=== PATIENT | male | born 1970 | race Caucasian/White ===

== ENCOUNTER → 2018-05-19 11:11 | Outpatient (REF) | payer OTHER, SELFPAY ==
[2018-05-22 13:34] LABS: 6-monoacetylmorphine Not Detected ng/mL (Cutoff: 25); Amphetamines Negative ng/mL (Cutoff: 500); Barbiturates Negative ng/mL (Cutoff: 200); Benzodiazepines Negative ng/mL (Cutoff: 100); Buprenorphine Not Detected ng/mL (Cutoff: 5); Cocaine Negative ng/mL (Cutoff: 150); Codeine Not Detected ng/mL (Cutoff: 25); Comment Normal; Creatinine, U 193.6 mg/dL; Dihydrocodeine Not Detected ng/mL (Cutoff: 25); EDDP Not Detected ng/mL (Cutoff: 25); Fentanyl Not Detected ng/mL (Cutoff: 2); Hydrocodone Not Detected ng/mL (Cutoff: 25); Hydromorphone Not Detected ng/mL (Cutoff: 25); Hydromorphone-3-beta-glucuroni Not Detected ng/mL (Cutoff: 100); Meperidine Not Detected ng/mL (Cutoff: 25); Methadone Not Detected ng/mL (Cutoff: 25); Morphine Not Detected ng/mL (Cutoff: 25); N-desmethyltapentadol Not Detected ng/mL (Cutoff: 50); Naloxone Not Detected ng/mL (Cutoff: 25); Norbuprenorphine Not Detected ng/mL (Cutoff: 5); Norfentanyl Not Detected ng/mL (Cutoff: 2); Norhydrocodone Not Detected ng/mL (Cutoff: 25); Normeperidine Not Detected ng/mL (Cutoff: 25); Noroxycodone Not Detected ng/mL (Cutoff: 25); Noroxymorphone Not Detected ng/mL (Cutoff: 25); O-desmethyltramadol Not Detected ng/mL (Cutoff: 25); Phencyclidine Negative ng/mL (Cutoff: 25); Propoxyphene Not Detected ng/mL (Cutoff: 25); Specific Gravity 1.016; Tapentadol Not Detected ng/mL (Cutoff: 25); Tetrahydrocannabinol Presumptive Positive ng/mL (Cutoff: 50); Tramadol Not Detected ng/mL (Cutoff: 25); pH 5.8
[2018-05-22 15:28] LABS: Carboxy-THC Interpretation Positive.; Delta-9 CarboxyThc by LC-MS/MS 346 ng/mL (Cutoff:<3)
== END ==
LOC: LBN 11:11
PROVIDERS: PCP Family Medicine; Visit Provider Nurse Practitioner Family
DX: Z79.899 Other long term (current) drug therapy (principal); F12.20 Cannabis dependence, uncomplicated
CPT/HCPCS: 80307; 80349; 80364

== ENCOUNTER 2018-06-04 13:09 | Outpatient (CLI) | payer OTHER, SELFPAY ==
[2018-06-04 13:50] LABS: INR 3.7 (1.0-3.5); Prothrombin Time 34.8 sec (9.3-10.8)
== END 2018-06-04 13:10 ==
PROVIDERS: PCP Family Medicine; Visit Provider Family Medicine
DX: I26.99 Other pulmonary embolism without acute cor pulmonale (principal); Z79.01 Long term (current) use of anticoagulants
CPT/HCPCS: 36415; 85610

== ENCOUNTER 2018-06-12 13:59 | Outpatient (CLI) | payer OTHER, SELFPAY ==
[2018-06-12 14:43] LABS: INR 1.4 (1.0-3.5); Prothrombin Time 13.6 sec (9.3-10.8)
== END 2018-06-12 14:19 ==
PROVIDERS: PCP Family Medicine; Visit Provider Family Medicine
DX: I26.99 Other pulmonary embolism without acute cor pulmonale (principal); Z79.01 Long term (current) use of anticoagulants
CPT/HCPCS: 36415; 85610

== ENCOUNTER 2018-06-19 14:19 | Outpatient (CLI) | payer OTHER, SELFPAY ==
[2018-06-19 14:42] LABS: INR 1.5 (1.0-3.5); Prothrombin Time 14.7 sec (9.3-10.8)
== END 2018-06-19 14:39 ==
PROVIDERS: PCP Family Medicine; Visit Provider Family Medicine
DX: I26.99 Other pulmonary embolism without acute cor pulmonale (principal); Z79.01 Long term (current) use of anticoagulants
CPT/HCPCS: 36415; 85610

== ENCOUNTER 2018-06-29 13:54 | Outpatient (CLI) | payer OTHER, SELFPAY ==
[2018-06-29 14:33] LABS: Prothrombin Time 24.1 sec (9.3-10.8)
[2018-06-29 14:35] LABS: INR 2.5 (1.0-3.5)
== END 2018-06-29 14:14 ==
PROVIDERS: PCP Family Medicine; Visit Provider Family Medicine
DX: I26.99 Other pulmonary embolism without acute cor pulmonale (principal); Z79.01 Long term (current) use of anticoagulants
CPT/HCPCS: 36415; 85610

== ENCOUNTER 2018-07-03 13:48 | Outpatient (CLI) | payer OTHER, SELFPAY ==
[2018-07-03 14:38] LABS: INR 2.7 (1.0-3.5); Prothrombin Time 25.9 sec (9.3-10.8)
== END 2018-07-03 14:08 ==
PROVIDERS: PCP Family Medicine; Visit Provider Family Medicine
DX: I26.99 Other pulmonary embolism without acute cor pulmonale (principal); Z79.01 Long term (current) use of anticoagulants
CPT/HCPCS: 36415; 85610

== ENCOUNTER 2018-07-17 13:29 | Outpatient (CLI) | payer OTHER, SELFPAY ==
[2018-07-17 13:58] LABS: INR 3.1 (1.0-3.5); Prothrombin Time 29.2 sec (9.3-10.8)
== END 2018-07-17 13:49 ==
PROVIDERS: PCP Family Medicine; Visit Provider Family Medicine
DX: I26.99 Other pulmonary embolism without acute cor pulmonale (principal); Z79.01 Long term (current) use of anticoagulants
CPT/HCPCS: 36415; 85610

== ENCOUNTER 2018-07-24 13:11 | Outpatient (CLI) | payer OTHER, SELFPAY ==
[2018-07-24 14:14] LABS: Prothrombin Time 24.1 sec (9.3-10.8)
[2018-07-24 14:17] LABS: INR 2.5 (1.0-3.5)
== END 2018-07-24 13:31 ==
PROVIDERS: PCP Family Medicine; Visit Provider Family Medicine
DX: I26.99 Other pulmonary embolism without acute cor pulmonale (principal); Z79.01 Long term (current) use of anticoagulants
CPT/HCPCS: 36415; 85610

== ENCOUNTER 2018-09-08 12:28 | Outpatient (CLI) | payer OTHER, SELFPAY ==
[2018-09-08 12:52] LABS: INR 2.7 (1.0-3.5); Prothrombin Time 25.6 sec (9.3-10.8)
== END 2018-09-08 12:48 ==
PROVIDERS: PCP Family Medicine; Visit Provider Family Medicine
DX: I26.99 Other pulmonary embolism without acute cor pulmonale (principal); Z79.01 Long term (current) use of anticoagulants
CPT/HCPCS: 36415; 85610

== ENCOUNTER 2018-11-10 12:55 | Outpatient (CLI) | payer MEDICARE, OTHER, SELFPAY ==
[2018-11-10 13:55] LABS: Prothrombin Time 12.5 sec (9.3-11.0)
[2018-11-10 14:00] LABS: INR 1.2 (0.9-1.1)
== END 2018-11-10 13:15 ==
PROVIDERS: PCP Family Medicine; Visit Provider Family Medicine
DX: I26.99 Other pulmonary embolism without acute cor pulmonale (principal); Z79.01 Long term (current) use of anticoagulants
CPT/HCPCS: 36415; 85610

== ENCOUNTER 2018-11-24 13:30 | Outpatient (CLI) | payer MEDICARE, OTHER, SELFPAY ==
[2018-11-24 15:10] LABS: INR 2.2 (0.9-1.1); Prothrombin Time 21.8 sec (9.3-11.0)
== END 2018-11-24 13:50 ==
PROVIDERS: PCP Family Medicine; Visit Provider Family Medicine
DX: I26.99 Other pulmonary embolism without acute cor pulmonale (principal); Z79.01 Long term (current) use of anticoagulants
CPT/HCPCS: 36415; 85610

== ENCOUNTER 2019-01-08 10:17 | Outpatient (CLI) | payer OTHER, MEDICARE, SELFPAY ==
[2019-01-08 13:09] LABS: INR 2.1 (0.9-1.1); Prothrombin Time 20.8 sec (9.3-11.0)
== END 2019-01-08 10:37 ==
PROVIDERS: PCP Family Medicine; Visit Provider Family Medicine
DX: I26.99 Other pulmonary embolism without acute cor pulmonale (principal); Z79.01 Long term (current) use of anticoagulants
CPT/HCPCS: 36415; 85610

== ENCOUNTER 2019-03-15 12:39 | Outpatient (CLI) | payer OTHER, MEDICARE, SELFPAY ==
[2019-03-15 13:47] LABS: INR 2.2 (0.9-1.1); Prothrombin Time 21.7 sec (9.3-11.0)
== END 2019-03-15 12:59 ==
PROVIDERS: PCP Family Medicine; Visit Provider Family Medicine
DX: I26.99 Other pulmonary embolism without acute cor pulmonale (principal); Z79.01 Long term (current) use of anticoagulants
CPT/HCPCS: 36415; 85610

== ENCOUNTER → 2019-05-19 10:37 | Outpatient (CLI) | payer OTHER, SELFPAY ==
[2019-05-19 12:36] LABS: INR 2.4 (0.9-1.1); Prothrombin Time 24.3 sec (9.3-11.0)
[2019-05-19 12:39] LABS: CREATININE 1.23 mg/dL (0.70-1.30); Calculated LDL 154 mg/dL; Cholesterol 231 mg/dL (50-200); HDL Cholesterol 29 mg/dL (40-60); Triglyceride 240 mg/dL (30-150)
== END ==
PROVIDERS: PCP Family Medicine; Visit Provider Family Medicine
DX: E78.5 Hyperlipidemia, unspecified (principal); N28.9 Disorder of kidney and ureter, unspecified; I26.99 Other pulmonary embolism without acute cor pulmonale; Z79.01 Long term (current) use of anticoagulants
CPT/HCPCS: 36415; 80061; 83721; 82565; 85610

== ENCOUNTER → 2019-05-24 00:46 | Outpatient (CLI) | payer OTHER, SELFPAY ==
--- NOTE | 2019-05-24 05:38 | MERGEMPI_ITS ---
*[facility]* *[facility]* [address] [place] [address] Myocardial Perfusion Imaging - SPECT Isreal protocol Date of study: 05/24/2019 *PATIENT PRESENTATION* Height: 177.8cm (70in) Blood Pressure: Weight: 143.2kg (315lb) BSA: 2.73m^2 Referring physician: Cayden Ventura MD Ordering physician: Dangelo Ordaz Impressions: Normal perfusion by Tc99m Sestamibi Imaging. Summary: 1. Myocardial perfusion imaging: No myocardial perfusion defects noted. 2. The calculated left ventricular ejection fraction after stress: 50%. Indication: R07.9. History: REASON FOR TESTING: SOB AND FATIGUE ONGOING FOR A FEW MONTHS. RESCUE INHALLER DID HELP AT THE START OF THIS, BUT IS NO LONGER HELPING. OCCASIONAL SHARP LEFT SIDED CHEST PAIN. PATIENT IS C/O NUMBNESS TO ARMS ONLY INTERMITTANTLY. THIS SEEMS TO BE ASSOCIATED WITH INCREASED USE OF ARMS. PMH: CHRONIC BACK PAIN, MIGRAINE,COPD, FATTY LIVER DEPRESSION, GERD, PULMONARY EMBOLUS, HYPERTRIGLYCERIDEMIA, OBESITY, DVT, SLEEP APNEA, SPINAL STENOSIS. [id number] DISEASE. FAMILY HX: MOTHER WITH PACEMAKER AT AGE 19, . SMOKIN PPD X 30 YEARS. EXCERCISE: NO REGULAR EXCERCISE. PMH: COPD. Risk factors: Family history of coronary artery disease. Current tobacco use. Obesity. Dyslipidemia. Cholesterol: 238mg/dl. HDL: 29mg/dl. LDL: 154mg/dl. Triglycerides: 240mg/dl. ALLERGIES: SULFA. MEDICATIONS: WARFARIN 5-15- MG DIRECTED, OMEPRAZOLE 20 MG DAILY, GABAPENTIN 900-1200 MG BID, DULOXETINE 120 MG DAILY, CYCLOBENZAPRINE 10 MG TID NEEDED, BUPROPION HCL 300 MG QAM,AND 150 MG QPM DAILY, BUDESONIDE-FOMOTEROL 1 PUFF BID, ALBUTEROL SULFATE 90 MCG/ACT 1-2 PUFFS Q4H NEEDED. Imaging Technique: Protocol: Isreal protocol. Acquisition: Gated SPECT; 1 day - rest/stress. The patient was imaged in the supine position. Attenuation correction used. Isotope administration: - Rest. Tc[99m]-sestamibi. Dose: 15.3mCi. Injection time: 09:15 AM. Injection to stress time: 00:45. - Stress. Tc[99m]-sestamibi. Dose: 45.7mCi. Injection time: 10:40 AM. 1-2 min before end of exercise Baseline ECG: LAST EKG 01/04/13- SINUS RHYTHM, HR 78. TODAY'S EKG- SINUS RHYTHM, HR 62. Stress protocol: + +---+ +---+ + !Stage !HR !BP (mmHg) !Sat!Comments ! + +---+ +---+ + !Baseline supine !62 !126/82 (97)!---! ! + +---+ +---+ + !Baseline standing !79 !156/84 !94%! ! ! ! !(108) ! ! ! + +---+ +---+ + !Stage I; 1.7mph, 10degrees; 3 !118!160/78 !84%! ! !min ! !(105) ! ! ! + +---+ +---+ + !Baseline !105!160/78 !---! ! ! ! !(105) ! ! ! + +---+ +---+ + !1 min !110!176/52 (93)!---!Inject ! ! ! ! ! !Regadenoson. ! + +---+ +---+ + !3 min !89 !152/80 !---! ! ! ! !(104) ! ! ! + +---+ +---+ + !6 min !80 !140/68 (92)!---! ! + +---+ +---+ + !1 min !---! !---!Inject ! ! ! ! ! !Regadenoson. ! + +---+ +---+ + * Stress results: The rate-pressure product for the peak heart rate and blood pressure was 44185vm Hg/min. Stress ECG: EXCERCISE TESTING ENDED IN 3 MINS, 9 SECS DUE TO O2 SAT OF 84%. PT UNABLE TO ACHIEVE TARGET HR. MAX HR WAS 126, 74% OF TARGET. HYPERTENSIVE BLOOD PRESSURE RESPONSE. METS: 4.92. ECTOPY: NONE NOTED. ANGINA: NO REPORTED CHEST PAIN OR PRESSURE. ISCHEMIA: NO ISCHEMIC CHANGES NOTED. FUNCTIONAL CAPACITY: MILDLY DIMINISHED CAPACITY. TRANSITIONED TO LEXISCAN PROTOCOL. TESTING ENDED IN 6 MIS THE MEDICATION EFFECT NO LONGER PRESENT. MAX HR WAS 110, WITH A HYPERTENSIVE BLOOD PRESSURE RESPONSE. ECTOPY: NONE SEEN. ANGINA: NO REPORTED CHEST PAIN OR PRESSURE. ISCHEMIA: NO ISCHEMIC CHANGES NOTED. Myocardial perfusion: Imaging information: gated. No myocardial perfusion defects noted. Ventricular Function (Wall Motion): The calculated left ventricular ejection fraction after stress: 50%. Study data: Cayden Ventura MD supervised and was readily available during the procedure. This study was interpreted by [facility]. Study status: Routine. Consent: The risks, benefits, and alternatives to the procedure were explained to the patient and informed consent was obtained. Procedure: Initial setup. A baseline ECG was recorded. Surface ECG leads and manual cuff blood pressure measurements were monitored. Heart sounds: Normal. Lung sounds: Normal. Treadmill exercise testing was performed using the Isreal protocol. Study completion: All catheters inserted during the procedure were removed. The patient tolerated the procedure well and was discharged from the lab. Discharge: The patient left the laboratory in stable condition. Birthdate: Patient birthdate: 1970. Sex: Gender: male. Study date: Study date: 05/24/2019. Study time: 00:01 AM. Electronically signed by Cayden Ventura MD 05/24/2019 17:33
[2019-05-24] MEDS: Regadenoson 0.4 MG/5 ML SYR IVP (11:48)
== END ==
PROVIDERS: PCP Family Medicine; Visit Provider Family Medicine
DX: R07.9 Chest pain, unspecified (principal); R06.02 Shortness of breath; R53.83 Other fatigue; J44.9 Chronic obstructive pulmonary disease, unspecified; F17.200 Nicotine dependence, unspecified, uncomplicated; Z82.49 Family history of ischemic heart disease and other diseases of the circulatory system; E78.1 Pure hyperglyceridemia
CPT/HCPCS: 78452; 93017; J2785

== ENCOUNTER 2019-07-14 13:54 | Outpatient (CLI) | payer OTHER, SELFPAY ==
[2019-07-14 14:28] LABS: INR 1.9 (0.9-1.1); Prothrombin Time 19.2 sec (9.3-11.0)
== END 2019-07-14 14:14 ==
PROVIDERS: PCP Family Medicine; Visit Provider Family Medicine
DX: I26.99 Other pulmonary embolism without acute cor pulmonale (principal); Z79.01 Long term (current) use of anticoagulants
CPT/HCPCS: 36415; 85610

== ENCOUNTER 2019-07-14 16:39 | Outpatient (REF) | payer OTHER, SELFPAY ==
[2019-07-22 14:18] LABS: 6-monoacetylmorphine Not Detected ng/mL (Cutoff: 25); Amphetamines Negative ng/mL (Cutoff: 500); Barbiturates Negative ng/mL (Cutoff: 200); Benzodiazepines Negative ng/mL (Cutoff: 100); Buprenorphine Not Detected ng/mL (Cutoff: 5); Cocaine Negative ng/mL (Cutoff: 150); Codeine Not Detected ng/mL (Cutoff: 25); Comment Normal; Creatinine, U 134.9 mg/dL; Dihydrocodeine Not Detected ng/mL (Cutoff: 25); EDDP Not Detected ng/mL (Cutoff: 25); Fentanyl Not Detected ng/mL (Cutoff: 2); Hydrocodone Not Detected ng/mL (Cutoff: 25); Hydromorphone Not Detected ng/mL (Cutoff: 25); Hydromorphone-3-beta-glucuroni Not Detected ng/mL (Cutoff: 100); Meperidine Not Detected ng/mL (Cutoff: 25); Methadone Not Detected ng/mL (Cutoff: 25); Morphine Not Detected ng/mL (Cutoff: 25); N-desmethyltapentadol Not Detected ng/mL (Cutoff: 50); Naloxone Not Detected ng/mL (Cutoff: 25); Norbuprenorphine Not Detected ng/mL (Cutoff: 5); Norfentanyl Not Detected ng/mL (Cutoff: 2); Norhydrocodone Not Detected ng/mL (Cutoff: 25); Normeperidine Not Detected ng/mL (Cutoff: 25); Noroxycodone Not Detected ng/mL (Cutoff: 25); Noroxymorphone Not Detected ng/mL (Cutoff: 25); O-desmethyltramadol Not Detected ng/mL (Cutoff: 25); Phencyclidine Negative ng/mL (Cutoff: 25); Propoxyphene Not Detected ng/mL (Cutoff: 25); Specific Gravity 1.012; Tapentadol Not Detected ng/mL (Cutoff: 25); Tetrahydrocannabinol Presumptive Positive ng/mL (Cutoff: 50); Tramadol Not Detected ng/mL (Cutoff: 25); pH 5.2
[2019-07-22 14:57] LABS: Carboxy-THC Interpretation Positive.; Delta-9 CarboxyThc by LC-MS/MS 198 ng/mL (Cutoff:<3)
== END 2019-07-14 16:59 ==
LOC: LBN 16:39
PROVIDERS: PCP Family Medicine; Visit Provider Nurse Practitioner Family
DX: G89.29 Other chronic pain (principal); F12.20 Cannabis dependence, uncomplicated
CPT/HCPCS: 80307; 80349; 80364

== ENCOUNTER 2019-08-20 10:22 | Outpatient (CLI) | payer OTHER, SELFPAY ==
[2019-08-20 10:55] LABS: INR 2.1 (0.9-1.1)
== END 2019-08-20 10:42 ==
PROVIDERS: PCP Family Medicine; Visit Provider Family Medicine
DX: I26.99 Other pulmonary embolism without acute cor pulmonale (principal); Z79.01 Long term (current) use of anticoagulants
CPT/HCPCS: 36415; 85610

== ENCOUNTER 2019-09-10 10:44 | Day surgery (SDC) | payer OTHER, SELFPAY ==
[2019-09-10 11:14] VITALS: BP 124/69; PULSE 68; RESP 16; TEMP 35.9; O2SAT 96
[2019-09-10] MEDS: Lactated Ringers 1,000 ML 80 ML IV (11:38)
--- NOTE | 2019-09-10 11:41 | W.PM.DSUDISC ---
Discharge Plan Disposition Patient Disposition: HOME Condition: Good Discharge Details Reason For Visit: Colonoscopy Attending Provider: Tavia Posadas Primary Care Provider: Dangelo Ordaz Home Meds and New Rx's Prescriptions: Continued Symbicort 160-4.5 mcg/actuation HFA aerosol inhaler 1 puff Inhalation BID Qty: 6 RF: 11 cyclobenzaprine 10 mg tablet 10 mg PO TID PRN (Reason: muscle spasm) Qty: 30 RF: 0 Shingrix Adjuvant Component-PF Suspension 0.5 ml IM DAILY Qty: 0.5 RF: 1 bupropion HCl [Wellbutrin SR] 150 mg tablet sustained-release 12 hr 150 mg PO .q pm Qty: 90 RF: 3 bupropion HCl 300 mg tablet extended release 24 hr 300 mg PO QAM Qty: 90 RF: 3 omeprazole 20 mg capsule,delayed release(DR/EC) 20 mg PO DAILY Qty: 90 RF: 3 warfarin 5 mg tablet 5 - 15 mg PO DIRECTED Qty: 90 RF: 5 albuterol sulfate [ProAir HFA] 90 mcg/actuation HFA aerosol inhaler 1 - 2 puff Inhalation Q4H PRN Qty: 2 RF: 5 gabapentin 600 mg tablet 900 - 1,200 mg PO BID RF: 0 duloxetine 60 mg capsule,delayed release(DR/EC) 120 mg PO DAILY Qty: 60 RF: 11 bacitracin 28.4 GM ointment 14 gm Topical BID 10 Days Qty: 1 RF: 0 Discontinued bisacodyl [Dulcolax (bisacodyl)] 5 mg tablet,delayed release (DR/EC) 5 mg PO ONCE Qty: 4 RF: 0 polyethylene glycol 3350 17 gram/dose powder 238 g PO ONCE Qty: 238 RF: 0 Discharge Instructions Additional Instructions: Findings: Your colonoscopy was normal. Follow up: Plan for routine screening in 10 years. Please call if you develop: fevers >101.5 Nausea or Vomiting Abdominal pain that is not transient DAY SURGERY UNIT POST COLONOSCOPY INSTRUCTIONS 1. Because there will be medication in your system for the next 24 hours, you may feel a little sleepy. Your coordination will be affected. Therefore: a. Do not drive or operate dangerous equipment for 24 hours. b. Do not drink alcohol beverages for 24 hours (not even beer). c. Plan to go home and rest for the day. 2. Generally there are no restrictions on your activity after a day or so has gone by, but you may feel a bit fatigued for a few days. 3 After you arrive home you may have a light meal and return to a normal diet as you can tolerate it without feeling sick to your stomach. 4. After surgery, you may feel pain or discomfort. This should be only transient, but if it persists please contact your doctor. 5. If there are any questions regarding the findings of your procedure, please feel free to contact your doctor. 6. If you are unable to contact your doctor with a problem, contact the hospital at [phone]. 7. Continue all your regular medications unless directed otherwise. I understand the above instructions and have no questions. Signature of Patient or Responsible Adult Escort Date/Time Name of Responsible Adult Escort Signature of Nurse Date/Time Activity:: Activity as Tolerated Diet:: As Tolerated Discharge Orders Discharge Orders: Discharge Order (Routine); Ordered 09/10/19 Ordered By: Tavia Posadas DS: Diagnosis Discharge Diagnosis (1) Normal colonoscopy: Status: Acute
[2019-09-10 12:53] VITALS: BP 115/64; PULSE 65; RESP 16; TEMP 36.6; O2SAT 94
--- NOTE | 2019-09-10 12:58 | COLE_ITS ---
DATE OF PROCEDURE: September 10, 2019 PREOPERATIVE DIAGNOSIS: Change in bowel habits. POSTOPERATIVE DIAGNOSIS: Normal colon. PROCEDURE: Colonoscopy. SURGEON: Tavia Posadas M.D. ANESTHESIA: General. INDICATIONS: This is a 49-year-old man who notes increased diarrhea, as well as pain and discomfort with bowel movements. His last colonoscopy was in 2012 and was normal. He has no family history of colon cancer. PROCEDURE: He was placed in the left Santos position. Propofol was titrated to sedation. Digital rec rosina examination revealed no abnormalities. The scope was advanced to the cecum without difficulty. The ileocecal valve was briefly intubated and appeared normal. His prep was excellent. The scope wa s slowly withdrawn with no abnormalities seen within the ascending, transverse, descending, sigmoid c olon or rectum, including on retroflex view. He tolerated the procedure well and [facility]. He will need a follow-up screening again in ten years, or sooner if symptoms indicate. cc: Dangelo Ordaz M.D.
== END 2019-09-10 13:20 | disposition home or self-care (01) ==
PROVIDERS: PCP Family Medicine; Visit Provider Surgery
PROC: 0DJD8ZZ Inspection of Lower Intestinal Tract, Via Natural or Artificial Opening Endoscopic (ICD-10-PCS; CPT 45378; principal; 2019-09-10 11:45)
DX: R19.4 Change in bowel habit (principal); G47.33 Obstructive sleep apnea (adult) (pediatric)
CPT/HCPCS: 45378

== ENCOUNTER 2019-10-11 10:12 | Outpatient (CLI) | payer OTHER, MEDICARE, SELFPAY ==
[2019-10-11 10:59] LABS: INR 2.1 (0.9-1.1); Prothrombin Time 20.6 sec (9.3-11.0)
== END 2019-10-11 10:32 ==
PROVIDERS: PCP Family Medicine; Visit Provider Family Medicine
DX: I26.99 Other pulmonary embolism without acute cor pulmonale (principal); Z79.01 Long term (current) use of anticoagulants
CPT/HCPCS: 36415; 85610

== ENCOUNTER 2019-11-15 08:29 | Outpatient (CLI) | payer OTHER, MEDICARE, SELFPAY ==
[2019-11-15 09:23] LABS: INR 2.3 (0.9-1.1); Prothrombin Time 22.6 sec (9.3-11.0)
== END 2019-11-15 08:49 ==
PROVIDERS: PCP Family Medicine; Visit Provider Family Medicine
DX: I26.99 Other pulmonary embolism without acute cor pulmonale (principal); Z79.01 Long term (current) use of anticoagulants
CPT/HCPCS: 36415; 85610

== ENCOUNTER 2020-05-10 12:42 | Outpatient (REF) | payer OTHER, SELFPAY ==
[2020-05-10 14:55] LABS: INR 2.4 (0.9-1.1); Prothrombin Time 23.9 sec (9.3-11.0)
== END 2020-05-10 13:02 ==
LOC: LBN 12:42
PROVIDERS: PCP Family Medicine; Visit Provider Family Medicine
DX: Z86.718 Personal history of other venous thrombosis and embolism (principal)
CPT/HCPCS: 85610

== ENCOUNTER → 2020-07-21 10:22 | Outpatient (CLI) | payer OTHER, SELFPAY ==
[2020-07-21 12:49] LABS: Prothrombin Time 24.1 sec (9.3-11.0)
[2020-07-21 12:50] LABS: CREATININE 1.11 mg/dL (0.70-1.30); Calculated LDL 120 mg/dL (<100); Cholesterol 200 mg/dL (<200); HDL Cholesterol 29 mg/dL (40-60); INR 2.4 (0.9-1.1); Triglyceride 258 mg/dL (<150)
== END ==
PROVIDERS: PCP Family Medicine; Visit Provider Family Medicine
DX: E78.5 Hyperlipidemia, unspecified (principal); K76.0 Fatty (change of) liver, not elsewhere classified; I26.99 Other pulmonary embolism without acute cor pulmonale; Z79.01 Long term (current) use of anticoagulants
CPT/HCPCS: 36415; 80061; 82565; 85610

== ENCOUNTER → 2020-07-24 01:20 | Outpatient (CLI) | payer OTHER, SELFPAY ==
--- NOTE | 2020-07-24 06:30 | DI.RAD_ITS ---
EXAM: XR LUMBAR SPINE COMPLETE CLINICAL HISTORY: ACUTE BILAT low back pain,M54.5. TECHNIQUE: 2D digital imaging was performed. COMPARISON: CT CHEST FOR PULMONARY EMBOLUS from 02/16/2018 FINDINGS: BONES: No fracture or destructive lesion. Vertebral bodies are unremarkable. There are small endplat e osteophytes. Mild facet hypertrophy identified at the lower lumbar levels.. There are degenerativ e changes of both lower SI joints. DISKS: There is mild narrowing of the L4-5 and L5-S1 disc spaces. The remaining intervertebral disc spaces are maintained. ALIGNMENT: Lumbar spinal alignment is within normal limits. SOFT TISSUE: Right upper quadrant surgical clips. IMPRESSION: Mild degenerative changes at L4-5 and L5-S1. Degenerative changes of the SI joints. DATA REPOSITORY: RADIATION DOSE DELIVERED:
== END ==
PROVIDERS: PCP Family Medicine; Visit Provider Family Medicine
DX: M47.816 Spondylosis without myelopathy or radiculopathy, lumbar region (principal); M54.5 Low back pain; M47.817 Spondylosis without myelopathy or radiculopathy, lumbosacral region; M46.1 Sacroiliitis, not elsewhere classified
CPT/HCPCS: 72110

== ENCOUNTER → 2020-09-19 03:33 | Outpatient (CLI) | payer OTHER, SELFPAY ==
[2020-09-19 12:47] LABS: INR 2.3 (0.9-1.1); Prothrombin Time 22.8 sec (9.3-11.0)
== END ==
PROVIDERS: PCP Family Medicine; Visit Provider Family Medicine
DX: I26.99 Other pulmonary embolism without acute cor pulmonale (principal); Z79.01 Long term (current) use of anticoagulants
CPT/HCPCS: 36415; 85610

== ENCOUNTER 2021-01-23 08:56 | Outpatient (CLI) | payer OTHER, SELFPAY ==
[2021-01-23 12:55] LABS: INR 2.9 (0.9-1.1); Prothrombin Time 28.4 sec (9.3-11.0)
[2021-01-23 17:52] LABS: PSA, Screening 0.5 ng/mL (0.0-3.5)
== END 2021-01-23 08:57 | disposition home or self-care (01) ==
LOC: LOS 08:56
PROVIDERS: PCP Family Medicine; Referring Provider Family Medicine; Visit Provider Family Medicine
DX: I26.99 Other pulmonary embolism without acute cor pulmonale (principal); Z79.01 Long term (current) use of anticoagulants; Z12.5 Encounter for screening for malignant neoplasm of prostate
CPT/HCPCS: 36415; 84153; 85610

== ENCOUNTER 2021-06-05 03:41 | Outpatient (CLI) | payer OTHER, SELFPAY ==
[2021-06-05 10:11] LABS: INR 1.6 (0.9-1.1); Prothrombin Time 15.5 sec (9.3-11.0)
== END 2021-06-05 03:42 | disposition home or self-care (01) ==
LOC: LBO 03:41
PROVIDERS: PCP Family Medicine; Visit Provider Family Medicine
DX: I26.99 Other pulmonary embolism without acute cor pulmonale (principal); Z79.01 Long term (current) use of anticoagulants
CPT/HCPCS: 36415; 85610

== ENCOUNTER 2021-07-18 04:16 | Outpatient (CLI) | payer OTHER, SELFPAY ==
[2021-07-18 09:37] LABS: INR 2.8 (0.9-1.1); Prothrombin Time 27.5 sec (9.3-11.0)
== END 2021-07-18 04:17 | disposition home or self-care (01) ==
LOC: LBO 04:16
PROVIDERS: PCP Family Medicine; Visit Provider Family Medicine
DX: Z51.81 Encounter for therapeutic drug level monitoring (principal)
CPT/HCPCS: 36415; 85610

== ENCOUNTER 2021-07-26 01:39 | Outpatient (CLI) | payer OTHER, SELFPAY ==
--- NOTE | 2021-07-26 09:17 | DI.RAD_ITS ---
Exam(s) XR CHEST 2V PA LATERAL EXAM: XR CHEST 2V PA LATERAL CLINICAL HISTORY: hemoptysis X 1; smoker,R04.2. TECHNIQUE: 2D digital imaging was performed. COMPARISON: CR RIGHT SHOULDER COMPLETE from 12/18/2016 FINDINGS: Heart size is normal. The mediastinum is not widened. Lungs are clear. No infiltrates nor pleural effusions. Clarity fusion plate in the lower cervical spine IMPRESSION: No acute pulmonary findings. DATA REPOSITORY: RADIATION DOSE DELIVERED:
== END 2021-07-26 01:59 ==
LOC: DI 01:39
PROVIDERS: PCP Family Medicine; Visit Provider Family Medicine
DX: R04.2 Hemoptysis (principal); Z72.0 Tobacco use
CPT/HCPCS: 71046

== ENCOUNTER 2021-11-14 01:41 | Outpatient (CLI) | payer OTHER, SELFPAY ==
[2021-11-14 14:28] LABS: INR 2.3 (0.9-1.1); Prothrombin Time 22.9 sec (9.3-11.0)
== END 2021-11-14 01:42 | disposition home or self-care (01) ==
LOC: LBO 01:41
PROVIDERS: PCP Family Medicine; Visit Provider Family Medicine
DX: I26.99 Other pulmonary embolism without acute cor pulmonale (principal); Z79.01 Long term (current) use of anticoagulants
CPT/HCPCS: 36415; 85610

== ENCOUNTER 2021-11-14 14:01 | Outpatient (REF) | payer OTHER, SELFPAY | END 2021-11-14 14:02 | disposition home or self-care (01) | LOC: LBN 14:01 | PROVIDERS: PCP Family Medicine; Visit Provider Family Medicine ==

== ENCOUNTER 2022-02-20 02:37 | Outpatient (CLI) | payer OTHER, SELFPAY ==
[2022-02-20 13:00] LABS: INR 2.3 (0.9-1.1); Prothrombin Time 22.4 sec (9.3-11.0)
== END 2022-02-20 02:38 | disposition home or self-care (01) ==
LOC: LOS 02:39
PROVIDERS: PCP Family Medicine; Visit Provider Family Medicine
DX: D68.51 Activated protein C resistance (principal); I26.99 Other pulmonary embolism without acute cor pulmonale; Z79.01 Long term (current) use of anticoagulants
CPT/HCPCS: 36415; 85610

== ENCOUNTER 2022-03-25 14:03 | Emergency (ER) | payer OTHER, SELFPAY ==
[2022-03-25 14:07] VITALS: BP 161/78; PULSE 94; RESP 18; TEMP 36.4; O2SAT 99
--- NOTE | 2022-03-25 14:29 | W.ED.GENAD ---
Discharge Plan Disposition Patient Disposition: HOME Condition: Stable Discharge Details Clinical Impression: Leg injury Primary Care Provider: Dangelo Ordaz ED Provider: Micaela Sparks Home Meds and New Rx's Prescriptions: New oxycodone 5 mg capsule 5 mg PO BID PRN (Reason: pain) Qty: 6 0RF Continued cyclobenzaprine 10 mg tablet 10 mg PO TID PRN (Reason: muscle spasm) Qty: 30 0RF Shingrix Adjuvant Component-PF Suspension 0.5 ml IM DAILY Qty: 0.5 1RF Label Comments: pt has not had due to low Rx Instructions: given 2nd dose 2-6 months after first omeprazole 20 mg capsule,delayed release(DR/EC) 20 mg PO DAILY PRN (Reason: dyspepsia) Qty: 90 3RF budesonide-formoterol [Symbicort] 160-4.5 mcg/actuation HFA aerosol inhaler 1 puff Inhalation BID Qty: 6 11RF duloxetine 60 mg capsule,delayed release(DR/EC) 120 mg PO DAILY Qty: 60 11RF albuterol sulfate [ProAir HFA] 90 mcg/actuation HFA aerosol inhaler 1 - 2 puff Inhalation Q4H PRN Qty: 2 5RF warfarin 5 mg tablet 5 - 15 mg PO DIRECTED Qty: 90 11RF Protocol: Dose Management Condition: Friday Dose/Route: 7.5 mg Instruction: 1.5 x 5 mg tablets Condition: Friday Dose/Route: 10 mg Instruction: 2 x 5 mg tablets Condition: Friday Dose/Route: 7.5 mg Instruction: 1.5 x 5 mg tablets Condition: Friday Dose/Route: 10 mg Instruction: 2 x 5 mg tablets Condition: Dose/Route: 10 mg Instruction: 2 x 5 mg tablets Condition: Friday Dose/Route: 10 mg Instruction: 2 x 5 mg tablets Condition: Friday Dose/Route: 10 mg Instruction: 2 x 5 mg tablets Protocol Text: Adjustment Start Date: Friday03/25/22 INR Value: 2.9 INR Date: 03/25/22 Recheck Date: 04/24/22 Rx Instructions: DOSE BASED ON INR mupirocin calcium 2 % cream 1 applic topical DAILY Qty: 2 0RF nystatin 100,000 unit/gram powder 1 applic topical BID Qty: 60 1RF bupropion HCl 300 mg tablet extended release 24 hr 300 mg PO QAM Qty: 90 3RF Rx Instructions: take with a 150 mg SR (PM) each day gabapentin 600 mg tablet 900 - 1,200 mg PO BID Qty: 105 5RF bupropion HCl 150 mg tablet sustained-release 12 hr 150 mg PO QHS Qty: 90 3RF Rx Instructions: take with 300 mg in AM to equal 450 mg total daily dose Discharge Instructions Instructions: Oxycodone, Rapid Release (By mouth), Contusion in Adults (ED), Hematoma (ED) Additional Instructions: Please return immediately to the emergency department if you develop any new or worsening symptoms, if your condition does not improve as expected, or if you become otherwise concerned. It is extremely important that you call soon as possible to make an appointment to be seen in follow-up for this visit by your primary care doctor and orthopedics as we discussed. Please do not take oxycodone and drive, operate heavy machinery, or make important decisions. Please do not take oxycodone within 6 hours of drinking alcohol, taking Benadryl, or taking any other sedating drugs or medications. Referrals: Mario Napier MD [ [facility] STAFF PHYSICIAN] - Dangelo Ordaz MD [Primary Care Provider] - Discharge Data Discharge Date/Time-TO BE ENTERED AT DEPARTURE: 03/25/22 17:18 Medical Decision Making Paul Bradley is a 51 y/o man with a h/o PE in the past on coumadin, COPD, depression, HLD presenting to the emergency department with leg pain. Pt reports that two days ago he was working on a deck when he stepped backwards and stepped off the deck (approximate 1 foot drop) and fell, landing on his right thigh/buttock. Did not his hit head, no LOC. Patient states that he had no injury from fall other than to right hip/buttock/thigh. Patient states that he has been walking since injury, there was significant pain in his right thigh and hip with weightbearing on the right leg. He states that he has had significant bruising of the anterior, lateral, and posterior right thigh. He reports that he has pain in his right buttock with sitting. He reports that he has a sensation of numbness in the area of bruising, no numbness of the distal thigh or right lower leg. He denies any weakness. He denies any other pain, cough, shortness of breath, vomiting, diarrhea, rash. Has been eating and drinking without issue. On exam patient is well and nontoxic-appearing. He is able to ambulate slowly without assistance. There is a large area of ecchymosis over the right proximal anterior lateral and posterior thigh. Concern for hematoma, possible pelvic fracture, hip fracture, other. Doubt quadriceps rupture. Exam/history at this time is not consistent with hamstring rupture, compartment syndrome, DVT, acute emergent spine pathology, acute emergent intra-abdominal pathology. Plan for CBC, INR, x-rays. Will monitor and reassess. Labs reviewed, Hgb 13, WBC 9.14, Plts 321, INR 2.9. Xrays negative. Suspect hematoma. Plan for d/c to home with outpt f/u with PCP, ortho. Pt was offered crutches, but states he has a cane he can use at home. He requests additional pain medication as tylenol is not improving pain at home, cannot take ibuprofen. He states he has been on oxycodone in the past without issue. Plan for short Rx oxycodone for breakthrough pain; I had a discussion with Pt re: safe opiate use, Pt verbalized understanding and was amenable. I had a discussion with Patient regarding return to emergency department precautions, home care, and importance of outpatient follow-up. Pt verbalizes understanding of the plan and is amenable. Patient discharged to home with clear plan for outpatient follow-up. All questions were answered. Disposition decision was made weighing the risks and benefits of hospitalization versus outpatient treatment, the risk for further decompensation, and the patient's wishes. Medical Records Medical records reviewed: Yes I reviewed the patient's medical records. Imaging Data Radiologic Study: Attestation: I personally reviewed and interpreted this imaging study as follows: Radiologist's impression: EXAM:? XR PELVIS AP and XR femur RT CLINICAL HISTORY: ? trauma, right hip pain.? TECHNIQUE:? 2D digital imaging was performed.? Seven images were obtained. COMPARISON:? No priors for comparison.? FINDINGS: BONES: No acute fracture is present. No bony destructive lesion is seen. JOINTS: No dislocation present. No joint space narrowing is present. SOFT TISSUE: Normal. IMPRESSION: There is no acute fracture or dislocation identified.? Lab Data Lab results reviewed: Yes I reviewed the patient's lab results. Labs: Laboratory Tests Range/Units 03/25/22 03/25/22 15:13 15:13 WBC (4.4-10.8) 10^3/uL 9.14 RBC (4.36-5.78) 10^6/uL 4.37 Hgb (13.5-17.5) g/dL 13.0 L Hct (40.0-50.0) % 39.0 L MCV (80-95) fL 89 MCH (27.0-33.0) pg 29.7 MCHC (32.0-36.0) % 33.3 RDW (11.8-14.1) % 14.6 H Plt Count (130-400) 10^3/uL 321 MPV (8.0-11.0) fL 9.3 Immature Gran % 0.2 Neutrophils % 58.3 Lymphocytes % 29.4 Monocytes % 8.6 Eosinophils % 2.6 Basophils % 0.9 Nucleated RBC % (0.0-0.3) % 0.0 Absolute Neutrophils (1.2-6.7) 10^3/uL 5.32 Absolute Lymphocytes (1.2-3.4) 10^3/uL 2.69 Absolute Monocytes (0.1-0.8) 10^3/uL 0.79 Absolute Eosinophils (0.0-0.7) 10^3/uL 0.24 Absolute Basophils (0.0-0.2) 10^3/uL 0.08 PT (9.3-11.0) sec 27.5 H INR (0.9-1.1) 2.9 H HPI General Mode of arrival: ambulatory. Date/Time Provider Initiated Documentation: 03/25/22 14:29. Limitations to Documentation: no limitations. Information obtained by: patient, family, RN notes reviewed and old records reviewed. HPI Narrative: Paul Bradley is a 51 y/o man with a h/o PE in the past on coumadin, COPD, depression, HLD presenting to the emergency department with leg pain. Pt reports that two days ago he was working on a deck when he stepped backwards and stepped off the deck (approximate 1 foot drop) and fell, landing on his right thigh/buttock. Did not his hit head, no LOC. Patient states that he had no injury from fall other than to right hip/buttock/thigh. Patient states that he has been walking since injury, there was significant pain in his right thigh and hip with weightbearing on the right leg. He states that he has had significant bruising of the anterior, lateral, and posterior right thigh. He reports that he has pain in his right buttock with sitting. He reports that he has a sensation of numbness in the area of bruising, no numbness of the distal thigh or right lower leg. He denies any weakness. He denies any other pain, cough, shortness of breath, vomiting, diarrhea, rash. Has been eating and drinking without issue. Related Data Home Medications Medication Instructions Recorded Confirmed cyclobenzaprine 10 mg tablet 10 mg PO TID PRN muscle spasm #30 05/18/19 03/25/22 tabs adjuvant AS01B (PF)vial 1 of 2 0.5 ml IM DAILY #0.5 mL 08/24/19 06/14/21 (Shingrix Adjuvant Component (PF) intramuscular suspension) omeprazole 20 mg capsule,delayed 20 mg PO DAILY PRN dyspepsia #90 01/23/21 03/25/22 release tab-caps mupirocin calcium 2 % topical cream 1 applic topical DAILY #2 grams 06/14/21 06/14/21 albuterol sulfate 90 mcg/actuation 1 - 2 puff inhalation Q4H PRN ##2 07/24/21 03/25/22 aerosol inhaler (ProAir HFA) warfarin 5 mg tablet 5 - 15 mg PO DIRECTED #90 07/24/21 03/25/22 tab-caps nystatin 100,000 unit/gram topical 1 applic topical BID #60 grams 07/30/21 powder bupropion HCl 300 mg 24 hr tablet, 300 mg PO QAM #90 tabs 08/30/21 03/25/22 extended release gabapentin 600 mg tablet 900 - 1,200 mg PO BID back pain 01/15/22 03/25/22 #105 tabs budesonide-formoterol HFA 160 1 puff inhalation BID #6 grams 03/07/22 03/25/22 mcg-4.5 mcg/actuation aerosol inhaler (Symbicort) duloxetine 60 mg capsule,delayed 120 mg PO DAILY #60 tab-caps 03/07/22 03/25/22 release bupropion HCl 150 mg tablet,12 hr 150 mg PO QHS #90 tabs 03/18/22 03/25/22 sustained-release oxycodone 5 mg capsule 5 mg PO BID PRN pain #6 caps 03/25/22 Previous Rx's Medication Instructions Recorded cyclobenzaprine 10 mg tablet 10 mg PO TID PRN muscle spasm #30 05/18/19 tabs adjuvant AS01B (PF)vial 1 of 2 0.5 ml IM DAILY #0.5 mL 08/24/19 (Shingrix Adjuvant Component (PF) intramuscular suspension) omeprazole 20 mg capsule,delayed 20 mg PO DAILY PRN dyspepsia #90 01/23/21 release tab-caps mupirocin calcium 2 % topical cream 1 applic topical DAILY #2 grams 06/14/21 albuterol sulfate 90 mcg/actuation 1 - 2 puff inhalation Q4H PRN ##2 07/24/21 aerosol inhaler (ProAir HFA) warfarin 5 mg tablet 5 - 15 mg PO DIRECTED #90 07/24/21 tab-caps nystatin 100,000 unit/gram topical 1 applic topical BID #60 grams 07/30/21 powder bupropion HCl 300 mg 24 hr tablet, 300 mg PO QAM #90 tabs 08/30/21 extended release gabapentin 600 mg tablet 900 - 1,200 mg PO BID back pain 01/15/22 #105 tabs budesonide-formoterol HFA 160 1 puff inhalation BID #6 grams 03/07/22 mcg-4.5 mcg/actuation aerosol inhaler (Symbicort) duloxetine 60 mg capsule,delayed 120 mg PO DAILY #60 tab-caps 03/07/22 release bupropion HCl 150 mg tablet,12 hr 150 mg PO QHS #90 tabs 03/18/22 sustained-release oxycodone 5 mg capsule 5 mg PO BID PRN pain #6 caps 03/25/22 Allergies Allergy/AdvReac Type Severity Reaction Status Date / Time Sulfa (Sulfonamide Allergy Intermediate RASH Verified 03/25/22 14:14 Antibiotics) General Stated Complaint: Orthopedic ARPIT: 3 Review of Systems Narrative: Constitutional: denies fevers Eyes: denies eye pain ENT: denies ear pain, dental pain, sore throat Cardiovascular: denies chest pain, edema Respiratory: denies SOB, cough GI: denies abdominal pain, vomiting, diarrhea : denies flank pain MSK: Reports right hip and thigh pain, denies back pain, neck pain, other arthralgias/myalgias Skin: denies rash, reports bruising of the right thigh Neuro: Reports numbness in areas of bruising, denies headaches, other numbness, weakness PFSH All Active Problems Leg injury (Acute) Bilateral shoulder pain (Acute) Upper back pain (Acute) Hemoptysis (Acute) Umbilical hernia (Acute) Neck pain (Acute) Normal colonoscopy (Acute) Epigastric pain (Active 01/05/13) Cholelithiasis without obstruction (Active 01/05/13) Chronic obstructive lung disease (Active) Gastroesophageal reflux disease (Active) History of - deep vein thrombosis (Active) Chronic pain disorder (Acute 09/21/13) Color vision deficiency (Acute 07/07/13) Depression (Acute 02/24/14) bump up wellbutrin to 450 mg/day Fatty liver (Acute) 2007 Hypertriglyceridemia (Acute 02/24/14) Intervertebral disc disorder of lumbar region with myelopathy (Acute 12/07/12) Gbwe-Cnhyd-Mkfzljt disease (Acute) right hip Lipodermatosclerosis (Acute) B/L LEGS Sleep apnea (Acute 12/07/12) bipap [facility]- SLEEP STUDY 09/29/14 Smoker (Acute 12/07/12) Spinal stenosis in cervical region (Acute 03/09/13) RIGHT CERVICAL DISC HERNIATION S/P ANTERIOR CERVICAL DISECTOMY AND FUSION 07/18 RFA occipital neuralgia Ulcer of right leg (Acute) 06/10/14; DR. ROSS; DEBRIDEMENT Chronic anticoagulation (Chronic) Status post vasectomy (Acute) Status post cholecystectomy (Acute) Status post appendectomy (Acute) History of skin graft (Acute 07/27/14) History of prior ablation treatment (Acute) History of orthopedic surgery (Acute) History of pulmonary embolus (PE) (Acute 07/07/13) Depressive disorder (Acute 07/07/13) Basal cell carcinoma of forehead (Acute 02/24/14) Headache (Chronic) FRANZ (dyspnea on exertion) (Acute) at risk for CAD Bowel habit changes (Acute) BRIGITTE (obstructive sleep apnea) (Chronic) Medical History Chronic low back pain Chronic pain Color vision deficiency COPD (chronic obstructive pulmonary disease) Depression Fatty liver GERD (gastroesophageal reflux disease) Hx of pulmonary embolus Hypertriglyceridemia Increased body mass index Intervertebral disc disorder of lumbar region with myelopathy Uxlp-Iiroc-Orqrqcn disease Lipodermatosclerosis Personal history of DVT (deep vein thrombosis) Sleep apnea Smoker Spinal stenosis in cervical region Ulcer of right leg Surgical History Appendectomy Cholecystectomy (01/05/13) Colonoscopy - IV Sedation (03/19/13) DR. ROSS Hx of fusion of cervical spine c3-c4 Recurrent major depression in partial remission (07/06/13) radiofrequency; to denervate his facet pain. SKIN GRAFT 07/27/14;RIGHT LEG ULCER Vasectomy (~1999) Family History Mother No problems noted. Father No problems noted. Brother No problems noted. Grandfather No problems noted. Grandfather No problems noted. Grandmother No problems noted. Grandmother No problems noted. Social History Smoking/Tobacco Use Status: Current every day Tobacco Type: cigarettes Tobacco: How many years used: 40 Quit status: considering quitting Second Hand Exposure: Yes Smoking risk assessment performed?: Yes Alcohol Intake: current Alcohol Intake frequency: a few times a month Alcohol type: hard liquor Drug use: Occasionally Substance use type: marijuana Details: Will skip a day of marijuana if having difficulty breathing. Adopted: No Caregiver/Support person: No Household members: spouse Housing: house Communication Needs: None Pets and animals: Yes Pets and animals: cat(s) and dog(s) Sexually active: No Do you think of yourself as: straight/heterosexual Current gender identity: male What is your relationship status?: How often do you talk on the phone with friends or family?: never How often do you get together with friends or relatives?: once per week How often do you attend mosque or samaritan services?: decline to answer Do you belong to any clubs or organized social groups?: no Panel score (0-1 are the most socially isolated patients): 1 What type of physical activity do you participate in: none Duration: > 90 minutes/day Frequency: daily Olga/Yarsanism: No preference Seatbelt use: always Helmet use: Yes Helmet use: always Drive intox or ride w/intox 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: No Do you feel safe at home: Yes Do you feel safe in your relationship?: Yes Exam Narrative Exam Narrative: Constitutional: well and abf-ihlrq-drjcirlud, pleasant, conversing normally HENT: head atraumatic/normocephalic/normal inspection, mucous membranes moist Eyes: conjunctiva normal, sclera normal, pupils 3mm b/l Neck: no stridor, normal ROM, trachea midline Resp: normal work of breathing, speaking in full sentences Cardio: normal rate, normal rhythm Back: normal inspection, no rash, no tenderness palpation of the lumbar spine Skin: warm, dry, normal color, no rash Neuro: alert, not altered, grossly non-focal, normal tone Ext: no edema bilateral lower extremities, large area of ecchymosis over the right proximal anterior lateral and posterior thigh. No ecchymosis of the right buttock. No ecchymosis of the medial thigh. Able to range right hip, somewhat weak and limited secondary to pain. Full range of motion of the right knee. DP pulses intact, sensation over the right thigh and lower leg is intact. Right thigh compartments are soft. Difficult to assess quadriceps function secondary to pain, hamstring function is intact. Tenderness to palpation of the right anterior and lateral hip and right buttock. Psych: normal mood, normal affect, normal behavior Course Vital Signs Vital signs: Vital Signs Temperature 36.4 C L 03/25/22 14:07 Pulse 94 H 03/25/22 14:07 Respiratory Rate 18 03/25/22 14:07 Blood Pressure 161/78 H 03/25/22 14:07 Pulse Oximetry 99 03/25/22 14:07 Temperature 36.4 C L 03/25/22 14:07 Temperature Source Skin 03/25/22 14:07 Pulse 94 H 03/25/22 14:07 Respiratory Rate 18 03/25/22 14:07 Respiratory Effort 03/25/22 14:17 Blood Pressure 161/78 H 03/25/22 14:07 Blood Pressure Position Sitting 03/25/22 14:07 Pulse Oximetry 99 03/25/22 14:07 Oxygen Delivery Method Room Air 03/25/22 14:07 Oxygen Flow Rate 0 03/25/22 14:07 Pain Level 8 03/25/22 14:07 Comment 03/25/22 14:07 PAWSS Have you Been Recently Intoxicated or Drunk Within the Last 30 days?: No Have you Ever Experienced Previous Episodes of Alcohol Withdrawal?: No Have you ever Experienced Withdrawal Seizures?: No Have you ever Experienced Delirium Tremens(DT)s?: No Have you ever undergone Alcohol Rehabilitation Treatment (i.e, inpt ot outpatient treatment programs)?: No Have you ever Experienced Blackouts?: No Have you ever Combined Alcohol with other Downers within the last 90 days?: No Have you ever Combined Alcohol with any other Substance of Abuse during the last 90 days?: No Positive Blood Alcohol level on Presentation? [PCS.BAL]: No Evidence of Increased Autonomic Activity (i.e. HR>120, tremor, sweating, agitation, nausea)?: No Result: 0
[2022-03-25 15:26] LABS: Abs Immature Grans 0.02 10^3/uL (0.0-0.06); Absolute Basophil Count 0.08 10^3/uL (0.0-0.2); Absolute Eosinophil Count 0.24 10^3/uL (0.0-0.7); Absolute Lymphocyte Count 2.69 10^3/uL (1.2-3.4); Absolute Monocyte Count 0.79 10^3/uL (0.1-0.8); Absolute Neutrophil Count 5.32 10^3/uL (1.2-6.7); Basophils % 0.9; Eosinophils % 2.6; Immature Grans % 0.2; Lymphocytes % 29.4; MCH 29.7 pg (27.0-33.0); MCHC 33.3 % (32.0-36.0); MCV 89 fL (80-95); MPV 9.3 fL (8.0-11.0); Monocytes % 8.6; Neutrophils % 58.3; Platelet Count 321 10^3/uL (130-400); RBC 4.37 10^6/uL (4.36-5.78); RDW 14.6 % (11.8-14.1); RDW-SD 47.9 fL; WBC 9.14 10^3/uL (4.4-10.8)
[2022-03-25 15:45] LABS: INR 2.9 (0.9-1.1); Prothrombin Time 27.5 sec (9.3-11.0)
--- NOTE | 2022-03-25 15:58 | DI.RAD_ITS ---
Exam(s) XR PELVIS AP XR FEMUR RT EXAM: XR PELVIS AP and XR femur RT CLINICAL HISTORY: trauma, right hip pain. TECHNIQUE: 2D digital imaging was performed. Seven images were obtained. COMPARISON: No priors for comparison. FINDINGS: BONES: No acute fracture is present. No bony destructive lesion is seen. JOINTS: No dislocation present. No joint space narrowing is present. SOFT TISSUE: Normal. IMPRESSION: There is no acute fracture or dislocation identified. DATA REPOSITORY: RADIATION DOSE DELIVERED:
== END 2022-03-25 17:18 | disposition home or self-care (01) ==
PROVIDERS: Emergency Provider Student in an Organized Health Care Education/Training Program; PCP Family Medicine
DX: S79.821A Other specified injuries of right thigh, initial encounter (principal); M25.551 Pain in right hip; W17.89XA Other fall from one level to another, initial encounter
CPT/HCPCS: 36415; 73552; 99284; 72170; 85025; 85610

== ENCOUNTER 2022-04-09 09:29 | Outpatient (CLI) | payer OTHER, SELFPAY ==
--- NOTE | 2022-04-09 08:45 | DI.RAD_ITS ---
Exam(s) XR SHOULDER RT COMPLETE 2+V EXAM: XR SHOULDER RT COMPLETE 2+V CLINICAL HISTORY: RIGHT SHOULDER PAIN. TECHNIQUE: 2D digital imaging was performed. COMPARISON: No exams were available for comparison FINDINGS: Two views No evidence of fracture or dislocation nor abnormal soft tissue calcifications. The subacromial spac e is not diminished. No joint space narrowing. Glenohumeral and AC joints appear unremarkable. Bon e density normal.. No significant osseous lesions. IMPRESSION: No significant radiographic findings DATA REPOSITORY: RADIATION DOSE DELIVERED:
--- NOTE | 2022-04-09 08:45 | DI.RAD_ITS ---
Exam(s) XR SHOULDER LT COMPLETE 2+V EXAM: XR SHOULDER LT COMPLETE 2+V CLINICAL HISTORY: LEFT SHOULDER PAIN. TECHNIQUE: 2D digital imaging was performed. COMPARISON: CR XR SHOULDER RT COMPLETE 2+V from 04/09/2022 FINDINGS: Two views No evidence of fracture or dislocation. No abnormal calcifications. Subacromial space is not dimini shed. There are no obvious degenerative changes in the glenohumeral joint. Bone density normal. No osseous lesions. IMPRESSION: No significant radiographic findings on these two views of the left shoulder. DATA REPOSITORY: RADIATION DOSE DELIVERED:
== END 2022-04-09 09:30 | disposition home or self-care (01) ==
LOC: DIORS 09:29
PROVIDERS: PCP Family Medicine; Referring Provider Family Medicine; Visit Provider Student in an Organized Health Care Education/Training Program
DX: M25.511 Pain in right shoulder (principal); M25.512 Pain in left shoulder
CPT/HCPCS: 73030

== ENCOUNTER 2022-06-07 01:44 | Outpatient (CLI) | payer OTHER, SELFPAY ==
--- OUTSIDE RECORDS SUMMARY | 2022-06-07 01:46 | XMS_ITS | Encounter Summary ---
:1970 [place] [address] Care Team Providers Name Role Phone Jackelin Paniagua Primary Care Provider Encounter Details Date Type Department Care Team Description 07/22/2014 Hospital Encounter Same Day Program at [facility], ANESTHESIA-RAMSEY None Radiculopathy of Boone Martinez MD [facility] [place] [address] [place] [phone] Social History Tobacco Use Types Packs/Day Years Used Date Current Every Day Smoker Cigarettes 1 20 Smokeless Tobacco: Never Used Comments: Contemplation stage but not re cyndee to quit yet Alcohol Use Standard Drinks/Week Comments Yes 2.8 (1 standard drink = 0.6 oz pure alco hol) weekends Alcohol Habits Answer Date Recorded How often do you have a drink containing alcohol? Not asked How many drinks containing alcohol do you have on a typical Not asked day when you are drinking? How often do you have six or more drinks on one occasion? No t asked Comment: weekends 07/21/2014 Sex Assigned at Date Recorded Not on file documented as of this encounter Last Filed Vital Signs Vital Sign Reading Time Taken Comments Blood Pressure 121/44 07/22/2014 5:00 PM EDT Pulse 77 07/22/2014 5:00 PM EDT Temperature 36 ??C (96.8 ??F) 07/22/2014 4:38 PM EDT Respiratory Rate 18 07/22/2014 5:00 PM EDT Oxygen Saturation 93% 07/22/2014 5:00 PM EDT Inhaled Oxygen Concentration - - Weight 149.1 kg (328 lb 12.8 oz) 07/22/2014 1:55 PM EDT Height 177.8 cm (5' 10) 07/22/2014 1:55 PM EDT Body Mass Index 47.18 07/22/2014 1:55 PM EDT documented in this encounter Discharge Instructions Discharge InstructionsKeisha Wright RN - 07/22/2014 5:09 PM EDT POST ANESTHESIA INSTRUCTIONS Go home, rest, use caution on stairs. Change positions slowly. Do not smoke if you are alone. Diet light to regular as tolerated today. If nausea occurs start with clear liquids and progress slowly. No driving, operating machinery, alcoholic beverages and no important decisions for 24 hours. Monitor IV site for signs and symptoms of infection: increasing redness, swelling, foul drainage, ifoccurs contact M.D. Patients who have had endotrachial tubes (this tube, used by anesthesia department, is passed down your throat after you are asleep, to ensure safe air passage during your operation). A sore throat is normal due to the tube. Cold liquids or soothing lozenges will help ease the discomfort. The generalized muscle aches are due to the medication given to you just before the tube is inserted. As the medication wears off, you may develop muscle soreness, which usually goes away in 12-24 hours. documented in this encounter Medications at Time of Discharge Medication Sig Dispensed Refills Start Date End Date LORazepam (ATIVAN) 2 mg Take 2 mg by mouth 0 Tablet every 6 hours as needed. gabapentin (NEURONTIN) Increase to 3600 180 tablet 2 014 600 mg tablet mg/day by increasing by 300 mg/day every 5 days. Do not abruptly stop. acetaminophen (TYLENOL) Take 1,000 mg by 0 500 mg tablet mouth every 6 hours as needed. warfarin (COUMADIN) 5 mg Take 10 mg by mouth 0 tablet daily. albuterol-ipratropium Inhale 2 puffs into 0 (COMBIVENT RESPIMAT) the lungs every 6 20-100 mcg/actuation hours as needed. inhaler LORazepam (ATIVAN) 0.5 0 05/05/2014 mg Tablet ADVAIR DISKUS 250-50 Inhale 1 puff into 0 014 07/31/2018 mcg/dose Disk with the lungs 2 times Device daily. omeprazole (PRILOSEC) 20 0 06/29/2014 09/15/2014 mg Capsule, Delayed Release(E.C.) BUPROPION HCL ORAL Take by mouth. 0 Patient does not remember dose DULoxetine (CYMBALTA) 30 Take 30 mg by mouth 0 09/15/2014 mg capsule daily. Budesonide-Formoterol Inhale into the 0 07/31/2018 160-4.5 mcg/actuation lungs as needed. HFAA documented as of this encounter Miscellaneous Notes Miscellaneous - Provider, Scanning - 07/25/2014 9:29 PM EDT Miscellaneous - Provider, Scanning - 07/22/2014 3:24 PM EDT documented in this encounter Plan of Treatment Not on filedocumented as of this encounter Procedures Procedure Name Priority Date/Time Associated Comments Diagnosis MRI WITH ANESTHESIA 07/22/2014 10:30 PM head, neck, ba ck (WRVU *) EDT injury *workman's comp injury date 11/18/12* MRI CERVICAL SPINE Routine 07/22/2014 4:31 PM Res ults for this WO CONTRAST EDT procedure are i n the results section. documented in this encounter Results MRI cervical spine WO contrast (07/22/2014 4:31 PM EDT) Anatomical Region Laterality Modality C-spine Magnetic Resonance Specimen (Source) Anatomical Collection Method Collection Time Re ceived Time Location / / Volume Laterality 07/22/2014 4:31 PM EDT Narrative 07/22/2014 7:38 PM EDT Examination MR Cspine WO Kamari/ANES Clinical History Cervical MRI s/p C3-6 fusion in 2011, no w with clinic s/s of C7-T1 radiculopathy from work fall in 2012. ?? Post injury MRI is open MRI of poor quality. Pls assess for C7-T1 nerve comp ression or other evidence of nerve or cord compression. Thx, KH pg 2206 Comparison None Technique MRI of the cervical spine was obtained w ithout the use of intravenous contrast. Findings There is been anterior cervical discecto my and fusion at C4-C6. ??Vertebral body heights are normally maintained. ??Marro w signal, outside the areas of metallic artifact, is normal. ?? Within the ventral cervical spinal cord at C5 and there is abnormal T2 prolongation bilaterally and there is can btle cord thinning at this site. At C3-C4 there is posterior ridging by d isc and uncovertebral osteophyte. ??This produces partial effacement of the ventr al subarachnoid space and mild bilateral neural foramen narrowing. At C4-C5 posterior ridging by disc and u ncovertebral osteophyte produces mild left neural foramen narrowing and partia l effacement of the ventral subarachnoid space. At C5-C6 there is minor disc osteophyte producing minor narrowing of the left neural foramen. At C6-C7 there is posterior ridging by d isc and uncovertebral osteophyte producing minor bilateral neural foramen narrowing. At C7-T1 there is no disc herniation or evidence of nerve root impingement. Impression ? 1. Signal abnormality within the ventral spinal cord at the level of C5. The subtle tissue loss at this site make s this most likely to represent myelomalacia. ? 2. No cord compression or more th an mild neural foramen narrowing. No evidence of nerve root impingement at C7 -T1 Procedure Note Miguel Orlando MD - 07/22/2014Format ting of this note might be different from the original. Examination MR Cari WO Kamari/ANES Clinical History Cervical MRI s/p C3-6 fusion in 2011, no w with clinic s/s of C7-T1 radiculopathy from work fall in 2012. Po [address] injury MRI is open MRI of poor quality. Pls assess for C7-T1 nerve comp ression or other evidence of nerve or cord compression. Thx, KH pg 2206 Comparison None Technique MRI of the cervical spine was obtained w ithout the use of intravenous contrast. Findings There is been anterior cervical discecto my and fusion at C4-C6. Vertebral body heights are normally maintained. Marrow signal, outside the areas of metallic artifact, is normal. Within the ventral cervical spinal cord at C5 and there is abnormal T2 prolongation bilaterally and there is can btle cord thinning at this site. At C3-C4 there is posterior ridging by d isc and uncovertebral osteophyte. This produces partial effacement of the ventr al subarachnoid space and mild bilateral neural foramen narrowing. At C4-C5 posterior ridging by disc and u ncovertebral osteophyte produces mild left neural foramen narrowing and partia l effacement of the ventral subarachnoid space. At C5-C6 there is minor disc osteophyte producing minor narrowing of the left neural foramen. At C6-C7 there is posterior ridging by d isc and uncovertebral osteophyte producing minor bilateral neural foramen narrowing. At C7-T1 there is no disc herniation or evidence of nerve root impingement. Impression 1. Signal abnormality within the ventra l spinal cord at the level of C5. The subtle tissue loss at this site make s this most likely to represent myelomalacia. 2. No cord compression or more than mil d neural foramen narrowing. No evidence of nerve root impingement at C7 -T1 Waleska Quintanilla MD IMG MRI ORDERABLES documented in this encounter Visit Diagnoses Diagnosis Radiculopathy of cervical region Brachial neuritis or radiculitis nos documented in this encounter Care Teams Process Inspector Relationship Specialty Start Date End Date Jackelin Paniagua PA PCP - General 07/20/12 01/23/16 documented as of this encounter
--- OUTSIDE RECORDS SUMMARY | 2022-06-07 01:46 | XMS_ITS | Encounter Summary ---
:1970 Author Organization [facility] [place] [address] Care Team Providers Name Role Phone Dangelo Ordaz MD Primary Care Provider [phone] Encounter Details Date Type Department Care Team Description 08/12/2018 Notes Only Pain Management at Alex Lyn MD [facility] [place] [address] [facility] [phone] [place] [id number] (Wo rk) Social History Tobacco Use Types Packs/Day Years [...] on file documented as of this encounter Progress Notes Alex Harris MD - 08/12/2018 12:03 PM EST Urine tox consistent documented in this encounter Plan of Treatment Not on filedocumented as of this encounter Visit Diagnoses Not on filedocumented in this encounter Care Teams 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
--- OUTSIDE RECORDS SUMMARY | 2022-06-07 01:46 | XMS_ITS | Encounter Summary ---
:1970 Author Organization [facility] [place] [address] Care Team Providers Name Role Phone Jackelin Paniagua Primary Care Provider Encounter Details Date Type Department Care Team Description 07/22/2014 Office Visit Psychiatry and Gina Ayalamen t disorder Behavioral Health at [place], PhD with mixed anxiety and [facility] depressed mood [facility] (Primary Dx) [facility] PSYCHIATRY DEPT. [place] [phone] Social History Tobacco Use Types Packs/Day Years [...] documented as of this encounter Progress Notes Gina Ayala, PhD - 07/22/2014 10:51 AM EDT Behavioral Medicine Service Individual Therapy Followup/Cognitive Behavioral Therapy-- 45 minutes Chief Complaint: coping with chronic pain S/O: Mr. Bradley reports that he has been more irritable and anxious. He is not sure what is causing the distress but does have an MRI today and anticipates being fully sedated for the imaging. He reports that he is using the relaxation and pacing. Mr. Bradley states that he applied the problem solving but did not write out the process. The session focused on reviewing coping strategies and discussing frustration with chronic pain. A: 309.28 adjustment disorder with depressed and anxious mood myD-H Psychiatry 07/11/2014 Patient Health Questionnaire Depression 7 (Mild Depression) GAGAN-7 7 (Mild Anxiety) Mental status notable for anxious and sad mood. He reports light sensitivity so the overhead lights are turned off. P: Paul Bradley was strongly encouraged to continue practicing the breathing strategy daily. He was encouraged to continue working on challenging negative thoughts. Mr. Bradley will continue to apply the activity pacing strategies. Over the next week it was agreed that he would apply the problem solving strategies to at least one problem. Next session will focus on review applying problem solving insession. He is scheduled for an MRI today and then will go for surgical consultation. RTC 1 week. documented in this encounter Plan of Treatment Not on filedocumented as of this encounter Visit Diagnoses Diagnosis Adjustment disorder with mixed anxiety a nd depressed mood - Primary documented in this encounter Care Teams Underground Mine Superintendent Relationship Specialty Start Date End Date Jackelin Paniagua PA PCP - General 07/20/12 01/23/16 documented as of this encounter
--- OUTSIDE RECORDS SUMMARY | 2022-06-07 01:46 | XMS_ITS | Encounter Summary ---
:1970 Author Organization [facility] [place] [address] Care Team Providers Name Role Phone Dangelo Ordaz MD Primary Care Provider [phone] Reason for Visit Reason Comments Pain Management Consultation (Routine) - Closed Specialty Diagnoses / Procedures Referred By Contact Refer red To Contact Pain Management Diagnoses Chronic low back pain; unspcified back pain laterality, w/sciatica presence unspecified Dangelo Ordaz, Jeaneth Pain Management MD [address] [place] [phone] Fax: Referral ID Status Reason Start Date Expiration Date Visits V isits Requested Authorized [id number] Closed Consult, 04/10/2018 04/10/2019 1 1 [facility] Encounter Details Date Type Department Care Team Description 07/31/2018 Office Visit Pain Management at [facility] Cervi calgia (Primary [place] Dx) [address] [facility] [address] [place] [place] [facility] [id number] [place] [address] Social History Tobacco Use Types Packs/Day Years [...] Sign Reading Time Taken Comments Blood Pressure 156/89 07/31/2018 2:01 PM EDT Pulse 81 07/31/2018 2:01 PM EDT Temperature - - Respiratory Rate - - Oxygen Saturation 97% 07/31/2018 2:01 PM EDT Inhaled Oxygen Concentration - - Weight 136.5 kg (301 lb) 07/31/2018 2:01 PM EDT Height - - Body Mass Index 43.19 01/24/2016 12:43 PM EDT documented in this encounter Progress Notes [facility] MD - 07/31/2018 2:00 PM EDT [facility] [place] [address] Phone: PAIN MANAGEMENT FOLLOW UP DATE OF VISIT 07/31/2018 Patient Paul Bradley 1970 REFERRING PROVIDER Dangelo Ordaz MD [address] [place] [address] PRIMARY CARE PROVIDER Dangelo Ordaz MD CHIEF COMPLAINT: Patient has pain multiple locations HPI Paul Bradley is a 48 y.o. who has been seen in the pain clinic over several years. He has a quite complicated pain history. He has a cervical fusion at C4 through 6 after a fall. He has had multiple spine injections as well as occipital nerve blocks all which have not really helped too much. 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 He is seeing Dr. Ayala and is learning some meditation mindfulness techniques which he says are quite helpful. He continues on gabapentin. Astrid not seen him since November 2015. He has been weaned off his opioids and has been using medicalcannabis for the last couple of years which helps. He uses this daily. It allows him to function. He denies any side effects. He is establishing a relation ship with the pain clinic at [facility] with Annalisa Wheeler. ADLS: Able ABERRANT Behavior: None ANALGESIA: Good ADVERSE EFFECTS: None ADVERSE DRUG REACTIONS Allergies as of 07/31/2018 - Review Complete 07/31/2018 Allergen Reaction Noted ??? Sulfa (sulfonamide antibiotics) ??? Morphine 02/22/2014 MEDICATIONS Medications 07/31/18 1401 Medication Sig Taking? MARIJUANA INHL Inhale into the lungs daily as needed. Indications: also trying other forms Yes budesonide-formoterol (SYMBICORT) 160-4.5 mcg/actuation HFA Aerosol Inhaler 2 times daily. Yes clindamycin (CLEOCIN T) 1 % Lotion Apply topically to affected areas on scalp and neck 1-2 times daily. Yes triamcinolone (KENALOG) 0.1 % Cream Apply topically 2 times daily. Patient taking differently: Apply topically as needed. Yes buPROPion (WELLBUTRIN SR) 150 mg Tablet Sustained Release Take 150 mg by mouth 2 times daily. Yes omeprazole (PRILOSEC) 20 mg Capsule, Delayed Release(E.C.) Take 20 mg by mouth daily. Yes FLUoxetine (PROZAC) 40 mg Capsule Take 40 mg by mouth daily. Yes DULoxetine (CYMBALTA) 60 mg Capsule, Delayed Release(E.C.) Take 60 mg by mouth daily. Yes LORazepam (ATIVAN) 2 mg Tablet Take 2 mg by mouth every 6 hours as needed. Yes gabapentin (NEURONTIN) 600 mg tablet Increase to 3600 mg/day by increasing by 300 mg/day every 5 days. Do not abruptly stop. Patient taking differently: Takes 2400 mg per day Yes acetaminophen (TYLENOL) 500 mg tablet Take 1,000 mg by mouth every 6 hours as needed. Yes warfarin (COUMADIN) 5 mg tablet Take 10 mg by mouth daily. Yes albuterol-ipratropium (COMBIVENT RESPIMAT) 20-100 mcg/actuation inhaler Inhale 2 puffs into the lungs every 6 hours as needed. Yes PHYSICAL EXAMINATION Most Recent Vitals: 07/31/18 1401 BP: 156/89 Pulse: 81 SpO2: 97% PainSc: 7 Body mass index is 43.19 kg/m??. BP 156/89 Pulse 81 Wt (!) 136.5 kg (301 lb) PHQ-9 QUESTIONNAIRE SCORE ONLY (AMB) 09/08/2014 PHQ - 9 Score (Patient) 10 (Moderate Depression) Some recent data might be hidden Patient makes good eye contact communicates easily. He is appropriate. Impression: Chronic pain from multiple locations Recommendations: #1 Medications: I have renewed his cannabis paperwork for a month. Urine toxicology was sent today.It should show cannabis only. He might be a candidate for low-dose naltrexone as well. He will follow-up with Annalisa Wheeler at [facility]. I spent 20 of 25 minutes in thwi-cg-siok discussion regarding plan of care with the patient. Paul Bradley had the opportunity to ask questions and indicated that all questions were answered to their satisfaction. documented in this encounter Plan of Treatment Not on filedocumented as of this encounter Procedures Procedure Name Priority Date/Time Associated Diagnosis Comme nts RAPID DRUG SCREEN, Routine 07/31/2018 3:17 PM Cervicalgia Res ults for this COMPLIANCE MONITORING EDT proced ure are in the results section. DRUGS OF ABUSE Routine 07/31/2018 3:17 PM Cervicalgia COMPLIANCE MONITORING EDT PANEL, URINE TARGETED OPIOID Routine 07/31/2018 3:17 PM Cervicalgia Result s for this PANEL, COMPLIANCE EDT procedure are in MONITORING the results section. AMPHETAMINE, URINE, Routine 07/31/2018 3:17 PM Re sults for this CONFIRMATION EDT procedure are i n the results section. THC (MARIJUANA), Routine 07/31/2018 3:17 PM Resul ts for this URINE, CONFIRMATION EDT procedur e are in the results section. documented in this encounter Results Amphetamine, Urine Confirmation (07/31/2018 3:17 PM EDT) Component Value Ref Test Analysis Performed At [facility] Range Method Time Signature U Amphet DUSTIN Conf Test ? Result ? Flag ??Unit ?? RefValue [facility] Amphetamines Confirmation, U H OSPITAL ??Amphetamine-by LC-MS/MS ?SEE COMMENTS ? ng/mL ??Cutoff: 25 LABORATORY ?Unknown interfering substance present; unable to obtai n ?results. ??Phentermine-by LC-MS/MS ?Negative ? ng/mL ??Cutoff: 25 ??Methamphetamine-by LC-MS/ MS ?Negative ? ng/mL ??Cutoff: 25 ??Pseudoephedrine/Ephedrine -by LC-MS/MS ?Negative ? ng/mL ??Cutoff: 25 ??MDA (Ecstasy metabolite)- by LC-MS/MS ? Negative ? ng/mL ??Cutoff: 25 ??MDMA (Ecstasy)-by LC-MS/M S ? Negative ? ng/mL ??Cutoff: 25 ??Amphetamines Interpretation ?SEE COMME NTS ?Chromatographic interference prevents accurate ?identification. ? ADDITIONAL INFORMATION ------ ?This report is intended for use in clinical monitoring and ?management of patients. ??It is not intended for use i n ?employment-related testing. ?This test was developed and its performance characteri stics ?determined by [facility] in a manner consistent with CLIA ?requirements. This test has not been cleared or approv ed by ?the U.S. Food and Drug Administration. ?Test Performed by: ?[facility] ?[address] [place] [address] Specimen Anatomical Collection Method Collection Time Receive d Time (Source) Location / / Volume Laterality Urine specimen 07/31/2018 3:17 PM 018 9:57 (specimen) EDT AM EDT Resulting Agency Comment Spec In Lab [facility] MD URINE ORDERABLES Performing Organization Address City/State/ZIP [place] [address] THC (Marijuana), Urine Confirmation (07/31/2018 3:17 PM EDT) Component Value Ref Test Analysis Performed At [facility] Range Method Time Signature U THC Ivelisse CHAN Test ? Result ?Flag ??Unit ?? RefValue [facility] Carboxy-THC Confirmation, U HO SPITAL ??Carboxy-THC- by GC/MS ?210 ? ng/mL ??Cutoff: 3.0 LABORATORY ??Carboxy-THC Interpretation ? Positive. ? ADDITIONAL INFORMATION ------ ?This report is intended for use in clinical monitoring and ?management of patients. ??It is not intended for use i n ?employment-related testing. ?This test was developed and its performance characteri stics ?determined by [facility] in a manner consistent with CLIA ?requirements. This test has not been cleared or approv ed by ?the U.S. Food and Drug Administration. ?Test Performed by: ?[facility] - [facility] ?[address] [place] [address] Specimen Anatomical Collection Method Collection Time Receive d Time (Source) Location / / Volume Laterality Urine specimen 07/31/2018 3:17 PM 018 9:57 (specimen) EDT AM EDT Resulting Agency Comment Spec In Lab [facility] MD URINE ORDERABLES Performing Organization Address City/State/[place] [address] Targeted Opioid Panel, Compliance Monitoring (07/31/2018 3:17 PM EDT) Component Value Ref Test Analysis Performed At [facility] gist Range Method Time Signature Targeted DUSTIN Opioid Test ?Result ? Flag ??Unit ?? RefValue [facility] Panel, Urine [facility] Targeted Opioid Screen, U HOSP ITAL ??Codeine ? Not Detected ? ng/mL ??Cutoff: 25 LABORATORY ?Tylenol 3 ??Udmnknx-6-uzon-glucuronid e ?Not Detected ? ng/mL ??Cutoff: 100 ?Metabolite of codeine ??Morphine ?Not Detected ? ng/mL ??Cutoff: 25 ?Liz, Rafaela, MS Contin; Also a minor metabolite (10 %) of ?codeine and can be seen in low concentrations (<2,000 ?ng/mL) with poppy seed ingestion. ??Audzffiv-8-nuys-glucuroni de ? Not Detected ? ng/mL ??Cutoff: 100 ?Metabolite of morphine ??6-monoacetylmorphine ?Not Detected ? ng/mL ??Cutoff: 25 ?Metabolite of heroin ??Hydrocodone ? Not Detected ? ng/mL ??Cutoff: 25 ?Lortab, [place], Vicodin; Also a very minor metabolite o f ?codeine and impurity (<1%) of oxycodone. ??Norhydrocodone ?Not Detected ? ng/mL ??Cutoff: 25 ?Metabolite of hydrocodone ??Dihydrocodeine ?Not Detected ? ng/mL ??Cutoff: 25 ?Metabolite of hydrocodone ??Hydromorphone ? Not Detected ? ng/mL ??Cutoff: 25 ?Dilaudid, Exalgo; Also a metabolite of hydrocodone and a ?minor (<5%) metabolite of morphine. ??Vfpfonczrkvim-2-nypm-gluc uronide ?Not Detected ? ng/mL ??Cutoff: 100 ?Metabolite of hydromorphone ??Oxycodone ? Not Detected ? ng/mL ??Cutoff: 25 ?Endocet, Percocet, Oxycontin ??Noroxycodone ?Not Detected ? ng/mL ??Cutoff: 25 ?Metabolite of oxycodone ??Oxymorphone ? Not Detected ? ng/mL ??Cutoff: 25 ?Numorphan, Opana; Also a metabolite of oxycodone. ??Oygioyemvbe-7-aozh-glucur onide ?Not Detected ? ng/mL ??Cutoff: 100 ?Metabolite of oxymorphone ??Noroxymorphone ?Not Detected ? ng/mL ??Cutoff: 25 ?Metabolite of oxymorphone ??Fentanyl ?Not Detected ? ng/mL ??Cutoff: 2 ?Actiq, Duragesic, Fentora ??Norfentanyl ? Not Detected ? ng/mL ??Cutoff: 2 ?Metabolite of fentanyl ??Meperidine ?Not Detected ? ng/mL ??Cutoff: 25 ?Demerol ??Normeperidine ? Not Detected ? ng/mL ??Cutoff: 25 ?Metabolite of meperidine ??Naloxone ?Not Detected ? ng/mL ??Cutoff: 25 ?Narcan ??Ypmszavh-4-deld-glucuroni de ? Not Detected ? ng/mL ??Cutoff: 100 ?Metabolite of naloxone ??Methadone ? Not Detected ? ng/mL ??Cutoff: 25 ?Dolophine ??EDDP ?Not Detected ? ng/mL ??Cutoff: 25 ?Metabolite of methadone ??Propoxyphene ?Not Detected ? ng/mL ??Cutoff: 25 ?Darvon, Darvocet ??Norpropoxyphene ? Not Detected ? ng/mL ??Cutoff: 25 ?Metabolite of propoxyphene ??Tramadol ?Not Detected ? ng/mL ??Cutoff: 25 ?Tradol, Ultram, Ultracet ??O-desmethyltramadol ? Not Detected ? ng/mL ??Cutoff: 25 ?Metabolite of tramadol ??Tapentadol ?Not Detected ? ng/mL ??Cutoff: 25 ?Nucynta ??N-desmethyltapentadol ? Not Detected ? ng/mL ??Cutoff: 50 ?Metabolite of tapentadol ??Cyrebidpsf-zcln-iyanvcsee de ? Not Detected ? ng/mL ??Cutoff: 100 ?Metabolite of tapentadol ??Buprenorphine ? Not Detected ? ng/mL ??Cutoff: 5 ?Buprenex, Suboxone ??Norbuprenorphine ?Not Detected ? ng/mL ??Cutoff: 5 ?Metabolite of buprenorphine ??Norbuprenorphine glucuron francy ?Not Detected ? ng/mL ??Cutoff: 20 ?Metabolite of buprenorphine ??Opioid Interpretation ? SEE COMMENT S ?No opioids were detected. The absence of expected drug (s) ?and/or drug metabolite(s) may indicate non-compliance, ?altered pharmacokinetics, inappropriate timing of spec imen ?collection relative to drug administration, ?diluted/adulterated urine, or limitations of testing. ? ADDITIONAL INFORMATION ------ ?This test was developed and its performance characteri stics ?determined by [facility] in a manner consistent with CLIA ?requirements. This test has not been cleared or approv ed by ?the U.S. Food and Drug Administration. ?Test Performed by: ?[facility] ?[address] [place] [address] Specimen Anatomical Collection Method Collection Time Receive d Time (Source) Location / / Volume Laterality Urine specimen 07/31/2018 3:17 PM 018 (specimen) EDT 10:50 AM EDT Resulting Agency Comment Spec In Lab [facility] MD URINE ORDERABLES Performing Organization Address City/State/[place] [address] (ABNORMAL) Rapid Drug Screen, Compliance Monitoring (07/31/2018 3:17 PM EDT) [facility] Method Time Signature U Barbiturates None None [facility] Screen Detected Detected [facility] Comment: The barbiturate screen detects barbitura anayeli at concentrations >200 ng/mL. Note: Not all barbiturates cross-react equally with antibody used in this screen. A ? Presumptive Positive? result indicates that the screening result was positive but has not yet been confirmed by a highly-specific method. As with any screen, occasional false positive re sults from cross-reacting substances may occur. Not for Medico-Legal Purposes. U Benzodiazepines Screen None Detected None Detected [facility] Comment: The benzodiazepines screen detects benzo diazepines at concentrations >100 ng/mL. Not all benzodiazepines cross-char ct equally with antibody used in this screen. Due to the low dosage of clonaze hi, false negatives may be obtained due to low concentration of clonazepam m etabolites. A ? Presumptive Positive? result indicates that the screening result was positive but has not yet been confirmed by a highly-specific method. As with any screen, occasional false positive re sults from cross-reacting substances may occur. Not for Medico-Legal Purposes. U Cocaine Screen None Detected None Detected [facility] Comment: The cocaine metabolites screen detects b enzoylecgonine (Cocaine Metabolite) at concentrations >150 ng/mL. A ? Presumptive Positive? result indicates that the screening result was positive but has not yet been confirmed by a highly-specific method. As with any screen, occasional false positive re sults from cross-reacting substances may occur. Not for Medico-Legal Purposes. U Cannabinoid Screen Presumptive Pos (A) None Detected [facility] Comment: The marijuana metabolites screen detects the THC metabolite (99-sef-5-carboxy-delta 9-THC) at concen trations >20 ng/mL. A ? Presumptive Positive? result indicates that the screening result was positive but has not yet been confirmed by a highly-specific method. As with any screen, occasional false positive re sults from cross-reacting substances may occur. Not for Medico-Legal Purposes. U Tricyclics Screen None Detected None Detected [facility] Comment: The tricyclics screen detects tricyclic antidepressants at concentrations >150 ng/mL. Not all tricyclics cross-react eq ually with the antibody used in this screen. A ? Presumptive Positive? result indicates that the screening result was positive but has not yet been confirmed by a highly-specific method. As with any screen, occasional false positive re sults from cross-reacting substances may occur. Not for Medico-Legal Purposes. U Ethanol Screen None Detected None Detected [facility] Comment: This urine ethanol assay detect s ethanol at concentrations >/= 100 mg/L. U Amphetamines Screen Presumptive Pos (A) None Detected [facility] Comment: The amphetamine screen detects d-ampheta mine and d-methamphetamine at concentrations >300 ng/mL. A ? Presumptive Positive? result indicates that the screening result was positive but has not yet been confirmed by a highly-specific method. As with any screen, occasional false positive re sults from cross-reacting substances may occur. Not for Medico-Legal Purposes. U Adulterants Screen None Detected None Detected [facility] Comment: No adulteration or dilution of this urin e sample was detected. All urine samples submitted for urine drugs of abu se analysis are tested for creatinine concentration, pH, and for the presence of oxidants, nitrites, and chromate. Specimen Anatomical Collection Method Collection Time Receive d Time (Source) Location / / Volume Laterality Urine specimen 07/31/2018 3:17 PM 018 3:17 (specimen) EDT PM EDT Resulting Agency Comment Spec In Lab [facility] MD URINE ORDERABLES Performing Organization Address City/State/[place] [address] documented in this encounter Visit Diagnoses Diagnosis Cervicalgia - Primary documented in this encounter Care Teams Body Trimmer Upholsterer Relationship Specialty Start Date End Date Dangelo Ordaz MD PCP - General Family Medicine 01/24/[address] [place] [address] documented as of this encounter
--- OUTSIDE RECORDS SUMMARY | 2022-06-07 01:46 | XMS_ITS | Encounter Summary ---
:1970 Author Organization [facility] [place] [address] Care Team Providers Name Role Phone Dangelo Ordaz MD Primary Care Provider [phone] Reason for Visit Reason Comments Skin Check Skin Lesion Encounter Details Date Type Department Care Team Description 08/16/2016 Office Visit Dermatology at Raven Ortiz III, MD [facility] [address] [address] Folliculitis; Road Aurelia Duque PA [facility] [address] [address] Venous stasis dermatitis of both lower e xtremities; [address] [place]; [place], [place] Multiple benign nevi; [address] Lentigines; [phone] History of basa l cell carcinoma of skin Social History Tobacco Use Types Packs/Day Years [...] on file documented as of this encounter Patient Instructions Patient InstructionsDarlene Givens LPN - 08/16/2016 8:30 AM EST Images from the original note were not included. - Start RX: clindamycin (CLEOCIN T) 1% lotion Apply topically to affected areas on scalp and neck 1-2 times daily. - Over the counter PanOxyl 10% wash, Apply topically to scalp, neck, back and chest as needed daily in shower, decrease as skin improves. Leave on for 5+ ins before rinsing. Advised can bleach linens. documented in this encounter Progress Notes Aurelia Nixon PA - 08/16/2016 8:30 AM EST DERMATOLOGY - ESTABLISHED PATIENT NOTE Date of service: 08/16/2016 Paul Bradley : 1970 Dermatology Physician [employer] Note: Aurelia Nixon PA-C Chief Complaint Patient presents with ??? Skin Check ??? Skin Lesion This is an established patient, last seen by Dash Remy on 06/29/2015. This patient is new to me HPI: This pt presents for a full skin exam. He has a few concerns. Some of the original lesions that he had at his last visit are there on his scalp. He also has more on the back of his neck. They are sometimes painful, worse in the summer. The area where his previous BCC sometimes itches. He wants to makesure that it is ok. He has been wearing his compression stockings regularly and his lower legs are good today. Skin History: Left lateral eyebrow, basal cell carcinoma s/p Mohs (09-09-13) Folliculitis on scalp Epidermal inclusion cyst (EIC) Stasis dermatitis Family History: no known h/o melanoma no known h/o non-melanoma skin cancer no known h/o eczema, atopy no known h/o psoriasis, or other skin disease Social History: Tobacco use - current smoker Alcohol use - yes Procedure Screening Questions: Blood Thinners: Warfarin 7.5 mg 5 days and 12.5 mg 2 days Defibrillator/Pacemaker: no Artificial Joints: no Heart Valves: no Prophylactic Antibiotics: no Medical History: Past Medical History Diagnosis Date ??? Adjustment reaction with anxiety and depression ??? Arthritis bilateral hands ??? Back pain ??? Basal cell carcinoma of brow 2013 Left ??? Concussion ??? COPD (chronic obstructive pulmonary disease) ??? Depression ??? Fall from slipping on ice 2011 Fall on ice with loss of consciousness, not work related ??? GAGAN (generalized anxiety disorder) ??? Headache(784.0) ??? Heterozygous factor V Leiden mutation 10/20/2012 ??? History of deep vein thrombosis ??? History of pulmonary embolism ??? Sleep apnea ??? Spinal stenosis ??? Suicide attempt ??? Work related injury 2013 Fall on ice with head injury Patient Active Problem List Diagnosis Code ??? History of pulmonary embolism Z86.711 ??? Heterozygous factor V Leiden mutation D68.51 ??? History of fusion of cervical spine Z98.1 ??? History of cholecystectomy Z90.49 ??? Cervical disc disease with myelopathy M50.00 ??? Cervicalgia M54.2 ??? Occipital neuralgia M54.81 ??? Cigarette smoker F17.210 ??? Overweight(278.02) E66.3 ??? Adjustment reaction with anxiety and depression F43.23 ??? Radiculopathy of cervical region M54.12 ??? Head injury S09.90XA ??? Venous stasis ulcer of leg without varicose veins I87.2 ??? Radiculopathy of lumbar region M54.16 ??? Carpal tunnel syndrome, bilateral G56.03 ??? Headache, chronic daily R51 Medications: Current Outpatient Prescriptions Medication Sig Dispense Refill ??? PROAIR HFA 90 mcg/actuation HFA Aerosol Inhaler ??? predniSONE (DELTASONE) 20 mg Tablet Take 20 mg by mouth 2 times daily. ??? candesartan (ATACAND) 16 mg Tablet Take 1 tablet by mouth every evening. 30 tablet 11 ??? oxyCODONE (ROXICODONE) 10 mg Tablet Take 10 mg by mouth daily. ??? triamcinolone (KENALOG) 0.1 % Cream Apply topically 2 times daily. (Patient taking differently: Apply topically as needed.) 80 g 2 ??? buPROPion (WELLBUTRIN SR) 150 mg Tablet Sustained Release Take 150 mg by mouth 2 times daily. 0 ??? omeprazole (PRILOSEC) 20 mg Capsule, Delayed Release(E.C.) Take 20 mg by mouth daily. 0 ??? FLUoxetine (PROZAC) 40 mg Capsule Take 40 mg by mouth daily. ??? DULoxetine (CYMBALTA) 60 mg Capsule, Delayed Release(E.C.) Take 60 mg by mouth daily. 0 ??? ADVAIR DISKUS 250-50 mcg/dose Disk with Device Inhale 1 puff into the lungs 2 times daily. 0 ??? LORazepam (ATIVAN) 2 mg Tablet Take 2 mg by mouth every 6 hours as needed. ??? Budesonide-Formoterol 160-4.5 mcg/actuation HFAA Inhale into the lungs as needed. ??? gabapentin (NEURONTIN) 600 mg tablet Increase to 3600 mg/day by increasing by 300 mg/day every 5days. Do not abruptly stop. (Patient taking differently: Takes 2400 mg per day) 180 tablet 2 ??? acetaminophen (TYLENOL) 500 mg tablet Take 1,000 mg by mouth every 6 hours as needed. ??? warfarin (COUMADIN) 5 mg tablet Take 10 mg by mouth daily. ??? albuterol-ipratropium (COMBIVENT RESPIMAT) 20-100 mcg/actuation inhaler Inhale 2 puffs into the lungs every 6 hours as needed. No current facility-administered medications for this visit. Allergies Allergen Reactions ??? Sulfa (Sulfonamide Antibiotics) CIS - Rash ??? Morphine Non-responder to Morphine Review of Systems: - General: Feels well. - Skin: As per HPI; no other skin concerns. Examination: - Constitutional: Patient was alert, well-appearing and in no noticeable distress. - Skin: A full skin examination was performed. This includes the head, neck, face and scalp including behind the ears. The chest, abdomen, back, and axillae, as well as the arms, hands, palms, fingers.Legs, feet, toes and soles were also examined. Buttocks and breasts were also examined with patient consent. Genitalia were not examined. -Skin Type: 2 Specific skin findings: 1. Posterior neck, scalp: few scattered, erythematous 0.2-3cm follicle-centered pustules. 2. Bilateral lower extremities with mild pitting edema. Diffuse mild erythema on legs w/ hemosiderinstaining. No increased warmth, tenderness or other signs of infection. 3. Well healed scar on left lateral eyebrow 4. Multiple, 0.3-0.5cm, medium-brown, evenly-pigmented macules and papules on trunk and extremities.All with regular pigment pattern on dermoscopy. No pigmented lesions suspicious for melanoma. 5. 0.3-0.6cm light-brown evenly pigmented, well-demarcated macule Diagnosis/Assessment/Treatment Plan: 1. Folliculitis - Start RX: clindamycin (CLEOCIN T) 1% lotion Apply topically to affected areas on scalp and neck 1-2 times daily. - Start Over the counter PanOxyl 10% wash, several times weekly as needed. Apply topically to affected areas on scalp, neck, and trunk in shower. Leave on for 5+ ins before rinsing. Advised can bleach linens. 2. Stasis Dermatitis - No ulcers today - Discussed etiology and chronic nature - Encouranged continuing to use compression stockings daily, elevation and moisutization 3. History of BCC, - No evidence of recurrence. - Will continue to monitor clinically. 4. Benign appearing nevi with even pigmentation and well defined margins are noted (nonsymptomatic) - No lesions suspicious for melanoma identified on exam today. Will continue to monitor. ?? - Discussed importance of sun protection, sun avoidance strategies, protective clothing, and sunscreen. I discussed warning signs for skin cancer, including the ABCDEF's of melanoma. ?? - Patient reassured of benign nature. ?? - Advised patient to call if areas become inflamed or irritated. 5. Lentigines, ?? - Discussed benign nature of lesion and provided reassurance - No treatment necessary at this time ?? - Observe skin for change in color, size or character. Call if such occur At least half of this 30 min appointment was spent [id number] in counseling with this patient. We discussed pathophysiology, diagnosis, treatment, concerns, expectations and follow-up with regard to the patient's diagnosis. I also addressed the patient's concerns and answered questions with regard to the above. LOS: 17275 RTC: 1 year full skin exam with Dr. Remy or PATRICIA if symptoms worsen or persist. Instructed to call with questions or concerns. Note initiated by DARLENE GIVENS LPN I am documenting this encounter acting as the scribe for and in the presence of Aurelia Nixon PA-C I performed the above scribed service and agree with the accuracy of the documentation in this encounter. Reviewed and signed by Aurelia Nixon PA-C Dermatology [facility] Patient seen with indirect supervision of Attending Physician: Bobo Nicholas MD Section of Dermatology [facility] Bobo Nicholas III, MD - 08/16/2016 8:30 AM EST I have seen and examined this patient. I evaluated the skin findings: - ZI noted the folliculitis on the scalp and neck - I noted the stasis dermatitis on the lower legs. - -I noted his lentigines No lesions suspicious for BCC or SCC at this time. No pigmented lesion suspicious for melanoma at this time. I went over the patient's history and discussed the symptoms. I discussed recommendations and therapeutic measures. - I concur with the assessment made and treatment plan devised. We will see the patient back as planned; they will call if problems arise. Patient seen in conjunction with JAY King MD Staff Dermatology documented in this encounter Plan of Treatment Not on filedocumented as of this encounter Visit Diagnoses Diagnosis Folliculitis Other specified disease of hair and hair follicles Venous stasis dermatitis of both lower e xtremities Scar Scar condition and fibrosis of skin Multiple benign nevi Benign neoplasm of skin, site unspecifie d Lentigines Other dyschromia History of basal cell carcinoma of skin documented in this encounter Care Teams Customer Support Specialist Relationship Specialty Start Date End Date Dangelo Ordaz MD PCP - General Family Medicine 01/24/[address] [place] [address] documented as of this encounter
--- OUTSIDE RECORDS SUMMARY | 2022-06-07 01:46 | XMS_ITS | Encounter Summary ---
:1970 Author Organization [facility] [place] [address] Care Team Providers Name Role Phone Jackelin Paniagua Primary Care Provider Reason for Referral MRI/CAT Scan (Routine) - Closed Specialty Diagnoses / Procedures Referred By Contact Refer red To Contact Radiology Diagnoses Work related injury Waleska Quintanilla MD [facility] Rad Mri Procedures MRI Cervical Spine With/[place] [address] [place] [address] Referral ID Status Reason Start Date Expiration Date Visits Requ ested Visits Authorized [id number] Closed 07/14/2015 09/12/2015 1 1 ccupational Therapy (Routine) - Closed Specialty Diagnoses / Procedures Referred By Contact Refer red To Contact Occupational Therapy Diagnoses Work related injury Waleska Quintanilla MD [facility] Ot [facility] OCCUPATIONAL [employer] [place] [address] [place] [address] Phone: Fax: Referral ID Status Reason Start Date Expiration Date Visits V isits Requested Authorized [id number] Closed Evaluate and 06/29/2015 06/28/2016 12 12 Treat Encounter Details Date Type Department Care Team Description 06/29/2015 Office Visit Occupational Medicine Satish Quintanilla MD Work related injury at [facility] [address] [place] [address] OCCUPATIONAL [phone] MEDICINE [employer] [address] Social History Tobacco Use Types Packs/Day Years [...] Sign Reading Time Taken Comments Blood Pressure 134/89 06/29/2015 3:40 PM EDT Pulse 96 06/29/2015 3:40 PM EDT Temperature - - Respiratory Rate - - Oxygen Saturation - - Inhaled Oxygen Concentration - - Weight - - Height - - Body Mass Index - - documented in this encounter Progress Notes Waleska Quintanilla MD - 07/03/2015 3:55 PM EDT [facility] OCCUPATIONAL AND ENVIRONMENTAL MEDICINE FOLLOW UP VISIT Date of injury: 11/18/2012 Date of intake: 06/17/2014 Employer: [employer] 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 Bradley is a 44-year-old male whom I am seeing in follow up regarding a fall on ice at work resulting in a head and neck injury in the setting of past non-work related fall in October, resulting in cervical fractures, myelopathy, and C3-6 fusion. See previous notes for details and case history. I have not seen him since November,. At that time, he appeared to be having some adjacent segment issues above and below his fusion. Possible treatment options included injections (CT-guided C2 block for possible C2 neuralgia) as suggested by Dr. France, a trial of noninvasive Scrambler Treatment for chronic neuropathic pain which could address both the cervical issues and headaches if there is not anatomic compressive pathology in the spine, and/or a second recreation program specialist opinion. In April, I received a call from Mr. Bradley' research attorney, Evgeny Rosario. Apparently, his Worker's Compensation coverage was ended secondary to OTF report from Dr. Abhijit Little and a surveillance video. Interms of the question of the surveillance video and his physical capacity, we discussed that it would make sense to do a functional capacity evaluation. At last visit, he did not have adequate pain management in place to tolerate regular work hours, primarily secondary to headaches, but he has no specific activity restrictions in terms of the cervical spine other than avoiding activities that excessively flare his symptoms. Gabapentin is a life saver. He went off briefly and had return of his periscapular pain. PMH is extensive as listed below. Medications for this injury include oxycodone, Cymbalta, gabapentin, and Tylenol. He smokes one pack per day for 25 years. He has completed school through high school and reports no learning disabilities or other troubles in school. 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 He last worked in November, and has been out of work since this most recent injury. Current Symptoms (reviewed today and are unchanged): 1. He reports headaches are most bothersome. They range from 2 to 8 out of 10 and are worse with upper body activity. Nothing specifically makes them better. They start in the right occiput and radiateup the back of the head and over the head to the right brow associated with photophobia. He describes the headaches as pounding and his head feels hot. He states that they occur two to four times per day and can last from five minutes to all day. 2. He also reports constant right-sided neck pain that ranges from 3 to 8 out of 10 in intensity that he localizes to the right trapezius and radiates down the right posterior arm to the wrist. He describes the arm pain as sharp and worse with activity. He does not note any numbness, but does note some bilateral tingling in his pinky fingers. His neck pain feels like a pinch below the fusion and goesup to his head. His arm pain is slightly less than at last visit but paresthesias in the pinky fingers remain. 3. He reports upper back pain is better on gabapentin. Treatment summary: Medications Per pain medicine notes Physical Therapy ?? Craniosacral therapy ?? PT and pool therapy ?? GAP assessment for the Functional Mandaen Program and was found to have a physical capacity below sedentary Procedures ?? Cervical medial branch blocks at right C3 to C6 in 06/2013 with good relief of neck pain ?? Right RFA from C2 to C6 in 07/2013 which was not beneficial ?? Bilateral greater occipital nerve blocks in 09/2013 and 11/2013 with extremely good but transient relief of headaches ?? Trigger point injections in the left trapezius without lasting benfit Surgeries None for this injury, past history of C3-C6 fusion by Dr. France for myelopathy Other ?? Found not to be a candidate for occipital nerve stimulator by the implantable anesthesia committee ?? Cognitive behavioral therapy for diagnosis of adjustment disorder with depression and anxiety, which he finds helpful ?? OTF with Dr. Abhijit Little Past Medical History Diagnosis Date ??? Spinal stenosis ??? Adjustment reaction with anxiety and depression ??? COPD (chronic obstructive pulmonary disease) ??? Sleep apnea ??? History of deep vein thrombosis ??? History of pulmonary embolism ??? Arthritis bilateral hands ??? Work related injury 2012 Fall on ice with head injury ??? Fall from slipping on ice 2011 Fall on ice with loss of consciousness, not work related ??? Heterozygous factor V Leiden mutation 10/20/2012 ??? Basal cell carcinoma of brow 2013 Left Past Surgical History Procedure Laterality Date ??? Cervical fusion 2011 C3-6 ??? Cholecystectomy 2012 ??? Appendectomy 1985 ??? Unlisted mr procedure 07/22/2014 MRI WITH ANESTHESIA performed by [facility] at [facility] Current Outpatient Prescriptions Medication Sig Dispense Refill ??? oxyCODONE (ROXICODONE) 10 mg Tablet Take 10 mg by mouth every 4 hours. ??? triamcinolone (KENALOG) 0.1 % Cream Apply topically 2 times daily. 80 g 2 ??? buPROPion (WELLBUTRIN SR) 150 mg Tablet Sustained Release 0 ??? omeprazole (PRILOSEC) 20 mg Capsule, Delayed Release(E.C.) 0 ??? FLUoxetine (PROZAC) 40 mg Capsule Take 40 mg by mouth daily. ??? DULoxetine (CYMBALTA) 60 mg Capsule, Delayed Release(E.C.) 0 ??? ADVAIR DISKUS 250-50 mcg/dose Disk with Device 0 ??? BUPROPION HCL ORAL Take by mouth. Patient does not remember dose ??? LORazepam (ATIVAN) 2 mg Tablet Take 2 mg by mouth every 6 hours as needed. ??? Budesonide-Formoterol 160-4.5 mcg/actuation HFAA Inhale into the lungs. ??? gabapentin (NEURONTIN) 600 mg tablet Increase [...] No current facility-administered medications for this visit. ALLERGIES: Sulfa O: Filed Vitals: 06/29/15 1540 BP: 134/89 Pulse: 96 Mr. Bradley is alert and pleasant, in no acute distress. He has slightly wide gait with disequilibrium. Speech is clear and coherent. Hearing is conversationally normal. Face is symmetric. Axial compression is negative. He has limited cervical AROM with pain. He is tender over the lower cervical vertebrae. He is tender to palpation of the right proximal biceps tendon. Spurling is positive into the shoulders. Speed, supraspinatus, and impingement tests are positive on the right. Apprehension test is negative. He has good UE strength throughout. UE DTR are hyperreflexic throughout. LE DTR are 2+ to 3+ throughout. There is no clonus. Tinel is negative at the elbows and wrists bilaterally. Median compression at the wrist is positive for ulnar paresthesias on the right. Steiner is positive on the right. Spurling is positive on the right for right shoulder and upper arm pain. He has no clonus. He is vascularly intact. Diagnostic studies: MRI of the cervical and throracic spine dated 12/24/2012: There is a focus of myelopathic change at about C4-5 that is interpreted as unchanged from his prior study after the first injury. Imaging is ofextremely poor quality secondary to body habitus and also this was done in [place] Open [facility] which limits the quality of the images. I reviewed his images with spine orthopedics on initial visit.There is bilateral narrowing at C7-T1 that could explain his symptoms. Repeat imaging would be needed to fully visualize this. Updated MRI 07/22/2014 There is been anterior cervical discectomy and fusion at C4-C6. Vertebral body heights are normally maintained. Marrow signal, outside the areas of metallic artifact, is normal. Within the ventral cervical spinal cord at C5 and there is abnormal T2 prolongation bilaterally and there is subtle cord thinning at this site. At C3-C4 there is posterior ridging by disc and uncovertebral osteophyte. This produces partial effacement of the ventral subarachnoid space and mild bilateral neural foramen narrowing. At C4-C5 posterior ridging by disc and uncovertebral osteophyte produces mild left neural foramen narrowing and partial effacement of the ventral subarachnoid space. At C5-C6 there is minor disc osteophyte producing minor narrowing of the left neural foramen. At C6-C7 there is posterior ridging by disc and uncovertebral osteophyte producing minor bilateral neural foramen narrowing. At C7-T1 there is no disc herniation or evidence of nerve root impingement. Impression 1. Signal abnormality within the ventral spinal cord at the level of C5. The subtle tissue loss at this site makes this most likely to represent myelomalacia. 2. No cord compression or more than mild neural foramen narrowing. No evidence of nerve root impingement at C7-T1 Cervical x-ray 07/22/2014 Evaluation is limited due to underpenetration and overlying soft tissues obscure lower cervical spine. Ventral plate and screw fixation hardware is again seen spanning C4-C6 levels. No fractures or hardware failure is seen. No evidence of subluxation noted on flexion extension views, however this evaluation is limited due to overlapping soft tissue. Impression: Limited evaluation, as above. No evidence of ligamentous instability. Intact hardware. I previously reviewed his images with spine orthopedics. There are modic changes noted. He has disc complexes at C3-4 and C6-7 with R > L spondylolisthesis at C6-7. (Note that spine reduces backwardwhen supine as during MRI.) The cervical x-ray does not visualize the C6-7 disc adequately to assessflexion and extension. The disc and spondylolisthesis at C6-7 likely explains the pain and symptoms he is having below the fusion. There is no urgent surgical indication, but if he wants to return to work and remains functionally limited by the pain ans spasm, then second spine opinion is reasonable after trial of cervical MBB as planned. This would include repeat xrays with visualization at C6-7. A: Mr. 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 He continues to have signs and symptoms of myelopathy that have progressed clinically since last visit, with baseline changes in the cervical cord. Last MRI was one year ago. In addition, he has: 1. Headaches consistent with cervicogenic, posttraumatic, and occipital or C2 neuralgia 2. Neck, upper back pain, and arm pain clinically consistent with adjacent segment issues above and below the fusion. 3. Severe deconditioning P: We discussed treatment options and next steps in detail. 1. Given that his myelopathic symptoms seem to have progressed and his MRI is a year old, we will update his cervical MRI. In addition we will repeat his cervical x-ray to better visualize the lower vertebrae not seen well on previous x-ray. Images reviewed and rationale for repeat imaging explained. 2. He would like a second opinion for his spine. Referral sent. 3. At last visit, I reviewed injection recommendations with Dr. Hayes Anthony. He also reviewed Dr. France's note. Dr. Anthony does not perform upper cervical injections but does agree that CT-guided [id number] is reasonable. Will consider this depending on spine evaluation. 4. I think a trial of ST surface electrode treatment would be reasonable for his headaches and occipital neuralgia if headaches persist as well as for the neck if an anatomical compression as a source of his neck symptoms is ruled out by Spine. 5. FCE ordered for objective information about his work capacity. Continue with vocational rehab as he does express a desire to get back to work. 6. Continue plans for smoking cessation with PCP. Importance of this reinforced. 7. Continue medications through prescribing provider. 8. CBT for injury-related mood changes and to help with coping with chronic pain and for improved sleep which is disrupted by pain. 9. WC form completed out of work pending FCE. Activity as tolerated. 10. Follow up after imaging and FCE and spine second opinion. If these visits do not yield any new treatment options, we will pursue ST treatment for non- invasive treatment of chronic neuropathic pain.He understands these would be definitive opinions. 15 minutes of this 25-minute visit was spent discussing diagnosis, treatment options, treatment plan, expectations of treatment, work capacity, and return to work using a shared decision making approach. This note was written with voice recognition software and also manual typing. Please contact my office at [phone] with any questions related to the text of this medical record. documented in this encounter Plan of Treatment Scheduled Referrals Name Type Priority Associated Order Schedule Diagnoses Referral to Outpatient Referral Routine Work related injury O rdered: Occupational Therapy 015 documented as of this encounter Results MRI Cervical Spine With/WO Contrast (08/04/2015 5:09 PM EDT) Anatomical Region Laterality Modality C-spine Magnetic Resonance Specimen (Source) Anatomical Location Collection Method / Collectio n Time Received Time / Laterality Volume Impressions 08/04/2015 5:24 PM EDT IMPRESSION: Stable examination with focal myelomalac ia just below the C4-C5 interspace. No new abnormalities are detected. Narrative 08/04/2015 5:24 PM EDT EXAMINATION: MRI CERVICAL SPINE WITH/WO CONTRAST CLINICAL HISTORY: Repeat cervical MRI - past history of C3-6 fusion for myelopathy - ? progression of myelopathy and ? adjacent segment above and below fusion TECHNIQUE: Cervical spine MRI without co ntrast. Radiculopathy protocol. COMPARISON: Cervical spine MRI 4. FINDINGS: C4-C7 anterior fusion has been performed. Alignment is unchanged. Just below the C4-C5 interspace is abnormal s ignal within the anterior aspect of the central cord associated with volume loss that is not significantly changed compared to the previous study. No other sites of abnormal cord signal are identified. The spinal canal is mostly p atent except for mild canal narrowing at C6-C7 because of a posterior disc osteop hyte complex which is not significantly changed compared to the previous study. The following disc levels are outlined below: At C2-C3 no significant canal or neural foraminal narrowing. At C3-C4 there is posterior ridging by [...] uncovertebral osteophyte producing minor bilateral neural foramen narrowing] mild canal narrowing.. At C7-T1 there is no disc herniation or evidence of nerve root impingement. Procedure Note Hayes Carrington MD - 08/04/2015Formatti ng of this note might be different from the original. EXAMINATION: MRI CERVICAL SPINE WITH/WO CONTRAST CLINICAL HISTORY: Repeat cervical MRI - past history of C3-6 fusion for myelopathy - ? progression of myelopathy and ? adjacent segment above and below fusion TECHNIQUE: Cervical spine MRI without co ntrast. Radiculopathy protocol. COMPARISON: Cervical spine MRI 4. FINDINGS: C4-C7 anterior fusion has been performed. Alignment is unchanged. Just below the C4-C5 interspace is abnormal s ignal within the anterior aspect of the central cord associated with volume loss that is not significantly changed compared to the previous study. No other sites of abnormal cord signal are identified. The spinal canal is mostly p atent except for mild canal narrowing at C6-C7 because of a posterior disc osteop hyte complex which is not significantly changed compared to the previous study. The following disc levels are outlined below: At C2-C3 no significant canal or neural foraminal narrowing. At C3-C4 there is posterior ridging by [...] uncovertebral osteophyte producing minor bilateral neural foramen narrowing] mild canal narrowing.. At C7-T1 there is no disc herniation or evidence of nerve root impingement. IMPRESSION IMPRESSION: Stable examination with focal myelomalac ia just below the C4-C5 interspace. No new abnormalities are detected. Waleska Quintanilla MD IMG MRI ORDERABLES documented in this encounter Visit Diagnoses Diagnosis Work related injury Injury, other and unspecified, unspecifi ed site documented in this encounter Care Teams Bill Board Poster Relationship Specialty Start Date End Date Jackelin Paniagua PA PCP - General 07/20/12 01/23/16 documented as of this encounter
--- OUTSIDE RECORDS SUMMARY | 2022-06-07 01:46 | XMS_ITS | Encounter Summary ---
:1970 Author Organization [facility] [place] [address] Care Team Providers Name Role Phone Jackelin Paniagua Primary Care Provider Encounter Details Date Type Department Care Team Description 07/22/2014 [place] En[place] [facility] [place] [address] [place] [address] [place] [id number] Social History Tobacco Use Types Packs/Day Years [...] on file documented as of this encounter Medications at Time of Discharge [...] needed. HFAA documented as of this encounter Plan of Treatment Not on filedocumented as of this encounter Procedures Procedure Name Priority Date/Time Associated Diagnosis Comme nts XR CERVICAL SPINE 4 Routine 07/22/2014 12:26 PM R esults for this OR 5 VIEWS EDT procedure are i n the results section. documented in this encounter Results XR Cervical Spine any 4 or 5 views (07/22/2014 12:26 PM EDT) Anatomical Region Laterality Modality L-spine N/A Radiographic Imaging Specimen (Source) Anatomical Collection Method Collection Time Re ceived Time Location / / Volume Laterality 07/22/2014 12:26 PM EDT Addenda Addendum on 08/04/2014 1:51 PM EDT Addendum Begins TECHNIQUE: AP, Lateral, Flexion and Exte nsion views of the cervical spine. Addendum Ends Addendum on 08/04/2014 1:33 PM EDT Addendum Begins TECHNIQUE: AP, Lateral, Flexion and Exte nsion views of the cervical spine. Addendum Ends Narrative 07/22/2014 3:20 PM EDT Examination CERVICAL SPINE ANY 4 OR 5 VIEWS Clinical History *tn History of fall on ice with head and neck injury in 2012, s/p C3-6 fusion in 2011 with s/s C7-T1 radiculopathy. Pl ease evaluation for listhesis, instability, or other bony abnormality. Comparison MRI of the cervical spine show degree fr om outside institution dated December 24, 2012. Technique AP views of the cervical spine obtained including flexion and extension views. Findings Evaluation is limited due to underpenetr ation and overlying soft tissues obscure lower cervical spine. Ventral pl ate and screw fixation hardware is again seen spanning C4-C6 levels. ??No f ractures or hardware failure is seen. ?? No evidence of subluxation noted on flex ion extension views, however this evaluation is limited due to overlapping soft tissue. Impression Limited evaluation, as above. ??No evide nce of ligamentous instability. ??Intact hardware. Procedure Note Skip Banerjee MD / [facility], UNSIGNED REPORT - 08/04/2014 Examination CERVICAL SPINE ANY 4 OR 5 VIEWS Clinical History *tn History of fall on ice with head and neck injury in 2012, s/p C3-6 fusion in 2011 with s/s C7-T1 radiculopathy. Pl ease evaluation for listhesis, instability, or other bony abnormality. Comparison MRI of the cervical spine show degree fr om outside institution dated December 24, 2012. Technique AP views of the cervical spine obtained including flexion and extension views. Findings Evaluation is limited due to underpenetr ation and overlying soft tissues obscure lower cervical spine. Ventral pl ate and screw fixation hardware is again seen spanning C4-C6 levels. No fra ctures or hardware failure is seen. No evidence of subluxation noted on flex ion extension views, however this evaluation is limited due to overlapping soft tissue. Impression Limited evaluation, as above. No evidenc e of ligamentous instability. Intact hardware. Waleska Quintanilla MD IMG DX ORDERABLES documented in this encounter Visit Diagnoses Diagnosis Radiculopathy of cervical region Brachial neuritis or radiculitis nos documented in this encounter Care Teams Plaster Helper Relationship Specialty Start Date End Date Jackelin Paniagua PA PCP - General 07/20/12 01/23/16 documented as of this encounter
--- OUTSIDE RECORDS SUMMARY | 2022-06-07 01:46 | XMS_ITS | Encounter Summary ---
:1970 Author Organization [facility] [place] [address] Care Team Providers Name Role Phone Jackelin Paniagua Primary Care Provider Reason for Visit Auth/Cert - Closed Specialty Diagnoses / Procedures Referred By Contact Refer red To Contact Diagnoses MYELOPATHY Procedures UNLISTED MR PROCEDURE MRI WITH ANESTHESIA Referral ID Status Reason Start Date Expiration Date Visits Requ ested Visits Authorized [id number] Closed 1 1 Encounter Details Date Type Department Care Team Description 08/04/2015 Hospital Encounter Same Day Program at [facility] Hamlin MD [facility] [place] [address] [place] [address] [phone] Social History Tobacco Use Types Packs/Day Years [...] Sign Reading Time Taken Comments Blood Pressure 144/50 08/04/2015 5:26 PM EDT Pulse 77 08/04/2015 5:26 PM EDT Temperature 36.9 ??C (98.4 ??F) 08/04/2015 2:38 PM EDT Respiratory Rate 16 08/04/2015 5:26 PM EDT Oxygen Saturation 93% 08/04/2015 5:26 PM EDT Inhaled Oxygen Concentration - - Weight 147.4 kg (325 lb) 08/04/2015 2:38 PM EDT Height 175.3 cm (5' 9.02) 08/04/2015 2:38 PM EDT Body Mass Index 47.97 08/04/2015 2:38 PM EDT documented in this encounter Medications at Time of Discharge Medication Sig Dispensed Refills Start Date End Date triamcinolone (KENALOG) Apply topically 2 80 g 2 06/29 0.1 % CreamIndications: times daily. Stasis dermatitis of both legs buPROPion (WELLBUTRIN Take 150 mg by mouth 0 09/06 SR) 150 mg Tablet 2 times daily. Sustained Release omeprazole (PRILOSEC) 20 Take 20 mg by mouth 0 mg Capsule, Delayed daily. Release(E.C.) FLUoxetine (PROZAC) 40 Take 40 mg by mouth 0 mg Capsule daily. DULoxetine (CYMBALTA) 60 Take 60 mg by mouth 0 mg Capsule, Delayed daily. Release(E.C.) LORazepam (ATIVAN) 2 mg Take 2 mg [...] 6 20-100 mcg/actuation hours as needed. inhaler oxyCODONE (ROXICODONE) Take 10 mg by mouth 0 07/31/2018 10 mg Tablet daily. ADVAIR DISKUS 250-50 Inhale 1 puff into 0 014 07/31/2018 mcg/dose Disk with the lungs 2 times Device daily. Budesonide-Formoterol Inhale into the 0 07/31/2018 160-4.5 mcg/actuation lungs as needed. HFAA documented as of this encounter Plan of Treatment Not on filedocumented as of this encounter Procedures Procedure Name Priority Date/Time Associated Diagnosis Comme nts MRI WITH ANESTHESIA 08/04/2015 11:30 PM MYELOPATHY (WRVU *) EDT documented in this encounter Visit Diagnoses Not on filedocumented in this encounter Care Teams Density Control Puncher Relationship Specialty Start Date End Date Jackelin Paniagua PA PCP - General 07/20/12 01/23/16 documented as of this encounter
--- OUTSIDE RECORDS SUMMARY | 2022-06-07 01:46 | XMS_ITS | Clinical Summary ---
:1970 Author Organization [facility] [place] [address] Care Team Providers Name Role Phone Dangelo Ordaz MD Primary Care Provider [phone] Allergies Active Allergy Reactions Severity Noted Date Comments Morphine 02/22/2014 Non-responder t o Morphine Sulfa (Sulfonamide Medium CIS - Jair h Antibiotics) Medications Medication Sig Dispensed Refills Start Date End Date Status acetaminophen Take 1,000 mg by 0 Active (TYLENOL) 500 mg mouth every 6 tablet hours as needed. warfarin (COUMADIN) 5 Take 10 mg by 0 Active mg tablet mouth daily. albuterol-ipratropium Inhale 2 puffs 0 Active (COMBIVENT RESPIMAT) into the lungs 20-100 mcg/actuation every 6 hours as inhaler needed. gabapentin Increase to 3600 180 tablet 2 03/08/2014 Active (NEURONTIN) 600 mg mg/day by tablet increasing by 300 mg/day every 5 days. Do not abruptly stop. Additional Information Patient taking differently: Takes 2400 mg per day, Reported on 12/14/2014 LORazepam (ATIVAN) 2 mg Tablet Take 2 mg by mouth every 6 0 Active hours as needed. DULoxetine (CYMBALTA) 60 mg Take 60 mg by mouth daily. 0 08/23/2014 Active Capsule, Delayed Release(E.C.) buPROPion (WELLBUTRIN SR) 150 Take 150 mg by mouth 2 0 10/03/2014 Active mg Tablet Sustained Release times daily. omeprazole (PRILOSEC) 20 mg Take 20 mg by mouth daily. 0 09/21/2014 Active Capsule, Delayed Release(E.C.) FLUoxetine (PROZAC) 40 mg Take 40 mg by mouth daily. 0 Active Capsule triamcinolone (KENALOG) 0.1 % Apply topically 2 times 80 g 2 06/29/2015 Active CreamIndications: Stasis daily. dermatitis of both legs Additional Information Patient taking differently: Topical (Top) PRN, Reported on 01/24/2016 clindamycin (CLEOCIN T) 1 % Apply topically to 60 mL 3 08/2016 Active LotionIndications: Folliculitis affected areas on scalp and neck 1-2 times daily. MARIJUANA INHLIndications: also Inhale into the lungs 0 Active trying other forms daily as needed. Indications: also trying other forms budesonide-formoterol (SYMBICORT) 2 times daily. 0 0 04/07/2018 Active 160-4.5 mcg/actuation HFA Aerosol Inhaler Active Problems Patient Care Coordination Note Formatting of this note might be differe nt from the original. Opioid Contract signed with [facility] 09/16/13; scanned into medical record. Problem Noted Date Headache, chronic daily 11/15/2015 Carpal tunnel syndrome, bilateral 08/27/2015 Radiculopathy of lumbar region 08/16/2015 Venous stasis ulcer of leg without varicose veins 12/04 Head injury 12/13/2014 Radiculopathy of cervical region 06/30/2014 Occipital neuralgia 09/19/2013 Cigarette smoker 09/19/2013 Overweight(278.02) 09/19/2013 Cervicalgia 07/01/2013 Cervical disc disease with myelopathy 04/21/2013 History of fusion of cervical spine 03/06/2013 History of cholecystectomy 03/06/2013 Heterozygous factor V Leiden mutation 10/20/2012 History of pulmonary embolism 10/01/2012 Adjustment reaction with anxiety and depression Resolved Problems Problem Noted Date Resolved Date Bilateral occipital neuralgia 04/21/2013 06/16/2014 Family History Medical History Relation Comments Seizure Disorder Daughter Alcohol Use Disorder Father Heart Disease Mother Relation Status Comments Brother Alive Daughter Alive Father Mother Son 1 Alive Son 2 Alive Social History Tobacco Use Types Packs/Day Years Used Date Current Every Day Smoker Cigarettes 1 20 Smokeless Tobacco: Never Used Tobacco Cessation: Ready to Quit: Yes Comments: Contemplation stage but not re cyndee [...] Assigned at Date Recorded Not on file Last Filed Vital Signs Vital Sign Reading Time Taken Comments Blood Pressure 167/86 05/15/2021 9:32 AM EDT Pulse 80 05/15/2021 9:32 AM EDT Temperature 36.9 ??C (98.4 ??F) 08/04/2015 2:38 PM EDT Respiratory Rate 16 08/04/2015 5:26 PM EDT Oxygen Saturation 97% 07/31/2018 2:01 PM EDT Inhaled Oxygen Concentration - - Weight 136.5 kg (301 lb) 07/31/2018 2:01 PM EDT Height 177.8 cm (5' 10) 01/24/2016 12:43 PM EDT Body Mass Index 43.19 01/24/2016 12:43 PM EDT Plan of Treatment Health Maintenance Due Date Last Done Comments Covid-19 Vaccine (#1) 1973 Pneumococcal Vaccine: At-Risk 5-64yrs (1 - PCV) 1974 HIV screen 1986 Hepatitis C Screening 1986 Lipid Screening 1986 Tdap adult 1987 Tetanus vaccine 1987 Colonoscopy 2013 Zoster vaccine (1 of 2) 2018 Influenza (Flu) vaccine (1 of 1 - Influenza standard 06/06/2022 series) Insurance Payer Benefit Plan / Subscriber ID Effective Dates Phone Addre ss Type Group [place] [id number] 2012-Prese [facility] & nt [address] [place] [address] MEDICARE MEDICARE PART [id number] 2015-Presen [id number] [place] [address] CIGNA CIGNA POS OPEN [id number] 2018-Presen [phone] [address] [place] [id number] [address] t [address] [phone] [employer] Employer 1970 [id number]Home) [place] [address] Care Teams Pathology Laboratory Aide Relationship Specialty Start Date End Date Dangelo Ordaz MD PCP - General Family Medicine 01/24/[address] [place], [place] [id number]
--- OUTSIDE RECORDS SUMMARY | 2022-06-07 01:46 | XMS_ITS | Encounter Summary ---
:1970 Author Organization [facility] [place] [address] Care Team Providers Name Role Phone Dangelo Ordaz MD Primary Care Provider [phone] Reason for Referral Consultation (Routine) - Closed Specialty Diagnoses / Procedures Referred By Contact Refer red To Contact Dermatology Diagnoses Basal cell carcinoma (BCC), unspecified site Dash Remy MD Leboeuf, Matthew R, MD [facility] DR [facility]ERONICA [facility] [address] [place] [address] Fax: Referral ID Status Reason Start Date Expiration Date Visits V isits Requested Authorized [id number] Closed Consult, 03/12/2021 03/12/2022 1 1 Test & Treat Encounter Details Date Type Department Care Team Description 03/12/2021 Orders Only Dermatology at [facility] Basal cell carcinoma Dusty CUEVA (BCC), unspecified [address] [facility] [place] [address] [facility] [place], [place] [address] (Wo rk) Social History Tobacco Use Types [...] on file documented as of this encounter Plan of Treatment Scheduled Referrals Name Type Priority Associated Diagnoses Order S chedule Referral to Outpatient Referral Routine Basal cell carcinoma Ordered: Dermatology (BCC), unspecified 1 site documented as of this encounter Visit Diagnoses Diagnosis Basal cell carcinoma (BCC), unspecified site documented in this encounter Care Teams Resident Caregiver Relationship Specialty Start Date End Date Dangelo Ordaz MD PCP - General Family Medicine 01/24/[address] [place] [address] documented as of this encounter
--- OUTSIDE RECORDS SUMMARY | 2022-06-07 01:46 | XMS_ITS | Encounter Summary ---
:1970 Author Organization [facility] Address [facility] [place] [address] Care Team Providers Name Role Phone Jackelin Paniagua Primary Care Provider Reason for Visit Reason Onset Date Comments Other 08/09/2014 I explained to him t hat we faxed the same info to [facility] and told him I would call them to see if apt was made yet. Spk to Elle at [facility] and she said the y were looking for a longer visit to put him inwith Dr Deshaun barger but have a time and date of 09/14/14 at 11:40am. I called Seth bridges back and left a message with that info. He was happy to actuall y know what the MRI report said. CAV Encounter Details Date Type Department Care Team Description 08/09/2014 Telephone Occupational Medicine at [facility] [place] Morales MD Other (I explained to [facility] him that we faxed the [facility] [address], same info to [facility] [place] [place] [address] OCCUPATIONAL told him I would call [phone] MEDICINE them to see if apt was [place], [place] [address] made yet. Spk to [phone] Elle at [facility] and (Work) she said they were looking f or a longer visit to put yojana m inwith Dr Sonal arango but have a time and date of 4 at 11:40am. I call rafael Miller back and left a message with at info. He was sheriff ppy to actually know w hat the MRI report said . CAV) Social History Tobacco Use Types Packs/Day Years [...] on filedocumented in this encounter Care Teams Raimann Machine Operator Relationship Specialty Start Date End Date Jackelin Paniagua PA PCP - General 07/20/12 01/23/16 documented as of this encounter
--- OUTSIDE RECORDS SUMMARY | 2022-06-07 01:46 | XMS_ITS | Encounter Summary ---
:1970 Author Organization [facility] [place] [address] Care Team Providers Name Role Phone Dangelo Ordaz MD Primary Care Provider [phone] Reason for Visit Reason Comments Skin Check Encounter Details Date Type Department Care Team Description 02/11/2018 Office Visit Dermatology at [facility] Dash Remy, Feared condition not demonstrated; Dusty CUEVA Sun-damaged skin; [address] [facility] Multiple benign nevi; [place] [address] [address] angiojordan; [phone] [facility] Seborrheic adolfo tosis; RD-DERMATOLOGY History of basal cell carcinoma [place], [place] [address] Social History Tobacco Use Types Packs/Day Years [...] documented as of this encounter Progress Notes Dash Remy MD - 02/11/2018 8:15 AM EDT Images from the original note were not included. DEPARTMENT DERMATOLOGY AT [facility] Dermatology At [facility] [address] [facility] [address] FOLLOW-UP This is a high risk patient who returns for re-evaluation of recurrence of skin cancer and development of new skin cancers. Chief Complaint: Lesion on the frontal scalp History of Present Illness Paul Bradley is a 47 y.o. male. History of skin cancer who complains of a recurrent crusted lesion on the scalp that was first identified about three years ago. Triggered by sun. Treated with topical antifungal with no improvement; resolves without treatment. Never been biopsied. Not present today. Requests full body skin cancer screening. No known recurrence previous cancer site. No other suspicious lesions. Interval changes to Medications and Medical, Family and Social Histories (including alcohol and tobacco use) Since Last Visit 08/16/2016: No significant interval history. Skin Cancer History Left lateral eyebrow, basal cell carcinoma s/p Mohs Sep 2013 Allergies Sulfa (sulfonamide antibiotics) and Morphine Medications has a current medication list which includes the following prescription(s): clindamycin, proair hfa,oxycodone, triamcinolone, bupropion, omeprazole, fluoxetine, duloxetine, advair diskus, lorazepam, budesonide-formoterol, gabapentin, acetaminophen, warfarin, and albuterol-ipratropium. Social History Tobacco use - current smoker Alcohol use - yes Review of Systems Significant for no pertinent and acute changes in constitutional, other skin systems upon specific queries. Examination Standby: Samara Flores-Chris Mood is appropriate. Well developed, well-nourished in no apparent distress, alert and oriented to time, person, place and situation. Patient was asked to disrobe to the level of comfort. Examination of the head - including the scalp,face, ears, nose, lips, tongue, oral mucosa - neck, chest, abdomen, back, axillae, upper and lower extremities, including the nail plates, significant for the following: ?? No lesion on the frontal scalp ?? Moderate to severe sun-damage on sun-exposed areas including irregular ashraf macules on sun-exposedareas and epidermal thinning with dyspigmentation and/or telangectia sun-exposed areas of the neck, chest. ?? Well-demarcated, round or oval, ashraf or brown macules and papules with benign morphology on the head, trunk and extremites Multiple, wheeler red 1-4mm papules on the trunk and extremities Scattered, stuck-on, well-demarcated, ashraf or brown, waxy or warty papules c/w SKs on the trunk ?? No evidence of recurrence in scar on the left eyebrow Assessment and Plan Feared Condition Not Present, Frontal Scalp Return to clinic prn if recurs. Will make effort to get patient into clinic within 2 business days for re-evaluation and possible biopsy. Clinic information provided to patient. Solar Damage, including Lentigines Benign but evidence of moderate chronic sun damage. Counseled: risks for skin cancer, thinning of skin. Discussed lentigines, sun damage and spontaneousdevelopment, rare risk of lentigo maligna (melanoma arising in a lentigo), sun protection, no treatment necessary but discussed cosmetic options, including topical bleaching agents, as well as chemicalpeels and lasers. Answered all questions. Handout on lentigines and sun protection given to the patient. Nevi Morphology reassuring for benign nevi. Counseled: Nevi and risks for melanoma arising in a nevus. Recommend regular self-examinations. Answered all questions. Reviewed ABCDEs of melanoma, as below. Return to clinic prn for changes in color, size, shape or thickness or should bleeding or other symptoms occur. Patient agrees to plan. Wheeler Angiomas Counseled: wheeler angiomas. Benign. No treatment necessary unless symptoms develop. Handout given. Seborrheic Keratoses Benign. No treatment necessary. Counseled: SKs, benign, treatment options for symptomatic lesions. Answered all questions. Handout given History of Skin Cancer No evidence of recurrence. Patient Counseled [Skin Cancer] Counseled: sun protection, regular self skin exams, provider skin exams every 12 months, and the ABCDEs of melanoma/NMSC. Answered all questions. Handouts on how to do a self-exam, skin cancers and sunprotection given to the patient. Follow-up: Skin cancer screening in 12 months or return to clinic prn for new suspicious lesions or if changes/symptoms in existing lesions develop. Note initiated by AV FELICIANO has performed the documentation for this encounter in the presence of andacting as a scribe for Dr. Remy. I performed the above scribed service and agree with the accuracy of the documentation in this encounter. Dash Remy MD FAAD Section of Dermatology [facility] documented in this encounter Plan of Treatment Not on filedocumented as of this encounter Visit Diagnoses Diagnosis Feared condition not demonstrated Person with feared complaint in whom no diagnosis was made Sun-damaged skin Other chronic dermatitis due to solar ra diation Multiple benign nevi Benign neoplasm of skin, site unspecifie d Wheeler angioma Nevus, non-neoplastic Seborrheic keratosis Other seborrheic keratosis History of basal cell carcinoma Personal history of other malignant neop lasm of skin documented in this encounter Care Teams Restaurant Cashier Relationship Specialty Start Date End Date Dangelo Ordaz MD PCP - General Family Medicine 01/24/16 [address] [place] [address] documented as of this encounter
--- OUTSIDE RECORDS SUMMARY | 2022-06-07 01:46 | XMS_ITS | Encounter Summary ---
:1970 [place] [address] Care Team Providers Name Role Phone Jackelin Paniagua Primary Care Provider Reason for Referral Surgical (Routine) - Closed Specialty Diagnoses / Procedures Referred By Contact Refer red To Contact Orthopaedic Surgery Diagnoses Work related injury Waleska Quintanilla MD Tannoury, Tony Y, MD [address] [facility] [address] [place] [address] Fax: Referral ID Status Reason Start Date Expiration Date Visits V isits Requested Authorized [id number] Closed Second 09/15/2014 03/14/2015 1 1 Opinion onsultation (Routine) - Closed Specialty Diagnoses / Procedures Referred By Contact Refer red To Contact Pain Management Diagnoses Work related injury Waleska Quintanilla MD Dent, David V, DO [facility] [place] [address] Fax: Referral ID Status Reason Start Date Expiration Date Visits V isits Requested Authorized [id number] Closed Consult, 09/15/2014 09/15/2015 1 1 Test & Treat Encounter Details Date Type Department Care Team Description 09/15/2014 Office Visit Occupational Medicine Satish Quintanilla MD Work related injury at [facility] [address] [place] [address] OCCUPATIONAL [phone] [place] [address] Social History Tobacco Use Types Packs/Day [...] Sign Reading Time Taken Comments Blood Pressure 146/77 09/15/2014 9:33 AM EST Pulse 74 09/15/2014 9:33 AM EST Temperature - - Respiratory Rate - - Oxygen Saturation - - Inhaled Oxygen Concentration - - Weight - - Height - - Body Mass Index - - documented in this encounter Patient Instructions Patient InstructionsWaleska Quintanilla MD - 09/15/2014 10:38 AM EST QUIT SMOKING! Pick a quit date Before the quit date, change your patterns Find an online or in person support group See your PCP for nicotine replacement therapy Consider eating celery and carrot sticks! DON'T GET DISCOURAGE GET A COPY OF ALL YOUR IMAGING ON A DISC AND BRING TO SECOND OPINION APPT documented in this encounter Progress Notes Waleska Quintanilla MD - 01/13/2015 4:52 PM EDT From Pain Medicine, We could repeat the Occipital nerve blocks, though his last injection was not that helpful. Scrambler vs SCS are some other options. ST is going to be much cheaper and, if approved,I believe should be tried first. Plan: Review with patient. 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 Bradley is a 44-year-old male whom I am seeing in follow up regarding aa fall on ice at work resulting in a head and neck injury in the setting of past non-work related fall in October, resulting in cervical fractures, myelopathy, and C3-6 fusion. See initial intake for details and case history. Neck, upper back, and arm signs and symptoms are consistent with C7-T1 distribution. Headaches are consistent with a combination of cervicogenic, posttraumatic, and occipital neuralgia. Functionaltesting showed he is below sedentary physical capacity. Function is further limited by depression and COPD. PMH is extensive as listed below. Medications for this injury include Cymbalta, gabapentin, and Tylenol. He smokes one pack per day for 25 years. He has completed school through high school and reports no learning disabilities or other troubles in school. 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 He last worked in November, and has been out of work since this most recent injury. Today, he reports no new symptoms. He has seen his surgeon, Dr. France, with suggestion for injections and no surgical options. Symptoms haven't changed. He would like second spine opinion. CBT ishelpful. He feels safe without SI/HI. Treatment summary: Medications Per pain medicine notes Physical Therapy ?? Craniosacral therapy ?? PT and pool therapy ?? GAP assessment for the [facility] and was found to have a [...] without lasting benfit Surgeries None for this injury Other ?? Found not to be a candidate for occipital nerve stimulator by the implantable anesthesia committee ?? Cognitive behavioral therapy for diagnosis of adjustment disorder with depression and anxiety, which he finds helpful ?? OTF with Dr. Abhijit Little with report pending Past Medical History Diagnosis Date ??? Spinal [...] procedure 07/22/2014 MRI WITH ANESTHESIA performed by Andres Gutierrez at [facility] Current Outpatient Prescriptions Medication Sig Dispense Refill ??? oxyCODONE (ROXICODONE) 5 mg Tablet 0 ??? DULoxetine (CYMBALTA) 60 mg Capsule, Delayed Release(E.C.) 0 ??? ADVAIR DISKUS 250-50 mcg/dose Disk with Device 0 ??? BUPROPION HCL ORAL Take by mouth. Patient does not remember dose ??? cyanocobalamin 500 mcg Tablet Take 500 mcg by mouth daily. ??? Omeprazole 20 mg Tablet, Delayed Release (E.C.) Take by mouth. ??? LORazepam (ATIVAN) 2 mg Tablet Take 2 mg by mouth every 6 hours as needed. ??? Budesonide-Formoterol 160-4.5 mcg/actuation HFAA Inhale into the lungs. ??? gabapentin (NEURONTIN) 600 mg tablet Increase to 3600 mg/day by increasing by 300 mg/day every 5days. Do not abruptly stop. 180 tablet 2 ??? acetaminophen (TYLENOL) 500 mg tablet Take 1,000 mg by mouth every 6 hours as needed. ??? warfarin (COUMADIN) 5 mg tablet Take 5 mg by mouth daily. ??? albuterol-ipratropium (COMBIVENT RESPIMAT) 20-100 mcg/actuation inhaler Inhale 2 puffs into the lungs every 6 hours as needed. No current facility-administered medications for this visit. ALLERGIES: Sulfa O: Filed Vitals: 09/15/14 0933 BP: 146/77 Pulse: 74 Mr. Bradley is alert and pleasant, in no acute distress. Exam not repeated today. Diagnostic studies: Most recent imagining in the system is an MRI of the cervical and throracic spine dated 12/24/2012. There is a focus of myelopathic change at about C4-5 that is interpreted as unchanged from his prior study after the first injury. Imaging is of extremely poor quality secondary to body habitus and also this was done in [place] Open MRI which limits the quality of [...] No evidence of ligamentous instability. Intact hardware. A: Mr. 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 1. Headaches consistent with cervicogenic, posttraumatic, and occipital neuralgia 2. Neck, upper back pain, and arm pain clinically consistent with C7-T1 distribution. 3. Severe deconditioning P: 1. We discussed next steps in detail. We will get a copy of Dr. France's note. I would like himto follow up with Dr. Hayes Anthony to review the new MRI and Dr. France's note to see if there are any other medications or interventions indicated. I am referring him to a definitive second spine opinion with the Spine orthopedists for the expertise in complex occupational spine injuries, minimally invasive surgical options, and emphasis on functional rehabilitation and return to work. 2. I think a trial of ST surface electrode treatment would be reasonable for his headaches and occipital neuralgia after second spine opinion. He does identify his headaches as the major barrier to function. Of note, the analysis of the global burden of disease published by the World Health Organization (Menken, 2000) found that disability from severe headache is as debilitating as quadriplegia or dementia. So, his report of being disabled by his headaches (that he rates up to 8/10) is certainly consistent with studies of headache- related disability. ST surface electrode treatment is a noninvasive way to treat chronic neuropathic pain with a recent 2012 randomized controled trial (Pattie, 2012) showing clinically significant decrease in pain with average decrease in VAS scale from 8/10 to 1 to 2/10 with no documented side effects. In addition, anecdotally, my colleagues and I have been seeing excellent results with posttraumatic headaches using this treatment with discontinuation of opiate use. This treatment is reported to be effective in approximately 80% of people with chronic neuropathic pain, and one can usually tell if someone will be responsive within the first two to three treatments.Typical treatment is up to 10 visits over the course of two weeks, although treatment is ended sooner if pain resolves before the full treatment course. This would, in my mind, be a preferable first step over an occipital nerve stimulator, which is invasive, and he is not a good candidate for this formany reasons. He would need to be weaned off of neuropathic pain medications prior to starting ST treatment. Any other pain medications would be weaned during the treatment. 3. We discussed the importance of and strategies for successful smoking cessation for his general and spine health in detail. He will follow up with PCP for this. 4. He should certainly continue with vocational rehab as he does express a desire to get back to work. 5. I think his recovery is also complicated by his comorbidites (especially his COPD and his breathing is probably worse from inactivity) and his adjustment disorder, the depressive features of which are likely interfering with optimism and motivation. I think it would be beneficial if he continued towork on these functional goals and his adjustment disorder with Dr. Ayala. In addition, cardiopulmonary rehabilitation after diagnoses and treatment plan are established would support return to work. 6. WC form completed without change for now. 7. Follow up after pain medicine follow up and spine second opinion. If these visits do not yield any new treatment options, we will pursue ST treatment for non-invasive treatment of chronic neuropathic pain. He understands these would be definitive opinions. The entirety of this 40-minute visit was spent discussing diagnosis, treatment options, treatment plan, expectations of treatment, work capacity, and return to work using a shared decision making approach. documented in this encounter Plan of Treatment Scheduled Referrals Name Type Priority Associated Order Schedule Diagnoses Referral to Pain Outpatient Referral Routine Work related inju ry Ordered: Clinic 09/15/2014 Referral to Outpatient Referral Routine Work related injury O rdered: Orthopaedics 09/15/2014 documented as of this encounter Visit Diagnoses Diagnosis Work related injury Injury, other and unspecified, unspecifi ed site documented in this encounter Care Teams Drill Sharpener Relationship Specialty Start Date End Date Jackelin Paniagua PA PCP - General 07/20/12 01/23/16 documented as of this encounter
--- OUTSIDE RECORDS SUMMARY | 2022-06-07 01:46 | XMS_ITS | Encounter Summary ---
:1970 Author Organization [facility] Address [address] [place] [address] Care Team Providers Name Role Phone Jackelin Paniagua Primary Care Provider Reason for Visit Reason Comments Work Related Injury head injury, neck and back Encounter Details Date Type Department Care Team Description 12/01/2014 Office Visit Occupational Medicine Tiera Quintanilla L, Wor k related injury; at [address] Adjustment reaction with anxiety and dep ression; [address] [employer] Cigarette smoker; [place] [address] Radiculopathy of cervical region; [phone] OCCUPATIONAL History of fusi on of cervical spine; MEDICINE Head injury, sequela [place], [place] [address] Social History Tobacco Use Types Packs/Day [...] Sign Reading Time Taken Comments Blood Pressure 160/126 12/01/2014 10:13 AM EST Pulse 78 12/01/2014 10:13 AM EST Temperature - - Respiratory Rate - - Oxygen Saturation - - Inhaled Oxygen Concentration - - Weight 151.5 kg (334 lb) 12/01/2014 10:13 AM EST Height 172.7 cm (5' 8) 12/01/2014 10:13 AM EST Body Mass Index 50.78 12/01/2014 10:13 AM EST documented in this encounter Progress Notes Tiera Quintanilla MD - 12/13/2014 4:[address] 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 Bradley is a [...] combination of cervicogenic, posttraumatic, and occipital neuralgia. Functional testing showed he is below sedentary physical capacity. Function is further limited by depression andCOPD. PMH is extensive as listed below. Medications for this injury include Cymbalta, gabapentin, and Tylenol. He smokes one pack per day for 25 years. He has completed school through high school and reports no learning disabilities or other troubles in school. 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 He last worked in November, and has been out of work since this most recent injury. Today, he reports no new symptoms or red flags. He has seen his surgeon, Dr. France, with suggestion for injection (CT-guided C2 block for possible C2 neuralgia) and no surgical options. He would like second spine opinion. CBT is helpful. He feels safe without SI/HI. He is preparing to quit smoking. Treatment summary: Medications Per pain medicine notes Physical Therapy ?? Craniosacral therapy ?? PT and pool therapy ?? GAP assessment for the [facility] and was found to have a [...] 10/20/2012 ??? Basal cell carcinoma of brow 2012 Left Past Surgical History Procedure Laterality Date ??? Cervical fusion 2011 C3-6 ??? Cholecystectomy 2012 ??? Appendectomy 1985 ??? Unlisted mr procedure 07/22/2014 MRI WITH ANESTHESIA performed by Brenda AnesthesiaCoco at [facility] Current Outpatient Prescriptions Medication Sig Dispense Refill ??? buPROPion (WELLBUTRIN SR) 150 mg Tablet Sustained Release 0 ??? omeprazole (PRILOSEC) 20 mg Capsule, Delayed Release(E.C.) 0 ??? FLUoxetine (PROZAC) 40 mg Capsule Take 40 mg by mouth daily. ??? oxyCODONE (ROXICODONE) 5 mg Tablet 0 [...] this visit. ALLERGIES: Sulfa O: Filed Vitals: 12/01/14 1013 BP: 160/126 Pulse: 78 Mr. Bradley is alert and pleasant, in no acute distress. HE has slightly wide gait with disequilibrium. Steiner is positive bilaterally. Spurling is positive on the right for right shoulder and upper arm pain. He has no clonus. Diagnostic studies: Most recent imagining in the system is an MRI of the cervical and throracic spine dated 12/24/2012. There is a focus of myelopathic change at about C4-5 that is interpreted as unchanged from his prior study after the first injury. Imaging is of extremely poor quality secondary to body habitus and also this was done in [place] Open MRI which limits the quality of [...] A: Mr. 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 Positive Steiner may be related to centrally acting medications vs cord issues. 3. Severe deconditioning P: 1. We discussed next steps in detail. I reviewed injection recommendations with Dr. Hayes Anthony. He also reviewed Dr. France's note. Dr. Anthony does not perform upper cervical injections but does agree that CT-guided C2 block is reasonable. 2. Definitive second spine opinion with spine orthopedists to rule out lower cervical issues. He needs to repeat the cervical flexion and extension x-rays because the C6-7 level cannot be visualized. Images reviewed an rationale for repeat imaging explained. 2. I think a trial of ST surface electrode treatment would be reasonable for his headaches and occipital neuralgia if headaches persist after injection and second spine opinion. 3. Continue plans for smoking cessation with PCP. Importance of this reinforced. 4. He should certainly continue with vocational rehab as he does express a desire to get back to work. 5. I think his recovery is also complicated by his comorbidites (especially his COPD and his breathing is probably worse from inactivity) and his of which are likely interfering with optimism and motivation. Continue CBT. In addition, cardiopulmonary rehabilitation after diagnoses and [...] He understands these would be definitive opinions. 15 minutes of this 25-minute visit was spent discussing diagnosis, treatment options, treatment plan, expectations of treatment, work capacity, and return to work using a shared decision making approach. documented in this encounter Miscellaneous Notes Addendum Note - Tiera Quintanilla MD - 12/13/2014 5:12 PM EDT Addended by: TIERA QUINTANILLA on: 12/13/2014 05:12 PM Modules accepted: Orders documented in this encounter Plan of Treatment Not on filedocumented as of this encounter Visit Diagnoses Diagnosis Work related injury Injury, other and unspecified, unspecifi ed site Adjustment reaction with anxiety and dep ression Adjustment disorder with mixed anxiety a nd depressed mood Cigarette smoker Tobacco use disorder Radiculopathy of cervical region Brachial neuritis or radiculitis nos History of fusion of cervical spine Arthrodesis status Head injury, sequela documented in this encounter Care Teams Home Therapy Teacher Relationship Specialty Start Date End Date Jackelin Paniagua PA PCP - General 07/20/12 01/23/16 documented as of this encounter
--- OUTSIDE RECORDS SUMMARY | 2022-06-07 01:46 | XMS_ITS | Encounter Summary ---
:1970 Author Organization [place] [address] Care Team Providers Name Role Phone Jackelin Paniagua Primary Care Provider Encounter Details Date Type Department Care Team Description 05/05/2015 Notes Only Occupational Medicine at Waleska Quintanilla MD [facility] [address] [place] [address] [place] [address] [phone] (Wo rk) Social History Tobacco Use Types [...] documented as of this encounter Progress Notes Waleska Quintanilla MD - 05/05/2015 4:44 PM EDT I received a call from Mr. Bradley' patent prosecution attorney, Evgeny Ponce. Apparently, his Worker's Compensation coverage has been ended secondary to OTF report from Dr. Abhijit Little and a surveillance video. Per Boatswain Mate Ponce, the primary issue is ongoing headaches. I reviewed his chart today. I have not seen him since November,. He does have some adjacent segment issues above and below his fusion. Possible treatment options include cervical medial branch blocks as suggested by Dr. Frnace, a trial of noninvasive Scrambler Treatment for chronic neuropathic pain which could address both the cervical issues and headaches if there is not anatomic compressive pathology in the spine, or a second ict security specialist opinion. There is no urgent issue seen on cervical MRI that would necessitate urgent surgical intervention. In terms of a treatment plan, I have suggested that the patient follow up with me in clinic for an office visit. Overall, as suggested by his Pain Medicine provider, it makes the most senseclinically to start with the least invasive and lowest side effect profile treatment first, which would be a trial of scrambler therapy; in the hands of Dr. Alfonso, this is very effective treatment forchronic neuropathic pain. I am happy to write a letter of medical necessity for private insurance coverage as needed. In terms of the question of the surveillance video and his physical capacity, it would make sense to do a functional capacity evaluation. I suspect his symptoms wax and wane and are unpredictable. At last visit, he did not have adequate pain management in place to tolerate regular work hours, primarily secondary to headaches, but he has no specific activity restrictions in terms of the cervical spine other than avoiding activities that excessively flare his symptoms. Plan: I will see the patient in clinic as needed to discuss next steps. Waleska Quintanilla MD, PhD, MPH, FACOEM Shactor Section of Occupational and Environmental Medicine Department of Medicine [facility] documented in this encounter Plan of Treatment Not on filedocumented as of this encounter Visit Diagnoses Not on filedocumented in this encounter Care Teams Distance Learning Coordinator Relationship Specialty Start Date End Date Jackelin Paniagua PA PCP - General 07/20/12 01/23/16 documented as of this encounter
--- OUTSIDE RECORDS SUMMARY | 2022-06-07 01:46 | XMS_ITS | Encounter Summary ---
:1970 Author Organization [facility] [place] [address] Care Team Providers Name Role Phone Jackelin Paniagua Primary Care Provider Encounter Details Date Type Department Care Team Description 08/15/2014 Office Visit Psychiatry and Gina Ayala Adjustmen t disorder Behavioral Health at [place], PhD with mixed anxiety and [facility] depressed mood [facility] [address] Flanagan PSYCHIATRY DEPT. [place] [id number] [phone] Social History Tobacco Use Types Packs/Day Years [...] encounter Progress Notes Gina Ayala, PhD - 08/15/2014 2:51 PM EST Behavioral Medicine Service Individual Therapy Followup/Cognitive Behavioral Therapy-- 45 minutes Chief Complaint: coping with chronic pain S/O: Mr. Bradley reports that he has not been in for an appointment for 3.5 weeks due to a skin graphon his carlson. He reports ongoing frustration with his health care and worker's comp. He feels very pressured by financial stress. The session focused on reviewing coping strategies and discussing frustration with chronic pain. A decision analysis grid was also constructed regarding smoking cessation. A: 309.28 adjustment disorder with depressed and anxious mood myD-H Psychiatry 08/15/2014 Patient Health Questionnaire Depression 10 (Moderate Depression) GAGAN-7 12 (Moderate Anxiety) Mental status notable for anxious and [...] problem solving insession. He is scheduled for a surgical consultation 09/14. RTC 1 week. documented in this encounter Plan of Treatment Not on filedocumented as of this encounter Visit Diagnoses Diagnosis Adjustment disorder with mixed anxiety a nd depressed mood documented in this encounter Care Teams It Service Continuity Supervisor Relationship Specialty Start Date End Date Jackelin Paniagua PA PCP - General 07/20/12 01/23/16 documented as of this encounter
--- OUTSIDE RECORDS SUMMARY | 2022-06-07 01:46 | XMS_ITS | Encounter Summary ---
:1970 Author Organization [facility] [place] [address] Care Team Providers Name Role Phone Jackelin Paniagua Primary Care Provider Reason for Visit Auth/Cert - Closed Specialty Diagnoses / Procedures Referred By Contact Refer red To Contact Diagnoses MYELOPATHY Procedures UNLISTED MR PROCEDURE MRI WITH ANESTHESIA Referral ID Status Reason Start Date Expiration Date Visits Requ ested Visits Authorized [id number] Closed 1 1 Encounter Details Date Type Department Care Team Description 08/04/2015 Anesthesia Event [facility] Nicole Salazar MD [facility] [place] [address] ANESTHESIOLOGY [phone] [place], [place] [address] (Wo rk) Anesthesia Record Procedure Summary Procedure Name Responsible Anesthesia Start Anesthesia Stop Anesthesiologist Time Time MRI WITH ANESTHESIA Nicole Hamlin MD 08/04/15 1553 5 1723 (WRVU *) (N/A Spine Cervical) Events Date Time Event Comment 08/04/2015 1452 1553 AN Verify 1553 Start 1553 An Start Data 1612 Anesthesia Ready 1706 an stop data 1723 Recovery or ICU Handoff Patient care was transferred to the destination unit staff after review of the patient's medica l history, current anesthetic/surgi josie status and plan, according to the Provider Handoff Checklist. 1723 Stop Name Total IV Lidocaine 60 mg Propofol 100 mg Propofol INF 958.1 mg Dexmedetomidine 40 mcg Agents Name O2 Blood No blood administrations on file. Lines, Drains, and Airways Type Details Placement Removal PIV 08/04/15; 1452; basilic vein 08/04/15 1452 by Co nverse, 08/04/15 1737 by Brea, left (medial side of arm); VINCE Ramos RN [id number] catheter system; 20 gauge, 1 in length; Linda Crane RN; tolerated well, appears comfortable, intradermal injection; 08/04/15; 1737 documented in this encounter Social History Tobacco Use Types Packs/Day Years [...] on file documented as of this encounter OR Notes Anesthesia Postprocedure Evaluation - Nicole Hamlin MD - 08/04/2015 6:55 PM EDT Patient: Paul Bradley Procedure(s) Performed: Procedure(s): MRI WITH ANESTHESIA Actual Anesthetic: MAC Patient location: PACU Post-op pain: Adequate analgesia Post-op nausea: no nausea or vomiting Last Vitals: Filed Vitals: 08/04/15 1726 BP: 144/50 Pulse: 77 Temp: Resp: 16 Post-op cardiovascular and respiratory status: is stable Level of consciousness: awake, alert and oriented Complications: no apparent complications and tolerated the procedure well Fluid Status: normal Anesthesia Preprocedure Evaluation - Nicole Hamlin MD - 08/04/2015 2:49 PM EDT Pre-Anesthesia Evaluation for: Paul Bradley a 45 y.o. male. Procedure(s): MRI WITH ANESTHESIA Patient Active Problem List Diagnosis ??? Venous stasis ulcer of leg without varicose veins ??? Head injury ??? Radiculopathy of cervical region ??? Work related injury Fall on ice with head injury in 2012 ??? Adjustment reaction with anxiety and depression ??? Occipital neuralgia ??? Cigarette smoker ??? Overweight ??? Cervicalgia ??? Cervical disc disease with myelopathy ??? History of fusion of cervical spine ??? History of cholecystectomy ??? Heterozygous factor V Leiden mutation ??? History of pulmonary embolism Past Medical History Diagnosis Date ??? Spinal [...] WITH ANESTHESIA performed by Andres Gutierrez at [facility] History Substance Use Topics ??? Smoking status: Current Every Day Smoker -- 1.00 packs/day for 20 years Types: Cigarettes ??? Smokeless tobacco: Never Used Comment: Contemplation stage but not ready to quit yet ??? Alcohol Use: 1.7 oz/week 1 Not specified, 2 Shots of liquor per week Comment: weekends History Drug Use No Allergies Allergen Reactions ??? Sulfa (Sulfonamide Antibiotics) CIS - Rash ??? Morphine Non-responder to Morphine Medications: MAR and/or home medications have been reviewed. Physical Exam: Filed Vitals: 08/04/15 1438 BP: 145/96 Pulse: 86 Temp: 36.9 ??C (98.4 ??F) Resp: 20 Body mass index is 47.97 kg/(m^2). Height: 175.3 cm (5' 9.02) Weight - Scale: 147.419 kg (325 lb) Airway Assessment: Mallampati: II TM distance: >3 FB Neck ROM: full Cardiovascular Assessment: Rhythm: regular Rate: normal cardiovascular exam normal Pulmonary Assessment: breath sounds clear to auscultation pulmonary exam normal Dental Assessment: (+) upper dentures and lower dentures [facility] Assessment: Patient is wearing No contact(s). IV access: Peripheral line Anesthesia Plan: ASA 2 MAC, with a(n) intravenous induction 45 year old man with a history of pulmonary embolism, factor V Leiden mutation, cervical spine injury s/p repair, obesity, and anxiety/depression who presents for an MRI. Patient denies any issues with anesthesia. He last ate last evening and last consumed clear liquids 1.5 hrs ago. He denies any recent cold, cough, fever, chest pain, or shortness of breath. Plan for monitored anesthesia care. Risks and benefits were discussed. All questions answered. Region - Other Informed Consent: Anesthetic plan and risks discussed with patient. Plan discussed with CHIPPER FEEDER and attending. [facility]. Assessment: PAT Staff Note documented in this encounter Plan of Treatment Not on filedocumented as of this encounter Visit Diagnoses Not on filedocumented in this encounter Administered Medications Inactive Administered Medications - up to 3 most recent administrations Medication Order MAR Action Action Date Dose Rate Site dexmedetomidine (PRECEDEX) Given 08/04/2015 4:00 PM EDT 40 mcg injection PRN, Starting on Fri08/04/15 at 1600, Until Fri08/04/15 at 1723, Anesthesia Intra-op, Routine lidocaine (PF) (XYLOCAINE) 100 mg/5 mL (2 %) Given 5 4:00 PM EDT 60 mg injection PRN, Starting on Fri08/04/15 at 1600, Until Fri08/04/15 at 1723, Anesthesia Intra-op, Routine propofol (DIPRIVAN) 10 mg/mL bolus injection Given 4:00 PM EDT 100 mg (Anesthesia) PRN, Starting on Fri08/04/15 at 1600, Until Fri08/04/15 at 1723, Anesthesia Intra-op propofol (DIPRIVAN) infusion New Bag 08/04/2015 4:00 PM 100 mcg/kg/min 88.4 mL/hr CONTINUOUS PRN, Starting on EDT Fri08/04/15 at 1600, Until Fri08/04/15 at 1723, Anesthesia Intra-op, Routine documented in this encounter Care Teams Farm Loan Inspector Relationship Specialty Start Date End Date Jackelin Paniagua PA PCP - General 07/20/12 01/23/16 documented as of this encounter
--- OUTSIDE RECORDS SUMMARY | 2022-06-07 01:46 | XMS_ITS | Encounter Summary ---
:1970 Author Organization [facility] [place] [address] Care Team Providers Name Role Phone Dangelo Ordaz MD Primary Care Provider [phone] Reason for Visit Consultation (Routine) - Closed Specialty Diagnoses / Procedures Referred By Contact Refer red To Contact Neurology Diagnoses Headache, chronic daily botox for SILVA? Alex Harris MD [facility] Neurology 3c [facility] [place] [address] [place] [address] Referral ID Status Reason Start Date Expiration Date Visits V isits Requested Authorized [id number] Closed Consult, 11/15/2015 11/14/2016 1 1 Test & Treat Encounter Details Date Type Department Care Team Description 01/24/2016 Office Visit Neurology at [facility] Alex Harris MD [facility] [place] [address] Opioid type dependence, continuous; [facility] Jae Diaz [place] [facility] [place] [address] Benzodiazepine dependence, continuous; [facility] Chronic pain syndrome; [place], [place] Intractable chr onic migraine without aura and without status migrainosus; [id number] Medication overuse headache [phone] Social History Tobacco Use Types Packs/Day Years [...] Sign Reading Time Taken Comments Blood Pressure 143/77 01/24/2016 12:43 PM EDT Pulse 96 01/24/2016 12:43 PM EDT Temperature - - Respiratory Rate - - Oxygen Saturation - - Inhaled Oxygen Concentration - - Weight 151 kg (333 lb) 01/24/2016 12:43 PM EDT Height 177.8 cm (5' 10) 01/24/2016 12:43 PM EDT Body Mass Index 47.78 01/24/2016 12:43 PM EDT documented in this encounter Patient Instructions Patient InstructionsJae Diaz MD - 01/24/2016 1:49 PM EDT 01-24-16 Please start one half pill of 16 mg candesartan each night for one week. Then go to 16 mg at night every night thereafter. Then see me in 3 months. Jae Diaz MD documented in this encounter Progress Notes Jae Diaz MD - 01/24/2016 12:51 PM EDT Neurology Headache New Patient?01-24-16 Headache Clinic Referring Provider: Alex Harris MD This is a 45 old year old??R-handed man referred by Alex Harris MD, to whom I will send the consult upon completion. Accompanied by:?? CC:?? headache HPI: This patient has COPD, heterozygous Factor V Leiden, depression with one suicide attempt, GAGAN, BRIGITTE, R shoulder and neck pain. He fell in Nov, with a resultant concussion and a cervical fx, and had a cervical fusion C3-6 in Jun. He had a PE in Jan. He is on chronic opioids for pain. From the note by Dr. Waleska Quintanilla : He had a non-work related fall in October, resulting in cervical fractures, ??myelopathy, and C3-6 fusion... Mr. Bradley states that he has settled his workers' compensation claim.?? He is here to discuss social security disability.?? In terms of symptoms, his headache is equal to his neck pain at this point.?? His right arm still hurts.?? In addition to these work injury symptoms, he also has low back pain and a diagnosis of lumbar spinal stenosis.?? This radiates into his legs.?? He was told that at this point surgery is not an option.?? He also has bilateral carpal tunnel syndrome, COPD, and has to elevate his legs because of venous stasis.?? He has seen Dr. Antony Pina in the [facility] for a second opinion.?? It was not recommended that he have any surgery at this point...CT-guided C2 block was recommended by Dr. France. Dr. Anthony does not perform upper cervical injections but does agree that CT- guided C2 block is reasonable...We did discuss a referral from his PCP to the [facility] if he would like to discuss possible treatment options for obesity including possible bariatric surgery...I think a trial of ST surface electrode treatment would be reasonable for ??his headaches and occipital neuralgia if headaches persist as well as for the neck if an anato mical compression as a source of his neck symptoms is ruled out by Spine...[recommended] CBT for injury-related mood changes and to help with coping with chronic pain and for improved sleep which is disrupted by pain. The patient says the accident was work related. He has had a spinal tap as well as ARPIT at multiple levels. The HAs began after his accident and have been continuous ever since, severe 50% of the time (8/10),moderate 50% of the time, 4-5/10. They are almost always on the R, one day out of 100 might be on the L. They encompass the entire R head. He goes to a dark quiet room from an intensity of 6/10, no agitation. Positive: R ear is numb and tingling, ice pick pains Negative: R ear numbness, R ptosis, red eye, foreign body sensation, lacrimation, rhinorrhea, R sided stuffy nose, unilateral photophobia, unilateral phonophobia Neck pain: severe daily Shoulder: severe daily Arm pain: R, severe daily Thoracic pain: moderate daily LBP: severe daily Abdominal pain: monthly, moderate Groin pain: twice per month, severe, into L testicle Leg pain: right side, severe, daily There is a potential plan to get Mr. Bradley off the oxycodone, but probably with a trial of marijuana. Prior Treatments: BZDs 1. Diazepam 2. Midazolam 3. Lorazepam AEDs 4. GBP NSAIDs 5. ASA 6. Ibuprofen 7. Naproxen SSRIs 8. Fluoxetine SNRIs 9. Duloxetine Other antidepressants 10. Bupropion Misc 11. APAP Steroids 12. Methylpred Narcotics 13. Codeine 14. Tramadol 15. Hydrocodone 16. Morphine 17. Hydromorphone 18. Oxycodone Procedures ONB MBB CBT Current Medications: Outpatient Prescriptions Marked as Taking for the 01/24/16 encounter (Office Visit) with Jae Diaz MD Medication Sig Dispense Refill ??? predniSONE (DELTASONE) 20 mg Tablet Take 20 mg by mouth 2 times daily. ??? oxyCODONE (ROXICODONE) 10 mg Tablet Take [...] the lungs every 6 hours as needed. Allergies: Allergies Allergen Reactions ??? Sulfa (Sulfonamide Antibiotics) CIS - Rash ??? Morphine Non-responder to Morphine Previous testing: See [facility] for extensive imaging reports on MRIs and CTs of brain Family History: Migraine or other headaches in the family:?? no Past Medical History: Past Medical History Diagnosis Date ??? Spinal [...] Basal cell carcinoma of brow 2012 Left ??? Back pain ??? Depression ??? Headache(784.0) ??? Concussion ??? GAGAN (generalized anxiety disorder) ??? Suicide attempt Past Surgical History: Past Surgical History Procedure Laterality Date ??? Cervical fusion 2011 C3-6 ??? Cholecystectomy 2012 ??? Appendectomy 1985 ??? Unlisted mr procedure 07/22/2014 MRI WITH ANESTHESIA performed by Resource, Anesthesia-Citlali at [facility] ??? Unlisted mr procedure N/A 08/04/2015 MRI WITH ANESTHESIA performed by RESOURCE, ANESTHESIA-CITLALI at [facility] ??? Laminectomy Removal Basal cell CA L brow Social History: History Social History ??? Marital Status: Spouse Name: N/A Number of Children: N/A ??? Years of Education: N/A Occupational History ??? Not on file. Social History Main Topics ??? Smoking status: Current Every Day Smoker -- 1.00 packs/day for 20 years Types: Cigarettes ??? Smokeless tobacco: Never Used Comment: Contemplation stage but not ready to quit yet ??? Alcohol Use: 1.7 oz/week 1 Standard drinks or equivalent, 2 Shots of liquor per week Comment: weekends ??? Drug Use: No ??? Sexual Activity: Partners: Female Other Topics Concern ??? Not on file Social History Narrative ROS: HEENT: headache, basal cell cancer L brow, sleep apnea Psych: depression, anxiety, one suicide attempt CV: negative GI: negative : negative Lungs: COPD Heme: Heterozygous Factor V Leiden Endocrine: negative Musculoskeletal: cervical fusion C3-6, R shoulder pain, neck pain Physical Exam BP 143/77 mmHg Pulse 96 Ht 177.8 cm (5' 10) Wt 151.048 kg (333 lb) BMI 47.78 kg/m2 General: nl Pain Behaviors: wearing sunglasses inside Skin: nl HEENT: Scars over the forehead Abdomen/genitalia: ND Vascular: Nl, no bruits Musculoskeletal: Nl Neurological: Mental Status: nl, Affect is appropriate. Speech is clear, not dyarthric. Attention span and concentration are nl. Cranial Nerves: II: Funduscopic: nl discs & venous pulsations Visual recio: full to confrontation 3,4,6: Pupils: 3 mm = round reactive to light and near reflex V: nl primary sensory modalities V1-3, corneals intact bilaterally, he does not split the midline VII:symmetric VIII: nl Air conduction > Bone Conduction Miller midline 9, 10: Gag nl XI: SCMs 5/5; Shoulder Shru/5 XIII:Tongue protrusion: midline Motor: nl bulk, tone, strength 5/5 Reflexes 3+ Pathologic reflexes: absent Drift absent Tremor: absent Sensation: Numb in a C8-T1 distribution on the R and also in the lateral R thigh Cerebellar exam: FTN nl TAYLOR nl . Gait examination: he is able to ambulate, some circumduction of both legs, and has a negative Romberg. Impression: ?? 1. Opioid type dependence, continuous 2. Benzodiazepine dependence, continuous 3. Chronic pain syndrome 4. Intractable chronic migraine without aura and without status migrainosus 5. Medication overuse headache The presence of the opioids at this point overrides everything. He has Chronic Migraine (CM) opioid overuse headache/medication overuse headache (MOH)- type, and as a result of the habituating rebound medications, no pharmacologic intervention is likely to be effective. However, he has not yet had an a ntihypertensive for migraine prevention, so I will try him on candesartan 16 mg QHS. If that fails, he meets the FDA criteria for Chronic Migraine, with headache at least 15 days per month, at least 4 hours per day (his are continuous). He will have then unsuccessfully tried at least 18 medications, and had lack of success with each of the big three anti-migraine prevention categories, antidepressants, anti-epilepsy drugs, and antihypertensives. He has had a spinal tap, so pseudotumor seems excluded. He does not have any of the features of hemicrania continua except location (no autonomic features or agitation). We have no evidence on marijuana effectiveness in Chronic Migraine, however I am always in favor of getting patients off of opioids when they have daily headaches. Obesity is clearly a risk factor for daily headaches, and the bariatric surgery literature shows that the more weight loss, the greater the reduction in headache frequency, so I am strongly in favor ofbariatric surgery for Mr. Bradley. The only FDA approved medication for Chronic Migraine is Botox (BTX), and I would then submit for this medication for him. Likelihood of response to BTX in the setting of opioid and benzo dependence islow, but worth considering. I will see him back again after a 3 month trial of the candesartan. Plan/Instructions given to patient: Please start one half pill of 16 mg candesartan each night for one week. Then go to 16 mg at night every night thereafter. Then see me in 3 months I spent?? 80 minutes in this visit with 60 minutes devoted to face-to face patient counseling. Thank you, Dr. Harris, for this consult. Jae Diaz MD documented in this encounter Plan of Treatment Not on filedocumented as of this encounter Visit Diagnoses Diagnosis Opioid type dependence, continuous Benzodiazepine dependence, continuous Sedative, hypnotic or anxiolytic depende nce, continuous Chronic pain syndrome Intractable chronic migraine without aur a and without status migrainosus Chronic migraine without aura, with intr actable migraine, so stated, without mention of status migrainosus Medication overuse headache Drug induced headache, not elsewhere cla ssified documented in this encounter Care Teams Supervisory Forester Relationship Specialty Start Date End Date Dangelo Ordaz MD PCP - General Family Medicine 01/24/[address] [place] [address] documented as of this encounter
--- OUTSIDE RECORDS SUMMARY | 2022-06-07 01:46 | XMS_ITS | Encounter Summary ---
:1970 Author Organization [facility] [place] [address] Care Team Providers Name Role Phone Jackelin Paniagua Primary Care Provider Encounter Details Date Type Department Care Team Description 06/21/2014 Office Visit Psychiatry and Gina Ayalamen t disorder [facility] at [place], PhD with mixed anxiety and [facility] depressed mood [facility] (Primary Dx) [facility] PSYCHIATRY DEPT. [place] [phone] Social History Tobacco Use Types Packs/Day Years Used Date Current Every Day Smoker Cigarettes 1 20 Smokeless Tobacco: Never Used Comments: Contemplation stage but not re cyndee to quit yet Alcohol Use Standard Drinks/Week Comments Yes 0.8 (1 standard drink = 0.6 oz pure alco hol) Sex Assigned at Date Recorded Not on file documented as of this encounter Progress Notes Gina Ayala, PhD - 06/21/2014 8:44 AM EDT Behavioral Medicine Service Individual Therapy Followup/Cognitive Behavioral Therapy-- 45 minutes Chief Complaint: coping with chronic pain S/O: Mr. Bradley reports that he has a severe headache today. He reports that he tried to do a bit ofyard work yesterday and was very frustrated that it resulted in a pain flareup. The session focused on introducing activity pacing. Mr. Bradley reports practicing the relaxation 2 times per day usually and does find it helpful to take the edge off his irritability. He has been trying to challenge negative thoughts but struggles with anger and guilt related to his functional limitations. A: 309.28 adjustment disorder with depressed and anxious mood myD-H Psychiatry 06/21/2014 Patient Health Questionnaire Depression 7 (Mild Depression) GAGAN-7 6 (Mild Anxiety) Mental status notable for anxious and sad mood. He reports light sensitivity so the overhead lights are turned off. P: Paul Bradley was strongly encouraged to continue practicing the breathing strategy daily. He was encouraged to continue working on challenging negative thoughts. Mr. Bradley will apply the activitypacing strategies discussed today to at least one planned activity. Next session will focus on review of activity pacing, relaxation training, and progress with cognitive therapy around thoughts of anger/guilt for being in pain. RTC 1 week. documented in this encounter Plan of Treatment Not on filedocumented as of this encounter Visit Diagnoses Diagnosis Adjustment disorder with mixed anxiety a nd depressed mood - Primary documented in this encounter Care Teams Trauma Therapist Relationship Specialty Start Date End Date Jackelin Paniagua PA PCP - General 07/20/12 01/23/16 documented as of this encounter
--- OUTSIDE RECORDS SUMMARY | 2022-06-07 01:46 | XMS_ITS | Encounter Summary ---
:1970 Author Organization [facility] [address] Care Team Providers Name Role Phone Jackelin Paniagua Primary Care Provider Encounter Details Date Type Department Care Team Description 11/09/2015 Office Visit Occupational Medicine at [facility], Waleska Morales MD [facility] [address] [place] [address] [place] [address] [phone] (Wo rk) Social History Tobacco Use Types [...] Sign Reading Time Taken Comments Blood Pressure 146/83 11/09/2015 3:52 PM EST Pulse 87 11/09/2015 3:52 PM EST Temperature - - Respiratory Rate - - Oxygen Saturation - - Inhaled Oxygen Concentration - - Weight 147.4 kg (325 lb) 11/09/2015 3:52 PM EST Height 175.3 cm (5' 9) 11/09/2015 3:52 PM EST Body Mass Index 47.99 11/09/2015 3:52 PM EST documented in this encounter Progress Notes Waleska Quintanilla MD - 11/14/2015 11:35 PM EST [facility] OCCUPATIONAL AND ENVIRONMENTAL MEDICINE FOLLOW UP VISIT Date of injury: 11/18/2012 Date of intake: 06/17/2014 Employer: [employer] 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 Since last visit, Mr. Bradley states that he has settled his workers' compensation claim. He is here to discuss social security disability. In terms of symptoms, his headache is equal to his neck pain at this point. His right arm still hurts. In addition to these work injury symptoms, he also has low back pain and a diagnosis of lumbar spinal stenosis. This radiates into his legs. He was told that at this point surgery is not an option. He also has bilateral carpal tunnel syndrome, COPD, and has to elevate his legs because of venous stasis. He has seen Dr. Antony Pina in the [facility] for a second opinion. It was not recommended that he have any surgery at this point. He does have a new primary care physician, Dangelo Ordaz, in [facility] who has referred him to Alex Harris later this month for pain management for his neck and back, consistent with his baseline cervical myelopathy. He has had a recent functional capacity evaluation. He is also wondering about bariatric surgery. Functional capacity evaluation done on August 16, 2015 shows a sedentary physical demand level in terms of lifting limit and fine motor skills were limited by carpal tunnel syndromes. He was able to handle only medium-sized pieces on a repetitive basis between 5 and 10 minutes. He also has some balance issues related to his myelopathy which could limit his capacity. Overall, although he may have a sedentary work capacity lifting-pickard, he is going to be limited in being able to do a sedentary level job by his inability to do fine motor work and inability to do repetitive handling tasks. He also states that he does not have computer skills that are likely to be needed in a sedentary work environment. He has completed school through high school. 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 He last worked in November, and has been out of work since this most recent injury. Past Medical History Diagnosis Date ??? Spinal [...] procedure 07/22/2014 MRI WITH ANESTHESIA performed by Nicole Anesthesia-Citlali at [facility] ??? Unlisted mr procedure N/A 08/04/2015 MRI WITH ANESTHESIA performed by NICOLE ANESTHESIA-CITLALI at [facility] Current Outpatient Prescriptions Medication Sig Dispense Refill [...] 250-50 mcg/dose Disk with Device 0 ??? LORazepam (ATIVAN) 2 mg Tablet [...] this visit. ALLERGIES: Sulfa O: Filed Vitals: 11/09/15 1552 BP: 146/83 Pulse: 87 Mr. Bradley is alert and pleasant, in [...] habitus and also this was done in [place] [facility] which limits the quality of the images. I reviewed his images with spine orthopedics on initial visit.There is bilateral narrowing at C7-T1 that could explain his symptoms. Repeat imaging would be needed to fully visualize this. Cervical MRI 07/22/2014 There is been anterior cervical [...] No evidence of ligamentous instability. Intact hardware. Cervical MRI 08/04/2015: Stable examination with focal myelomalacia just below the C4-C5 interspace.No new abnormalities are detected. Cervical x-ray 07/17/2015: 1. Status post C4 C6 anterior fixation. Fixation plate and screws are in satisfactory position.? 2. No instability is noted between the flexion and extension views. ?? 3. No interval acute fractures or hardware failure. I previously reviewed his images with spine orthopedics. There is no urgent surgical indication, butif he wants to return to work and remains functionally limited by the pain ans spasm, then returningfor follow up spine evaluation is reasonable after trial of cervical MBB as planned. A: Mr. 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 He continues to have signs and symptoms of myelopathy with baseline changes in the cervical cord. In addition, he has: 1. Headaches consistent with cervicogenic, posttraumatic, and occipital or C2 neuralgia 2. Neck, upper back pain, and arm pain clinically consistent with adjacent segment issues above and below the fusion. 3. Severe deconditioning P: We discussed treatment options and next steps in detail including FCE results and disability process. 1. He will follow up with Dr. Harris to discuss next steps for his neck and back. Specifically, CT-guided C2 block was recommended by Dr. France. Dr. Anthony does not perform upper cervical injections but does agree that CT- guided C2 block is reasonable. 2. He will let me know if he would like to return to the [facility] if his symptoms progress. 3. He will follow up with his primary care physician for his non work-related medical conditions. 4. He is continuing with disability application. Again, although FCE suggests a sedentary work capacity with respect to lifting limit, he does not have the fine motor coordination and likely does not have the computer or administrative skills for a sedentary level job. Also, balance is of a safety concern. 5. We did discuss a referral from his PCP to the [facility] if he would like to discuss possible treatment options for obesity including possible bariatric surgery. 6. I think a trial of ST surface electrode treatment would be reasonable for his headaches and occipital neuralgia if headaches persist as well as for the neck if an anatomical compression as a source of his neck symptoms is ruled out by Spine. 7. Continue plans for smoking cessation with PCP. Importance of this reinforced. 8. Continue medications through prescribing provider. 9. CBT for injury-related mood changes and to help with coping with chronic pain and for improved sleep which is disrupted by pain. 10. WC form completed out of work. Activity as tolerated. 11. Follow up as needed. 25 minutes of this 40 minute visit was spent discussing diagnosis, treatment options, treatment plan, expectations of treatment, work capacity, and return to work using a shared decision making approach. This note was written with voice recognition software and also manual typing. Please contact my office at [phone] with any questions related to the text of this medical record. documented in this encounter Plan of Treatment Not on filedocumented as of this encounter Visit Diagnoses Diagnosis Cervicalgia documented in this encounter Care Teams Puppy Trainer Relationship Specialty Start Date End Date Jackelin Paniagua PA PCP - General 07/20/12 01/23/16 documented as of this encounter
--- OUTSIDE RECORDS SUMMARY | 2022-06-07 01:46 | XMS_ITS | Encounter Summary ---
:1970 Author Organization [facility] [place] [address] Care Team Providers Name Role Phone Jackelin Paniagua Primary Care Provider Encounter Details Date Type Department Care Team Description 10/02/2014 Notes Only Occupational Medicine at Waleska Quintanilla MD [facility] [address] [place] [address] [place] [address] [phone] (Wo rk) Social History Tobacco Use Types [...] encounter Progress Notes Waleska Quintanilla MD - 10/02/2014 10:54 PM EST I reviewed case and update images with spine orthopedics. There are modic changes noted. He has disccomplexes at C3-4 and C6-7 with R > L spondylolisthesis at C6-7. (Note that spine reduces backward when supine as during MRI.) The cervical x-ray does not visualize the C6-7 disc adequately to assess flexion and extension. The disc and spondylolisthesis at C6-7 likely explains the pain and symptomshe is having below the fusion. There is no urgent surgical indication, but if he wants to return to work and remains functionally limited by the pain ans spasm, then second spine opinion is reasonable after trial of cervical MBB as planned. This would include repeat xrays with visualization at C6-7. documented in this encounter Plan of Treatment Not on filedocumented as of this encounter Visit Diagnoses Not on filedocumented in this encounter Care Teams Stave Mill Hand Relationship Specialty Start Date End Date Jackelin Paniagua PA PCP - General 07/20/12 01/23/16 documented as of this encounter
--- OUTSIDE RECORDS SUMMARY | 2022-06-07 01:46 | XMS_ITS | Encounter Summary ---
:1970 Author Organization [facility] [place] [address] Care Team Providers Name Role Phone Jackelin Paniagua Primary Care Provider Encounter Details Date Type Department Care Team Description 09/26/2014 Office Visit Psychiatry and Gina Ayalamen t disorder Behavioral Health at [place], PhD with mixed anxiety and [facility] depressed mood [facility] [address] PSYCHIATRY DEPT. [place] [address] [phone] Social History Tobacco Use Types Packs/Day Years [...] encounter Progress Notes Gina Ayala, PhD - 09/26/2014 2:56 PM EST Behavioral Medicine Service Individual Therapy Followup/Cognitive Behavioral Therapy-- 45 minutes Chief Complaint: coping with chronic pain S/O: Mr. Bradley reports that he continues to be stressed by WC issues but appears more accepting that his prosecuting attorney will address the conflict. Mr. Bradley reports ongoing irritability and frustration with his chronic pain and functional limitations. He has practiced the relaxation 3-4 times since the last session but has difficulty focusing on clearing his mind. He tends to start thinking about worries. Mr. Bradley has problem solved around the holiday social activities and will rest if needed. The session focused on cognitive therapy around pain management. A: 309.28 adjustment disorder with depressed and anxious mood Mental status notable for anxious and sad mood. He reports light sensitivity so the overhead lights are turned off. P: Paul Juárez Kirk was strongly encouraged to continue practicing the breathing strategy daily. He was encouraged to continue working on challenging negative thoughts. Mr. Bradley will continue to apply the activity pacing and problem solving strategies. RTC 1 week. documented in this encounter Plan of Treatment Not on filedocumented as of this encounter Visit Diagnoses Diagnosis Adjustment disorder with mixed anxiety a nd depressed mood documented in this encounter Care Teams Supervisor Area Relationship Specialty Start Date End Date Jackelin Paniagua PA PCP - General 07/20/12 01/23/16 documented as of this encounter
--- OUTSIDE RECORDS SUMMARY | 2022-06-07 01:46 | XMS_ITS | Encounter Summary ---
:1970 Author Organization [facility] [place] [address] Care Team Providers Name Role Phone Dangelo Ordaz MD Primary Care Provider [phone] Encounter Details Date Type Department Care Team Description 05/15/2021 Clinical Support Dermatology at [facility] Jazmyne, Amanda roa Basal cell carcinoma (BCC) of right side of nose; Dusty RMD Basal cell carcinoma (BCC) of scalp [address] [facility] [address] [facility] [phone] [place] [address] Social History Tobacco Use Types Packs/Day Years [...] file documented as of this encounter Progress Lizette Solorio LPN - 05/15/2021 9:15 AM EDT Mohs consultation and preoperative note (H&P) Patient Name: Paul Bradley Age: 50 y.o. Date of : 1970 Today's Date: 05/15/2021 REFERRING PROVIDER: Dash Remy MD CC: Mohs micrographic surgery for treatment of a cutaneous tumor HPI: Paul Bradley is a 50 y.o. male presenting for Site # 1 biopsy-proven Basal cell carcinoma, nodular type, ??present at the deep specimen edge location on the Right nasal labial fold. Site # 2 biopsy-proven Basal cell carcinoma, pigmented superficial and nodular type, present at the ??peripheral and deep specimen edges . location on the Left crown scalp. The dermatologic preoperative information sheet was reviewed with pertinent positive and negative as below. DERMATOLOGIC PRE-OPERATIVE EVALUATION AND REVIEW OF SYSTEMS Has had his Vaccine History of Mohs surgery-Yes Pacemaker/Defibrillator-No Joint replacement or other implantable devices (e.g. Cochlear implant)-Yes Plate in the neck Do you take a blood thinner- Yes Coumadin History of organ transplant- No History of artificial valve or stroke-No History of liver disease or bleeding disorder-No Do you have any medical problems that may affect your upcoming surgery- HX of DVT in the Right lowerLeg Do you have any concerns regarding your upcoming surgery-No We ask patients to discontinue Fish oil/Multivitamin/Vit E/?? supplements and natural medicines not prescribed by a physician 1 week prior to surgery. SOCIAL HISTORY: Makes Own Decisions Yes Hearing aid or other devices: No Relevant travel history or future plans: No Tobacco use (amount per day, type of tobacco.):Yes Do you have any physical limitations that may affect your surgery-No PAST MEDICAL HISTORY Past medical history reviewed PAST SURGICAL HISTORY Past surgical history reviewed ALLERGIES: Allergies reviewed MEDICATIONS: Medications reviewed documented in this encounter Plan of Treatment Not on filedocumented as of this encounter Visit Diagnoses Diagnosis Basal cell carcinoma (BCC) of right side of nose Basal cell carcinoma (BCC) of scalp documented in this encounter Care Teams Security Flex Officer Relationship Specialty Start Date End Date Dangelo Ordaz MD PCP - General Family Medicine 01/24/[address] [place] [address] [address] [place] [address] documented as of this encounter
--- OUTSIDE RECORDS SUMMARY | 2022-06-07 01:46 | XMS_ITS | Encounter Summary ---
:1970 Author Organization [facility] [address] Care Team Providers Name Role Phone Jackelin Paniagua Primary Care Provider Reason for Visit Consultation (Routine) - Closed Specialty Diagnoses / Procedures Referred By Contact Refer red To Contact Radiology Diagnoses Work related injury Waleska Quintanilla MD Radiology Procedures XR Cervical Spine Any 4 Or 5 Views XR Cervical Spine 2 Or 3 Views [facility] [place] [address] [place] [address] Referral ID Status Reason Start Date Expiration Date Visits V isits Requested Authorized [id number] Closed Specialty 06/29/2015 06/28/2016 1 1 Service Requested Encounter Details Date Type Department Care Team Description 07/17/2015 Hospital Encounter XRay at [facility] Waleska Quintanilla, Work related injury [address] [place] [address] [facility] [address] [place] [phone] [place] [address] Social History Tobacco Use Types Packs/Day Years [...] with the lungs 2 times Device daily. BUPROPION HCL ORAL Take by mouth. 0 Patient does not remember dose Budesonide-Formoterol Inhale into the 0 07/31/2018 160-4.5 mcg/actuation lungs as needed. HFAA documented as of this encounter Plan of Treatment Not on filedocumented as of this encounter Procedures Procedure Name Priority Date/Time Associated Diagnosis Comme nts XR CERVICAL SPINE 4 Routine 07/17/2015 1:05 PM Work related in jury Results for this OR 5 VIEWS EDT procedure are i n the results section. documented in this encounter Results XR Cervical Spine Any 4 Or 5 Views (07/17/2015 1:05 PM EDT) Anatomical Region Laterality Modality L-spine N/A Digital Radiography Specimen (Source) Anatomical Location Collection Method / Collectio n Time Received Time / Laterality Volume Impressions 07/17/2015 1:14 PM EDT IMPRESSION: 1. Status post C4 C6 anterior fixation. Fixation plate and screws are in satisfactory position. ?? 2. No instability is noted between the f lexion and extension views. 3. No interval acute fractures or hardwa re failure. Narrative 07/17/2015 1:14 PM EDT EXAMINATION: XR CERVICAL SPINE ANY 4 OR 5 VIEWS CLINICAL HISTORY: FLEXION AND EXTENSION XRAYS - ? listhesis at C6-7 and C3-4 - last x-ray did not adequately visualize C6-7. ThxMARCOS TECHNIQUE: Lateral flexion and extension and swimmer's views. COMPARISON: MRI cervical spine July 062013 and plain film radiographs July 22, 2014. FINDINGS: Status post C4 C6 anterior fixation. Fix ation plate and screws are in satisfactory position. ??No instability is noted between the flexion and extension views. No interval acute fract ures or hardware failure is seen. ?? Procedure Note Blas Robledo MD - 07/17/2015Formatti ng of this note might be different from the original. EXAMINATION: XR CERVICAL SPINE ANY 4 OR 5 VIEWS CLINICAL HISTORY: FLEXION AND EXTENSION XRAYS - ? listhesis at C6-7 and C3-4 - last x-ray did not adequately visualize C6-7. MARCOS Payne TECHNIQUE: Lateral flexion and extension and swimmer's views. COMPARISON: MRI cervical spine July 062013 and plain film radiographs July 22, 2014. FINDINGS: Status post C4 C6 anterior fixation. Fix ation plate and screws are in satisfactory position. No instability is noted between the flexion and extension views. No interval acute fract ures or hardware failure is seen. IMPRESSION IMPRESSION: 1. Status post C4 C6 anterior fixation. Fixation plate and screws are in satisfactory position. 2. No instability is noted between the f lexion and extension views. 3. No interval acute fractures or hardwa re failure. Waleska Quintanilla MD IMG DX ORDERABLES documented in this encounter Visit Diagnoses Diagnosis Work related injury Injury, other and unspecified, unspecifi ed site documented in this encounter Care Teams Bottom Polisher Relationship Specialty Start Date End Date Jackelin Paniagua PA PCP - General 07/20/12 01/23/16 documented as of this encounter
--- OUTSIDE RECORDS SUMMARY | 2022-06-07 01:46 | XMS_ITS | Encounter Summary ---
:1970 Author Organization [facility] [place] [address] Care Team Providers Name Role Phone Jackelin Paniagua Primary Care Provider Reason for Visit Reason Onset Date Comments Medication Refill 01/16/2016 Encounter Details Date Type Department Care Team Description 01/16/2016 Refill Neurosurgery at [facility] Fannie Leon, IGNACIO [facility] [place] [address] NEUROSURGERY [phone] [place], [place] [address] (Wo rk) Social History Tobacco [...] on filedocumented in this encounter Care Teams Tire Adjuster Relationship Specialty Start Date End Date Jackelin Paniagua PA PCP - General 07/20/12 01/23/16 documented as of this encounter
--- OUTSIDE RECORDS SUMMARY | 2022-06-07 01:46 | XMS_ITS | Encounter Summary ---
:1970 Author Organization [facility] [place] [address] Care Team Providers Name Role Phone Jackelin Paniagua Primary Care Provider Encounter Details Date Type Department Care Team Description 07/20/2014 Notes Only Pain [place] [address] Social History Tobacco Use Types Packs/Day Years Used Date Current Every Day Smoker Cigarettes 1 20 Smokeless Tobacco: Never Used Comments: Contemplation stage but not re cyndee to quit yet Alcohol Use Standard Drinks/Week Comments Yes 0.8 (1 standard drink = 0.6 oz pure alco hol) Sex Assigned at Date Recorded Not on file documented as of this encounter Progress Notes Emili Landry - 08/10/2014 12:02 PM EST Paul Bradley :1970 As follows are results of the Analgesic Implantation Committee Meeting held on July 20, 2014, at [facility] to evaluate the above named patient for trial and implantation of Spinal Cord Stimulator. The Analgesic Implantation Committee is attended by Pain Medicine and Behavioral Medicine Specialists. Mr. Bradley was approved by the Analgesic Implantation Committee to proceed to trial and implantationfor above named procedure. Mr. Bradley received 1 GOOD vote and 5 FAIR votes. Notes from meeting include: Schedule trial. This note has been transcribed by: Geeta Landry Senior Clinical Green Building Architect Pain Management [facility] documented in this encounter Plan of Treatment Not on filedocumented as of this encounter Visit Diagnoses Not on filedocumented in this encounter Care Teams Associate Professor Of Anthropology Relationship Specialty Start Date End Date Jackelin Paniagua PA PCP - General 07/20/12 01/23/16 documented as of this encounter
--- OUTSIDE RECORDS SUMMARY | 2022-06-07 01:46 | XMS_ITS | Encounter Summary ---
:1970 Author Organization [facility] [place] [address] Care Team Providers Name Role Phone Jackelin Paniagua Primary Care Provider Encounter Details Date Type Department Care Team Description 07/22/2014 Anesthesia Event [facility] Boone Person MD [facility] [address] [facility] [place] [address] Anesthesia Record Procedure Summary Procedure Name Responsible Anesthesia Start Anesthesia Stop Anesthesiologist Time Time MRI WITH ANESTHESIA Boone Johnson MD 07/22/14 1524 4 1635 (WRVU *) (N/A Spine Cervical) Events Date Time Event Comment 07/22/2014 1507 1524 AN Verify 1524 Start 1524 An Start Data 1524 An Start Data 1530 Anesthesia Ready 1550 Break/Relief In [facility] er, GAMING COMMISSIONER 1557 Break/Relief Out 1630 an stop data 1635 Stop Name Total IV Lidocaine 50 mg Propofol 150 mg Propofol INF 775.32 mg Agents Name O2 Blood No blood administrations on file. Lines, Drains, and Airways Type Details Placement Removal PIV 07/22/14; 1437; metacarpal 07/22/14 1437 by Jamey dawkins, 07/22/14 1721 by vein left (top of hand); Cassidy Oliver RN [facility], Keisha Juárez RN [id number] catheter system; 18 gauge, 1 in length; Derrick Milan, RN; intradermal injection, tolerated well, appears comfortable; no longer indicated, removed per policy/procedure; 07/22/14; 1721 documented in this encounter Social History Tobacco [...] encounter OR Notes Anesthesia Postprocedure Evaluation - Boone Johnson MD - 07/26/2014 11:14 AM EDT Patient: Paul Bradley Procedure(s) Performed: Procedure(s): MRI WITH ANESTHESIA Actual Anesthetic: MAC Patient location: PACU Post-op pain: Adequate analgesia Post-op nausea: no nausea or vomiting Last Vitals: Filed Vitals: 07/22/14 1700 BP: 121/44 Pulse: 77 Temp: Resp: 18 Post-op cardiovascular and respiratory status: is stable Level of consciousness: awake, alert and oriented Complications: no apparent complications and tolerated the procedure well Fluid Status: normal Anesthesia Preprocedure Evaluation - Boone Johnson MD - 07/22/2014 3:07 PM EDT Pre-Anesthesia Evaluation for: Paul Bradley a 44 y.o. male. Procedure(s): MRI WITH ANESTHESIA Patient Active Problem List Diagnosis ??? Radiculopathy of cervical region ??? Work [...] brow 2012 Left Past Surgical History Procedure Date ??? Cervical fusion 2011 C3-6 ??? Cholecystectomy 2012 ??? Appendectomy 1985 History Substance Use Topics ??? Smoking status: Current Every Day Smoker -- 1.0 packs/day for 20 years Types: Cigarettes ??? Smokeless tobacco: Never Used Comment: Contemplation stage but not ready to quit yet ??? Alcohol Use: 1.7 oz/week 1 Drinks containing 0.5 oz of alcohol, 2 Shots of liquor per week Comment: weekends History Drug Use No Allergies Allergen Reactions ??? Sulfa (Sulfonamide Antibiotics) CIS - Rash ??? Morphine Non-responder to Morphine Medications: MAR and/or home medications have been reviewed. Physical Exam: There were no vitals filed for this visit. There is no height or weight on file to calculate BMI. Airway Assessment: Mallampati: II TM distance: >3 FB Neck ROM: full Cardiovascular Assessment: Pulmonary Assessment: [place] [facility] [place] Anesthesia Plan: ASA 2 MAC, with a(n) intravenous induction Region - Other Informed Consent: Anesthetic plan and risks discussed with patient. Plan discussed with GAMING COMMISSIONER. [facility] Assessment: documented in this encounter Plan of Treatment Not on filedocumented as of this encounter Visit Diagnoses Not on filedocumented in this encounter Administered Medications Inactive Administered Medications - up to 3 most recent administrations Medication Order MAR Action Action Date Dose Rate Site lidocaine (PF) (XYLOCAINE) 100 mg/5 Given 07/22/2014 3:30 PM EDT 50 mg mL (2 %) injection PRN, Starting on Fri07/22/14 at 1530, Until Fri07/22/14 at 1651, Anesthesia Intra-op, Routine propofol (DIPRIVAN) 10 mg/mL bolus injection Given 3:30 PM EDT 150 mg (Anesthesia) PRN, Starting on Fri07/22/14 at 1530, Until Fri07/22/14 at 1651, Anesthesia Intra-op propofol (DIPRIVAN) infusion New Bag 07/22/2014 3:30 PM 100 mcg/kg/min 89.5 mL/hr CONTINUOUS PRN, Starting on EDT Fri07/22/14 at 1530, Until Fri07/22/14 at 1651, Anesthesia Intra-op, Routine documented in this encounter Care Teams Portrait 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
--- OUTSIDE RECORDS SUMMARY | 2022-06-07 01:46 | XMS_ITS | Encounter Summary ---
:1970 Author Organization [facility] [place] [address] Care Team Providers Name Role Phone Jackelin Paniagua Primary Care Provider Encounter Details Date Type Department Care Team Description 07/22/2014 Surgery [facility], MRI WITH ANESTHESIA [facility] jaguar ANESTHESIA-CITLALI (WRVU *) [place] [address] None [phone] Social History Tobacco Use Types Packs/Day Years [...] nerve or cord compression. Thx, KH pg [phone] Comparison None Technique MRI of the cervical [...] be different from the original. Examination MR Payaline WO Kamari/ANES Clinical History Cervical MRI s/p C3-6 fusion in 2011, no w with clinic s/s of C7-T1 radiculopathy from work fall in 2012. Po [address] injury MRI is open MRI of poor quality. Pls assess for C7-T1 nerve comp ression or other evidence of nerve or cord compression. 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
--- OUTSIDE RECORDS SUMMARY | 2022-06-07 01:46 | XMS_ITS | Encounter Summary ---
:1970 Author Organization [facility] Address [place] [id number] Care Team Providers Name Role Phone Jackelin Paniagua Primary Care Provider Encounter Details Date Type Department Care Team Description 08/16/2015 Procedure visit Physical Therapy at [facility] story of fusion of cervical spine; Heater Dusty Denton, PT Radiculopathy of lumbar region; [address] [facility] Carpal tunnel syndrome, [place], [place] [facility] [id number] PHYSICAL MEDICINE [phone] & [place] [address] Social History Tobacco Use Types Packs/Day Years [...] documented as of this encounter Progress Notes [facility] - 08/16/2015 12:14 PM EST Images from the original note were not included. FUNCTIONAL CAPACITY EVALUATION of Mr. Paul Bradley REQUESTED BY Dr. Waleska Quintanilla [facility] [place] [address] [place] [address] PREPARED BY Hayse Minshall, PT, OCS, [place] [address] [place] ASSESSED 08/16/2015 TABLE OF CONTENTS Summary Report 1 Client Profile 1 Standardized Testing 1 Physical Effort Testing 1 Reliability of Pain And Disability Reports Testing 1 Dexterity Testing 1 Tube Coater Strength and Handling Testing 1 Mobility Testing 1 Strength Testing 1 Sustained Activity and Positional Tolerances 1 Musculoskeletal Evaluation 1 Additional Information 1 FUNCTIONAL CAPACITY EVALUATION Summary ReportSUMMARY REPORT Client: Mr. Paul Bradley Date of service: 08/16/2015 Diagnosis: ??? Cervical spine fractures, myelopathy and resultant C3-6 fusion (06/2012) - 10/2011 (Z98.1) ??? lumbar disc herniation with radiculopathy - 2007 (M54.16) ??? carpal tunnel syndrome - chronic (G56.01, G56.02) Date of injury: 10/30/2011 Age at time of evaluation: 45 Referred by: Dr. Waleska Quintanilla Reasons for Referral Mr. Bradley was referred to this facility to answer the following questions about his current work/functional ability: 1. Did Mr. Bradley provide high levels of physical effort through-out the testing day? 2. Are Mr. Bradley' reports of pain and disability reliable? 3. Which physical demand level should be used for employment planning purposes for Mr. Bradley? Mr. Bradley underwent a functional capacity evaluation on 08/16/2015. Following an intake interview, a series of standardized tests was conducted to ensure the client's safety for testing, to determine his level of participation in the testing process and to answer the referral questions. A summary of the findings of this evaluation is presented here; details of the evaluation follow in the body of the report. Physical Effort Findings Overall test findings, in combination with clinical observations, suggest the presence of high levels of physical effort on Mr. Bradley' behalf. Comments Mr. Bradley gave full effort today, but pain in various areas affected a large increase in heart rateand hand dynamometer scores. Competitive test performance was present during the evaluation. Reliability of Pain and Disability Reports Findings Overall test findings, in combination with clinical observations, suggest being fully reliable in reports of pain. Inconsistencies exist in the reliability of disability reporting. Comments The inconsistencies for his disability reporting exist in the SORT testing and perceived versus demonstrated tolerances. In the SORT testing, he rated himself below sedentary to sedentary when he performed at a sedentary to light physical demand level. In the demonstrated tolerances versus the perceived tolerances, he fairly closely estimated his tolerances for standing, sitting and walking. He over estimated his capabilities in all materials handling, above shoulder work and fingering. He also underestimated his ability for stooping, reaching forward and prolonged neck positioning Physical Abilities/Demonstrated Functional Tolerances The following table lists Mr. Bradley??? his demonstrated functional tolerances. Demonstrated Functional Tolerance Position Static Standing Total time standing was 2 hours and 14 minutes with the longest duration of 1 hour and 15 minutes of which ~ 40 minutes was static standing and the remainder dynamic standing. Dynamic Standing Total time standing was 2 hours and 14 minutes with the longest duration of 1 hour and 15 minutes of which ~ 40 minutes was static standing and the remainder dynamic standing. Walking Able to walk 285' and had to stop due to breathing and back/leg pain. Sitting Total sitting time was 2 hours 43 minutes with the longest duration of 1 hour 24 minutes. Weight/Force Lifting Occasional lifting floor to knuckle/12 to knuckle: 32 lbs max, 22 lbs safe Lifting Occasional lifting knuckle to shoulder: 22 lbs max and 12 lbs safe Lifting Occasional lifting shoulder to overhead: 27 lbs max and 17 lbs safe Carrying Occasional carry: 22 lbs max, 12 lbs safe Pushing Occasional push: 50 lbs Pulling Occasional pull: 50 lbs Agility Climbing 2 flights of stairs: 118 HR, SaO2 - 94%, shortness of breath. Balancing no limitation Stooping 38 minutes with Valpar 8 and Valpar 10 Crouching did not test Crawling cannot do Twisting/Spinal Rotation no limitations with mild twisting Low-Level Work did not test Prolonged Neck Positioning Neck pain noted after ten minutes of the Cody in sitting. Able to tolerate 38 minutes with Valpar 8 and Valpar 10 Dexterity Reaching Forward 23 minutes with Valpar 10 and approximately 5 to 10 minutes with Valpar 8 and Overhead bolt board Handling Able to handle medium size pieces on a repetitive basis between 5 and 10 minutes, but limited by carpal tunnel symptoms (Overhead bolt board, Valpar 8 and Cody). Able to handle medium pieces better with self pacing with fine motor task variation without being highly repetitive in nature: Valpar 10 = 23 minutes. Fingering 12 minutes total 4 rows done out of 6 - stopped early due to carpal tunnel symptoms and neck stiffness. Above-shoulder Work Approximately 9 minutes of overhead bolt board. Limiting factor was neck pain and carpal tunnel symptoms. *Pushing and pulling values are measured as kgs of force. Summary of Findings The below findings were based on an assessment of the level of physical activity Mr. Bradley performed, the way he performed them, statements made during the evaluation, and observations made. It needs to be remembered that the evaluation occurs over a relatively short period of time and is a snapshot of the person's abilities. Mr. Bradley performed at sedentary physical demand level from knuckle to shoulder, shoulder to overhead and the carry, while he performed at the light physical demand level from floor to knuckle and 12 to knuckle. His limiting factors for his performance today were his neck pain/headache and back/leg pain. During today's evaluation, he did report he had a headache, but was able to work at a moderate pace without noticeable slowing and did not appear to have cognitive difficulties while completing tasks. He was able to perform today's FCE at 5 hours and 9 minutes. Please see Recommendations for employment planning. Recommendations Based on his performance during today's FCE. Mr. Bradley would benefit from the following return to work recommendations: 1. Sitting tolerance - up to 60 minutes at a time 2. Standing tolerance - up to 30 minutes at a time 3. Walking - self paced, not longer distances 4. Stooping/prolonged neck positioning 25-30 minutes, then ability to change position 5. Fine dexterity - very small pieces - up to 5 minutes; medium dexterity: pieces - self pacing up to 30 - 45 minutes and ability to rotate tasks; no highly repetitive tasks with carpal tunnel symptoms> 5 minutes at a time 6. lifting floor to knuckle and 12 to knuckle = light physical demand level; lifting knuckle to shoulder/shoulder to overhead = sedentary physical demand level. 7. Ability to self-pace in the work environment 8. Start return to work process with the above recommendations at 3-4 hours a day for 4-5 days a week and progressing from there. The results of this evaluation were reviewed with Mr. Bradley at the conclusion of the evaluation. This concludes a summary of the findings of the evaluation of Mr. Bradley. Details of test results and other supporting documentation may be found on the following pages, if attached. Thank you for your referral of Mr. Bradley. Signed, [facility] PT, OCS, [place] [address] [facility] FUNCTIONAL CAPACITY EVALUATION SUPPORTING DOCUMENTATION Client ProfileCLIENT PROFILE The client, Mr. Bradley, signed the Consent to Evaluate form prior to participating in the evaluation. The following information was obtained during the interview: Date of 1970 Height 69 in Weight 325 lb Hand Dominance Right Mr. Bradley??? sitting resting heart rate was 82 beats per minute. Medical History Mr. Bradley indicates the following medical history: ??? Numbness/Tingling ??? Headaches ??? Stroke/Blood Clot ??? Wear Glasses: Reading ??? Balance Problems ??? Sinus Problems ??? High Blood Pressure ??? Swollen Ankles ??? Back Injury ??? Joint Injury/Pain ??? Arthritis ??? Broken Bones ??? Blood Diseases ??? Trouble Sleeping ??? Stress ??? Depression ??? Any Lung Problem ??? Shortness of Breath ??? Bronchitis ??? Smoker/Ex-Smoker: 1 Pack(s) of Cigarettes/Day Mr. Bradley also provides the following medical history and medication information: Area Description Surgeries C3-6 fusion 06/2012 Prescription Medications oxycodone, kenalog, wellbutrin, prilosec, prozac, cymbalta, advair, ativan,neurontin, tyleonol, coumadin, combivent, vitamin D Worker's Narrative Medical History: pulmonary embolism, H Factor 5, c spine fusion, cholecystectomy, cervical disc disease with myelopathy/radiculopathy, occipital neuralgia, smoker, adjustment reaction with anxiety and depression, venous stasis, head injury Home Environment Mr. Bradley' home environment is as follows: Resides With /, 3 children Type of Residence House, Multi Level Activity Level Sedentary Education Completed High School Location of Education [place], [place] Mr. 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 He can make his lunch, but his comes home for lunch and she does it. He reports he pulls pellets in with a jose manuel one bag at a time. Reported Functional Tolerances Mr. Bradley reports his functional tolerances as follows: Client's Estimate of Maximum Tolerance Limited By Position Static Standing 60 minutes right leg and back pain Dynamic Standing 2 hours right leg and back pain Walking 70 yards breathing, right leg pain and headache Sitting 1-2 hours right leg and back pain Weight/Force Lifting floor to knuckle, 12 to knuckle = 50 lbs neck and arm pain, headache (in general reports difficulty estimating as he does not do this often at all levels) Lifting knuckle to shoulder = 30 lbs neck and arm pain, headache Lifting shoulder to overhead = 30 lbs neck and arm pain, headache Carrying 30 lbs back pain Pushing 70 lbs neck pain and headache Pulling 70 lbs neck pain and headache Agility Climbing one flight leg, head, neck, breathing Balancing holds onto wall when he walks at times bilateral numbness on both feet Stooping 5 minutes back pain Crouching 10-15 minutes lower leg pressure Crawling does not do Twisting/Spinal Rotation 15 minutes back, neck and head pain Low-Level Work same as crouching Prolonged Neck Positioning 15-30 minutes neck pain, can do more if he can stretch Dexterity Reaching Forward 10 minutes carpal tunnel bilaterally Handling 15-30 minutes (medium size pieces) due to carpal tunnel Fingering 15-30 minutes difficult due to small pieces due to incoordination Above-shoulder Work 15-20 minutes carpal tunnel and head/neck/back pain Client's Description of Injury Client's description of injury and subsequent treatments: In October 2011, Mr. Bradley slipped and fell at a friend's house and fractured his c spine. Patient went to the [facility] and he had a neck x-ray. He had arm symptoms and neck pain. He developed a DVT and a PE. He reports he was busy medically and reports nothing happened until05/2012 as far as his neck. He was referred to [facility] and [facility] for further testing. He has a C3-6 spine fusion in 06/[address] France due to myelopathy. 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 He couldn't drive the truck due to pain. His boss took over driving and he had a rough afternoon. He went to [facility] that evening to rule out bleeding in his head as he was on Coumadin. He went through months of PT, craniosacral therapy and pool therapy, but no lasting effects. He [place] doing [facility] and a nerve ablation - thes e were short lived or not effective per his report. He reports eventually, he ended up at Dr. Quintanilla's office to be followed and this FCE scheduled. He saw a Dr. Hardy Tournary in [place] last with reports of built up arthritis on either end of the fusion - he said basically they could go in and do an ablation with residual numbness in his head as one option. The other option was a guided injection at C2 per Dr. France. He also reports that acupuncture did not help. Residually, his symptoms are: constant neck pain, right shoulder pain and massive headaches at times with light sensitivity. He has a herniated in the lumbar spine where his right leg goes numb with some distal blood pooling with a bad vein in his right leg. He usually wears compression stockings at 30-40 mmHg. He does work until his leg goes numb. Today he does not have his compression stocking due to it ripped this morning. Client's Work-Related Goals Mr. Bradley states that his current vocational goals are: Mr. Obriens work-related goals are: unsure. He reports he has not done anything work related. He hasnot done a lot recently with vocational rehab. He is unclear if he could do a sitting type job. He reports he is doing mediation next week for worker's comp. He reports the extreme headaches make it difficult for employment planning. Standardized TestingSTANDARDIZED TESTING Physical Effort TestingPHYSICAL EFFORT TESTING Through-out the course of this evaluation distraction-based Physical Effort Testing was conducted. This type of testing is used to evaluate whether or not evaluation results accurately represent a client's physical abilities. If a client does not partake in his testing day with high levels of physicaleffort, an stage set designer cannot be confident that observed performances represent current abilities. Five-Position Tube Coater Testing Mr. Bradley underwent a formal screening procedure to query maximum voluntary effort during testing. This test uses the hand dynamometer to measure isometric force generated by the hand. The hand dynamometer is used to present ten maximum gripping measurements, each repeated three times. Studies indicate that out of 10 coefficients of variation calculated, no more than two will exceed experimentally derived cut-points if the individual is demonstrating maximum voluntary effort. The results (in pounds) of Mr. Sanabria testing are presented below: Tube Coater Span Test 1 Test 2 Test 3 Dom Non Dom Non Dom Non 1 40 29 30 20 40 40 2 61 55 70 61 80 64 3 70 68 59 75 59 59 4 70 59 75 70 64 63 5 60 40 49 48 54 45 Tube Coater Span Coefficient of Variation Exceed Cut Point? Dom Non Dom Non 1 12.86 27.57 No Yes 2 11.03 6.24 Yes No 3 8.27 9.73 No Yes 4 6.45 7.1 No No 5 8.28 7.44 No No Comments Tube Coater Span 4: 60 Un-Impaired Dominant Upper Extremity Chart Un-Impaired Non-Dominant Upper Extremity Chart Analysis of the client's scores demonstrates 3 coefficients of variation above the permissible cut-points. As a total of two scores are allowed above the cut- point, this is suggestive of less than fulleffort during testing. During the warp scouring vat tender strength test, the client was noted to show the following signs of physical discomfort: Shaking out hands (repetitively opening/clenching) Mr. Bradley was observed to demonstrate the following signs of competitive test performance during warp scouring vat tender strength testing: Muscular recruitment; Increased compensatory postures to improve force Tube Coater Curve Analysis A second method of screening for the presence of maximum voluntary effort relates to the analysis ofscore distribution. If an evaluee is providing maximum effort on the hand dynamometer, a lang curve pattern of score distribution is expected. Such a lang curve pattern was not observed in Mr. Sanabria case for his right hand and was present for his left hand. This is suggestive of a lack of full effort on the right and of maximum voluntary effort on the left. A second method of using lang curve analysis to gauge a client's level of physical effort relates toanalysis of standard deviation. Clinical studies indicate that if a person is partaking in testing with full physical effort, a specific pattern of score distribution is expected. Right Upper Extremity: Mr. Sanabria right hand warp scouring vat tender scores did not produce a lang curve. As such, standard deviation analysis is not required. Left Upper Extremity: Mr. Sanabria left hand warp scouring vat tender scores, produced a well distributed lang curve (S.D. = 14.11). Clinical studies suggest this standard deviation to be indicative of a high level of effort. Rapid Exchange Tube Coater Test (REG) The Rapid Exchange Tube Coater test (REG) was used to further validate original maximum voluntary effort (static) test results. Studies indicate that if an evaluee is providing high effort, REG peaks usually fall short of maximum voluntary effort peaks, typically by about 15%. Based upon a 1994 study by Bora Covington, a 12 pounds forgiveness window was provided. Research dictates that if a person is providing high effort, his REG scores will not exceed his MVE (static) scores by more than 12 pounds . Mr. Sanabria results (in Lbs) are presented below: MVE Peak REG Peak MVE vs REG Difference Lbs Percent Dominant 80 80 0 0 Non-Dominant 64 60 -4 -6 As indicated above, the resulting REG peak was within the 12 pounds forgiveness window for the righthand and was within the 12 pounds forgiveness window for the left hand. Results of the REG testing identified High Effort for client's dominant hand and High Effort for client's non-dominant hand. During the REG test, the client was noted to demonstrate the following signs of physical discomfort: Shaking out hands (repetitively opening/clenching); Holding/massaging: hands Mr. Bradley was observed to demonstrate the following signs of competitive test performance: Muscular recruitment; Increased compensatory postures to improve force The REG test was terminated due to successful test completion. Comments Carpal tunnel acting up and affecting scores, so this is the likely cause of the cut points being over the co-efficient of variation. Mr. Bradley had pain with his bilateral carpal tunnel symptoms today which affected squeezing the Vipul hand dynamometer consistently. This was observed by his shaking out his hands and massaging them. Competitive Test Performance?? Mattie-trained functional capacity evaluators are trained to look for examples of competitive testperformance (CTP) in persons who participate in tests which entail high levels of physical effort. Such examples may include (but are not exclusive to): starting tests prior to the uttered START command, continuing to work after the uttered STOP command, asking for extra practice time, asking to repeat a slow trial, postural accommodation to improve performance, etc. In Mr. Bradley' case, such examples were abundant throughout his testing day. Heart Rate Analysis To further gauge Mr. Sanabria overall level of physical effort, clinical heart rate analysis was usedthroughout his testing day. Mattie-trained work capacity evaluators are trained to look for heart rate measures nearing or exceeding aerobic target levels in individuals providing high levels of effort on repetitive, large muscle group activity. Test Standing Resting HR Maximum HR % ? Isoinertial Lift 91 bpm 107 bpm 18% PILE Lumbar 93 bpm 102 bpm 10% Carrying 93 bpm 105 bpm 13% Pushing 93 bpm 112 bpm 20% Pulling 93 bpm 112 bpm 20% Overall heart rate analysis suggest full effort on Mr. Sanabria behalf. Mr. Obriens pain levels (neck, back) came on at the sedentary to light lifting levels with materialshandling. The pain was present before a larger amount of weight was lifted that would cause a largerphysical demand and a greater change in heart rate. Clinical Consistency Mattie-trained functional capacity evaluators are trained to look for high levels of clinical consistency in clients who partake in testing which entails full physical effort. Persons providing full physical effort should remain consistent in functional presentation despite multi-hour tests under dis traction-based clinical testing situations. During 5 hours 9 minutes 30 seconds of constant distraction-based clinical testing, Mr. Sanabria performance remained clinically consistent, suggestive of good consistent effort on his behalf. Reliability of Pain And Disability Reports TestingRELIABILITY OF PAIN AND DISABILITY REPORTS TESTING Reliability of Pain and Disability Report testing is comprised of a battery of tests designed to better assess the dependability and accuracy of the client's subjective reports of pain and/or disability. The battery includes tests which evaluate the presence or absence of non-organic findings (findings that have more to do with illness behavior than underlying physical disease) as well as tests whichcompare a client's subjective reports to what he is actually capable of doing through the use of distraction based testing and observations of ability/disability. Pain Scales Various pain scales were implemented with Mr. Bradley to evaluate both the consistency and reliability of his subjective (verbal) reports. Subjective ratings of pain matched well with distraction-based clinical observations. Subjective Pain Levels Mr. Bradley states that he is experiencing pain in the areas indicated in the following table (these are based on the 0-10+ Functional Pain Rating Scale where 0 represents no pain and 10+ represents emergency pain warranting immediate emergency department care or hospitalization): Pre-Test Pain Post-Test Pain head and neck 2 4 back and right leg 1 3 Mr. Bradley reported the following additional pain rating data: Functional Pain Rating Present Rating 2/10 Best Rating (Over Past 30 Days) 2/10 Pain Assessment/Questionnaires Mr. Bradley completed a number of standard assessment questionnaires to assess the presence and impact of Chronic Pain Syndrome. These questionnaires have been published in peer-reviewed journals and are widely used in the industrial rehabilitation field. Questionnaire/Assessment Score Interpretation Functional Pain Scale 2 /10 The pain is present but not yet at a level which limits you from performing the current activity. Oswestry Low Back Disability Questionnaire 24 % Moderate disability Oswestry Neck Disability Index 29 % Moderate disability Disability of Arm, Shoulder, Hand 46.7% Where 0% = no disability During the intake interview process, the client was noted to show the following signs of physical discomfort: Shifting within chair Comments Had to stand up after 1 hour 24 minutes of standing due to right leg pain. Approximately 5 minutes standing to fill out questionnaires, then returned to table. PACT Spinal Function Sort The PACT Spinal Function Sort is used to quantify an individual's perception of his ability to perform work tasks. The responses on this instrument can be used to test the reliability/accuracy of a client's subjective reports of ability and limitation. Mr. Sanabria ratings on the Spinal Function Sort were as follows: Rating of Perceived Capacity (RPC) 83 Perceived DOL Rating Less Than Sedentary Norm vs. Injured Unemployed 30%, Below Average Results of reliability check testing indicated a reliable profile. The client perceives himself as meeting the physical requirements for Less Than Sedentary strength work, according to Department of Labor standards. The client was noted to show the following signs of physical discomfort during the administration ofthe Spinal Function Sort: Shifting within chair The Spinal Function Sort was terminated due to successful test completion. EPIC Hand Function Sort The EPIC Hand Function Sort is used to quantify an individual's perception of his ability to performwork tasks. The responses on this instrument can be used to test the reliability/accuracy of a client's subjective reports of ability and limitation. Results of reliability check testing indicated a reliable profile. The client perceives himself as meeting the physical requirements for sedentary-strength work, according to Department of Labor standards. Rating of Perceived Capacity (RPC Total) 125 Perceived DOT Rating (Overall) Sedentary Sedentary Incremental Rating of Perceived Capacity (RPC-I) 51 Light Incremental Rating of Perceived Capacity(RPC-I) 44 Medium Incremental Rating of Perceived Capacity (RPC-I) 19 Heavy Incremental Rating of Perceived Capacity (RPC-I) 11 Norm. vs. Healthy Employed 5 Norm. vs. Injured Unemployed 25 Dexterity TestingDEXTERITY TESTING Other Dexterity Testing The description of the dexterity testing protocol/activity is as follows: Valpar 8 - Time: 5 min, 44 pieces - unable to use norms as this test was not tolerated for long enough - Signs of competitive test performance: worked fast, voiced exasperation, accommodative postures tokeep going - Signs of physical discomfort: 3 minutes in, bending at knees for accommodative posture - Reason for test cessation: low back pain and carpal tunnel symptoms - Pain 10 Valpar 10 - Time: 6 min 5 seconds of practice, actual test: 17 min 34 seconds - Signs of competitive test performance: worked fast, voiced exasperation, accommodative postures tokeep going - Signs of physical discomfort: 12 minutes into the test, leaning on table with right hand and kicking right leg back - Reason for test cessation: low back pain and carpal tunnel symptoms - able to complete the test - Pain / 10 Overhead Vendor Board: - Time: 9 min 4 seconds - Signs of competitive test performance: working at a moderate pace through some pain - Signs of physical discomfort: shaking out and massaging hands - Reason for test cessation: carpal tunnel symptoms and neck pain - Pain / 10 Tube Coater Strength and Handling TestingGRIP STRENGTH AND HANDLING TESTING Five-Position Tube Coater Testing As a function of hand dynamometer testing, information about the client's warp scouring vat tender strength was collected. Dominant Non-Dominant Client Norm Group Client Norm Group 70.33 109.9 60 100.8 Results are in pounds. As can be seen from this table, the client demonstrates the dominant hand as being weaker than the normative group. His non-dominant hand demonstrates as being weaker than the normative group. During the warp scouring vat tender strength test, the client was noted to show the following signs of physical discomfort: Shaking out hands (repetitively opening/clenching) Mr. Bradley was observed to demonstrate the following signs of competitive test performance during warp scouring vat tender strength testing: Muscular recruitment; Increased compensatory postures to improve force Comments Carpal tunnel acting up and affecting scores, so this is the likely cause of the cut points being over the co-efficient of variation. Mobility TestingMOBILITY TESTING Climbing and Descending Stairs Mr. Bradley was observed to climb and descend 2 floors of 24 steps. He completed this without a break. During this test, the stage set designer observed whether or not Mr. Bradley displayed any antalgic symptoms in his gait. An antalgic gait is a limp adopted so as to avoid pain on weight-bearing structures, characterized by a very short stance phase. Antalgia was not noted at the onset of the test Antalgic symptoms were noted increase on the client's right and left sides. The client demonstrated the following signs of physical discomfort during the stairs test: Increased lean on nearby surfaces Mr. Bradley demonstrated the following signs of competitive test performance: Voiced frustration at poor performance 118 HR, SaO2 - 94%, shortness of breath. Reports he gets winded and fatigued at 70 yards. Walkin feet at a light moderate pace, then had to stop due to leg pain (venous insufficiency),breathing and back pain. 107 Heart rate and 95% SaO2. Strength TestingSTRENGTH TESTING Pushing Mr. Bradley was observed to push a sled weighing 50lbs over a level terrain. The results are presented below: Handle Height Distance Force Percentile Rating Initial 37(in) 25(ft) 38(lbsf) <10 Below Average Sustained 37(in) 25(ft) 34(lbsf) 10 Below Average Mr. Bradley's pain rating for this test was 4/ 10. The client was noted to show the following signs of physical discomfort: Post-test - lean on nearby surfaces; Facial wince; Holding breath/sighing The client exhibited the following signs of competitive test performance during the test: Holding breath; muscle recruitment Standing Resting Heart Rate 93 bpm Maximum Heart Rate 112 bpm The test was terminated due to: Increased sign of pain in : head and neck Pulling Mr. Bradley was observed to pull a sled weighing 50lbs over a level terrain. The results are presented below: Handle Height Distance Force Percentile Rating Initial 37(in) 25(ft) 32(lbsf) <10 Below Average Sustained 37(in) 25(ft) 29(lbsf) <10 Below Average The client was noted to show the following signs of physical discomfort: Post-test - lean on nearby surfaces; Facial wince; Holding breath/sighing The client exhibited the following signs of competitive test performance during the test: Holding breath; muscle recruitment Standing Resting Heart Rate 93 bpm Maximum Heart Rate 112 bpm The test was terminated due to: Increased sign of pain in : head and neck Carrying Mr. Bradley was observed to carry a loaded box weighing 22lbs over a level terrain. The results are presented below: Handle Height Distance Weight Percentile Rating 31(in) 28(ft) 22(lbs) <10 Below Average Mr. Bradley' pain rating for this test was 4/ 10. The client demonstrated the following signs of physical discomfort: Increased lean on nearby surfaces; reports right testicular pain on way back The client exhibited the following signs of competitive test performance during the test: Holding breath; muscle recruitment Standing Resting Heart Rate 93 bpm Maximum Heart Rate 105 bpm The test was terminated due to:. Increased sign of pain in : low back, right testicle Lifting Isoinertial Lifting Evaluation Mr. Bradley completed the Maximum Isoinertial Lifting Evaluation during the evaluation process. Priorto testing, the client's heart rate was found to be 91 bpm and his blood pressure was / mm Hg. His functional pain rating was 2/10. The results for the 13 inch width (center of body to hands) of this evaluation are as follows: Test Max. Wt Safe Wt Heart Rate Pain Reason for Pain Body Mechanics %ile Floor to Knuckle 32 22 107 4 Back pain Fair < 10 Knuckle to Shoulder 22 12 95 3 back and neck pain Good < 10 Shoulder to Overhead 27 17 102 4 Neck pain Good < 10 12 inch to Knuckle 32 22 104 3 Back pain Good Comments Floor to Knuckle: pushing off box to stand up The client's post-test heart rate was 107 bpm, his post-test blood pressure was / mm Hg and his post-test pain rating was /10. The client demonstrated the following signs of physical discomfort during the test: Increased lean on nearby surfaces; Stretching low back; Pausing intermittently; Holding breath/sighing The client exhibited the following signs of competitive test performance during the test: Holding breath; muscle recruitment The test was terminated due to: Increased sign of pain in : low back and neck Progressive Isoinertial Lifting Evaluation (P.I.L.E.) Mr. Sanabria frequent lifting ability was tested by means of the Progressive Isoinertial Lifting Evaluation (PILE) (Yan et al, 1988). The results of this evaluation are a reflection of the amount of weight the client will be able to lift on a frequent basis, that is between 34% and 66% of the work shift. The evaluation involves the lifting of a progressively weighted box through four lifts in a period of 20 seconds. There are two components to the test, namely Lumbar (lifting from 6 inches to 36 inchesand back to 6 inches) and Cervical (lifting from 36 inches to 60 inches and back to 36 inches). The results are presented in three forms: Maximum acceptable weight that the client demonstrated he could lift. Total Work expended during the lift test (ft. lbs.). Total Power expended during the lift test (ft. lbs.sec-1). Lift Test Max. Wt(lbs.) Max. Accept. Wt (lbs.) Total Work (ft lbs.) Total Power (ft.lbs/sec-1) Max Heart Rate % Normal vs. Normal Workers % Normal vs. Injured Work Lumbar (6-36-6) 13 13 260 16.25 102 3.3 6.7 Cervical (36-60-36) 13 13 208 10.4 103 4.9 9.7 Lumbar Component The following observations were made regarding the client's body mechanics: Fair. The client's post-test heart rate was 84 beats per minute and the post- test pain rating was 4/10. The client demonstrated the following signs of physical discomfort during the test: Increased lean on nearby surfaces; Pausing intermittently; head pain The test was terminated due to: Increased sign of pain in : head, neck, back Based on the amount the amount lifted on the isoinertial protocol and increased head, neck and back pain, Frequent lifting not recommended. Cervical Component The following observations were made regarding the client's body mechanics: Fair. The client's post-test heart rate was 93 bpm and the post-test pain rating was 3/10. The client demonstrated the following signs of physical discomfort during the test: Increased lean on nearby surfaces; Facial wince The client exhibited the following signs of competitive test performance during the test: Requesting to continue when advised to stop; Holding breath The test was terminated due to: Limited musculoskeletal strength Sustained Activity and Positional TolerancesSUSTAINED ACTIVITY AND POSITIONAL TOLERANCES During a total evaluation time of 5 hours 9 minutes 30 seconds, Mr. Bradley's total sitting, standing, walking, and other position and combinations of positions time was recorded. His results from this continuous observation and recording are presented as follows: Total Time (Hrs. and Min.) Longest Duration Sitting 02:43:19 01:24:52 Standing 02:14:17 01:15:25 Stooping Mild 00:38:32 00:38:32 Total Time for Evaluation 05:09:30 Musculoskeletal EvaluationMUSCULOSKELETAL EVALUATION Special Tests Placebo Tests Test Results Interpretation Patellar Shift Negative Comments:n/a Hao Toe Negative Comments:n/a Ankle Dorsiflexion Negative Comments:n/a Right Left Wrist Flexion Test Negative Negative Comments:n/a Olecranon Shift Negative Negative Comments:n/a RANGE OF MOTION: Cervical Spine: 50% in all planes except right sidebend 25% - pain with all Lumbar Spine: flex 75%, ext 50%, Sidebend 25%, rotations 50% - pain with all Upper extremities: near full range in all planes, but IR limited to the sacrum - pain with all Lower extremities: able to squat to excelsior picker item off the floor Additional InformationADDITIONAL INFORMATION The Physical Demand Characteristics of Work chart is appended here for your reference. PHYSICAL DEMAND CHARACTERISTICS OF WORK 1992 Corky Phelps, PhD PHYSICAL DEMAND LEVEL OCCASIONAL 0 - 33% of the workday FREQUENT 34 - 66% of the workday CONSTANT 67 - 100% of the workday Typical Energy Required SEDENTARY 10 lbs. Negligible Negligible 1.5 - 2.1 METS LIGHT 20lbs. 10 lbs Negligible 2.2 - 3.5 METS MEDIUM 20 to 50 lbs. 10 to 25 lbs. 10 lbs 3.6 - 6.3 METS HEAVY 50 to 100 lbs. 25 to 50 lbs. 10 to 20 lbs 6.4 - 7.5 METS VERY HEAVY Over 100 lbs. Over 50 lbs. Over 20 lbs Over 7.5 METS The results of this evaluation were reviewed with Mr. Bradley at the conclusion of the evaluation. Thank you for your referral of Mr. Bradley. Signed, Hayes Riggs , PT, OCS, [place] [address] [place] --- End Of Client Evaluation Report for Mr. Paul Bradley --- Version 05/05/2014 - v3.5 [employer] Copyright?? 2013 documented in this encounter Plan of Treatment Not on filedocumented as of this encounter Visit Diagnoses Diagnosis History of fusion of cervical spine Arthrodesis status Radiculopathy of lumbar region Thoracic or lumbosacral neuritis or radi culitis, unspecified Carpal tunnel syndrome, bilateral Carpal tunnel syndrome documented in this encounter Care Teams Seed Laboratory Assistant Relationship Specialty Start Date End Date Jackelin Paniagua PA PCP - General 07/20/12 01/23/16 documented as of this encounter
--- OUTSIDE RECORDS SUMMARY | 2022-06-07 01:46 | XMS_ITS | Encounter Summary ---
:1970 Author Organization [facility] [place] [address] Care Team Providers Name Role Phone Jackelin Paniagua Primary Care Provider Encounter Details Date Type Department Care Team Description 06/30/2014 Office Visit Occupational Medicine Waleska Quintanilla Wor k related injury; at [facility] History of fusion of cervical spine; [facility] MEDICAL Radiculop athy of cervical region [facility] [place] [address] OCCUPATIONAL [phone] [place] [address] Social History Tobacco Use Types Packs/Day Years [...] Sign Reading Time Taken Comments Blood Pressure 140/84 06/30/2014 8:44 AM EDT Pulse 84 06/30/2014 8:44 AM EDT Temperature - - Respiratory Rate - - Oxygen Saturation - - Inhaled Oxygen Concentration - - Weight - - Height - - Body Mass Index - - documented in this encounter Progress Notes Waleska Quintanilla MD - 06/30/2014 8:59 AM EDT [facility] OCCUPATIONAL AND ENVIRONMENTAL MEDICINE FOLLOW UP VISIT Date of injury: 11/18/2012 Date of intake: 06/17/2014 Employer: [employer] 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 Bradley is a [...] school. 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 He last worked in November, and has been out of work since this most recent injury. Today, he reports no new symptoms. He is here to review the treatment plan. Since last visit,I sent my assessment to his [facility] who has approved the imaging and referral to his neurosurgeon. I also reviewed the plan with Dr. Anthony who would like to sign him over to our clinic for further treatmentplanning and return to work. Treatment summary: Medications Per pain medicine notes Physical Therapy ?? Craniosacral therapy ?? PT and pool therapy ?? GAP assessment for the [facility] and was found to have a [...] C3-6 ??? Cholecystectomy 2012 ??? Appendectomy 1985 Current Outpatient Prescriptions on File Prior to Visit Medication Sig Dispense Refill ??? Omeprazole 20 mg Tablet, Delayed Release (E.C.) Take by mouth. ??? LORazepam (ATIVAN) 2 mg Tablet Take 2 mg by mouth every 6 hours as needed. ??? DULoxetine (CYMBALTA) 30 mg capsule Take 30 mg by mouth daily. ??? Budesonide-Formoterol 160-4.5 mcg/actuation HFAA Inhale into [...] the lungs every 6 hours as needed. ALLERGIES: Sulfa O: Filed Vitals: 06/30/14 0844 BP: 140/84 Pulse: 84 Mr. Bradley is alert and pleasant, in [...] habitus and also this was done in [place] [facility] which limits the quality of the images. I reviewed his images with spine orthopedics on initial visit.There is bilateral narrowing at C7-T1 that could explain his symptoms. Repeat imaging would be needed to fully visualize this. A: Mr. 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 He does have clinical signs of myelopathy with evidence of myelopathic changes on cervical MRI that appear to be unchanged from his previous injury in 2011 although image quality is poor. Alternatively, Steiner sign could be from centrally acting medications vs myelopathy, and disequilibrium could be from the head injury. Moreimportantly, per preliminary review of the case with spine orthopedics, he does seem to have something going on at C7-T1 on imaging that is resulting in bilateral foraminal narrowing at this level. This is consistent with his feeling of pressure felt below the level of the fusion and also with his posterior arm symptoms into the pinkies as well as his periscapular (upper back) pain and spasm. His last MRI was over a year and a half ago, and, again, the image quality is poor. In addition, he has not had a spine surgery evaluation since the above injury. 3. Severe deconditioning P: 1. We discussed next steps in detail. We reviewed my initial consult note and the above assessment with a diagram of the distribution of cervical radiculopathies. I also reinforced that after this diagnostic work up the expectation should not be that there is a treatment that will take the pain completely away but it will help us determine if there are other treatment options that could improve his function, improve his quality of life, and get him back to work. 2. MRI questions reviewed and cervical and thoracic MRI appointments scheduled during the visit to be done at [facility]. WC treatment approval is sent to be scanned to the system. He will do the x-ray todayor when he is here for MRI. 3. Referral sent to his treating surgeon at [facility] with my intake note. We will send this note as well. 4. When he is cleared with respect to his spine, and if headaches continue, I think a trial of ST surface electrode treatment would be reasonable for his headaches and occipital neuralgia. He does identify his headaches as the major barrier to function. Of note, the analysis of the global burden of disease published by the World Health Organization (Menken, 2000) found that disability from severe headache is as debilitating as quadriplegia or dementia. So, his report of being disabled by his headaches (that he rates up to 8/10) is certainly consistent with studies of headache-related disability. STsurface electrode treatment is a noninvasive way to [...] is not a good candidate for this for many reasons. He would need to be weaned off of neuropathic pain medications prior to starting ST treatment. Any other pain medications would be weaned duri ng the treatment. 5. I do not see a role for ongoing injections at this given good but transient response that is not translating into functional gains. 6. He should certainly continue with vocational rehab as he does express a desire to get back to work. 7. I think his recovery is also complicated [...] are established would support return to work. 8. WC form completed without change for now. 9. Follow up after imaging and neurosurgery consult. The entirety of this 25-minute visit was spent discussing diagnosis, treatment options, treatment plan, expectations of treatment, work capacity, and return to work using a shared decision making approach. documented in this encounter Plan of Treatment Not on filedocumented as of this encounter Visit Diagnoses Diagnosis Work related injury Injury, other and unspecified, unspecifi ed site History of fusion of cervical spine Arthrodesis status Radiculopathy of cervical region Brachial neuritis or radiculitis nos documented in this encounter Care Teams Operations And Maintenance Technician Relationship Specialty Start Date End Date Jackelin Paniagua PA PCP - General 07/20/12 01/23/16 documented as of this encounter
--- OUTSIDE RECORDS SUMMARY | 2022-06-07 01:46 | XMS_ITS | Encounter Summary ---
:1970 Author Organization [facility] [place] [address] Care Team Providers Name Role Phone Jackelin Paniagua Primary Care Provider Encounter Details Date Type Department Care Team Description 09/14/2014 Office Visit Psychiatry and Gina Ayala Adjustmen t disorder [facility] at [place], PhD with mixed anxiety and [facility] depressed mood [facility] [address] PSYCHIATRY DEPT. [place] [id number] [phone] Social History Tobacco Use Types Packs/Day Years [...] encounter Progress Notes Gina Ayala, PhD - 09/14/2014 1:57 PM EST Behavioral Medicine Service Individual Therapy Followup/Cognitive Behavioral Therapy-- 45 minutes Chief Complaint: coping with chronic pain S/O: Mr. Bradley reports that he saw Dr. France today for a surgical consultation. She recommended a CT guided block at C2 to determine if a further procedure there would be helpful to block the pain. He was hoping for a more definitive answer to his question but will discuss options with Dr. Quintanilla when he sees her next month. Mr. Bradley reports ongoing irritability and frustration with his chronic pain and functional limitations. He has not been practicing the relaxation regularly and struggles with thoughts that he should be suffering because he is the cause of his families problems. The session focused on cognitive therapy around pain management. A: 309.28 adjustment disorder with depressed and anxious mood Mental status notable for anxious and sad mood. He reports light sensitivity so the overhead lights are turned off. P: Paul Bradley was strongly encouraged to resume practicing the breathing strategy daily. He was encouraged to continue working on challenging negative thoughts. Mr. Bradley will continue to apply the activity pacing and problem solving strategies. RTC 1 week. documented in this encounter Plan of Treatment Not on filedocumented as of this encounter Visit Diagnoses Diagnosis Adjustment disorder with mixed anxiety a nd depressed mood documented in this encounter Care Teams Senior Insight Manager International Relationship Specialty Start Date End Date Jackelin Paniagua PA PCP - General 07/20/12 01/23/16 documented as of this encounter
--- OUTSIDE RECORDS SUMMARY | 2022-06-07 01:46 | XMS_ITS | Encounter Summary ---
:1970 Author Organization [facility] [place] [address] Care Team Providers Name Role Phone Jackelin Paniagua Primary Care Provider Reason for Visit Reason Comments Skin Check Encounter Details Date Type Department Care Team Description 06/29/2015 Follow-Up Dermatology at [facility], DR LUCIANA mathis of uncertain behavior of skin; Dash Bello MD [facility] DR [place] [address] Stasis dermatitis of both legs; [address] Epidermal cyst; [place] [address] Knuckle pads; [phone] Actinic skin da mage; History of basa l cell carcinoma Social History Tobacco Use Types Packs/Day Years [...] documented as of this encounter Progress Notes Laisha Morrison LPN - 06/29/2015 11:30 AM EDT This is a high risk patient who returns for re-evaluation of recurrence of skin cancer and development of new skin cancers. Patient is established to this clinic, but new to me. Chief Complaint: Lesion History of Present Illness Paul Bradley is a 45 y.o. male. History of skin cancer who complains of a mildly tender lesion on the crown scalp that was apparent this summer as a lump that became tender with sun exposure. Almost completely resolved without treatment. No bleeding. Never been treated or biopsied. Also, h/o stasis disease c/b now healed stasis ulcer on the right carlson with complaint of recurrent mild pruritus on the left ankle for months. Wears compression hose and elevates lower extremities at bedtime. Never been o/w treated or biopsied. Also, concerned about a new firm lesion on the upper back that first appeared this summer. No symptoms. No drainage. Never been treated or biopsied. Requests waist up skin cancer screening. Interval changes to Medications and Medical, Family and Social Histories (including alcohol and tobacco use) Since Last Visit : 12-21-13 No significant interval history. Skin Cancer History Left lateral eyebrow, basal cell carcinoma s/p Mohs (09-09-13) Allergies Allergies Allergen Reactions ??? Sulfa (Sulfonamide Antibiotics) CIS - Rash ??? Morphine Non-responder to Morphine Medications Reconciled as above. Social History Tobacco use - current smoker Alcohol use - yes Review of Systems Significant for no fevers, chills, night sweats, or fatigue and no other pertinent and acute changesin constitutional, other skin, HEENT, allergy/immunology systems upon specific queries. Examination [facility] Mood is appropriate. Well developed, well-nourished in no apparent distress, alert and oriented to time, person, place and situation. Skin Type: II. Examination of the head - including the scalp, face, ears, nose, lips - neck, chest, abdomen, back, axillae, upper extremities, including the nail plates, and legs/feet significant for the following: - pink follicular 3mm macule with protruding hair follicles, no alopecia, on the right crown scalp - 3 mm firm follicular hypopigmented cystic papule on the midline upper back - knuckle pads over the MCP joints of the little, ring and middle fingers - violaceous erythema with scale and background pigmentation on the bilateral lower legs - moderate sun damage multiple red erythematous 5-15 mm macules and patches on sun exposed areas c/wsolar epidermal thinning - No evidence of recurrence in scars on the left lateral eyebrow Assessment and Plan Folliculitis, Right Smolan Scalp Not c/w neoplasm at this time. Healing folliculitis most likely. Discussed shave biopsy or observation and patient elects observation. Return to clinic if symptoms develop. Epidermal Inclusion Cyst, Midline Upper Back Benign Counseled: EIC, etiologies and risks for secondary infection, chronic prognosis and treatment options, including but not limited to observation, ILK (for smaller cysts) and incision/enucleation. Answered all questions. Handout given. Patient declines treatment at this time. Stasis dermatitis No ulcer today. Counseled: stasis dermatitis, a/w venous stasis/DVT, chronic and recurrent course, risks for secondary infection and lipodermatoclerosis, prevention by reduction of swelling with ROCK hose during wakinghours/elevate lower extremities above heart 1h at bedtime, regular walks and treatment of symptoms with topical steroids, moisturization, Unna boots or modified wraps. Discussed risks of tropical steroids. Answered all questions. Handout given. Start TAC bid prn itching. Counseled: risks of topical steroids, including but not limited to atrophy, dyspigmentation. Cont ROCK 15-20mmHg, knee high hose during waking hours Vaseline to legs prn dry skin. Knuckle Pads Benign. Counseled: benign, may be a/w fibrosis on the hands. Solar Damage Benign but evidence of moderate chronic sun damage. Counseled: risks for skin cancer, thinning of skin. Recommend sun protection. Answered all questions. History of Skin Cancer - basal cell left lateral eyebrow No evidence of recurrence. Patient Counseling (Skin Cancer) Counseled: Counseled: sun protection, self skin exams, provider skin exams every 12 months, and the ABCDEs of melanoma/NMSC (handout given). Answered all questions. Follow-up: Skin cancer screening in 12 months or return to clinic prn for new suspicious lesions or if changes/symptoms in existing lesions develop. I am documenting this encounter acting as the scribe for and in the presence of Dr. Remy: LAISHA MORRISON LPN I performed the above scribed service and agree with the accuracy of the documentation in this encounter. Dash Remy MD [facility] of Dermatology [facility] documented in this encounter Plan of Treatment Not on filedocumented as of this encounter Visit Diagnoses Diagnosis Neoplasm of uncertain behavior of skin Stasis dermatitis of both legs Varicose veins of lower extremities with inflammation Epidermal cyst Sebaceous cyst Knuckle pads Other fibromatoses of muscle, ligament, and fascia Actinic skin damage Other chronic dermatitis due to solar ra diation History of basal cell carcinoma Personal history of other malignant neop lasm of skin documented in this encounter Care Teams [employer] Professional Relationship Specialty Start Date End Date Jackelin Paniagua PA PCP - General 07/20/12 01/23/16 documented as of this encounter
--- OUTSIDE RECORDS SUMMARY | 2022-06-07 01:46 | XMS_ITS | Encounter Summary ---
:1970 Author Organization [facility] [address] Care Team Providers Name Role Phone Jackelin Paniagua Primary Care Provider Encounter Details Date Type Department Care Team Description 07/12/2014 Office Visit Psychiatry and Gina Ayalamen t disorder [facility] [place], PhD with mixed anxiety and [facility] depressed mood [facility] (Primary Dx) [facility] PSYCHIATRY DEPT. [place] [phone] Social History Tobacco Use Types Packs/Day Years [...] encounter Progress Notes Gina Ayala, PhD - 07/12/2014 9:50 AM EDT Behavioral Medicine Service Individual Therapy Followup/Cognitive Behavioral Therapy-- 45 minutes Chief Complaint: coping with chronic pain S/O: Mr. Bradley reports that he has been pacing himself relatively well but does become frustrated due to reduced function. He did talk with his son about pitching in more around the house to help but states that he has asked him for more help in the past without consistent results. Mr. Bradley reportspracticing the relaxation 2 times per day usually and does find it helpful to take the edge off his irritability. He has been trying to challenge negative thoughts but struggles with anger and guilt related to his functional limitations, but finds it challenging. The session focused on introducing problem solving. A: 309.28 adjustment disorder with depressed and [...] insession. He is scheduled for an MRI 07/22 and then will go for surgical consultation. RTC 1 week. documented in this encounter Plan of Treatment Not on filedocumented as of this encounter Visit Diagnoses Diagnosis Adjustment disorder with mixed anxiety a nd depressed mood - Primary documented in this encounter Care Teams Cuff Setter Overlock Relationship Specialty Start Date End Date Jackelin Paniagua PA PCP - General 07/20/12 01/23/16 documented as of this encounter
--- OUTSIDE RECORDS SUMMARY | 2022-06-07 01:46 | XMS_ITS | Encounter Summary ---
:1970 Author Organization [facility] [place] [address] Care Team Providers Name Role Phone Jackelin Paniagua Primary Care Provider Encounter Details Date Type Department Care Team Description 12/01/2014 Ancillary Vascular Surgery at [facility], Acute de ep vein thrombosis of right lower extremity; Appointment [facility] [place] [phone] Social History Tobacco Use Types Packs/Day Years [...] Name Priority Date/Time Associated Diagnosis Comme nts UNLATERAL VALVULAR Routine 12/01/2014 12:37 PM Acute deep vein Results for this INCOMP EST thrombosis of right procedur e are in lower extremity the results Edema section. documented in this encounter Results LE Unilateral Valvular Incomp Study (12/01/2014 12:37 PM EST) Component Value Ref Test Analysis Performed At [facility] Range Method Time Signature VB Text VASCUBASE Report Department: Vascular Surgery Lab Patient: [id number] (PAUL BRADLEY) CPT Code: 44680 ICD-9: 459.81 Referring Physician: NATASHA ROSS Indication: ??Patient with history of PE and RIGHT lower e xtremity DVT with non-healing RIGHT mid anteri or calf wound (from injury per patient), ? valvular incompetence ICD9 Diagnosis Code: 459.81 Findings: Right ?Reflux? Common Femoral Vein ?Reflux ? Femoral Vein ? Reflux ? Popliteal ?Reflux ? Posterior Tibial Vein ??Competent ?? GSV, Near SFJ ?Competent ?? GSV, Proximal Thigh ?Competent ?? GSV, Mid Thigh ? Competent ?? GSV, Distal Thigh ?Competent ?? GSV, ??Knee ? Competent ?? GSV Prox Calf ?Competent ?? GSV, Mid Calf ?Competent ?? GSV, Distal Calf ? Competent ?? SSV ?Competent ?? Interpretation: RIGHT: Findings consistent with deep venous valv ular incompetence. The common femoral, femoral and poplite al veins are incompetent. No evidence of superficial venous valvular incompetence. No evidenc e of superficial vein thrombus. Patent compressible common femoral, saphenofemoral junction femoral vein from the proximal through mid thigh and popliteal vein. Suboptimal visualization of the femoral vein in the distal thigh due to swelling and size of thigh, cannot entirely exclude thrombus in this segment. Reflux in the common femoral vein is >1.6 seconds, > 2.7 seconds in the femoral vein and > 3.5 seconds in the popliteal vein. NOTE: Very limited evaluation of the femoral art elenita in the proximal thigh and mid popliteal artery identified normal triphasic Doppler wav eforms and velocities. Comparison: ??No previous study in our vascular lab da tabase for comparison. Electronically Signed by: ALLY STEARNS on 2014-12-02 10:00 :54 AM VB Text End of Report VASCUBASE Report Specimen (Source) Anatomical Collection Method Collection Time Re ceived Time Location / / Volume Laterality 12/01/2014 12:37 PM EST Natasha Ross DO VASCULAR ORDERABLES Performing Organization Address City/State/ZIP Code Phon e Number VASCUBASE documented in this encounter Visit Diagnoses Diagnosis Acute deep vein thrombosis of right lowe r extremity Acute venous embolism and thrombosis of unspecified deep vessels of lower extremity Edema documented in this encounter Care Teams Fork Truck Driver Relationship Specialty Start Date End Date Jackelin Paniagua PA PCP - General 07/20/12 01/23/16 documented as of this encounter
--- OUTSIDE RECORDS SUMMARY | 2022-06-07 01:46 | XMS_ITS | Encounter Summary ---
:1970 Author Organization [facility] [place] [address] Care Team Providers Name Role Phone Jackelin Paniagua Primary Care Provider Reason for Visit Auth/Cert - Closed Specialty Diagnoses / Procedures Referred By Contact Refer red To Contact Diagnoses MYELOPATHY Procedures UNLISTED MR PROCEDURE MRI WITH ANESTHESIA Referral ID Status Reason Start Date Expiration Date Visits Requ ested Visits Authorized [id number] Closed 1 1 Encounter Details Date Type Department Care Team Description 08/04/2015 Surgery [facility] [place] [facility], MRI WITH ANESTHESIA [facility] jaguar ANESTHESIA-CITLALI (WRVU *) [place] [address] None [phone] Social History Tobacco Use Types Packs/Day Years [...] on filedocumented in this encounter Care Teams Monorail Charger Operator Relationship Specialty Start Date End Date Jackelin Paniagua PA PCP - General 07/20/12 01/23/16 documented as of this encounter
--- OUTSIDE RECORDS SUMMARY | 2022-06-07 01:46 | XMS_ITS | Encounter Summary ---
:1970 Author Organization [facility] [place] [address] Care Team Providers Name Role Phone Dangelo Ordaz MD Primary Care Provider [phone] Reason for Visit Consultation (Routine) - Closed Specialty Diagnoses / Procedures Referred By Contact Refer red To Contact Dermatology Diagnoses Basal cell carcinoma (BCC), unspecified site Dash Remy MD Leboeuf, Matthew R, MD [facility] DR [facility] Y [facility] [place] [id number] [place] [address] Fax: Referral ID Status Reason Start Date Expiration Date Visits V isits Requested Authorized [id number] Closed Consult, 03/12/2021 03/12/2022 1 1 Test & Treat Encounter Details Date Type Department Care Team Description 05/15/2021 Procedure visit Dermatology at [facility] Basal cell carcinoma of right cheek; Dusty Jacques MD Basal cell carcinoma of crown [address] [facility] [id number] BERONICA [phone] [facility] [place] [id number] Social History Tobacco Use Types Packs/Day Years [...] Pulse 80 05/15/2021 9:32 AM EDT Temperature - - Respiratory Rate - - Oxygen Saturation - - Inhaled Oxygen Concentration - - Weight - - Height - - Body Mass Index - - documented in this encounter Patient Instructions Patient InstructionsCoccHollie cason RN - 05/15/2021 9:30 AM EDT Your staff Mohs surgeon today was Mario Samano MD, PhD. FLAP CLOSURE Your wound(s) was repaired by a flap closure. A flap closure is rearrangement of skin tissue. A flapis performed when the area has too much tension, or when a simple side to side closure cannot be performed, or when a flap would lead to better cosmetic outcome with a flap. Your flap may be closed with all absorbable sutures, sutures that need to be removed or a combination of both. You will be instructed upon discharge if a suture removal appointment is necessary. Caring for a flap is very similar to caring for regular side to side stitches, except more caution should be used when cleaning the incisions as some flaps can be delicate. Instructions for wound care are below. Please keep in mind these are general guidelines. When in doubt, or if you have more specific questions, please call us. Keep below as a reference while caring for your wound(s): Wound Care ??? Gently remove your initial bandage (after 48 hours from surgery). It is normal to have swelling and bruising. ??? Begin wound care as below. ??? If your initial bandage only stayed on for 24 hours (for example, falls off sooner), this is okay. Resume your wound care and bandaging instructions as below. ??? Change your bandage once a day (and whenever it becomes wet or soaks through) continue for 7 days. ??? For bandage changes: o Wash hands with soap and water, or use gloves that you can purchase at a local pharmacy or drug store. o Clean the surgical area with cotton-tipped swabs or soft gauze dipped in soapy water (recommend liquid soap in clean room temperature water). Roll the cotton swab over the incision with soapy water, then with plain water, and then gently pat dry. Do not scrub the area with a washcloth. Do not put direct shower water pressure onto your wound. Do not pick off any scabs. It is okay to allow soapy water to run over your wound in the shower, however. o If you cannot remove any bloody or crusted areas, you may soak the area with wet gauze first for 15 to 20 minutes to help soften it o Pat the area dry with clean gauze or cotton swabs. Do not rub. o Use a cotton swab to apply a generous layer of petrolatum over the incision lines and any open-wound areas. o Make sure your tube or jar of petrolatum is new or unused to prevent prior contamination from entering your wound. Avoid double dipping. o After applying petrolatum, use a clean nonstick gauze or other nonstick dressing, such as Telfa. This may be purchased over the counter at a drug store. Do not use regular gauze as it will stick to your wound and can peel off healing skin with bandage changes. o Secure the bandage with paper tape or a bandage. Band-aids are okay, but typically have more adhesive that can irritate the skin compared to paper tape. This can be purchased at a drug store. o Continue this wound care daily for 7 days. If any areas of the flap were left open to heal, continue to apply Vaseline until healed. o Keep in mind that if you do not want to use a bandage at all due to difficulty, irritation of skin, cost, or inconvenience --- you can certainly avoid bandages altogether. However, it is imperative that you continue with topical petrolatum (plain, fragrance-free). This may need to be applied several times daily if it gets wiped off, washed off, or dries out. Things to purchase for wound care: -Nonstick gauze -A tube or tub of petrolatum jelly (fragrance-free, no dye, not lotion) -paper tape -cotton swabs -gloves (optional) -Dial or other antibacterial liquid soap After Surgery 1. Avoid tobacco, smoking/vapors, and cannabis (marijuana) for at least 3 weeks after your surgery. Smoking impairs healing and leads to worse scarring. Even cutting back on tobacco is helpful if you cannot abstain completely. 2. Limit alcohol intake to one drink per day over the next 3 days. 3. Do not participate in athletic activities for 5-7 days. Athletic activity is a relative term, butthis is considered to be anything that could potentially raise your heartrate or blood pressure. Elevating your heart rate and blood pressure can increase risks of swelling, bleeding, wound opening, orlead to worse scarring. Walking at a leisurely pace is fine for most people, but not if you are going walking for the purpose of exercise. 4. Do not lift anything heavier than 10 pounds until your sutures are removed. 5. Some radiosonde operator may need to be delayed or delegated such as vacuuming, mowing the lawn, snow shoveling, or caring for young children that need to be carried/lifted. Working any major muscle groups increases your heart rate and can increasing bleeding. 6. Avoid swimming, hot tubs, and direct water pressure for 3 weeks after surgery. You may shower once your initial bandage comes off in 48 hours, however. 7. Avoid antibiotic ointments such as triple antibiotic creams. Stick with your wound care instructions, please. 8. Whenever possible, it is helpful to take photographs with your camera or cell phone of any problems or concerns you see with your wound. We often ask for photos when you call with questions. 9. Starting 2 months following surgery, you can begin firm massage to any areas of firm scar along your incision to soften the scar and reduce bumpiness. Do this 3 times per day, 3 minutes each time. Do not start massage before 2 months. 10. Your wound will appear completely healed soon after sutures are removed (about 1 week), but incisions can remain bright red for several weeks. Then the scarring and healing process continues under the skin for 6 months up to 2 years. The scar may become less red, less firm, and more subtle during this time but the rate of improvement varies depending on the person. Most redness, discoloration, bumpiness resolves by 6 months. 11. Keep your follow-up appointments and make sure to continue to have your skin checked, as often as is recommended by your design editor, for new skin cancers. This is once per year for most patients. 12. Your can expect your scar to be red for several weeks with gradual fading of the redness. The scar will also be raised and lumpy until the dissolvable sutures under the skin get absorbed by your body which can take 3-4 months. The scar will flatten eventually. 13. Occasionally, about 20% of the time, on the face, the stitches under the skin can spit out of the incision to the surface. It can start out looking like a pimple or blemish directly on your incision. Sometimes it can look like a small mini infection so please let us know before you go to another provider for antibiotics. This means that the suture may need to be trimmed or removed when you return for your wound check. This typically occurs a few weeks after surgery if it does occur. 14. To optimize your scar, and best cosmetic result, please avoid direct sunlight to your incision for the first 6 months following surgery. UV ray exposure to your incision may cause the redness to last longer, or to cause permanent darkening of your scar. You can avoid sun by covering your incision w ith a bandage when outdoors, or wearing SPF 30 to 50 sunscreen (broad spectrum). 15. Sometimes after your sutures are removed, your incision may still be healing for 1 more week. Because of this, avoid make-up and sunscreen until approximately 2 weeks after surgery, or sooner if your skin edges look completely sealed. 16. Flaps may sometimes thicken or become firm several weeks after surgery. This is expected in sometypes of flaps and in certain locations on the face. This is called hypertrophy. If this occurs, at your wound check, you may need small amounts of medicine injected into your flap to help it soften orthin. This will be determined at your follow-up visit. 17. Flaps and skin surgery in general can lead to mild sensation loss (numbness) in the area of surgery. Massage starting at 8 weeks after surgery can help. 18. Bruising. It is very common to have bruising in swelling in any area of the face, even in areas that are distant from where we did surgery. This is especially common 24 to 48 hours after surgery when fluid and swelling shifts around in the face. For example, surgery on the forehead, temples, or cheeks often leads to eyelid swelling of both eyes, black eyes, or dark purple bruising. This is expected in most patients and will gradually resolve. However, if you have severe pain not resolving withover the counter medicine, please call us. You can use ice packs or a bag of frozen peas for 15-20 minutes 3-4 times daily to areas of swelling on the face; use caution not to put the icy item directlyon your incision, directly onto your skin as this can damage skin, and avoid prolonged use more than20 minutes. The best way to use ice packs is over the bandage, or a light cloth/paper towel between the ice pack and your skin. You can ice for as many days as needed until swelling has resolved. Antibiotics: If you were given antibiotic prescription, it is important to start them the evening of your surgerydate. Most patients do not need antibiotics after surgery. For pain: Most patients of different ages do not require pain medications. If you do feel soreness or pain, start by taking over the counter extra strength acetaminophen (up to 3000 mg in a 24 hour period). Generally, we like you to avoid NSAIDS (non-steroid anti-inflammatory drugs such as ibuprofen) for the first 48 hours after surgery as this can increase risk of bleeding. However, if acetaminophen is not helping with pain, you can alternate acetaminophen with iburpofen (ibuprofen 400 mg every 4 hours.) Icepacks over your bandage without getting your bandage wet can also help with pain and swelling, for up to 20 minutes at a time (20 minutes off between icing sessions). Frozen peas work well as ice packs. THIS IS AN EXAMPLE OF A PAIN TREATMENT SCHEDULE: 1) You can take 500 mg acetaminophen one tablet by mouth at 6:00pm. This is over the counter. 2) You can take 400 mg of ibuprofen two hours later, at 8:00 pm, or other NSAID such as naproxen, aslong as it does not interact with your other medications and your other doctors have not told you toavoid this. This is over the counter. Check to see how many milligrams (mg) each of your ibuprofen tablets are. Most of the time, ibuprofen comes in 200 mg tablets, so 400 mg would mean taking two of these tablets or capsules. 3) You can take 500 mg of acetaminophen at 10:00 pm. Keep track of your total acetaminophen in a 24 hour period as your maximum should be 3000 mg total in a 24 hour period of this medication. 4) At midnight, you can take another 400 mg of ibuprofen. 5) you can continue on this schedule over the next 2 days, making sure to keep tabs of your total acetaminophen. If you are still in pain after trying the above, please call us. When to call your surgeon: ??? Fever of 100.4 degrees Fahrenheit or higher ??? Bleeding not controlled with direct firm pressure to your wound. Bleeding is most common in the first 48 hours. ??? Pain that is worsening and not relieved by over the counter medications such as acetaminophen (up to 3000 mg in a 24 hour period) ??? Wound reopening after stitching ??? Pus or bad odor from your wound ??? Worsening redness and warmth around your wound ??? If you think your surgery site is infected, please call us before seeking care or antibiotics from other providers ??? Please call us before seeking care in an emergency room or primary care. ??? If you do call, please leave your full name, phone number, date of , date of surgery, and medical record number if you have it. If after hours, please call the flash welding machine operator or [phone] and ask for the design editor on-call. If you have any non-urgent questions or concerns, please feel free to call my office or contact me through our patient portal, [facility], at [email or web address] How to contact us during business hours Dermatology at [facility] [address]: Mohs scheduling or Mohs follow-up appointments: [phone] documented in this encounter Progress Notes Mario Samano MD - 05/15/2021 9:30 AM EDT Images from the original note were not included. Summary of Procedure(s): Site: left crown scalp Tumor Type: Basal Cell Carcinoma, pigmented superficial and nodular Stages to clear tumor: 2 Repair: linear closure Images: Site: right nasolabial fold Tumor Type: Basal Cell Carcinoma, nodular Stages to clear tumor: 3 Repair: Advancement flap Images: The patient was asked to call with any issues and is aware that I am available 28/04 should questionsarise. Mario Samano MD PhD Mohs Micrographic Surgery and Dermatologic Oncology Department of Dermatology Please note that I have reviewed the preoperative checklist from today's nursing visit including relevant social history and medications. I have reviewed the preoperative photos if available and the biopsy report. VITAL SIGNS: BP 167/86 (BP Location (NBP): Right arm) Pulse 80 PHYSICAL EXAMINATION: General: patient is awake, alert, oriented and in no acute distress. Skin: Focused examination of surgical site(s) performed which shows a well healed biopsy site with surrounding poorly defined pearly plaque. PHYSICIAN REVIEW OF REPORTS, RECORDS, IMAGES: 1) The accompanying pathology report(s) associated with aforementioned biopsy slide(s) were/was alsoreviewed. Assessment: Paul Bradley is a 50 y.o. male presenting for: 1. Biopsy-proven basal cell carcinoma, pigmented superficial and nodular located on the left crown scalp. 2. Biopsy-proven basal cell carcinoma, nodular located on the right nasolabial fold. Plan: 1. Findings from the biopsy report, today's clinical exam, and other pertinent details were reviewedwith patient today. All questions were answered. 2. Discussed treatment options based on the above findings. We recommended Mohs micrographic surgeryfor treatment of this tumor. Mohs micrographic surgery was indicated due to patient, site and/or tumor characteristics (see operative report for specific indication). 3. We discussed risks, benefits, and alternative treatment options to the Mohs micrographic surgery procedure and pertinent information including but not limited to the following: ?? Risks include bleeding, infection, scar, recurrence, incomplete tumor removal or inability to cure with surgery alone if the tumor features are more aggressive than the initial pathology indicates. Occasionally, additional adjuvant treatments may be recommended. Additional risks include large wound, prolonged wound and healing, pain, swelling, bruising, increased appearance of vessels or worseningerythema of baseline skin; more rarely risks include damage to underlying structures such as nerves,cartilage, or muscle which could lead to temporary or permanent loss of sensation or motor function. ?? Benefit is precise tumor removal ?? If reconstruction is performed, it is specific to the patient and defect. ?? Discussed that the shape, size, depth of the wound is often not known until the tumor is cleared and thus the reconstruction options are sometimes not known until after tumor clearance. Occasionally, referrals to other providers may be recommended for reconstruction based on patient preference and need. ?? Reviewed the pros and cons of common reconstructions used for this tumor type, size, and location, and that reconstruction may lead to change in appearance. ?? Natural history of scar was discussed, including that the scar will continue to mature for 1-2 years. Recommended avoidance of special ointments or scar creams, and avoidance of direct sun exposure to the scar for optimal recovery. ?? Reviewed that there are some aspects of cosmesis that are dependent on patient's characteristics such as age, skin laxity/texture factors, inflammatory skin diseases such as rosacea, prior surgery/radiation, degree of actinic damage, smoking status, strength of the patient's immune system, diligentwound care, medications, and genetics. ?? Having Mohs surgery may lead to physical limitations for optimal healing, such as restricted physical activity and heavy lifting. 4. The nature of sun-induced photo-aging and skin cancers was discussed. Recommended sun avoidance when possible, especially peak hours of sun 10 am to 2pm, protective clothing such as wide-brimmed hats and long-sleeved clothing, and the use of SPF broad-spectrum sunscreen SPF 50 or higher. 5. Signs and symptoms of skin cancer reviewed. Patient to report any new, changing, or symptomatic lesions and follow up with his or her design editor or other skin provider. 6. Discussed avoiding direct sun exposure to scars for best cosmetic result. Note initiated by Hollie Enamorado RN Hollie Enamorado RN has performed the documentation for this encounter in the presence of and acting as a scribe for Dr. Samano I performed the above scribed service and agree with the accuracy of the documentation in this encounter. Reviewed and signed by: Mario Samano MD - 05/15/2021 9:30 AM EDT Mohs micrographic Surgery Operative Report Site#1: Right nasolabial fold Patient name: Paul Bradley : 1970 Date: 05/15/2021 Staff Surgeon: Mario Samano MD PhD Nursing/Geotechnician(s): Hollie Enamorado RN, Tala Potter [facility], Lizette HarrisRuma A&P MECHANIC, Jocelyne Huber [facility], Michael Lamas [facility], Nicole Torres [facility], Mariann Potts RN Binding Cementer French Cord (s): Waleska Nieves Pre-operative diagnosis: basal cell carcinoma, nodular Post-operative diagnosis: basal cell carcinoma, nodular Location/Site: Right nasolabial fold Procedure: Mohs micrographic surgery Indication(s) for Mohs micrographic surgery:Critical anatomic location Stages: 3 Preoperative size of tumor: 0.6 x 0.6 cm Final defect size: 1.5 x 1.2 cm Stage I The nature and purpose of the procedure, associated risks, possible consequences and complications,and alternative forms of treatment were explained in detail. We reviewed the possible repairs based on the clinical appearance of tumor but discussed that often the repair options may not be known until the tumor has ana maria extirpated. Informed consent and permission to take photographs were obtained. The site was confirmed with the patient/authorized sales representative printing paper/referring physician and/or a photograph form time of biopsy. A pre-operative time-out (procedural pause) was conducted with no unresolved d iscrepancies noted. Local anesthesia was obtained with 1% lidocaine with 1:100,000 epinephrine. The surgical site was prepped and draped in the usual sterile manner. With all visible gross tumor completely excised, the borders of the tumor and 2-3 mm margins were excised as a complete layer. Hemostasis was achieved by electrocoagulation. The excised tissue was oriented and divided into 2 sections, chromacoded, and submitted for frozen sections. The patient tolerated the procedure well and without complications. On microscopic evaluation of the frozen sections, residual tumor was identified as basal cell carcinoma on section A1 (see section number on map). Stage II The surgical site was re-anesthetized with 1% lidocaine with 1:100,000 epinephrine, re-prepped and redraped in a sterile manner. The residual tumor was re-excised as a complete layer 2-3mm in thickness using the Mohs map to delineate area of residual tumor. Hemostasis was achieved with electrocoagulat ion. The tissue was oriented and divided into 1 sections, chromacoded, and submitted for frozen sections. The patient tolerated the procedure well and without complications. On microscopic evaluation of the frozen sections, residual tumor was identified as basal cell carcinoma on section(s) B1. Stage III The surgical site was re-anesthetized with 1% lidocaine with 1:100,000 epinephrine, re-prepped and redraped in a sterile manner. The residual tumor was re-excised as a complete layer 2-3mm in thickness. Hemostasis was achieved with electrocoagulation. The tissue was oriented and divided into 1 sections, chromacoded, and submitted for frozen sections. The patient tolerated the procedure well and without complications. On microscopic evaluation of the frozen sections, no residual tumor was identified on the deep or outer border of the sections. The final size of the defect after complete tumor removal was 1.5 x 1.2 cm, extending to muscle. Mario Samano MD PhD Mohs Micrographic Surgery and Dermatologic Oncology Department of Dermatology [address] [place] [address] Repair Report (Flap) Patient name: Paul Archers Staff Surgeon: Mario Samano MD PhD Mud Jack Nozzle Worker(s): same as above academic affairs assistant: Yasmin Ignacio MD, Cayden Brown MD, Hollie Enamorado RN, Mariann Potts RN Date: 05/15/2021 Clinical Diagnosis: skin and soft tissue defect status post Mohs micrographic surgery Location/Site: Right nasolabial fold Indication: repair of wound with christianity of anatomy/function Defect size to be repaired: 1.5 x 1.2 cm Procedure: Advancement flap repair (tissue rearrangement) Final flap size: 4.5 x 3.0 cm 2 Procedure Details: Due to the size and location of the defect resulting from the complete removal of the tumor, the postoperative risk of hemorrhage, infection, and the possibility of serious deformity from scarring, and in order to restore proper function and prevent loss of function, the defect was closed with an advancement flap. The nature and purpose of the procedure, associated risks, possible consequences, complications andalternative methods of treatment were explained to the patient in detail. An informed consent was obtained. Local anesthesia was obtained with a solution of 1-% lidocaine with 1:100,000 epinephrine. The surgical site was prepped and draped in the usual sterile manner. Any beveled edges of the defect were repaired with a scalpel blade. The flap was created by making incisions along right nasolabial fold and right nasal sidewall . The flap and the wound edges were undermined, and hemostasis was obtained with electrocoagulation. The flap was advanced onto the defect. The skin edges were closed using 4.0 Monocryl dermal/subcutaneous sutures and 6.0 Fast absorbing gut skin sutures. Final flap size: 4.5 x 3.0 cm2. Estimated blood loss: Minimal. Complications: None. Wound care: Routine. Follow up as needed. The patient was discharged in good condition. Mario Samano MD PhD Mohs Micrographic Surgery and Dermatologic Oncology Department of Dermatology [address] [place] [address] Note initiated by Tala Potter CMA. Tala Potter CMA has performed the documentation for this encounter in the presence of and acting as a scribe for Dr. Samano I performed the above scribed service and agree with the accuracy of the documentation in this encounter. Reviewed and signed by: Mario Samano Dermatology [facility] Mohs micrographic Surgery Operative Report Site#2: Left crown of scalp Patient name: Paul Bradley : 1970 Date: 05/15/2021 Staff Surgeon: Mario Samano MD PhD Nursing/Geotechnician(s): Hollie Enamorado RN, Tala Potter CMA, Lizette MontgomeryegandRuma [facility], Jocelyne Huber CMA, Michael Lamas CMA, Nicole Torres CMA, Mariann Potts RN Binding Cementer French Cord (s): Waleska Nieves Pre-operative diagnosis: Basal Cell Carcinoma pigment, superficial, nodular Post-operative diagnosis: Basal Cell Carcinoma pigment, superficial, nodular Location/Site: Left crown of scalp Procedure: Mohs micrographic surgery Indication(s) for Mohs micrographic surgery: Anatomic location for tissue conservation Stages: 2 Preoperative size of tumor: 1.0 x 0.9 cm Stage I The nature and purpose of the procedure, associated risks, possible consequences and complications,and alternative forms of treatment were explained in detail. We reviewed the possible repairs based on the clinical appearance of tumor but discussed that often the repair options may not be known until the tumor has ana maria extirpated. Informed consent and permission to take photographs were obtained. The site was confirmed with the patient/authorized sales representative printing paper/referring physician and/or a photograph form time of biopsy. A pre-operative time-out (procedural pause) was conducted with no unresolved d iscrepancies noted. Local anesthesia was obtained with 1% lidocaine with 1:100,000 epinephrine. The surgical site was prepped and draped in the usual sterile manner. With all visible gross tumor completely excised, the borders of the tumor and 2-3 mm margins were excised as a complete layer. Hemostasis was achieved by electrocoagulation. The excised tissue was oriented and divided into 2 sections, chromacoded, and submitted for frozen sections. The patient tolerated the procedure well and without complications. On microscopic evaluation of the frozen sections, residual tumor was identified as basal cell carcinomaon section A2 (see section number on map). Stage II The surgical site was re-anesthetized with 1% lidocaine with 1:100,000 epinephrine, re-prepped and redraped in a sterile manner. The residual tumor was re-excised as a complete layer 2-3mm in thickness using the Mohs map to delineate area of residual tumor. Hemostasis was achieved with electrocoagulat ion. The tissue was oriented and divided into 1 sections, chromacoded, and submitted for frozen sections. The patient tolerated the procedure well and without complications. On microscopic evaluation of the frozen sections, no residual tumor was identified on the deep or outer border of the sections. Depth of excision subcutaneous tissue Final defect size: 1.8 x 1.4cm Mario Samano MD PhD Mohs Micrographic Surgery and Dermatologic Oncology Department of Dermatology [address] [place] [address] Repair Operative Report (Complex Linear Repair) Patient name: Paul Bradley : 1970 Clinical Diagnosis: 1.8 x 1.4 cm surgical defect secondary to Mohs microscopically controlled excision Location/Site: left crown of scalp Indication: repair of wound for christianity of function/anatomy Procedure: Complex linear layered closure of Mohs defect Due to the size and location of the defect resulting from the complete removal of the tumor, the postoperative risk of hemorrhage, infection, and the possibility of serious deformity from scarring, and in order to restore proper function and prevent loss of function, the defect was closed in the following manner. The nature and purpose of the procedure, associated risks, possible consequences, complications andalternative methods of treatment were explained to the patient in detail. An informed consent was obtained. The operative site was anesthetized with 1% lidocaine with 1:100,000 epinephrine. The site was prepped and draped in the usual sterile manner. The edges of the defect were widely undermined at the dermal subcutaneous layer in all directions greater than the width of the defect as stated above. Hemostasis was achieved with electrocoagulation. The edges could then be approximated without excess tension. The deep tissues were apposed and sutured with 4.0 Monocryl sutures and the epidermal edges were approximated with 5.0 fast absorbing gut running and/or interrupted sutures. .The resulting complex linear closure measured 4.5 cm. The surgical site was cleaned and white petrolatum with a gauze pressure dressing applied. The patient tolerated the procedure well and without complications and was given both verbal and written instruction on postoperative wound care. Follow up as needed. The patient was discharged in good condition. Total local anesthesia with 1% lidocaine with 1:100,000 epinephrine used: 12 cc Total local with 0.25% bupivacaine with 1:100,000 epinephrine used: 6 cc Mario Samano MD PhD Mohs Micrographic Surgery and Dermatologic Oncology Department of Dermatology [address] [place] [address] Note initiated by WILL Bunn CMA has performed the documentation for this encounter in the presence of and acting as a scribe for Dr. Samano I performed the above scribed service and agree with the accuracy of the documentation in this encounter. Reviewed and signed by: Mario Samano Dermatology [facility] documented in this encounter Plan of Treatment Scheduled Referrals Name Type Priority Associated Diagnoses Order S chedule Referral to Outpatient Referral Routine Basal cell carcinoma Ordered: Dermatology (BCC), unspecified 1 site documented as of this encounter Visit Diagnoses Diagnosis Basal cell carcinoma of right cheek Basal cell carcinoma of skin of other an d unspecified parts of face Basal cell carcinoma of crown Basal cell carcinoma of scalp and skin o f neck documented in this encounter Care Teams Salon Manager Relationship Specialty Start Date End Date Dangelo Ordaz MD PCP - General Family Medicine 01/24/[address] [place] [address] documented as of this encounter
--- OUTSIDE RECORDS SUMMARY | 2022-06-07 01:46 | XMS_ITS | Encounter Summary ---
:1970 Author Organization [facility] [place] [address] Care Team Providers Name Role Phone Jackelin Paniagua Primary Care Provider Reason for Visit MRI/CAT Scan (Routine) - Closed Specialty Diagnoses / Procedures Referred By Contact Refer red To Contact Radiology Diagnoses Work related injury Waleska Quintanilla MD [facility] Rad Mri Procedures MRI Cervical Spine With/WO Contrast [facility] [place] [address] [place] [address] Referral ID Status Reason Start Date Expiration Date Visits Requ ested Visits Authorized [id number] Closed 07/14/2015 09/12/2015 1 1 Encounter Details Date Type Department Care Team Description 08/04/2015 Hospital Encounter MRI at [facility] Waleska Quintanilla MD [facility] [place] [address] OCCUPATIONAL [phone] [place], [place] [address] (Wo rk) Social History Tobacco [...] Priority Date/Time Associated Diagnosis Comme nts MRI CERVICAL SPINE Routine 08/04/2015 5:09 PM Work related inj ury Results for this WITH/WO CONTRAST EDT procedure a re in the results section. documented in this encounter Results MRI Cervical Spine With/WO [...] on filedocumented in this encounter Care Teams Wood Science Professor Relationship Specialty Start Date End Date Jackelin Paniagua PA PCP - General 07/20/12 01/23/16 documented as of this encounter
--- OUTSIDE RECORDS SUMMARY | 2022-06-07 01:46 | XMS_ITS | Encounter Summary ---
:1970 Author Organization [facility] [place] [address] Care Team Providers Name Role Phone Jackelin Paniagua Primary Care Provider Encounter Details Date Type Department Care Team Description 09/20/2014 Telephone Orthopaedics at [facility] Waleska Quintanilla MD [facility] [address] OCCUPATIONAL MEDICINE [phone] [place] [id number] (Wo rk) Social History Tobacco Use Types [...] on file documented as of this encounter Miscellaneous Notes Telephone Encounter - June Mitchell MSW - 09/20/2014 3:08 PM EST [facility] SOCIAL WORK CONTINUING NEPHROLOGY NURSE CLAIM # DOI: WC INSURANCE COMAPANY: WC CONTACT: PHONE: FAX: Gymn[employer] Coachlena Ponce CALL TO: Paul Bradley REASON FOR CALL: Pt will ask coring machine operator to fax OTF to this CCM. Pt states that [place] plans to stop all benefits due to the OTF results. Pt notes his coring machine operator was going to file something with the state to try to to keep this from happening. Pt reports that his coring machine operator has expressed confidence that they will be able to prevail in this claim. CCM will ensure Dr Quintanilla has access to the OTF when it arrives. documented in this encounter Plan of Treatment Not on filedocumented as of this encounter Visit Diagnoses Not on filedocumented in this encounter Care Teams Excelsior Machine Feeder Relationship Specialty Start Date End Date Jackelin Paniagua PA PCP - General 07/20/12 01/23/16 documented as of this encounter
--- OUTSIDE RECORDS SUMMARY | 2022-06-07 01:46 | XMS_ITS | Encounter Summary ---
:1970 Author Organization [facility] Address [facility] [place] [address] Care Team Providers Name Role Phone Jackelin Paniagua Primary Care Provider Reason for Visit Reason Comments Other valve incomp Encounter Details Date Type Department Care Team Description 12/14/2014 Office Visit Vascular Surgery at [facility] Vari cose veins of [facility] lower extremities with [facility] er and Drive DR [address], [place], [place] VASCULAR SURGERY [address] [address] [phone] Social History Tobacco Use Types Packs/Day Years [...] Sign Reading Time Taken Comments Blood Pressure 147/92 12/14/2014 2:40 PM EDT Pulse 102 12/14/2014 2:40 PM EDT Temperature - - Respiratory Rate 18 12/14/2014 2:40 PM EDT Oxygen Saturation - - Inhaled Oxygen Concentration - - Weight 154.2 kg (340 lb) 12/14/2014 2:40 PM EDT Height 172.7 cm (5' 8) 12/14/2014 2:40 PM EDT Body Mass Index 51.7 12/14/2014 2:40 PM EDT documented in this encounter Progress Notes Koby Miller MD - 12/14/2014 3:08 PM EDT Subjective: Patient ID: Paul Bradley is a 44 y.o. male. HPI I am seeing this patient at the request of Edward Fisher. Pt with venous hypertension due to deepsystem valvular incompetence in both legs. He recently fell and skinned his right carlson and has a very slowly healing ulcer. He has a previous history of DVT and is Factor V Leiden positive. Review of Systems HENT: Negative. Eyes: Negative. Respiratory: Negative. Cardiovascular: Positive for leg swelling. Gastrointestinal: Negative. Endocrine: Negative. Genitourinary: Negative. Skin: Positive for color change and wound. Redness about both ankles Allergic/Immunologic: Negative. Neurological: Negative. Negative for weakness. Hematological: Negative. Psychiatric/Behavioral: Negative. Objective: Physical Exam Constitutional: He is oriented to person, place, and time. He appears well- developed and well-nourished. obese HENT: Head: Normocephalic and atraumatic. Eyes: Conjunctivae are normal. Pupils are equal, round, and reactive to light. Neck: Normal range of motion. Neck supple. Cardiovascular: Normal rate and intact distal pulses. Pulmonary/Chest: Effort normal and breath sounds normal. Abdominal: Soft. Musculoskeletal: Normal range of motion. Neurological: He is alert and oriented to person, place, and time. Skin: Skin is warm and dry. 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 Assessment and Plan: Review of his duplex demonstrates deep system valvular incompetence in the right leg. Pt needs graduated compression! 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
--- OUTSIDE RECORDS SUMMARY | 2022-06-07 01:46 | XMS_ITS | Encounter Summary ---
:1970 Author Organization [facility] [place] [address] Care Team Providers Name Role Phone Jackelin Paniagua Primary Care Provider Reason for Referral Surgical (Routine) - Closed by system - unspecified Specialty Diagnoses / Procedures Referred By Contact Refer red To Contact Neurosurgery Diagnoses Radiculopathy of cervical region Waleska Quintanilla MD [place], [place], MD [facility] [address] [facility] [place] [address] [place] [address] Referral ID Status Reason Start Expiration Visits Visits Date Date Requested Authorized [id number] Closed by Consult, 06/27/2014 12/24/2014 1 1 system - Test & unspecified Treat Encounter Details Date Type Department Care Team Description 06/27/2014 Orders Only Occupational Medicine Waleska Quintanilla, Rad iculopathy of at [facility] MD cervical region [facility] (Primary Dx) [facility] [place] [address] OCCUPATIONAL [phone] MEDICINE [place], [place] [address] Social History Tobacco Use Types [...] encounter Progress Notes Waleska Quintanilla MD - 06/27/2014 2:20 PM EDT Approval received today from June Medel [facility] for cervical imaging and consult with Dr. France. Orders and referral placed today. Waleska Quintanilla MD, PhD, MPH, FACOEM Lamp Replacer Section of Occupational and Environmental Medicine Department of Medicine [facility] documented in this encounter Plan of Treatment Scheduled Referrals Name Type Priority Associated Diagnoses Order S chedule Referral to Outpatient Routine Radiculopathy of Ordered: Neurosurgery Referral cervical region 06/27/2014 documented as of this encounter Visit Diagnoses Diagnosis Radiculopathy of cervical region - Prima ry Brachial neuritis or radiculitis nos documented in this encounter Care Teams Skein Dyer Relationship Specialty Start Date End Date Jackelin Paniagua PA PCP - General 07/20/12 01/23/16 documented as of this encounter
--- OUTSIDE RECORDS SUMMARY | 2022-06-07 01:46 | XMS_ITS | Encounter Summary ---
:1970 Author Organization [facility] [address] Care Team Providers Name Role Phone Jackelin Paniagua Primary Care Provider Reason for Referral MRI/CAT Scan (Routine) - Closed Specialty Diagnoses / Procedures Referred By Contact Refer red To Contact Radiology Diagnoses Work related injury Waleska Quintanilla MD [facility] Rad Mri Procedures MRI Cervical Spine With/WO Contrast [facility] [place] [address] [place] [address] Referral ID Status Reason Start Date Expiration Date Visits Requ ested Visits Authorized [id number] Closed 07/14/2015 09/12/2015 1 1 Reason for Visit MRI/CAT Scan (Routine) - Closed Specialty Diagnoses / Procedures Referred By Contact Refer red To Contact Radiology Diagnoses Work related injury Waleska Quintanilla MD [facility] Rad Mri Procedures MRI Cervical Spine With/WO Contrast [facility] [place] [address] [place] [address] Referral ID Status Reason Start Date Expiration Date Visits Requ ested Visits Authorized [id number] Closed 07/14/2015 09/12/2015 1 1 Encounter Details Date Type Department Care Team Description 07/17/2015 Hospital Encounter MRI [place] [facility] [place]ka Quintanilla, Work related injury [facility] MD [address] [place], [place] CENTER [address] OCCUPATIONAL [phone] [place] [address] Social History Tobacco Use Types Packs/Day Years [...] (NEURONTIN) Increase to 3600 180 tablet 2 03/08/ 014 600 mg tablet mg/day by increasing [...] of nerve root impingement. Procedure Note Hayes Carrnigton MD - 08/04/2015Formatti ng of this note [...] site documented in this encounter Care Teams Moisture Meter Reader Relationship Specialty Start Date End Date Jackelin Paniagua PA PCP - General 07/20/12 01/23/16 documented as of this encounter
--- OUTSIDE RECORDS SUMMARY | 2022-06-07 01:46 | XMS_ITS | Encounter Summary ---
:1970 Author Organization [facility] [place] [address] Care Team Providers Name Role Phone Jackelin Paniagua Primary Care Provider Encounter Details Date Type Department Care Team Description 06/27/2014 Orders Only Occupational Medicine Satish Quintanilla MD Acute constipation; at [facility] Constipation [facility] [place] [address] [place] [address] [place] [address] Social History Tobacco Use Types Packs/Day Years [...] as of this encounter Visit Diagnoses Diagnosis Acute constipation Unspecified constipation Constipation Unspecified constipation documented in this encounter Care Teams Supervisor Of Guidance And Testing Relationship Specialty Start Date End Date Jackelin Paniagua PA PCP - General 07/20/12 01/23/16 documented as of this encounter
--- OUTSIDE RECORDS SUMMARY | 2022-06-07 01:46 | XMS_ITS | Encounter Summary ---
:1970 Author Organization [place] [address] Care Team Providers Name Role Phone Jackelin Paniagua Primary Care Provider Encounter Details Date Type Department Care Team Description 08/24/2014 Office Visit Psychiatry and Gina Ayala Adjustmen t disorder Behavioral Health at [place], PhD with mixed anxiety and [facility] depressed mood [facility] [address] PSYCHIATRY DEPT. [place] [address] [phone] Social History Tobacco Use Types Packs/Day Years [...] encounter Progress Notes Gina Ayala, PhD - 08/24/2014 10:04 AM EST Behavioral Medicine Service Individual Therapy Followup/Cognitive Behavioral Therapy-- 45 minutes Chief Complaint: coping with chronic pain S/O: Mr. Bradley reports that he has a headache today and is not sure if it is related to accidentally overdoing small baggage screener yesterday. He has difficulty pacing himself and identifies negative self talk as a barrier to pacing activities. He is trying to problem solve around household finances and tasks but finds he gets very frustrated with things outside of his control (e.g., WC). The session focused on cognitive therapy around pain management. A: 309.28 adjustment disorder with depressed and anxious mood myD-H Psychiatry 08/24/2014 Patient Health Questionnaire Depression 9 (Mild Depression) GAGAN-7 13 (Moderate Anxiety) Mental status notable for anxious and sad mood. He reports light sensitivity so the overhead lights are turned off. P: Paul Bradley was strongly encouraged to continue practicing the breathing strategy daily. He was encouraged to continue working on challenging negative thoughts. Mr. Bradley will continue to apply the activity pacing and problem solving strategies. He is scheduled for a surgical consultation 09/14. RTC 2 weeks due to this providers schedule. documented in this encounter Plan of Treatment Not on filedocumented as of this encounter Visit Diagnoses Diagnosis Adjustment disorder with mixed anxiety a nd depressed mood documented in this encounter Care Teams Batch Attendant Relationship Specialty Start Date End Date Jackelin Paniagua PA PCP - General 07/20/12 01/23/16 documented as of this encounter
--- OUTSIDE RECORDS SUMMARY | 2022-06-07 01:46 | XMS_ITS | Encounter Summary ---
:1970 Author Organization [facility] [place] [address] Care Team Providers Name Role Phone Dangelo Ordaz MD Primary Care Provider [phone] Encounter Details Date Type Department Care Team Description 03/22/2016 Orders Only Neurosurgery at [facility] Fannie Leon APRN [facility] [place] [address] [address] [phone] NEUROSURGERY [place] [phone] (Wo rk) Social History Tobacco Use Types [...] on filedocumented in this encounter Care Teams Leasing Property Manager Relationship Specialty Start Date End Date Dangelo Ordaz MD PCP - General Family Medicine 01/24/[address] [place] [address] documented as of this encounter
--- OUTSIDE RECORDS SUMMARY | 2022-06-07 01:46 | XMS_ITS | Encounter Summary ---
:1970 Author Organization [facility] Address [facility] [address] [place] [address] Care Team Providers Name Role Phone Dangelo Ordaz MD Primary Care Provider Reason for Visit Reason Comments Skin Lesion Skin Check Consultation (Routine) - Closed Specialty Diagnoses / Procedures Referred By Contact Refer red To Contact Dermatology Diagnoses Basal cell carcinoma of skin of other parts of face Dangelo Ordaz MD [facility] Dermatology [address] [place], [place] [address] [place] [address] Fax: Referral ID Status Reason Start Date Expiration Date Visits V isits Requested Authorized [id number] Closed Consult, Test 01/23/2021 01/23/2022 6 [facility] PCP Updated and/or Approved Encounter Details Date Type Department Care Team Description 03/06/2021 Office Visit Dermatology at [facility], Abnormal liver enzymes; Dusty CUEVA Neoplasm of uncertain behavior of skin o f face; [address] [facility] Neoplasm of uncertain behavi or of scalp; [place], [place] Multiple benign nevi of upper extremity, lower extremity, and trunk; [facility] Wheeler angioma; [phone] RD-DERMATOLOGY Seborrheic keratosis; [place], [place] [address] Feared condition not demonstrated Social History Tobacco Use Types Packs/Day Years [...] encounter Progress Notes Dash Remy MD - 03/06/2021 8:45 AM EDT Images from the original note were not included. DEPARTMENT OF DERMATOLOGY Medical Dermatology Clinic Provider: Dash Remy MD FAAD at Dermatology at [facility] Preferred name & pronouns Paul RELATED DERM HISTORY Date, location, treatment Melanoma Dysplastic nevi SCC BCC Left lateral eyebrow, basal cell carcinoma ??s/p Mohs Sep 2013 Other relevant history FAMILY DERM HISTORY Melanoma NMSC Other relevant family history SOCIAL HISTORY Occupation: Disabled History of Present Illness: Paul Bradley is 50 y.o. and here for the following: ??? Tender lesion on the right cheek, bleeds occasionally x 3 years. ??? Crusty bleeding lesion on the crown of scalp x 2 years. Medications: Reviewed in eD-H Allergies: Reviewed in eD-H Skin Examination Standby: Margarita Navarrete, WILL Well developed, well-nourished in no apparent distress, alert and oriented to time, person, place and situation. Patient was asked to disrobe to the level of comfort. Examination of the skin of the head - including the scalp, face, ears, eyelids, nose, lips, tongue, oral/conjunctival mucosa - neck, chest, abdomen, back, axillae, buttocks, pubic area, upper and lowerextremities, including the nail plates, significant for the following: ?? Pearly 4x3 mm papule on the right nasal labial fold Figure A ?? 3 mm hemorraghic crust within a 10x7 mm pink papule with pigment globules on the left crown scalpFigure B ?? No neoplasm in the left angelica bowl ?? Moderate to severe sun-damage on sun-exposed areas including irregular ashraf macules on sun-exposedareas and epidermal thinning with dyspigmentation and/or telangectia sun-exposed areas of the neck, chest. ?? Well-demarcated, round or oval, ashraf or brown macules and papules with benign morphology on the head, trunk and extremites ?? Multiple, wheeler red 1-4mm papules on the trunk and extremities ?? Scattered, stuck-on, well-demarcated, ashraf or brown, waxy or warty papules c/w SKs on the trunk ?? Matte like telangiectasias on the chest, shoulders and mid to upper back ?? No evidence of recurrence in scar on the left eyebrow Procedure / Biopsy Discussed with patient diagnostic options, including the risks and benefits of observation, empiric treatment, or biopsy - including but not limited to recurrence, cosmesis (scar, dyspigmentation, scarspread,keloid), pain, keloid/hypertrophic scar, bleeding, infection for biopsy. Answered all question s. Patient verbally understands, verbally consents to and elects biopsy. Images Photo(s) taken by Corrie Remy MD. with patient's verbal permission for use for clinical and educationpurposes. Figure A Figure B Procedure Time Out Performed: Name, , and site(s) confirmed with patient [x] Yes Blood Thinner? [x] Denies [] Yes Pacemaker or defribrillator? [x] Denies [] Yes Joint Replacement in the last 24 months? [x] Denies [] Yes Antibiotics prior to procedures? [x] Denies [] Yes Allergy to lidocaine or epinephrine? [x] Denies [] Yes Permission to convey results: [x] Call cell and permission to leave voicemail Procedure (s) A. [x] Shave [] Punch B. [x] Shave [] Punch Location (s) A. right nasal labial fold B. left crown scalp Pre-Operative Diagnosis A. BCC vs other B. BCC vs SCC vs melanoma vs other Anesthesia: 1% lidocaine [] NO epi [x] 1:100,000 epi Sterile Prep Alcohol Lesions A and B biopsied with shave technique using nola blade. Hemostasis achieved with [x] Drysol. <1ml blood loss. No complications. Specimen(s): Placed in formalin and sent to Pathology for histologic examination. Post-op care: Vaseline, [x] Bandaid [] Pressure Dressing Post-operative pain: 0/10 Assessment/Plan Neoplasms of Uncertain Behavior,right nasal labial fold and left crown of scalp Wound care instructions provided. Wound care: Vaseline or antiobiotic ointment 1-2 x per day and cover with bandaid until healed. May shower and let soapy water over top. Feared condition not demonstrated, Left angelica bowl Return to clinic if recurs. Solar Damage, including Lentigines Benign but evidence [...] questions. Reviewed ABCDEs of melanoma, as below. ??? Return to clinic as needed for changes in color, size, shape or thickness or should bleeding or other symptoms occur. Patient agrees to plan. ?? Wheeler Angiomas Counseled: wheeler angiomas. Benign. No treatment necessary unless symptoms develop. Handout given. ?? Seborrheic Keratoses Benign. No treatment necessary. Counseled: SKs, benign, treatment options for symptomatic lesions. Answered all questions. Handout given ?? Telangiectasia, Upper Trunk Matte-like features and history of liver disease several years ago when he used alcohol. No GI symptoms, such as bleeding. ?? Labs today: LFT History of Skin Cancer No evidence of recurrence. ?? Patient Counseled [Skin Cancer] Counseled: recommend sun protection, regular self skin exams, provider skin exams every 12 months (more frequently if pathology malignant), and the ABCDEs of melanoma/NMSC. Answered all questions. Handouts on how to do a self-exam, skin cancers and sun protection/recommended OTC sunscreens given to the patient. ?? Regular self examinations and return to clinic for new suspicious lesions or if changes/symptoms in existing lesions develop. Follow-up: Skin cancer screening in 12 months or return to clinic as needed for new suspicious lesions or if changes/symptoms in existing lesions develop. Scribe attestation: Margarita Navarrete CMA has performed the documentation for this encounter in the presence of and acting as a scribe for Dash Remy MD FAAArmando. I performed the above scribed service and agree with the accuracy of the documentation in this encounter. Reviewed and signed by: Dash Remy MD FAAArmando Dermatology [facility] Dash Remy MD - 03/06/2021 8:45 AM EDT LFTs normal. Tea Galvan LPN - 03/06/2021 8:45 AM EDT Called and L/M with normal results. Normal LFT's Dash Remy MD - 03/06/2021 8:45 AM EDT [id number] A. Right nasal labial fold, skin shave biopsy: - ??Basal cell carcinoma, nodular type, ??present at the deep specimen edge B. Left crown scalp, skin shave biopsy: - ??Basal cell carcinoma, pigmented superficial and nodular type, present at the??peripheral and deep specimen edges A. NODULAR BCC, RIGHT NASOLABIAL FOLD Recommend Mohs B. NODULAR BCC, LEFT CROWN SCALPRecommend Mohs Recommend SCS in 6 months Call cell and permission to leave voicemail Tea Galvan LPN - 03/06/2021 8:45 AM EDT Called and spoke with Paul. I relayed his results and he wishes to proceed. Referral placed and reminder placed for 6 month follow up FSE. documented in this encounter Plan of Treatment Not on filedocumented as of this encounter Procedures Procedure Name Priority Date/Time Associated Comments Diagnosis HC VENIPUNCTURE Routine 03/06/2021 9:16 AM Abnormal liver Resu lts for this EDT enzymes procedure are i n the results section. SPECIMEN TO PATHOLOGY Routine 03/06/2021 9:05 AM Neoplasm of Results for this EDT uncertain behavior procedure are in of skin of face the results section. SPECIMEN TO PATHOLOGY Routine 03/06/2021 9:03 AM Neoplasm of Results for this EDT uncertain behavior procedure are in of skin of face the results section. SURGICAL PATHOLOGY Routine 03/06/2021 9:02 AM Res ults for this REPORT EDT procedure are i n the results section. documented in this encounter Results Hepatic Function Panel (03/06/2021 9:16 AM EDT) P athologist Signature Total Protein 7.4 6.1 - 8.0 Our Security TeamMELISSA gm/dL [facility] Albumin 4.1 3.2 - 5.2 DUSTIN MELISSA gm/dL [facility] AST 28 0 - 39 DUSTIN MELISSA unit/L [facility] ALT 24 0 - 55 DUSTIN MELISSA unit/L [facility] Alk Phos 124 40 - 130 [facility] MELISSA unit/L [facility] Total 0.3 0.2 - 1.3 [employer] Bilirubin mg/dL [facility] Bili, Direct 0.1 0.0 - 0.3 DUSTIN MELISSA mg/dL [facility] Specimen Anatomical Collection Method Collection Time Receive d Time (Source) Location / / Volume Laterality Blood 03/06/2021 9:16 AM 1:20 EDT PM EDT Resulting Agency Comment Spec In Lab Dash Remy MD CHEMISTRY ORDERABLES Performing Organization Address City/State/[place] [address] Specimen to Pathology (03/06/2021 9:05 AM EDT) Specimen Anatomical Collection Method Collection Time Receive d Time (Source) Location / / Volume Laterality AP Specimen 03/06/2021 9:05 AM 1 9:05 EDT AM EDT Narrative [facility] - 03/06/2021 9:05 AM EDT Specimen requisition ordered. ??Separate Pathology report to follow Dash Remy MD PATHOLOGY/CYTOLOGY ORDERABLE S Performing Organization Address City/[facility]/ZIP Code Phon e Number [address] Specimen to Pathology (03/06/2021 9:03 AM EDT) Specimen Anatomical Collection Method Collection Time Receive d Time (Source) Location / / Volume Laterality AP Specimen 03/06/2021 9:03 AM 9:03 EDT AM EDT Narrative [facility] - 03/06/2021 9:03 AM EDT Specimen requisition ordered. ??Separate Pathology report to follow Dash Remy MD PATHOLOGY/CYTOLOGY ORDERABLE S Performing Organization Address City/[facility] [place] [address] Surgical Pathology Report (03/06/2021 9:02 AM EDT) Component Value Ref Test Analysis Performed At [facility] Range Method Time [facility] [id number] ? Location: [facility] Report The signing pathologist has (i) examined the relevant preparation(s) for the [facility] specimen(s) and (ii) rendered or confirmed the diagnosis(es) . HOSPITAL LABORATORY . ?Surgic al Pathology DIAGNOSIS A. Right nasal labial fold, skin shave biopsy: - ??Basal cell carcinoma, nodular type, ??present at the d eep specimen edge B. Left crown scalp, skin shave biopsy: - ??Basal cell carcinoma, pi gmented superficial and nodular type, present at the peripheral and deep specimen edges Electronically signed by: ?Chelle CUEVA, Edmond Juárez Verified: ??03/09/2021 12:14 ??Dermatopathologist Performed at: ??-[facility] Dept. of Pathology, [place], [place] SPECIMEN(S) SUBMITTED A - right nasal labial fold Specimen A, skin shave biopsy (1 ) B - left crown scalp Specimen B, skin shave biopsy (1) CLINICAL INFORMATION A - Pearly 4 x 3 mm papule; BCC vs other B - 3 mm hemorrhagic crust w ithin a 10 x 7 mm pink papule with pigment globules; CC vs SCC vs melanoma vs other SPECIMEN PROCESSING A - Labeled/Fixative: Right nasal labial fold, formalin. Quantity/Size: ??Single, 0.5 x 0.5 x 0.1 cm. Tissue Description: Shave of pink-white skin. Sections/Processing: Inked, bisected and entirely submitted in 1 cassette labeled A1. B - Labeled/Fixative: Left crown scalp, formalin. Quantity/Size: ??Single, 0.9 x 0.6 x 0.1 cm. Tissue Description: Shave of white, crusted skin. Sections/Processing: Inked, trisected and entirely submitted in 1 cassette labele d B1. ??sns Specimen (Source) Anatomical Collection Method Collection Time Re ceived Time Location / / Volume Laterality 03/06/2021 9:02 AM EDT Dash Remy MD PATHOLOGY/CYTOLOGY ORDERABLE S Performing Organization Address City/State/ZIP Code Phon e Number [place], [place] [id number] [place] [address] LABORATORY [facility] documented in this encounter Visit Diagnoses Diagnosis Abnormal liver enzymes Other nonspecific abnormal serum enzyme levels Neoplasm of uncertain behavior of skin o f face Neoplasm of uncertain behavior of skin Neoplasm of uncertain behavior of scalp Neoplasm of uncertain behavior of skin Multiple benign nevi of upper extremity, lower extremity, and trunk Wheeler angioma Nevus, non-neoplastic Seborrheic keratosis Other seborrheic keratosis Feared condition not demonstrated Person with feared complaint in whom no diagnosis was made documented in this encounter Care Teams Electrician Telephone Relationship Specialty Start Date End Date Dangelo Ordaz MD PCP - General Family Medicine 01/24/16 [address] [place] [address] documented as of this encounter
--- OUTSIDE RECORDS SUMMARY | 2022-06-07 01:47 | XMS_ITS | Encounter Summary ---
:1970 Author Organization [facility] [place] [address] Care Team Providers Name Role Phone Jackelin Paniagua Primary Care Provider Reason for Visit Reason Comments Neck Pain Encounter Details Date Type Department Care Team Description 04/04/2014 Follow-Up [facility] at [facility] Chronic neck pain [place] Jackelin Paniagua PA [address] [place], [place] [address] (Primary Dx) [facility] Hayes Anthony V, [facility] [place] [address] [place] [address] Social History Tobacco Use Types Packs/Day [...] Sign Reading Time Taken Comments Blood Pressure 133/71 04/04/2014 12:45 PM EDT Pulse 89 04/04/2014 12:45 PM EDT Temperature - - Respiratory Rate - - Oxygen Saturation - - Inhaled Oxygen Concentration - - Weight - - Height - - Body Mass Index - - documented in this encounter Progress Notes [facility] OT - 04/04/2014 1:00 PM EDT GOALS AND PHYSICAL CAPACITIES EVALUATION The chief complaint requiring rehabilitation is neck, right upper extremity, occipital pain with weakness in the right upper extremity and sensory loss in the small finger of both hands, right worse than left, as well as in the right foot. Also reports headaches and pain radiating to the right eye. Anatomic diagnosis is uncertain. Prior treatments included medications, prior cervical fusion in June 2012, radiofrequency ablation, CBT, pool therapy, physical therapy, scalpel therapy, and use of aTENS unit. Continues to attend CBT appointments as well as scalpel therapy and pool therapy. Stoppedland-based PT recently due to worsening symptoms. Other pain relieving procedures are being considered at this point. A nerve stimulator was recommended and is pending clearance by Dr. Ayala after he works with her for a while but he is uncertain ifhe wants to pursue that. States, he is not sure what to try but just wish there was a button to push to alleviate symptoms. Does report finding the CBT to be helpful. 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 Is working with vocational rehabilitation. Recreational: Play outdoor games with friends. Daily Living: None stated. Reports he forces himself to do what needs done, even though he pays for it later. States, perhaps his biggest goal is to do things without whining and moaning and paying for it for 2 days. Nothing seems to make it better. PHYSICAL EVALUATION Gait: Slow in speed; slightly stiff AROM (degrees): Lumbar Spine Flexion (0-90) 60 Extension (0-30) 15 SLR Right (0-90) 50 SLR Left (0-90) 50 SLR-Pelvic Motion [smallest SLR - (flex + ext)] -10 Cervical Spine Flexion (0-60) 30 Extension (0-50) 20 Rot. Right (0-80) 40 Rot. Left (0-80) 60 Lat. Flex Right (0-45) 10 Lat. Flex Left (0-45) 10 Functional Strength Testing: PILE Testing lbs/HR Floor To Waist 10 lbs/107 Waist to Shoulder 0 lbs/99 Reason for Stop Point: Neck pain Endurance Testing: Modified Ramp Treadmill Test Minutes Completed 2 % Grade 5% Speed (mph) 1.3 MET/HR Reason for Stop Point: Neck pain During physical testing, participation level varied based on symptoms. Demand Levels of Functional Recovery Goals Current Capacity Limit / Physical Demand Level (PDL)* Vocational: uncertain Recreational: light Daily Living: n/a Below sedentary *The PDL listed above is based on today's physical performance screening tests. More comprehensive physical testing integrated with clinical findings would be required to derive an accurate work capacity. ASSESSMENT OF FUNCTIONAL TESTING: Based on today???s physical capacity findings, multidisciplinary intensive physical rehabilitation would not effectively meet Mr. Bradley's needs at this time. The following reasons preclude participation at the present time: Demand levels of functional goals are not significantly higher than current physical capacity as tested today. He reports he forces himself to do what needs done, even though he pays for it later. [employer] wanting to find a way to get some symptom relief, stating, I wish there were just a green button I could push. PLAN: Medical consult in the Spine Center to discuss treatment options. Recommend continuing CBT as he finds the skills he is learning helpful for managing stress and to some extent symptoms. Total time for testin minutes documented in this encounter Plan of Treatment Not on filedocumented as of this encounter Visit Diagnoses Diagnosis Chronic neck pain - Primary Cervicalgia documented in this encounter Care Teams Ring Making Machine Operator Relationship Specialty Start Date End Date Jackelin Paniagua PA PCP - General 07/20/12 01/23/16 documented as of this encounter
--- OUTSIDE RECORDS SUMMARY | 2022-06-07 01:47 | XMS_ITS | Encounter Summary ---
:1970 Author Organization [facility] [place] [address] Care Team Providers Name Role Phone Jackelin Paniagua Primary Care Provider Encounter Details Date Type Department Care Team Description 12/07/2013 Telephone Pain Management at June [place], [place] [address] Social History Tobacco Use Types Packs/Day [...] encounter Miscellaneous Notes Telephone Encounter - June Lyons, RN - 12/07/2013 11:28 AM EST Patient called to say that there was an error in his gabapentin prescription. He said that it was prescribed 600mg @[facility] and he does not have enough to last, since the orders were actually written for 600mg tid. Or 1800mg q day. I am unable to clarify in patients record. Talked with patient again and the med bottle reads : Take one 600mg at [facility]. documented in this encounter Plan of Treatment Not on filedocumented as of this encounter Visit Diagnoses Not on filedocumented in this encounter Care Teams Concrete Floor Installer Relationship Specialty Start Date End Date Jackelin Paniagua PA PCP - General 07/20/12 01/23/16 documented as of this encounter
--- OUTSIDE RECORDS SUMMARY | 2022-06-07 01:47 | XMS_ITS | Encounter Summary ---
:1970 Author Organization [facility] [place] [address] Care Team Providers Name Role Phone Jackelin Paniagua Primary Care Provider Reason for Visit Reason Onset Date Comments Medication Refill 12/07/2013 Encounter Details Date Type Department Care Team Description 12/07/2013 Telephone Pain Management at [facility], Marina Jacques, Medi cation Refill [facility] [place] [address] PAIN CLINIC [phone] [place] [address] (Wo rk) Social History Tobacco Use Types [...] on filedocumented in this encounter Care Teams Tech Intern Relationship Specialty Start Date End Date Jackelin Paniagua PA PCP - General 07/20/12 01/23/16 documented as of this encounter
--- OUTSIDE RECORDS SUMMARY | 2022-06-07 01:47 | XMS_ITS | Encounter Summary ---
:1970 Author Organization [facility] [place] [address] Care Team Providers Name Role Phone Jackelin Paniagua Primary Care Provider Reason for Visit Reason Comments Pain Management Cervicalgia Encounter Details Date Type Department Care Team Description 01/18/2014 Follow-Up Pain Management at Aurelia Genao DO Bilateral occipital neuralgia (Primary D x); [facility] Cervicalgia; [facility] DR Cervical disc disease with myelopathy; [facility] Encounter for long-term (current) [place] [phone] [place] [address] [phone] (Wo rk) Social History Tobacco Use Types [...] Sign Reading Time Taken Comments Blood Pressure 140/64 01/18/2014 8:21 AM EDT Pulse 83 01/18/2014 8:21 AM EDT Temperature - - Respiratory Rate 14 01/18/2014 8:21 AM EDT Oxygen Saturation 97% 01/18/2014 8:21 AM EDT Inhaled Oxygen Concentration - - Weight 152.4 kg (336 lb) 01/18/2014 8:21 AM EDT Height 177.8 cm (5' 10) 01/18/2014 8:21 AM EDT Body Mass Index 48.21 01/18/2014 8:21 AM EDT documented in this encounter Progress Notes GabrielleAurelia V, DO - 01/18/2014 8:34 AM EDT Subjective: Patient ID: Paul Bradley is a 43 y.o. male.I have been requested by Dr. Paniagua for my recommendation regarding the patient's neck pain. This is Paul Bradley's follow up evaluation by our clinic. He was previously being treated by Natalie Martinez APRN, who is no longer in our practice. This is my initial evaluation of the patient. HPI History of present illness Location of pain neck Does the pain radiate? if so where? Yes, bilateral shoulders and back of head Severity of pain (right now) VAS: 4/10 Severity of pain (worst in past 24H) VAS: 5/10 Severity of pain (best in past 24H) VAS: 3/10 Severity of pain (Average, past 7days) VAS: 4/10 % pain relief with current treatment 50% How long has the pain been present? Since 11/17/12 Is this pain related to trauma? Yes, Fell on ice and hit on his back and head. This was on concrete.No LOC. This occurred on 11/17/12. Is this injury work-related? Yes, as described above. Improved with: Medications, being in water Worsened with: Any movement of the arms or upper body, physical therapy Pain quality aching and stabbing Any weakness? No Any numbness Yes, Every now and then on the ulnar aspect of the left forearm Any tingling? Yes, same as numbness Any swelling? No Associated symptoms? No Family history: anyone in your family with similar complaints? No Treatment history Physical therapy? Yes Exercise? Yes Opioids? hydromorphone and hydrocodone (last hydromorphone was 2 days ago and last hydrocodone was yesterday about 6PM) Anticonvulsants? Yes, Gabapentin at 1800 mg/day NSAIDS? ibuprofen (Motrin) Muscle relaxants? No Antidepressants? Wellbutrin - helps with depression, but not so much with pain Injections? Yes, Cervical medial branch blocks and RFA with no long lasting relief. Surgery? Yes, Cervical fusion in 2011 Massage? Yes, Some craniosacral therapy Acupuncture? No TENS? Yes, he has a unit, but infrequently uses it Bracing/assistance device? none GAP program? No Other? No Diagnostic test history X-ray(s)? Yes CT? No MRI? Yes Electrodiagnostics? No Ultrasound? No Other? No General health Recent Liver Function Testing? Yes Recent EKG? No Diabetic?, (recent Hem A1c?) No Occupational history Currently working? (if so, job description) No Currently on disability? 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 Yes, receiving pain medication from a dentist in addition to our clinic Review of Systems Review of Systems Constitutional symptoms Every now and then he has fever, chills, and night sweats. History of Glaucoma? No History of heart arrythmia? No Other cardiovascular symptoms? No Any rash or non-healing wound(s)? Yes, left lower leg - ulcer which is currently being treating Gastrointestinal complaints diarrhea Any bladder incontinence? No Any bowel incontinence? No Any breathing problems? positive for - cough and shortness of breath Supplemental Oxygen use? is not on home oxygen therapy. History of sleep apnea? (use CPAP?) Yes, he has BIPAP History of liver disease? No History of bleeding disorder? no recent abnormal bleeding, no remote history of abnormal bleeding, no use of Ca-channel blockers Any endocrine problems? No heat intolerance, No cold intolerance, No thyroid trouble, No excessive thirst or urination and No history of diabetes Pacemaker present? None Suicidal ideation/plan? No Homicidal ideation/plan? No Past Medical History Diagnosis Date ??? Arthritis ??? Allergy ??? Depression ??? COPD (chronic obstructive pulmonary disease) Past Surgical History Procedure Date ??? Spine surgery ??? Cholecystectomy ??? Cervical spine surgery Allergies Allergen Reactions ??? Sulfa (Sulfonamide Antibiotics) CIS - Rash Medications 01/18/14 0832 Medication Sig Taking? oxyCODONE-acetaminophen (PERCOCET) 5-325 mg per tablet Take 2 tablets by mouth every 4 hours as needed. Yes HYDROmorphone (DILAUDID) 4 mg tablet Take 1-2 tablets by mouth nightly as needed for Pain. Yes gabapentin (NEURONTIN) 600 mg tablet Take 1 tablet by mouth 3 times daily. Yes acetaminophen (TYLENOL) 500 mg tablet Take 1,000 mg by mouth every 6 hours as needed. Yes warfarin (COUMADIN) 5 mg tablet Take 5 mg by mouth daily. Yes buPROPion (WELLBUTRIN XL) 150 mg 24 hr tablet Take 150 mg by mouth every morning. Yes albuterol-ipratropium (COMBIVENT RESPIMAT) 20-100 mcg/actuation inhaler Inhale 2 puffs into the lungs every 6 hours as needed. Yes diaZEPam (VALIUM) 5 mg tablet Take 5 mg by mouth every 6 hours as needed. Yes Omeprazole 20 mg TbEC Yes Opioid Risk Tool (Male) (points) Family history of substance abuse Alcohol (3) Yes Illegal drugs (3) No Prescription drugs (4) No Personal history of substance abuse Alcohol (3) No, (sounds like he may be a binge drinker) Illegal drugs (4) No Prescription drugs (5) No Age [id number] years old? (1) yes History of psychological disease ADD (2) No OCD (2) No Bipolar (2) No Schizophrenia (2) No Depression (1) Yes Total Risk Score Categories Low= 0-3, moderate= 4-7 Total 5 High= >7 Suicide/Homicide Risks Suicidal ideations No Suicidal plans No Homicidal ideations No [place] controlled substance registry was reviewed today Inconsistencies? 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 Worrisome findings? Natalie Martinez APRN Yes No Other significant history History of incarceration? No History of discharge from another pain provider? No History of an inconsistent Urine Drug Screen? No Overall assessment of risk moderate Urine drug screen ordered? Yes Medication contract signed? Yes, 09/16/13 - completed and signed. He understands his rights and responsiblities. Objective: Physical Exam CERVICAL SPINE EXAMINATION: Inspection: Rash: No, Scar: No, Open wound: No Range of motion: Decreased with all planes. Palpation: Tenderness to palpation at the midline and paramedian bilaterally. Spurling test: Left: Negative ,Right:Negative Axial loading: Positive for neck pain. Modified Ochoa's test for the cervical spine: Left: Positive for posterior neck pain ,Right:Positive for posterior neck pain Neurological examination (Upper extremity): MOTOR: Manual muscle testing to the bilateral upper extremities included evaluation of index finger abduction (T1), ring finger flexion (C8), wrist flexion (C7) ,elbow extension (C7), wrist extension (C6), elbow flexion (C5), , and shoulder abduction (C5). Pertinent positives: None SENSORY: Manual sensation testing was completed to the bilateral C4-T1 dermatomal distributions. Pertinent positives: None DEEP TENDON REFLEXES (C5, C6, and C7): symmetric Constitutional: His vital signs were abnormal and reviewed with the patient. He is in no acute distress. Respiratory: No respiratory distress Cardiovascular: Normal heart rate. Skin (to the painful area): normal Eyes: EOMI, no scleral icterus Psychological: normal Assessment and Plan: Encounter Diagnoses Name Primary? Bilateral occipital neuralgia Yes ??? Cervicalgia ??? Cervical disc disease with myelopathy ??? Encounter for long-term (current) use of other medications Treatment plan After a thorough review of the history and physical examination, Mr. Bradley and I discussed the following options in detail: Recommended Diagnostic & Therapeutic modalities: 1) Physical therapy/exercise: He has been referred for a GAP evaluation to see if he is a candidate for a Functional [facility]. He has been a little resistant to this and we discussed this indetail. It is my medical opinion that if he continues to avoid the GAP assessment after my explanation today, he is malingering. 2) Diagnostic testing: I have reviewed his previous imaging and other diagnostic tests. 3) Interventional procedures: None currently recommended. An occipital nerve stimulator has been suggested. I would urge a psychological evaluation prior to further exploration of this treatment option. 4) Medication(s): He will continue the Gabapentin at 1800 mg/day. We discussed possibly going up on this daily dose with a max of 3600 mg/day. He is not having any side effects from this medication. I refilled his Hydromorphone 4 mg take 1/2-2 tablets Q6 hours PRN severe pain, #56, 28 days, no refills. The earliest fill date is 01/24/14 as he is early for this appointment and still has 15 tablets of hydromorphone on his pill count today. We did discuss that this medication is to be used to obtain functional improvement and not just pain improvement. As it appears he is not doing much in terms of function, I would suggest weaning this medication in the near future. He was warned about the major risks involved with this medication. These warning included respiratory depression among other things. Heis taking a benzodiazepine, which can also cause respiratory depression. He was warned not combine these medications. The patient also has sleep apnea which makes him a further risk. The patient also dr inks alcohol on the weekends which makes him a further risk. The patient was warned that the combination of these could result in . He and his understood. The patient understands the risks, benefits, and indications for these medications. There is a completed and signed medication contract in the chart dated . He understands his rights and responsibilities defined in this contract as well as discussed here today. The patient did receive a perception for Percocet last week from hisdentist as he had several teeth pulled. This has also occurred twice in the past in June 2013. The patient was warned about getting pain medication from multiple providers (even a dentist). This is a medication contract violation. If this happens again, his medications will be weaned. He understands. 5) Referral(s): He is scheduled to see Dr. Ayala on 02-01-14. This is for a psychological evaluation. 6) Lab work: Urine Drug Screen collected and sent for confirmation as he is on an opioid rn long term care. I reviewed his urine drug screens from 11/23/13 and 09/16/13 which were all negative. He was quested about this and he stated that he often does not take the hydromorphone for several days if his pain isnot severe. 7) His was again strongly encouraged to stop smoking. Functional goals with the current and future treatment: 1) Return to work 2) Spend quality time with family and friends 3) Exercise a routine basis Follow up: 35 days Mr. Bradley and I reviewed all of the above recommendations using anatomical models. The patient understands the risks, benefits, and indications of these options. The patient will think about his options. Paul may also discuss these recommendations with PRITI YOUNG so that he can come to the best decision in terms of his treatment options. AURELIA GENAO DO, MPH [facility]subspecialty board certification in Pain Medicine Attending Physician-Pain Management documented in this encounter Plan of Treatment Not on filedocumented as of this encounter Procedures Procedure Name Priority Date/Time Associated Diagnosis Comme nts DRUG SCREEN WITH Routine 01/18/2014 8:15 AM Encounter for Resu lts for this CONFIRMATION, URINE EDT long-term (current) p rocedure are in (SEND OUT) use of other the results medications section. documented in this encounter Results Drug Screen with Confirmation, Urine (01/18/2014 8:15 AM EDT) Component Value Ref Test Analysis Performed At [facility] gist Range Method Time Signature U JOSE w/Conf CERNER Test ? Result ?? Flag ??Uni t ?? RefValue [facility] Drug Screen, U ??Amphetamines ? Negative ? ng/mL ?? Cutoff: 500 ??Barbiturates ? Negative ? ng/mL ?? Cutoff: 200 ??Benzodiazepines ?Negative ? ng/mL ??C utoff: 200 ??Cocaine Metabolite ? Negative ? ng/mL ??Cut off: 150 ??Methadone ?Negative ? ng/mL ??Cutoff: 300 ??Opiates ?Positive ? ng/mL ??Cutoff: 300 ??Phencyclidine ?Negative ? ng/mL ?? Cutoff: 25 ??Tetrahydrocannabinols ?Negative ? ng/mL ??Cuto ff: 50 ??Ethanol ?Negative ? mg/dL ??Cutoff: 10 ??Comment Specimen unusually concentrated. Results from this test are presumptive; for positive results refer to the corresponding drug confirmation for the definitive result. This report is intended for use in clinical monitoring and management of patients. It is not intended for use in employment-related drug testing. ??Confirmation - Opiates ?? Positive ??Codeine ?Negative ? ng/mL ??<100 ??Hydrocodone ?1210 ? ng/mL ??<100 ??Hydromorphone ?584 ?ng/mL ??<100 ??Morphine ? Negative ? ng/mL ??<100 ??Oxycodone ?Negative ? ng/mL ??<100 ??Oxymorphone ?Negative ? ng/mL ? ?<100 This report is intended for use in clinical monitoring and management of patients. It is not intended for use in employment-related drug testing. Test Performed by: [place] [address] Ignition Specialist: Narcisa Nogueira, Ph.D. Specimen Anatomical Collection Method Collection Time Receive d Time (Source) Location / / Volume Laterality Urine specimen 01/18/2014 8:15 AM 014 (specimen) EDT 10:44 AM EDT Resulting Agency Comment Spec In Lab Aurelia Genao V, DO URINE ORDERABLES Performing Organization Address City/State/[place] [address] [facility] documented in this encounter Visit Diagnoses Diagnosis Bilateral occipital neuralgia - Primary Other syndromes affecting cervical regio n Cervicalgia Cervical disc disease with myelopathy Intervertebral cervical disc disorder wi th myelopathy, cervical region Encounter for long-term (current) use of other medications documented in this encounter Care Teams Top Edge Beveler Relationship Specialty Start Date End Date Jackelin Paniagua PA PCP - General 07/20/12 01/23/16 documented as of this encounter
--- OUTSIDE RECORDS SUMMARY | 2022-06-07 01:47 | XMS_ITS | Encounter Summary ---
:1970 Author Organization [facility] [place] [address] Care Team Providers Name Role Phone Jackelin Paniagua Primary Care Provider Encounter Details Date Type Department Care Team Description 02/11/2014 Office Visit Psychiatry and Gina Ayalamen t disorder Behavioral [facility] at [place], PhD with mixed anxiety and [facility] depressed mood [facility] (Primary Dx) [facility] PSYCHIATRY DEPT. [place] [id number] [phone] Social History Tobacco Use Types Packs/Day Years [...] encounter Progress Notes Gina Ayala, PhD - 02/11/2014 8:58 AM EDT Behavioral Medicine Service Individual Therapy Followup/Cognitive Behavioral Therapy-- 45 minutes Chief Complaint: coping with chronic pain S/O: The session focused on introducing the pain-stress cycle and related cognitive-behavioral skills. The patient verbalized an understanding of the rationale and related coping skills. Mr. Archer reports fear of trying certain activities (e.g., camping) because he is uncertain if he can do the physical activities required. The tug of war analogy was discussed and he acknowledges he would have a very hard time letting go. Hurt versus harm was also discussed. A: 309.28 adjustment disorder with depressed and anxious mood myD-H Psychiatry 02/11/2014 Patient Health Questionnaire Depression 18 (Moderately Severe Depression) [id number] 14 (Moderate Anxiety) Mental status notable for anxious and edgy mood. Interrupts occasionally but is cooperative and collaborative. P: Paul Bradley will read the handout on cognitive therapy related to pain. Next session will focus on introducing cognitive therapy. RTC 3 weeks for followup due to this author's schedule. Mr. Bradley can be put on the cancellation list but he also must arrange transportation. documented in this encounter Plan of Treatment Not on filedocumented as of this encounter Visit Diagnoses Diagnosis Adjustment disorder with mixed anxiety a nd depressed mood - Primary documented in this encounter Care Teams Cutter Tender Relationship Specialty Start Date End Date Jackelin Paniagua PA PCP - General 07/20/12 01/23/16 documented as of this encounter
--- OUTSIDE RECORDS SUMMARY | 2022-06-07 01:47 | XMS_ITS | Encounter Summary ---
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 Cigarette smoker; [facility]; Drive Cervical [place] with [place] [address] [facility] [phone] [place] [phone] (Wo rk) Social History Tobacco Use Types [...] Sign Reading Time Taken Comments Blood Pressure 146/87 12/21/2013 9:49 AM EDT Pulse 92 12/21/2013 9:49 AM EDT Temperature - - Respiratory Rate - - Oxygen Saturation 91% 12/21/2013 9:49 AM EDT Inhaled Oxygen Concentration - - Weight 154.2 kg (340 lb) 12/21/2013 9:49 AM EDT Height 177.8 cm (5' 10) 12/21/2013 9:49 AM EDT Body Mass Index 48.78 12/21/2013 9:49 AM EDT documented in this encounter Patient Instructions Patient InstructionsLuis Martinez APRN - 12/21/2013 10:28 AM EDT 1) Continue Dilaudid 8-12 mg in the evening as needed for pain. Can take with the Tylenol (max of 3,000 mg per day), and can take with Valium if needed. Prescription for #60 4 mg pills given. 2) Can f/u with Dr. Mccabe regarding his ongoing plan. 3) Paul will postpone plans to do the GAP evaluation to see if he might be a candidate for FRP, andthis will be re-scheduled at a later date once all medical interventions have been tried. He is building endurance in PT to be able to get through the FRP program. 4) Continue myofascial release massage, pool therapy, ([facility] [phone] or Satya. Vasyl Velázquez or Osvaldo) and call your watch case polisher June regarding acupuncture. Back ball is recommended for self massage ([phone]) -or some other self massage tool (find on line - this is medically necessary). 5) Suggest smoking cessation. Offered help as can be provided. Suggest hypnosis, electronic cigarette. Pt declines. 8) Referral to Dr. Ayala for psych eval and to see if she has any other tools to provide non-narcotic pain relief. Will re-initiate this appointment, 9) Follow up with your PCP regarding weight gain - would suggest dietary consultation 10) OV 4 weeks documented in this encounter Progress Notes Luis Martinez APRN - 12/21/2013 9:52 AM EDT PAIN CLINIC FOLLOW-UP Paul Bradley [id number] Reason for follow-up: To discuss pain management options Chief Complaint: I have been doing pool therapy 2x per week, and PT once a week. I have been doing exercises and getting massages. I am trying to work on cardio in the pool. Today I have a little bit of a headache; it's manageable, a 4/10 on the right side. I am getting relief from the Cranio-sacral therapy when they do the manual therapy. I am having pain in my lower back too. I am a little more limber in the thoracic back than I have been in a long time because of the PT I'm doing. I do have a lot more spasms going on in my back and right arm. The Dilaudid helps a lot. I take Tylenol throughout the day. I haven't made contact with digital advertising analyst or massage therapist, as I am doing the PT and they are supposed to be taking care of that. I guess I am not a candidate for occipital neurostimulator, as Dr. Mccabe wants me to trial all non-invasive measures first. I have not been to Psych for follow up. I have not cut back on smoking. I'm not sure why I continue to gain weight - I only eat one small meal per day. Identification: Mr. Bradley is a 43 y.o.-year-old male, who has a history of falling on ice at work while walking across parking lot to get into work truck. He hit the back of his head, and has been getting right sided headaches since. The headaches are random, and not activity related, but occur almost every day. He comes to this visit with his driving him. He is taking Valium in the afternoon or at night, and it helps him relax and the headache pain becomes a non- issue. He describes thoracic pain localized to the right sub-scapular region and now in the center of the spine between shoulder blades, with point tenderness that gets worse when he bends down to excelsior picker something. He is also having lumbar pain that has been there for years that seems to be worsening with his weight gain. History of Present Illness/Interval History Pain Location: Right side occipit that radiates to the right eye and right side of neck. Upper back and thoracic back, mostly right sided. Lower back. Pain Relief: ok with Tylenol overdosing to stop headache. Dilaudid helpful in the evenings Side Effects: denies Pain Quality: sharp Anxiety: yes Sleep: interrupted by pain Smokin pp/d + - no change. Not ready to quit Alcohol: on weekends - helps him relax Functional Status: Can't do anything without bringing on the pain. Trying to participate and do somechores at home Past Treatments Medications Tramadol, Morphine - does not help. Dilaudid does help. Percocet made him vomit; Vicodindid help. Excess Tylenol helps Physical Therapy Pool therapy, land Procedures MBB, RFA - did not help Surgeries Fusion in cervical spine - Other Review of Systems Constitutional + Denies weight loss; has gained 10 lbs additional this past month. Denies fevers, chills, night sweats. Cardiovascular + Denies chest pain; does get palpitations when he exerts himself in PT - needs to stop that activity. Respiratory + Denies cough; has SOB with exertion, FRANZ. GI + Denies constipation, diarrhea, nausea, vomiting. Psychiatric + Very short temper. Gets annoyed very quickly Musculoskeletal + Pain involves neck, ocipit, low back. Neurologic + Denies fainting spells, seizures, memory loss. Sleep is interrupted at tiimes - wakes with headache. Denies weakness and numbness as reported in HPI Physical Exam Blood pressure 146/87, pulse 92, height 177.8 cm (5' 10), weight 154.223 kg (340 lb), SpO2 91.00%. Constitutional AxOx3, in some distress: pt wishes to sit in the dark Psychiatric Affect is depressed, appropriate, anxious. Goal directed thought process. Poor eye contact. No pain behaviors. Lungs Clear to auscultation Cardiac Reg RR without murmur, rub Musculoskeletal Upright posture, leaning forward in chair. Neuro deferred Assessment Occipital neuralgia, worse on right. Neck, thoracic pain. Right sided thoracic pain s/p fall on ice 11/18 Low back pain Deconditioning and overweight due to lack of activity, which exacerbates headache and neck pain. Recommendations/Plan I reviewed general options for managing chronic pain including: Medications, Interventional/Surgicalprocedures, Physical and Behavioral modalities. In addition, I discussed options for medications including OTC preparations, NSAIDs, muscle relaxants, antidepressants, anticonvulsants, and opioids. I discussed the risks and potential side effects of opioid medications, that include but are not limited to, addiction, dependence, tolerance, osteoporosis, constipation, and sexual dysfunction. Urine drug screens have been consistent with prescribed medication. 1) Continue Dilaudid 8-12 mg in the evening as needed for pain. Can take with the Tylenol (max of 3,000 mg per day), and can take with Valium if needed. Prescription for #60 4 mg pills given. 2) Can f/u with Dr. Mccabe regarding his ongoing plan. 3) Paul will postpone plans to do the GAP evaluation to see if he might be a candidate for FRP until after the Physical Therapy gains have plateaued. 4) Continue myofascial release massage, pool therapy, ([facility] [phone] or 06. Vasyl Velázquez or Osvaldo) and call your watch case polisher June regarding acupuncture. Back ball is recommended for self massage ([phone]) -or some other self massage tool (find on line - this is medically necessary). 5) Suggest smoking cessation. Offered help as can be provided. Suggest hypnosis, electronic cigarette. Pt declines. 8) Referral to Dr. Ayala for psych eval and to see if she has any other tools to provide non-narcotic pain relief. Will re-initiate this appointment, 9) Follow up with your PCP regarding weight gain - would suggest dietary consultation 10) OV 4 weeks LUIS MARTINEZ APRN cc: PRITI YOUNG, FLOAT NURSE This encounter lasted 30 minutes with 25 minutes spent in [id number] education and counseling regarding management of chronic pain and coordination of care as described above. The remainder of the time was spent in record review, physical exam and occipital nerve block. documented in this encounter Plan of Treatment Not on filedocumented as of this encounter Visit Diagnoses Diagnosis Occipital neuralgia Other syndromes affecting cervical regio n Cigarette smoker Tobacco use disorder Overweight Cervical disc disease with myelopathy Intervertebral cervical disc disorder wi th myelopathy, cervical region documented in this encounter Care Teams Fur Blower Operator Relationship Specialty Start Date End Date Jackelin Paniagua PA PCP - General 07/20/12 01/23/16 documented as of this encounter
--- OUTSIDE RECORDS SUMMARY | 2022-06-07 01:47 | XMS_ITS | Encounter Summary ---
:1970 Author Organization [facility] [place] [address] Care Team Providers Name Role Phone Jackelin Paniagua Primary Care Provider Encounter Details Date Type Department Care Team Description 06/16/2014 Office Visit Psychiatry and Gina Ayalamen t disorder Behavioral [facility] at [place], PhD with mixed anxiety and [facility] depressed mood [facility] (Primary Dx) [facility] PSYCHIATRY DEPT. [place] [phone] Social History Tobacco Use Types Packs/Day Years [...] encounter Progress Notes Gina Ayala, PhD - 06/16/2014 8:00 AM EDT Behavioral Medicine Service Individual Therapy Followup/Cognitive Behavioral Therapy-- 45 minutes Chief Complaint: coping with chronic pain S/O: Mr. Bradley reports that he had a difficult week in terms of poor sleep and increased irritability. He reports 3 bad pain days but did not feel that he was overactive. Mr. Bradley reports practicingthe relaxation 4-5 times per day and does find it helpful to take the edge off his irritability. He brings in an example of getting angry in a grocery store and is able to work through his thought process. He was able to hold his temper and walk away even thougth the other person was rude. The sessionfocused on cognitive therapy and relaxation review. A: 309.28 adjustment disorder with depressed and anxious mood myD-H Psychiatry 06/16/2014 Patient Health Questionnaire Depression 7 (Mild Depression) GAGAN-7 6 (Mild Anxiety) Mental status notable for anxious and sad mood. He reports light sensitivity so the overhead lights are turned off. P: Paul Bradley was strongly encouraged to continue practicing the breathing strategy daily. He was encouraged to continue working on challenging negative thoughts. Next session will focus on review of relaxation training and progress with cognitive therapy around thoughts of anger/guilt for being in pain. RTC 1 week. documented in this encounter Plan of Treatment Not on filedocumented as of this encounter Visit Diagnoses Diagnosis Adjustment disorder with mixed anxiety a nd depressed mood - Primary documented in this encounter Care Teams Food Counter Attendant Relationship Specialty Start Date End Date Jackelin Paniagua PA PCP - General 07/20/12 01/23/16 documented as of this encounter
--- OUTSIDE RECORDS SUMMARY | 2022-06-07 01:47 | XMS_ITS | Encounter Summary ---
:1970 Author Organization [facility] Address [facility] [address] [place] [id number] Care Team Providers Name Role Phone Jackelin Paniagua Primary Care Provider Reason for Referral Psychiatric (Routine) - Closed Specialty Diagnoses / Procedures Referred By Contact Refer red To Contact Psychiatry Diagnoses Bilateral occipital neuralgia Marina Martinez, Gina Davenport, PhD [facility] [place] [address] Fax: Referral ID Status Reason Start Date Expiration Date Visits V isits Requested Authorized [id number] Closed Consult, 11/23/2013 05/22/2014 1 1 Test & Treat Encounter Details Date Type Department Care Team Description 11/23/2013 Follow-Up Pain Management at Marina Martinez [place] unter for long- term (current) use of other medications (Primary Dx); Velia PIERRE Bilateral occipital neuralgia [facility] [place] [id number] PAIN CLINIC [phone] [place] [address] (Wo rk) Social History Tobacco Use Types [...] Sign Reading Time Taken Comments Blood Pressure 140/91 11/23/2013 11:21 AM EST Pulse 93 11/23/2013 11:21 AM EST Temperature - - Respiratory Rate 22 11/23/2013 11:21 AM EST Oxygen Saturation 98% 11/23/2013 11:21 AM EST Inhaled Oxygen Concentration - - Weight 149.7 kg (330 lb) 11/23/2013 11:21 AM EST Height 177.8 cm (5' 10) 11/23/2013 11:21 AM EST Body Mass Index 47.35 11/23/2013 11:21 AM EST documented in this encounter Patient Instructions Patient InstructionsMarina Martinez APRN - 11/23/2013 12:29 PM EST 1) Continue Dilaudid 8-12 mg in the evening as needed for pain. Can take with the Tylenol (max of 3,000 mg per day), and can take with Valium if needed. Prescription for #60 4 mg pills given. 2) Keep appointment with Dr. Mccabe for discussion of occipital stimulator this afternoon. Since GONB bilaterally were effective for a week, you are a candidate for a trial of occipital stimulator. Paul agrees 3) Paul will postpone plans to do the GAP evaluation to see if he might be a candidate for FRP, andthis will be re-scheduled at a later date once all medical interventions have been tried. 4) Continue myofascial release massage, pool therapy, and call your telehealth case manager June regarding acupuncture. Back ball is recommended for self massage ([phone]) -or some other self massage tool (find on line - this is medically necessary). 5) Melita Mcginnis involved in decision making and support for ongoing care.Melita present in office visit today. 6) Ocipital nerve block on right side today to help alleviate some of your discomfort. See procedurenote 7) Suggest smoking cessation. Offered help as can be provided. Suggest hypnosis, electronic cigarette. 8) Referral to Dr. Ayala for psych eval and to see if she has any other tools to provide non-narcotic pain relief. 9) OV 4 weeks documented in this encounter Progress Notes Marina Martinez APRN - 11/23/2013 11:32 AM EST PAIN CLINIC FOLLOW-UP Paul Bradley [id number] Reason for follow-up: To discuss pain management options Chief Complaint: I have been doing pool therapy 5x per week. The PT tried to do some deep myofascial release, but she couldn't get into my muscles. They just wouldn't loosen. She will try again tomorrow. I have a headache today and my pain level is about a 5/10 on the right side of head. I am having pain in my lower back too. I sleep in a reclining position. The GONB lasted for about a week, and brought my pain down to about a 4/10 for a week or so. The Dilaudid helps a lot as far as keeping mypain down so that I can sleep, but sometimes I need an xtra dose (12 mg). If I take it too close to bedtime, I won't sleep. No one has contacted me about acupuncture or massage yet. I did watch the DVD regarding the occipital neurostimulator, and am scheduled to see Dr. Mccabe this afternoon to discuss it. Identification: Mr. Bradley is a 43 y.o.-year-old [...] thoracic pain localized to the right sub-scapular region, with point tenderness that gets worse when he bends down to shrimp picker something. History of Present Illness/Interval History Pain Location: Right side occipit that radiates to the right eye and right side of neck. Upper back and thoracic back, mostly right sided. Lower back. Pain Relief: ok with Tylenol overdosing to stop headache. Side Effects: denies Pain Quality: sharp Anxiety: yes Sleep: interrupted by pain Smokin pp/d - no change. Not ready to quit Alcohol: on weekends - helps him relax Functional Status: Can't do anything without bringing on the pain. Trying to participate Past Treatments Medications Tramadol, Morphine - does not help. Dilaudid does help. Percocet made him Vomit; Vicodindid help. Excess Tylenol helps Physical Therapy Pool therapy Procedures MBB, RFA - did not help Surgeries Fusion in cervical spine - Other Review of Systems Constitutional + Denies weight loss; weight gain since injury. Denies fevers, chills, night sweats. Cardiovascular + Denies chest pain, palpitations. Respiratory + Denies cough, has SOB with exertion, FRANZ. GI + Denies constipation, diarrhea, nausea, vomiting. Psychiatric + Very short temper. Gets annoyed very quickly Musculoskeletal + Pain involves neck, ocipit, low back. Neurologic + Denies fainting spells, seizures, memory loss. Sleep is interrupted at tiimes - wakes with headache. Denies weakness and numbness as reported in HPI Physical Exam 123/103 Constitutional AxOx3, NAD Psychiatric Affect is depressed, appropriate, anxious. Goal directed thought process. Good eye contact. No pain behaviors. Lungs Clear to auscultation Cardiac Reg RR without murmur, rub Musculoskeletal Upright posture, leaning forward in chair. Neuro deferred Assessment Occipital neuralgia, worse on right. Neck pain. Right sided thoracic pain s/p fall [...] osteoporosis, constipation, and sexual dysfunction. Urine drug screen repeated today. 1) Continue Dilaudid 8-12 mg in the evening as needed for pain. Can take with the Tylenol (max of 3,000 mg per day), and can take with Valium if needed. Prescription for #60 4 mg pills given. 2) Keep appointment with Dr. Mccabe for discussion of occipital stimulator this afternoon. Since GONB bilaterally were effective for a week, you are a candidate for a trial of occipital stimulator. Paul agrees 3) Paul will postpone plans to do the GAP evaluation to see if he might be a candidate for FRP, andthis will be re-scheduled at a later date once all medical interventions have been tried. 4) Continue myofascial release massage, pool therapy, and call your telehealth case manager June regarding acupuncture. Back ball is recommended for self massage ([phone]) -or some other self massage tool (find on line - this is medically necessary). 5) Melita Mcginnis involved in decision making and support for ongoing care.Melita present in office visit today. 6) Ocipital nerve block on right side today to help alleviate some of your discomfort. See procedurenote 7) Suggest smoking cessation. Offered help as can be provided. Suggest hypnosis, electronic cigarette. 8) Referral to Dr. Ayala for psych eval and to see if she has any other tools to provide non-narcotic pain relief. 9) OV 4 weeks MARINA MARTINEZ APRN cc: PRITI YOUNG, GLASSWORKER This encounter lasted 50 minutes with 30 minutes spent in [id number] education and counseling regarding management of chronic pain and coordination of care as described above. The remainder of the time was spent in record review, physical exam and occipital nerve block. documented in this encounter Procedure Notes Marina Martinez APRN - 11/23/2013 2:24 PM ESTAssociated Order(s): NERVE BLOCK - OCCIPITAL Procedure(s): NERVE BLOCK - OCCIPITAL Pre-Procedure Diagnose(s): Bilateral occipital neuralgia November 23, 2013 Right Greater Occipital Nerve Block Procedure Pre-operative diagnosis: Bilateral Occipital neuritis with daily headache. Post-operative diagnosis: unchanged Procedure: Right Greater Occipital nerve injection. After risks and benefits were explained including bleeding, infection, worsening of the pain, damageto the area being injected, vascular injection, allergy to medications and nerve damage, a signed consent was obtained. All questions were answered. Time out was performed by myself and Twila Guillen RN. The right GO nerve was identified by palpation of the foraminal notch and the skin prepped with Alcohol. Next, a 27 gauge 1 1/2 inch needle was taken and placed in the nerve area. Next, after negative aspiration was confirmed, the nerve area was slowly injected with 10 mg of Depomedrol and 5ml of 0.5% Bupivacaine and the needle removed. The patient tolerated the procedure well. All aspirations were negative, there was no resistance to injection, there were no paresthesias, and there were no complications. Total medication used: 50 mg Bupivacaine; 10 mg Depomedrol. The patient will return in 4 weeks for a re-evaluation. His pain level dropped from a 6/10 with photophobia pre- injection to a 0 headache post injection and no photophobia. IGNACIO ARRIAZA APRN documented in this encounter Plan of Treatment Scheduled Orders Name Type Priority Associated Diagnoses Order S chedule NERVE BLOCK - OCCIPITAL Neurology Routine Bilateral occipit al Ordered: 11/23/2013 neuralgia Scheduled Referrals Name Type Priority Associated Order Schedule Diagnoses Referral to Outpatient Referral Routine Bilateral occipital O rdered: Psychiatry neuralgia 11/23/2013 documented as of this encounter Procedures Procedure Name Priority Date/Time Associated Diagnosis Comme nts NERVE BLOCK - Routine 11/23/2013 3:17 PM Bilateral occipital R esults for this OCCIPITAL EST neuralgia procedure are i n the results section. AMPHETAMINE, URINE, Routine 11/23/2013 12:10 Resu lts for this CONFIRMATION PM EST procedure are i n the results section. DRUG SCREEN WITH Routine 11/23/2013 12:10 Encounter for Result s for this CONFIRMATION, URINE PM EST long-term (current) p rocedure are in (SEND OUT) use of other the results medications section. documented in this encounter Results NERVE BLOCK - OCCIPITAL (11/23/2013 3:17 PM EST) Narrative Marina Martinez APRN - 11/23/2013 3:17 PM EST Marina Martinez APRN ? 11/23/2013 ??3:17 PM November 23, 2013 Right Greater Occipital Nerve Block Proc edure Pre-operative diagnosis: Bilateral Occip ital neuritis with daily headache. Post-operative diagnosis: ??unchanged Procedure: Right Greater Occipital nerve injection. After risks and benefits were explained including bleeding, infection, worsening of the pain, damage to the area being injected, vascular injection, allergy to medications and nerve damage, a signed consent was obtained. A ll questions were answered. Time out was performed by brandy sands and Twila Guillen RN. The right GO nerve was identified by pal pation of the foraminal notch and the skin prepped with Alcohol. Next, a 27 gauge 1 1/2 inch needle was taken and placed in the nerve area. Next, after negative aspiration was confirmed, the n erve area was slowly injected with 10 mg of Depomedrol and 5m l of 0.5% Bupivacaine and the needle removed. The patient tolerated the procedure well . All aspirations were negative, there was no resistance to inj ection, there were no paresthesias, and there were no complica tions. Total medication used: 50 mg Bupivacaine ; 10 mg Depomedrol. The patient will return in 4 weeks for a re-evaluation. His pain level dropped from a 6/10 with photoph obia pre- injection to a 0 headache post injection and no photo phobia. IGNACIO ARRIAZA APRN Procedure Note Marina Martinez APRN - 11/23/2013 2:24 PM EST November 23, 2013 Right Greater Occipital Nerve Block Proc edure Pre-operative diagnosis: Bilateral Occip ital neuritis with daily headache. Post-operative diagnosis: unchanged Procedure: Right Greater Occipital nerve injection. After risks and benefits were explained including bleeding, infection, worsening of the pain, damage to the area being injected, vascular injection, allergy to medications and nerve damage, a signed consent was obtained. All questions were answered. T victor hugo out was performed by myself and Twila Guillen RN. The right GO nerve was identified by pal pation of the foraminal notch and the skin prepped with Alcohol. Next, a 27 gauge 1 1/2 inch needle was taken and placed in the nerve area. Next, after negative aspiration was confirmed, the nerve area was slowly inj ected with 10 mg of Depomedrol and 5ml of 0.5% Bupivacaine and the needle removed. The patient tolerated the procedure well . All aspirations were negative, there was no resistance to injection, there were no paresthesias, and there were no complications. Total medication used: 50 mg Bupivacaine ; 10 mg Depomedrol. The patient will return in 4 weeks for a re-evaluation. His pain level dropped from a 6/10 with photophobia pre- injection to a 0 headache post injection and no photophobia. IGNACIO ARRIAZA APRN Dino Mccabe MD NEUROLOGY ORDERABLES Amphetamine, Urine Confirmation (11/23/2013 12:10 PM EST) [facility] Method Time Signature U Amphet Conf CERNER Test ?Result ?? Flag ??Unit ?? RefValue [facility] Drug of Abuse, Amphetamine Conf, U ??GC/MS Confirmation - ?Negative ?Amphetamine Discrepancy noted between immunoassay result and GC/MS result. The GC/MS result is the definitive result. ??Amphetamine ? Negative ? ng/mL ??C utoff: <50 ??Methamphetamine ? Negative ? ng/mL ??Cut off: <50 ??MDMA (Ecstasy) ?Negative ? ng/mL ??Cu toff: <50 ??MDA (Ecstasy ?Negative ? ng/mL ??C utoff: <50 ?Metabolite) ??Phentermine ? Negative ? ng/mL ??C utoff: <500 This report is intended for use in clinical monitoring and management of patients. It is not intended for use in employment-related drug testing. Test Performed by: [facility] [address], [place] [address] Pet Care Attendant: Narcisa Nogueira, Ph.D. Specimen Anatomical Collection Method Collection Time Receive d Time (Source) Location / / Volume Laterality Urine specimen 11/23/2013 12:10 4 1:10 (specimen) PM EST PM EST Resulting Agency Comment Spec In Lab Catrina Ha MD URINE ORDERABLES Performing Organization Address City/State/[place] [address] CERNER [facility] Drug Screen with Confirmation, Urine (11/23/2013 12:10 PM EST) Component Value Ref Test Analysis Performed At [facility] Range Method Time Signature U JOSE w/Conf CERNER Test ?Result ?? Flag ??Unit ?? RefValue [facility] Drug Screen, U ??Amphetamines ?Positive ? ng/mL ??C utoff: 500 ??Barbiturates ?Negative ? ng/mL ??C utoff: 200 ??Benzodiazepines ? Negative ? ng/mL ??Cut off: 200 ??Cocaine Metabolite ?Negative ? ng/mL ??Cuto ff: 150 ??Methadone ? Negative ? ng/mL ?? Cutoff: 300 ??Opiates ? Negative ? ng/mL ? ?Cutoff: 300 ??Phencyclidine ? Negative ? ng/mL ??Cu toff: 25 ??Tetrahydrocannabinols ?? Negative ? ng/mL ??Cutoff : 50 ??Ethanol ? Negative ? mg/dL ? ?Cutoff: 10 ??Comment Specimen unusually concentrated. Results from this test are presumptive; for positive results refer to the corresponding drug confirmation for the definitive result. This report is intended for use in clinical monitoring and management of patients. It is not intended for use in employment-related drug testing. ??Confirmation - Opiates ??Negative ??Codeine ? Negative ? ng/mL ? ?<100 ??Hydrocodone ? Negative ? ng/mL ??< 100 ??Hydromorphone ? Negative ? ng/mL ??<1 00 ??Morphine ?Negative ? ng/mL ? ?<100 ??Oxycodone ? Negative ? ng/mL ?? <100 ??Oxymorphone ? Negative ? ng/mL ??< 100 This report is intended for use in clinical monitoring and management of patients. It is not intended for use in employment-related drug testing. Test Performed by: [place] [address] Pet Care Attendant: Narcisa Nogueira, Ph.D. Specimen Anatomical Collection Method Collection Time Receive d Time (Source) Location / / Volume Laterality Urine specimen 11/23/2013 12:10 4 1:10 (specimen) PM EST PM EST Resulting Agency Comment Spec In Lab Catrina Ha MD URINE ORDERABLES Performing Organization Address City/State/[place] [address] [facility] documented in this encounter Visit Diagnoses Diagnosis Encounter for long-term (current) use of other medications - Primary Bilateral occipital neuralgia Other syndromes affecting cervical regio n documented in this encounter Administered Medications Inactive Administered Medications - up to 3 most recent administrations Medication Order MAR Action Action Date Dose Rate Site BUpivacaine (PF) (MARCAINE) 0.5 % Given 11/23/2013 2:38 PM EST 2 5 mg (5 mg/mL) injection 25 mg 25 mg (5 mL), Other, ONCE, 1 dose, On Fri11/23/13 at 1230, 5 mL Wasted, Routine methylPREDNISolone acetate (depo-MEDROL) Given 11/23/2013 2:24 P M EST 10 mg injection 10 mg 10 mg, Intra-Lesional, ONCE, 1 dose, On Fri11/23/13 at 1330, Routine documented in this encounter Care Teams Well Surveying Engineer Relationship Specialty Start Date End Date Jackelin Paniagua PA PCP - General 07/20/12 01/23/16 documented as of this encounter
--- OUTSIDE RECORDS SUMMARY | 2022-06-07 01:47 | XMS_ITS | Encounter Summary ---
:1970 Author Organization [facility] [place] [address] Care Team Providers Name Role Phone Jackelin Paniagua Primary Care Provider Encounter Details Date Type Department Care Team Description 11/23/2013 Follow-Up Pain Management at Dino Garza MD [facility] [place] [phone] PAIN CLINIC [phone] [place] [address] (Wo rk) Social History Tobacco Use Types [...] Time Taken Comments Blood Pressure 140/91 11/23/2013 3:19 PM EST Pulse 93 11/23/2013 3:19 PM EST Temperature - - Respiratory Rate 22 11/23/2013 3:19 PM EST Oxygen Saturation 98% 11/23/2013 3:19 PM EST Inhaled Oxygen Concentration - - Weight 149.7 kg (330 lb) 11/23/2013 3:19 PM EST Height 177.8 cm (5' 10) 11/23/2013 3:19 PM EST Body Mass Index 47.35 11/23/2013 3:19 PM EST documented in this encounter Progress Notes Dino Mccabe MD - 11/23/2013 4:54 PM EST Progress note was asked to see the patient today to Reevaluate his neck pain and possibly consider him for an occipital peripheral nerve stimulator. Patient has a history of 2 falls to the neck and shoulders with ahistory of anterior cervical fusion at C4-C6 roughly 18 months ago. Pain started after the first fall. The surgery resolve issues in the upper and lower extremities. However it did not significantly change the pain. I first saw him in the fall of last year where we performed cervical medial branch testing which gave him moderate pain relief. The cervical medial branch radiofrequency according to him was ineffective. Since then he has been on for his pain medications currently on the pregabalin and occasional use of the hydromorphone. Both of these medications give him questionable pain relief. Pain is primarily located from the suboccipital area into the shoulders and between the shoulder blades. He earlier today to have an occipital nerve block. However he states that he does not have any allodynia hyperpathia or hyperalgesia in this area. Primarily numbness. This is in contrast to the nurse practitioner whose been taking care of him and his abductor significant neuropathic symptoms in the right occipital nerve. He states that range of motion has been decreased to excess tender. He's been involved with physical therapy. functional standpoint he is about 2-4 hours each day out of his recliner. Otherwise he is in his recliner. 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 When asked, he has no clear goals regarding return to work Or any other activity in his life. patient admits to having moderate depression. sleep was not discussed today. No overall change in past medical past surgical family social history. No overall change in current medications. Please Note that he smokes a pack and a half of cigarettes per day. on exam, he is alert and oriented x4 with good eye contact flat affect, morbidly obese, sitting in a chair next to his , no acute distress. Patient has decreased cervical range of motion in all planes by roughly 20 or 30??. There is no allodynia hyperpathia or hyperalgesia in the distribution of the right occipital nerve. He has moderate to severe amount of point tenderness along the right occipital ridge, lateral cervical, posterior cervical he does appear trapezius and also over the medial rhomboid region. Multiple areas of trigger points. discussion with his physical therapist today. This is Cayden Nayak At [phone] up in [facility]. He agrees with me that the patient has developed a cycle inactivity and pain. Patient has been somewhat repot responsive to active modalities but is not engaged in getting better. Patient h as been compliant with His appointments. No significant motivation. At times mixed messages. He doeswell in the pool. discussion with nurse practitioner Marina states that there is moderate to severe amounts of allodynia hyperpathia and hyperalgesia in the distribution of the occipital nerve. Assessment and plan- patient has developed a cycle inactivity and pain secondary to his extensive amounts of myofascial pain which is I believe a results of his 2 falls in the surgery. He very well may have occipital neuralgia. All need to reevaluate him at another time. Is also has developed a slight limp inactivity in pain. He has no clear goals. Probable depression. Probable low testosterone levels. Little to no motivation. Supposedly applying for disability. My plan is for him to return to physical therapy as soon as possible. He will start any activating stretching program. I will talk to his physical therapist in 2 weeks. He will start a swimming program as outlined below. He'll have his testosterone levels checked. If he is noncompliant with the simple things have asked him to do I will call him on the carpet and we'll discuss psychological evaluation. I think this is can be a very difficult case to turn around. I think that there is little to no motivation on his part for improvement. We will see whether if he succeeds or fails. counseling and coordination of care was greater than 50% of this visit, 45/80 minutes. documented in this encounter Plan of Treatment Not on filedocumented as of this encounter Visit Diagnoses Diagnosis Cervicalgia documented in this encounter Care Teams Computer Console Operator Relationship Specialty Start Date End Date Jackelin Paniagua PA PCP - General 07/20/12 01/23/16 documented as of this encounter
--- OUTSIDE RECORDS SUMMARY | 2022-06-07 01:47 | XMS_ITS | Encounter Summary ---
:1970 Author Organization [facility] Address [place] [id number] Care Team Providers Name Role Phone Jackelin Paniagua Primary Care Provider Reason for Referral Physical Therapy (Routine) - Closed by system - unspecified Specialty Diagnoses / Procedures Referred By Contact Refer red To Contact Physical Therapy Diagnoses Myalgia and myositis, unspecified Cervico-occipital neuralgia of the right side Luis Martinez APRN [facility] [place] [address] Referral ID Status Reason Start Expiration Visits Visits Date Date Requested Authorized [id number] Closed by Evaluate and 04/23/2014 12 12 system - Treat 4 unspecified Consultation (Routine) - Closed by system - unspecified Specialty Diagnoses / Procedures Referred By Contact Refer red To Contact Acupuncture Diagnoses Myalgia and myositis, unspecified Cervico-occipital neuralgia of the right side Luis Martinez APRN [facility] [place] [address] Referral ID Status Reason Start Expiration Visits Visits Date Date Requested Authorized [id number] Closed by Consult, 10/25/2013 04/23/2014 12 12 system - Test & unspecified Treat Reason for Visit Reason Comments Pain Management Neck And Back Pain Encounter Details Date Type Department Care Team Description 10/25/2013 Follow-Up Pain Management at Luis Martinez, Deeal rusty and myositis, unspecified (Primary Dx); Velia PIERRE Cervico-occipital neuralgia of the right side; [facility] [place] [address] PAIN CLINIC [phone] [phone] (Wo rk) Social History Tobacco Use [...] Sign Reading Time Taken Comments Blood Pressure 123/103 10/25/2013 7:58 AM EST Pulse 82 10/25/2013 7:58 AM EST Temperature - - Respiratory Rate - - Oxygen Saturation 97% 10/25/2013 7:58 AM EST Inhaled Oxygen Concentration - - Weight 152 kg (335 lb) 10/25/2013 7:58 AM EST Height 177.8 cm (5' 10) 10/25/2013 7:58 AM EST Body Mass Index 48.07 10/25/2013 7:58 AM EST documented in this encounter Patient Instructions Patient InstructionsLuis Martinez APRN - 10/25/2013 9:07 AM EST 1) Continue Dilaudid 6-8 mg in the evening as needed for pain. Can take with the Tylenol (max of 3,000 mg per day), and can take with Valium if needed. Prescription for #60 4 mg pills given. 2) Keep appointment with Dr. Mccabe for discussion of occipital stimulator. Review the DVD again andwrite down any questions. Since GONB bilaterally were effective for a week, you are a candidate for a trial of occipital stimulator. Paul agrees 3) Paul will postpone plans to do the GAP evaluation to see if he might be a candidate for FRP, andthis will be re-scheduled at a later date once all medical interventions have been tried. 4) Recommend trial of myofascial release massage, and acupuncture. Back ball is recommended for selfmassage ([phone]) -or some other self massage tool (find on line - this is medically necessary). Referrals are written today. 5) Melita Mcginnis and Sienna Figueroa involved in decision making and support for ongoing care. Will forward this note to Melita who will contact the W/C medical case worker. 6) Trigger point injection today to the right thoracic area (Trapezius muscle) - will hold off on Greater Occipital nerve blocks today to see if this trigger point may be part of the pain generator forheadaches 7) Suggest smoking cessation. Offered help as can be provided. Suggest hypnosis. documented in this encounter Progress Notes Luis Martinez APRN - 10/25/2013 7:49 AM EST PAIN CLINIC FOLLOW-UP Paul Bradley [id number] Reason for follow-up: To discuss pain management options Chief Complaint: The GONB lasted for about a week, and brought my pain down to about a 4/10 for aweek or so. The Dilaudid helps a lot as far as keeping my pain down so that I can sleep. If I take 8mg, it helps me sleep all night. If I don't take it, I get much less sleep. I am going to pool therapy, and am supposed to have massage therapy and acupuncture but these haven't happened yet. I did watch the DVD regarding the occipital neurostimulator, and am scheduled to see Dr. Mccabe on 11/09. I am leaning towards not having the trial. I don't think I am ready to go through with the [facility], I just don't have the stamina, but I would like to do that in the future. Identification: Mr. Bradley is a 43 y.o.-year-old [...] Can't do anything without bringing on the pain Past Treatments Medications Tramadol, Morphine - does not help. Dilaudid does help. Percocet made him Vomit; Vicodindid help. Excess Tylenol helps Physical Therapy Pool therapy Procedures MBB, FRA - did not help Surgeries Just had Basal cell removed on left forehead. Fusion in cervical spine - Other Review of Systems Constitutional + Denies weight loss; about 50 lb weight gain since injury. Denies fevers, chills, [...] Musculoskeletal Upright posture, leaning forward in chair. Palpable trigger point in right sub-scapular area (see procedure note) Neuro deferred Assessment Occipital neuralgia, worse on [...] dependence, tolerance, osteoporosis, constipation, and sexual dysfunction. Narcotic agreement presented, reviewed and signed with patient. All questions answered. Urine baseline drug screen done today. 1) Continue Dilaudid 6-8 mg in the evening as needed for pain. Can take with the Tylenol (max of 3,000 mg per day), and can take with Valium if needed. Prescription for #60 4 mg pills given. 2) Keep appointment with Dr. Mccabe for discussion of occipital stimulator. Review the DVD again andwrite down any questions. Since GONB bilaterally were effective for a week, you are a candidate for a trial of occipital stimulator. Paul agrees 3) Paul will postpone plans to do the GAP evaluation to see if he might be a candidate for FRP, andthis will be re-scheduled at a later date once all medical interventions have been tried. 4) Recommend trial of myofascial release massage, and acupuncture. Back ball is recommended for selfmassage ([phone]) -or some other self massage tool (find on line - this is medically necessary). Referrals are written today. 5) Melita Mcginnis and Sienna Figueroa involved in decision making and support for ongoing care. Will forward this note to Melita who will contact the W/C medical case worker. 6) Trigger point injection today to the right thoracic area (Trapezius muscle) - will hold off on Greater Occipital nerve blocks today to see if this trigger point may be part of the pain generator forheadaches 7) Suggest smoking cessation. Offered help as can be provided. Suggest hypnosis. LUIS MARTINEZ APRN cc: PRITI YOUNG, FINAL ASSEMBLY INSPECTOR This encounter lasted 50 minutes with 30 minutes spent in [id number] education and counseling regarding management of chronic pain and coordination of care as described above. The remainder of the time was spent in record review, physical exam and trigger point injection. documented in this encounter Procedure Notes Luis Martinez APRN - 10/25/2013 5:37 PM ESTAssociated Order(s): TRIGGER POINT INJECTION - 1 OR 2 MUSCLES Procedure(s): TRIGGER POINT INJECTION - 1 OR 2 MUSCLES Pre-Procedure Diagnose(s): Myalgia and myositis, unspecified Trigger Point Injections Date of Service: 10/25/2013 Patient: Paul Bradley 1970 43 y.o. male Provider: LUIS MARTINEZ APRN Mr. Paul Bradley has [facility] treatment of right occipital neuralgia and thoracic back pain localized to the lower Trapezius on the right side. He reports that this pain worsens whenever he bends over to pick something up, and shoots from below his right shoulder blade to his neck musculature. Physical Examination: Filed Vitals: 10/25/13 0758 BP: 123/103 Pulse: 82 Some distress, appearing uncomfortable with photophobia and tripodding in chair. Appropriate affect. Upon palpation of the Trapezius trigger point, there is a reproduction of the patient's pain. Procedure Mr. Bradley was interviewed and examined. The risks and benefits were explained including but not limited to bleeding, infection, worsening of the pain, damage to the area being injected, weakness, allergic reaction to medications, vascular injection, and nerve damage. All questions were answered. Informed consent was signed and time out was performed with NORBERT Montero. The area of the trigger point was identified and the skin prepped with alcohol and the alcohol allowed to dry. Next, a 27 gauge 1.5 inch needle was placed in the area of the trigger point. Once reproduction of the pain was elicited and negative aspiration confirmed, the trigger point was injected and the needle removed. The patient tolerated the procedure well and there were no apparent complications. There were no changes in motor or sensory exam or respiratory effort. Medication used: 5 ml of bupivacaine 0.5% Trigger points injected: 1 Trigger point(s) location(s): Right sub-scapular region in the Trapezius Assessment and Plan: ~ Repeat prn after 4 weeks LUIS MARTINEZ APRN documented in this encounter Plan of Treatment Scheduled Referrals Name Type Priority Associated Order Schedule Diagnoses Referral for Outpatient Referral Routine Myalgia and Ordered: Acupuncture myositis, 10/25/2013 unspecified Cervico-occipital neuralgia of the right side Referral to Physical Outpatient Referral Routine Myalgia and Ordered: Therapy myositis, 10/25/2013 unspecified Cervico-occipital neuralgia of the right side documented as of this encounter Procedures Procedure Name Priority Date/Time Associated Diagnosis Comme nts TRIGGER POINT Routine 10/25/2013 5:50 PM Myalgia and Results for this INJECTION - 1 OR 2 EST myositis, procedure are in MUSCLES unspecified the results section. documented in this encounter Results TRIGGER POINT INJECTION - 1 OR 2 MUSCLES (10/25/2013 5:50 PM EST) Narrative Luis Martinez APRN - 10/25/2013 5:50 PM EST Luis Martinez APRN ? 10/25/2013 ??5:50 PM Trigger Point Injections Date of Service: 10/25/2013 Patient: ?Paul Bradley ?? MRN: ??[id number] ?? 1970 ?? 43 y.o. ??male Provider: ?LUIS MARTINEZ APRN Mr. Paul Bradley ??has been [facility] o the [facility] for treatment of right occipital neuralgia and thoracic back pain localized to the lower Trapezi us on the right side. ??He reports that this pain worsens whenever he bends over to pick something up, and shoots from below his right shoulder blade to his neck musculature. Physical Examination: Filed Vitals: 10/25/13 0758 BP: 123/103 Pulse: 82 Some distress, appearing uncomfortable w ith photophobia and tripodding in chair. ??Appropriate affec t. Upon palpation of the Trapezius trigger point, there is a reproduction of the patient's pain. Procedure Mr. Bradley was interviewed and examined. ??The risks and benefits were explained including but not limited to bleeding, infection, worsening of the pain, damage to the are a being injected, weakness, allergic reaction to medicatio ns, vascular injection, and nerve damage. ??All questions were a nswered. ??Informed consent was signed and time out was performed NORBERT Montero. The area of the trigger point was identi fied and the skin prepped with alcohol and the alcohol allowed to dry. Next, a 27 gauge 1.5 inch needle was placed in the area of th e trigger point. Once reproduction of the pain was elicited an d negative aspiration confirmed, the trigger point was injecte d and the needle removed. The patient tolerated the procedure well and there were no apparent complications. There were no changes in motor or sensor y exam or respiratory effort. Medication used: ??5 ml of bupivacaine 0 .5% Trigger points injected: ??1 Trigger point(s) location(s): ??Right can b-scapular region in the Trapezius Assessment and Plan: ~ ??Repeat prn after 4 weeks LUIS MARTINEZ APRN Procedure Note Luis Martinez APRN - 10/25/2013 5:37 PM EST Trigger Point Injections Date of Service: 10/25/2013 Patient: Paul Bradley 1970 43 y.o. male Provider: LUIS MARTINEZ APRN Mr. Paul Bradley has been [facility] for treatment of right occipital neuralgia and thoracic back pain localized to the lower Trapezius on the right side. He reports that this pain worsens whenever he bends over to pick something up, and shoots from below his right shoulder blade to his neck musculature. Physical Examination: Filed Vitals: 10/25/13 0758 BP: 123/103 Pulse: 82 Some distress, appearing uncomfortable w ith photophobia and tripodding in chair. Appropriate affect. Upon palpation of the Trapezius trigger point, there is a reproduction of the patient's pain. Procedure Mr. Bradley was interviewed and examined. The risks and benefits were explained including but not limited to bleeding, infection, worsening of the pain, damage to the area being injected, weakness, allergic reaction to medications, vascular injection, and nerve damage. All questions were answered. Informed consent was signed and time out was performed with NORBERT Montero. The area of the trigger point was identi fied and the skin prepped with alcohol and the alcohol allowed to dry. Next, a 27 gauge 1.5 inch needle was placed in the area of the trigger point. Once reproduction of the pain was elicited and negative aspiration con firmed, the trigger point was injected and the needle removed. The patient tolerated the procedure well and there were no apparent complications. There were no changes in motor or sensor y exam or respiratory effort. Medication used: 5 ml of bupivacaine 0.5 % Trigger points injected: 1 Trigger point(s) location(s): Right sub- scapular region in the Trapezius Assessment and Plan: ~ Repeat prn after 4 weeks LUIS MARTINEZ APRN Dino Mccabe MD NEUROLOGY ORDERABLES documented in this encounter Visit Diagnoses Diagnosis Myalgia and myositis, unspecified - Prim renetta Mylagia and myositis, unspecified Cervico-occipital neuralgia of the right side Other syndromes affecting cervical regio n Occipital neuralgia Other syndromes affecting cervical regio n documented in this encounter Administered Medications Inactive Administered Medications - up to 3 most recent administrations Medication Order MAR Action Action Date Dose Rate Site BUpivacaine (PF) (MARCAINE) 0.5 % Given 10/25/2013 5:37 PM EST 2 5 mg (5 mg/mL) injection 25 mg 25 mg, Intramuscular, ONCE, 1 dose, On 10/25/13 at 0900, Routine documented in this encounter Care Teams It Applications Manager Relationship Specialty Start Date End Date Jackelin Paniagua PA PCP - General 07/20/12 01/23/16 documented as of this encounter
--- OUTSIDE RECORDS SUMMARY | 2022-06-07 01:47 | XMS_ITS | Encounter Summary ---
:1970 [place] [address] Care Team Providers Name Role Phone Jackelin Paniagua Primary Care Provider Encounter Details Date Type Department Care Team Description 01/25/2014 [facility] [place] [address] PAIN CLINIC [phone] [place] [phone] (Wo rk) Social History Tobacco Use Types Packs/Day Years Used Date Current Every Day Smoker Cigarettes 1 20 Smokeless Tobacco: Never Used Comments: Contemplation stage but not re cyndee to quit yet Alcohol Use Standard Drinks/Week Comments Yes 0.8 (1 standard drink = 0.6 oz pure alco hol) Sex Assigned at Date Recorded Not on file documented as of this encounter Progress Notes Aurelia Genao DO - 01/25/2014 9:16 AM EDT Urine Drug Screen is CONSISTENT with confirmation as collected on 01/18/14. AURELIA GENAO DO, MPH ABPMR-subspecialty board certification in Pain Medicine Attending Physician-Pain Management documented in this encounter Plan of Treatment Not on filedocumented as of this encounter Visit Diagnoses Not on filedocumented in this encounter Care Teams Silk Screener Relationship Specialty Start Date End Date Jackelin Paniagua PA PCP - General 07/20/12 01/23/16 documented as of this encounter
--- OUTSIDE RECORDS SUMMARY | 2022-06-07 01:47 | XMS_ITS | Encounter Summary ---
:1970 Author Organization [facility] [place] [address] Care Team Providers Name Role Phone Jackelin Paniagua Primary Care Provider Reason for Referral Occupational Medicine (Routine) - Closed, reminder in system Specialty Diagnoses / Procedures Referred By Contact Refer red To Contact Occupational Medicine Diagnoses Bilateral occipital neuralgia Aurelia Genao DO Huyck, Karen L, MD [facility] [address] [place] [address] [place] [address] Phone: Fax: Referral ID Status Reason Start Expiration Visits Visits Date Date Requested Authorized [id number] Closed, Consult, 02/22/2014 08/21/2014 1 1 reminder in Test & system Treat Rehabilitation (Routine) - Closed Specialty Diagnoses / Procedures Referred By Contact Refer red To Contact Orthopaedics Diagnoses Bilateral occipital neuralgia Aurelia Genao DO [facility] [place] [phone] Referral ID Status Reason Start Date Expiration Date Visits V isits Requested Authorized [id number] Closed Consult, 02/22/2014 08/21/2014 1 1 Test & Treat Reason for Visit Reason Comments Pain Management Back Pain Cervicalgia Encounter Details Date Type Department Care Team Description 02/22/2014 Follow-Up Pain Management at Aurelia Genao DO Encounter for long-term (current) use of other medications (Primary Dx); [facility] Bilateral occipital neuralgi a [facility] [place] [phone] [place] [address] [phone] (Wo rk) Social History Tobacco Use Types [...] Sign Reading Time Taken Comments Blood Pressure 148/102 02/22/2014 8:27 AM EDT Pulse 85 02/22/2014 8:27 AM EDT Temperature - - Respiratory Rate - - Oxygen Saturation 99% 02/22/2014 8:27 AM EDT Inhaled Oxygen Concentration - - Weight 147.8 kg (325 lb 12.8 oz) 02/22/2014 8:27 AM EDT Height 177.8 cm (5' 10) 02/22/2014 8:27 AM EDT Body Mass Index 46.75 02/22/2014 8:27 AM EDT documented in this encounter Progress Notes Aurelia Genao DO - 02/25/2014 8:50 AM EDT Subjective: Patient ID: Paul Bradley is a 43 y.o. male.I have been requested by Dr. Paniagua for my recommendation regarding the patient's neck pain. This is Paul Bradley's follow up evaluation by our clinic. HPI He is seeing Dr. Ayala, medical psychologist, as recommended. He continues to take 800 mg of gabapentin per day.I did previously prescribe him hydromorphone and the patient states he's been out of this for 10-14 days. Review of Systems No major changes Objective: Physical Exam Constitutional: He appears well-developed and well-nourished. HENT: Head: Normocephalic. Cardiovascular: Normal rate. Pulmonary/Chest: Effort normal. Neurological: He is alert. Psychiatric: His mood appears anxious. His affect is not angry, not blunt, not labile and not inappropriate. His speech is not rapid and/or pressured, not delayed, not tangential and not slurred. He isagitated. He is not aggressive, is not hyperactive, not slowed, not withdrawn, not actively hallucinating and not combative. Thought content is not paranoid and not delusional. Cognition and memory arenot impaired. He does not express impulsivity or inappropriate judgment. He exhibits a depressed mood. He expresses no homicidal and no suicidal ideation. He expresses no suicidal plans and no homicidal plans. He is communicative. He exhibits normal recent memory and normal remote memory. He is attentive. Assessment and Plan: Encounter Diagnoses Name Primary? Encounter for long-term (current) use of other medications Yes ??? Bilateral occipital neuralgia ??? Occipital neuralgia Treatment plan After a thorough review of the history and physical examination, Mr. Bradley and I discussed the following options in detail: Recommended Diagnostic & Therapeutic modalities: 1) Physical therapy/exercise: Continue exercises as previously instructed. 2) Diagnostic testing: Urine drug screen collected and sent for confirmation as the patient is taking an opioid analgesic. 3) Interventional procedures: We once again discussed occipital nerve peripheral stimulation. 4) Medication(s): I had a long discussion with the patient about the hydromorphone. The patient has been on pain medication for quite some time and, from a functional standpoint, does not seem to be toinitiated in terms of wanting to get going with physical activity. The patient took the entire month's worth of hydromorphone in 14-18 days, which is appropriate. I did discuss this with him and his . His seems to understand and agree. I did discontinue the Hydromorphone and convertd him to tramadol today. No concerns for hydromorphone withdraw since he has been off of this medication per his history for 10-14 days. I would recommend that we avoid controlled opioid analgesics unless the patient can show that he is more functional with the opioid analgesics and without. He did discuss the risks, benefits, and indications for the tramadol. Tramadol, 50 mg, 1-2 PO [id number] PRN severe pain, #84, max of 6 per day, do not drive after use. 5) Referral(s): I referred the patient for a gap assessment. This will see if there is a gap betweenwhere he is physically right now as compared to what he needs to be to return to work. He has been quite resistant to this assessment for some time now. 6) Lab work: None recommended except for the urine drug screen Functional goals with the current and future treatment: 1) return to work 2) exercise on a daily basis 3) be active with friends and family Follow up: As needed Mr. Bradley and I reviewed all of the above recommendations using anatomical models. The patient understands the risks, benefits, and indications of these options. The patient will think about his options. Paul may also discuss these recommendations with PRITI YOUNG so that he can come to the best decision in terms of his treatment options. AURELIA GENAO DO, MPH ABPMR-subspecialty board certification in Pain Medicine Attending Physician-Pain Management documented in this encounter Plan of Treatment Scheduled Referrals Name Type Priority Associated Order Schedule Diagnoses Referral to GAP Outpatient Referral Routine Bilateral occipita l Ordered: Assessment neuralgia 02/22/2014 Referral to Outpatient Referral Routine Bilateral occipital O rdered: Occupational and neuralgia 02/22/2014 Environmental Medicine documented as of this encounter Procedures Procedure Name Priority Date/Time Associated Diagnosis Comme nts AMPHETAMINE, URINE, Routine 02/22/2014 8:30 AM Re sults for this CONFIRMATION EDT procedure are i n the results section. DRUG SCREEN WITH Routine 02/22/2014 8:30 AM Encounter for Resu lts for this CONFIRMATION, URINE EDT long-term (current) p rocedure are in (SEND OUT) use of other the results medications section. documented in this encounter Results Amphetamine, Urine Confirmation (02/22/2014 8:30 AM EDT) [facility] Method Time Signature U Amphet Conf CERNER [...] in employment-related drug testing. Test Performed by: [facility] [address], [place], [place] [address] Double Needle Operator: Narcisa Nogueira, Ph.D. Specimen Anatomical Collection Method Collection Time Receive d Time (Source) Location / / Volume Laterality Urine specimen 02/22/2014 8:30 AM 014 8:56 (specimen) EDT AM EDT Resulting Agency Comment Spec In Lab Aurelia Genao V, DO URINE ORDERABLES Performing Organization Address City/State/[place] [address] [facility] Drug Screen with Confirmation, Urine (02/22/2014 8:30 AM EDT) Component Value Ref Test Analysis Performed At [facility] Range Method Time Signature U JOSE w/Conf [...] in employment-related drug testing. Test Performed by: [place] [address] Double Needle Operator: Narcisa Nogueira, Ph.D. Specimen Anatomical Collection Method Collection Time Receive d Time (Source) Location / / Volume Laterality Urine specimen 02/22/2014 8:30 AM 014 8:56 (specimen) EDT AM EDT Resulting Agency Comment Spec In Lab Aurelia Genao V, DO URINE ORDERABLES Performing Organization Address City/State/[place] [address] [facility] documented in this encounter Visit Diagnoses Diagnosis Encounter for long-term (current) use of other medications - Primary Bilateral occipital neuralgia Other syndromes affecting cervical regio n documented in this encounter Care Teams Retail Sales Director Relationship Specialty Start Date End Date Jackelin Paniagua PA PCP - General 07/20/12 01/23/16 documented as of this encounter
--- OUTSIDE RECORDS SUMMARY | 2022-06-07 01:47 | XMS_ITS | Encounter Summary ---
:1970 Author Organization [facility] [place] [address] Care Team Providers Name Role Phone Jackelin Paniagua Primary Care Provider Encounter Details Date Type Department Care Team Description 06/08/2014 Office Visit Psychiatry and Gina Ayalamen t disorder [facility] [place], PhD with mixed anxiety and [facility] depressed mood [facility] (Primary Dx) [facility] PSYCHIATRY DEPT. [place] [phone] Social History Tobacco Use Types Packs/Day Years [...] encounter Progress Notes Gina Ayala, PhD - 06/08/2014 3:53 PM EDT Behavioral Medicine Service Individual Therapy Followup/Cognitive Behavioral Therapy-- 45 minutes Chief Complaint: coping with chronic pain S/O: Mr. Bradley reports that he had an OTF last week and found himself anxious afterward. He was concerned about the exam and what the doctor would say based on their discussion. He was able to work through the negative thoughts and reduce his worry from 50/100 to 10/100. He wrote the summary thought out on a 3X5 card to carry with him and rehearse the new thought. He identified feeling angry and guilty about the pain and will continue to work on those thoughts over the next week. He is reporting some moments of feeling focused but then feels guilty for feeling ok. In terms of his relaxation practice homework, Mr. Bradley practiced the relaxation for 2 days 2-3 times per day. His rating scores started at a 2 on a 0-10 scale and increased no more than 4 (10=very relaxed). He reported that it was difficult to find a quiet place to relax and difficult to clear his mind. He was strongly encouraged to practice every day to gain skill in this area. A: 309.28 adjustment disorder with depressed and anxious mood [facility] Psych[facility] 06/08/2014 Patient Health Questionnaire Depression 7 (Mild Depression) GAGAN-7 6 (Mild Anxiety) Mental status notable for anxious and sad mood. He reports light sensitivity so the overhead lights are turned off. P: Paul Bradley was strongly encouraged to practice the breathing retraining daily. He was encouraged to practice 3 times per day and continue working on challenging negative thoughts. Next [...] Primary documented in this encounter Care Teams Hyperion Administrator Relationship Specialty Start Date End Date Jackelin Paniagua PA PCP - General 07/20/12 01/23/16 documented as of this encounter
--- OUTSIDE RECORDS SUMMARY | 2022-06-07 01:47 | XMS_ITS | Encounter Summary ---
:1970 Author Organization [facility] [place] [address] Care Team Providers Name Role Phone Jackelin Paniagua Primary Care Provider Reason for Referral Occupational Medicine (Routine) - Closed Specialty Diagnoses / Procedures Referred By Contact Refer red To Contact Occupational Medicine Diagnoses Encounter for long-term (current) use of other medications Aurelia Genao DO [facility] Medicine 4l [facility] [address] [place] [phone] Fax: Referral ID Status Reason Start Date Expiration Date Visits V isits Requested Authorized [id number] Closed Consult, 03/22/2014 09/18/2014 1 1 Test & Treat Reason for Visit Reason Comments Pain Management Back Pain Cervicalgia Encounter Details Date Type Department Care Team Description 03/22/2014 Follow-Up Pain Management at Aurelia Genao DO Bilateral occipital neuralgia (Primary D x); [facility] Cervical disc disease with m yelopathy; [facility] Encounter for long-term (current) use of other medications [place] [address] [place] [address] [phone] (Wo rk) Social History Tobacco Use Types [...] Sign Reading Time Taken Comments Blood Pressure 117/94 03/22/2014 3:12 PM EDT Pulse 96 03/22/2014 3:12 PM EDT Temperature - - Respiratory Rate - - Oxygen Saturation 96% 03/22/2014 3:12 PM EDT Inhaled Oxygen Concentration - - Weight 148.8 kg (328 lb) 03/22/2014 3:12 PM EDT Height 177.8 cm (5' 10) 03/22/2014 3:12 PM EDT Body Mass Index 47.06 03/22/2014 3:12 PM EDT documented in this encounter Progress Notes Aurelia Genao V, DO - 03/22/2014 3:35 PM EDT Subjective: Patient ID: Paul Bradley is a 43 y.o. male. I have been requested by Dr. Paniagua for my recommendation regarding the patient's neck and head pain. This is Paul Bradley's follow up evaluation by our clinic. HPI No major changes. The patient does have his gap evaluation for 04/04/2014. The patient did see Dr. Ayala on 03/07/2014. The patient has a followup with her today. He continues on Coumadin for a previousblood clot. He is now off tramadol completely is to be seen by occupational medicine. The patient does not have a treating provider to coordinate his care through workers compensation. We discussed this and I made a referral to occupational medicine. The patient is now on Cymbalta for the past 2 weeks. He is currently taking 30 mg per day. He is getting this from his primary care physician and this is being paid for by workers compensation as it should be. The patient currently on gabapentin at 3000mg per day and states helping a little. He hasn't noticed much relief from this. The patient is now off all opioid analgesics. His does present with him today. Review of Systems No major changes Objective: Physical Exam Constitutional: He appears well-developed and well-nourished. Cardiovascular: Normal rate. Pulmonary/Chest: Effort normal. Neurological: He is alert. Psychiatric: He has a normal mood and affect. His behavior is normal. Judgment and thought content normal. Assessment and Plan: Encounter Diagnoses Name Primary? Bilateral occipital neuralgia Yes ??? Cervical disc disease with myelopathy ??? Encounter for long-term (current) use of other medications Treatment plan After a thorough review of the history and physical examination, Mr. Diallo discussed the following options in detail: Recommended Diagnostic & Therapeutic modalities: 1) Physical therapy/exercise: continue exercises as previously instructed. 2) Diagnostic testing: none recommended 3) Interventional procedures: once again discussed peripheral nerve stimulation for the occipital neuralgia. He is currently being evaluated and treated by Dr. Ayala (clinical psychologist). If cleared by psychology we may proceed forward with possible peripheral nerve stimulation. He understands this and is interested in this. 4) Medication(s): none prescribed today 5) Referral(s): occupational medicine for a treating provider. 6) Lab work: urine drug screen today. The patient had some issues with his hydromorphone (overuse) in the past and states he is off this medication now. This medication was not represcribed at his lastvisit. Functional goals with the current and future treatment: 1) to be able to return to work 2) to be able to be active with family 3) to be able to exercise on a daily basis Follow up: PRN Mr. Bradley and Mario reviewed all of the above recommendations using anatomical models. The patient understands the risks, benefits, and indications of these options. The patient will think about his options. Paul may also discuss these recommendations with PRITI YOUNG so that he can come to the best decision in terms of his treatment options. AURELIA GENAO DO, MPH [facility]subspecialty board certification in Pain Medicine Attending Physician-Pain Management documented in this encounter Plan of Treatment Scheduled Referrals Name Type Priority Associated Order Schedule Diagnoses Referral to Outpatient Referral Routine Encounter for Ordered : Occupational and long-term (current) 03/06 Environmental Medicine use of other medications documented as of this encounter Procedures Procedure Name Priority Date/Time Associated Diagnosis Comme nts DRUG SCREEN WITH Routine 03/22/2014 3:30 PM Encounter for Resu lts for this CONFIRMATION, URINE EDT long-term (current) p rocedure are in (SEND OUT) use of other the results medications section. documented in this encounter Results Drug Screen with Confirmation, Urine (03/22/2014 3:30 PM EDT) Component Value Ref Test Analysis Performed At [facility] Range Method Time Signature U JOSE w/Conf CERNER Test ? Result ?? Flag ??Uni t ?? RefValue [facility] Drug Screen, U ??Amphetamines ? Negative ? ng/mL ?? Cutoff: 500 ??Barbiturates ? Negative ? ng/mL ?? Cutoff: 200 ??Benzodiazepines ?Negative ? ng/mL ??C utoff: 200 ??Cocaine Metabolite ? Negative ? ng/mL ??Cut off: 150 ??Methadone ?Negative ? ng/mL ??Cutoff: 300 ??Opiates ?Negative ? ng/mL ??Cutoff: 300 ??Phencyclidine ?Negative ? [...] employment-related drug testing. ??Confirmation - Opiates ?? Negative ??Codeine ?Negative ? ng/mL ??<100 ??Hydrocodone ?Negative ? ng/mL ? ?<100 ??Hydromorphone ?Negative ? ng/mL ?? <100 ??Morphine ? Negative ? ng/mL ??<100 ??Oxycodone ?Negative ? ng/mL ??<100 ??Oxymorphone ?Negative ? ng/mL ? ?<100 This report is intended for use in clinical monitoring and management of patients. It is not intended for use in employment-related drug testing. Test Performed by: [facility] [address], [place] [address] [employer] Efficient Automobile Designer: Narcisa Nogueira, Ph.D. Specimen Anatomical Collection Method Collection Time Receive d Time (Source) Location / / Volume Laterality Urine specimen 03/22/2014 3:30 PM 014 3:54 (specimen) EDT PM EDT Resulting Agency Comment Spec In Lab Aurelia Genao V, DO URINE ORDERABLES Performing Organization Address City/State/[place] [id number] [facility] documented in this encounter Visit Diagnoses Diagnosis Bilateral occipital neuralgia - Primary Other syndromes affecting cervical regio n Cervical disc disease with myelopathy Intervertebral cervical disc disorder wi th myelopathy, cervical region Encounter for long-term (current) use of other medications documented in this encounter Care Teams Composition Weatherboard Applier Relationship Specialty Start Date End Date Jackelin Paniagua PA PCP - General 07/20/12 01/23/16 documented as of this encounter
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
--- OUTSIDE RECORDS SUMMARY | 2022-06-07 01:47 | XMS_ITS | Encounter Summary ---
:1970 Author Organization [facility] [address] Care Team Providers Name Role Phone Jackelin Paniagua Primary Care Provider Encounter Details Date Type Department Care Team Description 11/16/2013 Telephone Pain Management at June Ram, [place] [address] Social History Tobacco Use Types Packs/Day [...] Telephone Encounter - June Lyons, RN - 11/17/2013 7:57 AM EST Patient had called and left message on 11/16 that he needed a refill of gabapentin. He called later and gave message to senior master scheduler that said that he did not need a refill and that he was all set. documented in this encounter Plan of Treatment Not on filedocumented as of this encounter Visit Diagnoses Not on filedocumented in this encounter Care Teams Ict Business Analyst Relationship Specialty Start Date End Date Jackelin Paniagua PA PCP - General 07/20/12 01/23/16 documented as of this encounter
--- OUTSIDE RECORDS SUMMARY | 2022-06-07 01:47 | XMS_ITS | Encounter Summary ---
:1970 Author Organization [facility] [place] [address] Care Team Providers Name Role Phone Jackelin Paniagua Primary Care Provider Encounter Details Date Type Department Care Team Description 03/08/2014 Refill Pain Management at Gavi Peraza, [place] [address] Social History Tobacco Use Types Packs/Day Years [...] on filedocumented in this encounter Care Teams Gel Coater Relationship Specialty Start Date End Date Jackelin Paniagua PA PCP - General 07/20/12 01/23/16 documented as of this encounter
--- OUTSIDE RECORDS SUMMARY | 2022-06-07 01:47 | XMS_ITS | Encounter Summary ---
:1970 Author Organization [facility] [place] [address] Care Team Providers Name Role Phone Jackelin Paniagua Primary Care Provider Encounter Details Date Type Department Care Team Description 05/25/2014 Office Visit Psychiatry and Gina Ayalamen t disorder [facility], PhD with mixed anxiety and [facility] depressed mood [facility] (Primary Dx) [facility] PSYCHIATRY DEPT. [place] [phone] Social History Tobacco Use Types Packs/Day Years [...] encounter Progress Notes Gina Ayala, PhD - 05/25/2014 3:59 PM EDT Behavioral Medicine Service Individual Therapy Followup/Cognitive Behavioral Therapy-- 45 minutes Chief Complaint: coping with chronic pain S/O: Mr. Bradley reports that he is in a lot of pain today. He has an OTF schedule soon and is hopingto see Dr. Quintanilla for evaluation before that OTF. He reports ongoing difficulty with pacing his activities but states he was able to do that on some occasions. He mentions that he soon feels guilty, however, and then tends to push himself more. The session focused on cognitive therapy around anger and should statements. Mr. Bradley was able to reduce his anger from a 70/100 to a 10/100 by working through the thoughts and creating an action plan. He states that he finds it difficult not to slip back into the original negative thoughts but will try rehearsing the more helpful statements. A: 309.28 adjustment disorder with depressed and anxious mood [facility] Psychiatry 05/25/2014 Patient Health Questionnaire Depression 9 (Mild Depression) GAGAN-7 10 (Moderate Anxiety) Mental status notable for anxious and sad mood with some tearfulness. He reports light sensitivity so the overhead lights are turned off. P: Paul Bradley will monitor negative thoughts and related emotions on the forms given. Next session will focus on relaxation training. He will see Dr. Quintanilla on 06/16. RTC 1 week. documented in this encounter Plan of Treatment Not on filedocumented as of this encounter Visit Diagnoses Diagnosis Adjustment disorder with mixed anxiety a nd depressed mood - Primary documented in this encounter Care Teams Crew Leader/Control Room Operator Relationship Specialty Start Date End Date Jackelin Paniagua PA PCP - General 07/20/12 01/23/16 documented as of this encounter
--- OUTSIDE RECORDS SUMMARY | 2022-06-07 01:47 | XMS_ITS | Encounter Summary ---
:1970 Author Organization [facility] [place] [address] Care Team Providers Name Role Phone Jackelin Paniagua Primary Care Provider Reason for Referral Rehabilitation (Routine) - Declined by Patient Specialty Diagnoses / Procedures Referred By Contact Refer red To Contact Orthopaedics Diagnoses Neck pain Diana Mayfield APRN [facility] [address] [place] [phone] [place] [address] Referral ID Status Reason Start Expiration Visits Visits Date Date Requested Authorized [id number] Declined by Consult, 04/04/2014 10/01/2014 1 1 Patient Test & Treat hysical Therapy (Routine) - Closed Specialty Diagnoses / Procedures Referred By Contact Refer red To Contact Physical Therapy Diagnoses Neck pain Diana Mayfield APRN [facility] [place] [address] [place] [address] Referral ID Status Reason Start Date Expiration Date Visits V isits Requested Authorized [id number] Closed Evaluate and 04/04/2014 10/01/2014 1 1 Treat Reason for Visit Reason Comments Back And Neck Pain Encounter Details Date Type Department Care Team Description 04/04/2014 Follow-Up Spine Center at Diana Mayfield Neck pa in (Primary Dx); [place] Cervical disc disease with myelopathy [address] [facility] [address] [place] [phone] PAIN MEDICINE [phone] [place] 0375 (Wo rk) Social History Tobacco Use [...] documented as of this encounter Progress Notes Diana Mayfield APRN - 04/04/2014 2:36 PM EDT CHIEF COMPLAINT: Neck pain, right upper extremity, right lower extremity pain, occipital pain, and headaches. 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 He was injured at work when he fell on the ice in 11/18/2012. Since then he has had back, neck, arm, and leg pain. He underwent a cervical fusion by Dr. Dione France that did lessen some of his symptoms, but he is still left with particularly headaches and pain when he tries to work or exercise. He has tried a number of different therapies including the fusion, radiofrequency, physical therapy, craniosacral therapy, TENS unit, CBT, and pool therapy. The CBT does seem to be helping. He was considered or recommended to try a spinal cord stimulator, but he is absolutely not sure that he wants to have it implanted in his body and has resisted that. He is a little frustrated with his care because he feels like he is getting different answers from different people. We did discuss this at length today. OBJECTIVE: His neurological exam is notable for decreased sensation in the right lateral thigh and bilaterally in the left two ulnar digits. He has slightly brisk reflexes at the knees. He has two beats of clonus on the right and none on the left. There was no Abby and Babinski's with downgoing toes. We reviewed his MRI of his cervical and thoracic spine and it looks like his spinal cord has been adequately decompressed and there does not appear to be any pressure on the spinal cord in the thoracic spine. ASSESSMENT: Chronic neck and back pain, occipital headaches, status post cervical fusion. PLAN: We had a lengthy discussion about what FRP consists of and what we would be able to help him with. He has not been thoroughly understanding of this at this point. He did watch the video, however. At first, he was thinking it was not something that he would like to pursue, however, after our discussion he is actually quite interested in this. He would like to come back after he has had a chance to walk. He understands what he needs to do to meet the entry criteria and he would like to also have a chance to think about what he would like his goals to be. So, I set him up for a one and one consultation with Mr. Garibay for some exercise tolerance activities and in the meantime I have spoken to him about a walking program. I would like to see him for a repeat GAP in four weeks. All questions were answered. documented in this encounter Plan of Treatment Scheduled Referrals Name Type Priority Associated Order Schedule Diagnoses Referral to Physical Outpatient Referral Routine Neck pain Ordered: Therapy 04/04/2014 Referral to GAP Outpatient Referral Routine Neck pain Order ed: Assessment 04/04/2014 documented as of this encounter Visit Diagnoses Diagnosis Neck pain - Primary Cervicalgia Cervical disc disease with myelopathy Intervertebral cervical disc disorder wi th myelopathy, cervical region documented in this encounter Care Teams Hemming And Tacking Machine Operator Relationship Specialty Start Date End Date Jackelin Paniagua PA PCP - General 07/20/12 01/23/16 documented as of this encounter
--- OUTSIDE RECORDS SUMMARY | 2022-06-07 01:47 | XMS_ITS | Encounter Summary ---
:1970 Author Organization [facility] [place] [address] Care Team Providers Name Role Phone Jackelin Paniagua Primary Care Provider Encounter Details Date Type Department Care Team Description 04/28/2014 Office Visit Psychiatry and Gina Ayalamen t disorder [facility], PhD with mixed anxiety and [facility] depressed mood [facility] (Primary Dx) [facility] PSYCHIATRY DEPT. [place] [phone] Social History Tobacco Use Types Packs/Day Years [...] encounter Progress Notes Gina Ayala, PhD - 04/28/2014 2:32 PM EDT Behavioral Medicine Service Individual Therapy Followup/Cognitive Behavioral Therapy-- 45 minutes Chief Complaint: coping with chronic pain S/O: Mr. Bradley reports that he had the GAP assessment and was concerned about it because he feels he is already pushing himself physically and not making progress. The session focused on discussing cognitive therapy around pain. Mr. Bradley states that he feels angry and scared much of hte time related to pain and function. He has difficulty accepting the injury. He did not write down examples of negative thoughts but reports that he frequently is having negative thoughts about himself and worries about what others think about him. A: 309.28 adjustment disorder with depressed and anxious mood [facility] Psychiatry 04/28/2014 Patient Health Questionnaire Depression 14 (Moderate Depression) GAGAN-7 9 (Mild Anxiety) Mental status notable for anxious and edgy mood. Some difficulty concentrating on discussion due to pain. He reports light sensitivity so the overhead lights are turned off. P: Palu Bradley will monitor negative thoughts and related emotions on the forms given. Next session will focus on applying cognitive therapy to the examples he brings to session as well as relaxation training. RTC 1 week. documented in this encounter Plan of Treatment Not on filedocumented as of this encounter Visit Diagnoses Diagnosis Adjustment disorder with mixed anxiety a nd depressed mood - Primary documented in this encounter Care Teams Meat Carrier Relationship Specialty Start Date End Date Jackelin Paniagua PA PCP - General 07/20/12 01/23/16 documented as of this encounter
--- OUTSIDE RECORDS SUMMARY | 2022-06-07 01:47 | XMS_ITS | Encounter Summary ---
:1970 Author Organization [facility] [place] [address] Care Team Providers Name Role Phone Jackelin Paniagua Primary Care Provider Encounter Details Date Type Department Care Team Description 03/22/2014 Office Visit Psychiatry and Gina Ayalamen t disorder Behavioral [facility] at [place], PhD with mixed anxiety and [facility] depressed mood [facility] (Primary Dx) [facility] PSYCHIATRY DEPT. [place] [phone] Social History Tobacco Use Types Packs/Day Years [...] encounter Progress Notes Gina Ayala, PhD - 03/22/2014 3:58 PM EDT Behavioral Medicine Service Individual Therapy Followup/Cognitive Behavioral Therapy-- 45 minutes Chief Complaint: coping with chronic pain Dr. Dinero, a pain fellow, was present in the session with the patient's permission. S/O: Mr. Bradley reports that he saw Dr. Anthony today and plans to work with his PCP to reduce the neurontin. He has been feeling too sedated with the medication at the current dose. Mr. Bradley reports that he started Cymbalta 2 weeks ago and did feel like it was helping his mood. He has a GAP assessmenton 04/04 and has been referred to [facility]. The session focused on applying cognitive therapy to the example he brought to session. Mr. Bradley reports guilt/shame related to his functional limitations and reports the thought I am useless frequently. He was able to state what he valued in other people such as honesty, humor, and family appreciation. A: 309.28 adjustment disorder with depressed and anxious mood myD-H Psychiatry 03/22/2014 Patient Health Questionnaire Depression 12 (Moderate Depression) GAGAN-7 10 (Moderate Anxiety) VR12 - Physical Component Summary 25.5 VR12 - Mental Component Summary 27.64 Mental status notable for anxious and edgy mood. Some difficulty concentrating on discussion due to pain. He reports light sensitivity so the overhead lights are turned off. P: Paul Bradley will continue to monitor negative thoughts and related emotions on the forms given. Next session will focus on applying cognitive therapy to the examples he brings to session. RTC 3 weeks due to this author's schedule. documented in this encounter Plan of Treatment Not on filedocumented as of this encounter Visit Diagnoses Diagnosis Adjustment disorder with mixed anxiety a nd depressed mood - Primary documented in this encounter Care Teams Brokerage Office Manager Relationship Specialty Start Date End Date Jackelin Paniagua PA PCP - General 07/20/12 01/23/16 documented as of this encounter
--- OUTSIDE RECORDS SUMMARY | 2022-06-07 01:47 | XMS_ITS | Encounter Summary ---
:1970 Author Organization [place] [address] Care Team Providers Name Role Phone Jackelin Paniagua Primary Care Provider Reason for Visit Reason Comments Neck Pain Encounter Details Date Type Department Care Team Description 04/05/2014 Office Visit [facility] at Dada Garibay , PT [facility] [place] [address] Chronic neck pain [place] Diana Mayfield, OPERATIONS SUPERVISOR CHEMICAL CLEANING [facility] [place] [address] (Primary Dx) [facility] Hayes Anthony V, [facility] [address] [place] [address] Social History Tobacco Use Types Packs/Day Years Used Date Current Every Day Smoker Cigarettes 1 20 Smokeless Tobacco: Never Used Comments: Contemplation stage but not re cyndee to quit yet Alcohol Use Standard Drinks/Week Comments Yes 0.8 (1 standard drink = 0.6 oz pure alco hol) Sex Assigned at Date Recorded Not on file documented as of this encounter Progress Notes Dada Garibay, PT - 04/05/2014 9:09 AM EDT SPINE CENTER PHYSICAL THERAPY VISIT Mr. Bradley returns for consult in follow up to his recent GAP Evaluation and Medical Clearance visit. Please refer to those encounters for additional history and functional recovery goal details. He iss/p 2012 C4-C6 fusion. Presents today with continued interest in FRP participation, but remains skeptical about the chances of it being effective for him. Chief complaint: Neck, right upper extremity, and headache pain with sensory loss in both upper extremities, weakness in the right upper extremity, light sensitivity and nausea. Worse with: Sitting, walking, turning head. Better with: Nothing in particular. Functional recovery goals: Use weed-ave for 60 minutes at a time every 2 weeks, do outdoor choreson consecutive days as needed, lift and paddle kayak, walk up to 2 miles at a time. Uncertain regarding vocational goal. Current exercise routine: Pool therapy x 2 days per week. Walks 30 minutes daily with 2 breaks usually required during. Alternating side bend active range of motion exercises throughout the day. Gait: Moderately forward flexed, slow pace. Seated active screening: Straight leg raises are full. Shoulder flexion right 160, left 150 degrees. UE Strength Right Left Shoulder abduction 4/5 5/5 Elbow flexion 4/5 5/5 Elbow extension 5/5 5/5 Wrist ulnar deviation 5/5 5/5 Finger abduction 5/5 5/5 Cervical spine: Sits with moderate forward head posture. AROM (degrees) flexion 35, extension 25, rotation right 40, rotation left 40, side bend right 20, side bend left 30. LE Strength Right Left Hip flexion 4/5 5/5 Knee extension 4/5 5/5 Dorsiflexion 4/5 4/5 Hallux extension 4/5 5/5 Plantarflexion 3-/5 3/5 Lumbar spine: Stands with mild forward flexed posture. AROM (degrees) forward bend 75, backward bend3. Repeated movement testing During, After Pre-test pain sitting neck Protrusion increased, worse Retraction increased, worse Additional tests: Alternating mid range side bends with no adverse effects. Assessment: Some specific functional goals but still unclear regarding vocational plan. Plan: Recommended continued pool therapy. Outlined plan for twice daily walking progression starting at 15minutes and working toward 30 minutes continuous each session over the next 4 weeks. Agreed that he will continue his alternating side bend strategies at least 10 repetitions x 3 sessions per day. Asked that he write down 2 specific types of work that he would like to prepare for, also that he list the basic physical demands of each to help with goal setting next visit. Knows to discontinue any movement or activity that causes true worsening or peripheralization of symptoms. Length of visit: 60 minutes spent in consult with Mr. Bradley, testing then outlining specific exercise strategies accordingly. documented in this encounter Plan of Treatment Not on filedocumented as of this encounter Visit Diagnoses Diagnosis Chronic neck pain - Primary Cervicalgia documented in this encounter Care Teams Shoe Dresser Relationship Specialty Start Date End Date Jackelin Paniagua PA PCP - General 07/20/12 01/23/16 documented as of this encounter
--- OUTSIDE RECORDS SUMMARY | 2022-06-07 01:47 | XMS_ITS | Encounter Summary ---
:1970 Author Organization [place] [address] Care Team Providers Name Role Phone Jackelin Paniagua Primary Care Provider Reason for Visit Reason Comments Back Pain Head, neck, back Encounter Details Date Type Department Care Team Description 06/16/2014 Office Visit Occupational Medicine Waleska Quintanilla, Rafat sagastume related injury; at [facility] Adjustment reaction with anxiety and dep [place] [phone] OCCUPATIONAL [phone] MEDICINE [place] [phone] Social History Tobacco Use Types Packs/Day Years [...] encounter Progress Notes Waleska Quintanilla MD - 06/17/2014 5:15 PM EDT [facility] OCCUPATIONAL AND ENVIRONMENTAL MEDICINE INITIAL VISIT Date of injury: 11/18/2012 Date of intake: 06/17/2014 Employer: [employer] Work status: Out of work Reason for Visit: Mr. Bradley is a 44-year-old male whom I am seeing in consultation for Dr. Hayes Anthony regarding a work injury from a fall on ice. He states that his goals for the visit are: I want the pain to go away. I don't want headaches anymore. My neck always feels like there's a football in it. The reason for referral from Dr. Anthony was to establish Mr. Bradley with a primary treating occupational medicine provider, as he primarily is being followed by specialists. History of Present Illness: Mr. Bradley gives the following history. History was also reviewed in themedical record. On the date of injury, Mr. Bradley slipped on ice while making a delivery, hitting his head and upper back. Prior to this, in October,, he also had a fall on ice with concussion andloss of consciousness. He reports that he sustained cervical fractures during that fall and went on to have a C3 to C6 fusion in June, with Dr. France for cervical myelopathy with good results and had returned to light duty work. He states that he was about to be released from light duty when the second fall occurred. He states he did not have any post-concussive symptoms after the first head injury.The first head injury was not work-related. For this injury, he states that he initially had a CT of the head and neck at [facility]. He reports that Dr. France, his neck surgeon, was consulted by phone but he does not recall a visit with her. Gala was followed by his PCP. Symptoms increased, and he was referred to Pain Management at [facility]. He has been followed there since that time for medication management and injections. He underwent a cervical medial branch block at right C3 to C6 in June, with good results and went on to have a right RFA from C2 to C6 in July 2013, which he said was not beneficial. He has undergone two bilateral greater occipital nerve blocks in September, and November,. He reports extremely good, but transient relief of his headaches with these. The option of an occipital nerve stimulator was posed. He also had trigger point injections in the left trapezius. He had a GAP assessment for the [facility] and was found to have a physical capacity below sedentary . He also initiated cognitive behavioral therapy for diagnosis of adjustment disorder with depression and anxiety, which he finds helpful. The implantable anesthesia committee found that he was not a candidate for occipital nerve stimulation. He reports having had a recent OTF with Dr. Abhijit Little about two weeks ago and states that Dr. Little suggested to him that he see Dr. Camacho, who I explained is my colleague here at Occupational Medicine. OTF report is not available today. He states his nurse welfare case worker is June Medel, and he has established legal secretary with [employer]. He states that he is currently working with Vocational Rehab. Current Symptoms: 1. He reports headaches are most bothersome. They range from 2 to 8 out of 10 and are worse with upper body activity. Nothing specifically makes them better. They start in the right occiput and radiate up the back of the head and over [...] the fusion and goesup to his head. 3. He also reports upper back pain that is constant and ranges from 1 to 5 out of 10 in intensity, worse with activity. Nothing specifically makes it better. He does not note any particular changes in his handwriting. He does have some difficulty buttoning buttons. He does not notice specifically dropping things, but does say he has decreased strength in the right arm so does not rely on this arm for carrying. He does note disequilibrium and finds himself following pagan whenever he can. He has had no regular falls, but did fall recently getting off a stepladder. The reports that his gait disturbance has been worse in the last few months. Current Function: He states he does not need assistance with daily activities. He is not using an assistive device, other than holding onto pagan when he walks. He does his own self-care. 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 He states he is very slow when doing dishes and lawn care. He states that he does some errands. He states laundry and house cleaning aggravates his symptoms. He states he can stand for one hour, sit for three hours,and walk for 15 minutes. He states he cannot walk a city block at a reasonable pace without stopping. He also feels that his activity is limited by his breathing and COPD. 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 He last worked in November,. He has been out of work since the injury. Current Treatment: He reports doing craniosacral therapy, PT, and pool therapy. He is also taking medications as below. Past Medical History Diagnosis Date ??? Spinal [...] brow 2013 Left Past Surgical History Procedure Date ??? Cervical fusion 2011 C3-6 ??? Cholecystectomy 2012 ??? Appendectomy 1985 Current Outpatient Prescriptions on File Prior to Visit Medication Sig Dispense Refill ??? DULoxetine (CYMBALTA) 30 mg capsule Take [...] the lungs every 6 hours as needed. Allergies Allergen Reactions ??? Sulfa (Sulfonamide Antibiotics) CIS - Rash ??? Morphine Non-responder to Morphine Social History: He smokes one pack per day and has for 25 years. He states he has never sought treatment for drug or alcohol problem. He has completed school through senior in high school. He reports no learning disabilities or other troubles in school. Family Medical History: Diabetes, DVTs, arthritis, obesity, and asthma. Review of Systems: As above and difficulty breathing from his COPD. Physical Exam: Mr. Bradley is alert and pleasant, in no acute distress. Exam today does not show any exaggerated pain behaviors. He has a narrow-based gait. He sits with his head slightly tilted to the left. Axial compression is negative. He has decreased active cervical range of motion, particularly side bending and lateral rotation. Spurling is negative bilaterally but cervical ROM is limited. He has well-healed surgical scars consistent with his cervical fusion. He is tender to palpation over the T1 to approximately T5 or 6 spinous processes and in the right lateral musculature with a very focal exquisitely tender trigger point in that area. Palpation of the cervical vertebrae and cervical muscular feels good to him, and he states that massage is very comforting. He is tender to palpation over the bilateral AC joint and bilateral biceps tendons. He has good active shoulder range of motion bilaterally. His upper extremity motor strength is quite good. He has normal upper extremity sensation topinprick bilaterally. Upper extremity reflexes are 2 to 3+ bilaterally and symmetric. He does have apositive Abby's bilaterally. Babinski is downgoing. He is vascularly intact. Diagnostic studies: Most recent imagining in the system is an MRI of the cervical and throracic spine dated 12/24/2012. There is a focus of myelopathic change at about C4-5 that is interpreted as unchanged from his prior study after the first injury. Imaging is of extremely poor quality secondary to body habitus and also this [facility]. I reviewed his images with spine orthopedics.There is bilateral narrowing at C7-T1 that could explain his symptoms. Repeat imaging would be needed to fully visualize this. Assessment: Mr. 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 1. Headaches. These appear to be a combination of cervicogenic, posttraumatic, and occipital neuralgia.. 2. Neck and upper back pain. He does have clinical signs of myelopathy with evidence of myelopathic changes on cervical MRI that appear to be unchanged from his previous injury in 2012 although image quality is poor. Alternatively, Steiner sign could be from centrally acting medications vs myelopathy,and disequilibrium could be from the head injury. More importantly, per Spine Ortho, he does have something going on at C7-T1 on [...] ago, and, again, the image quality is extremely poor. In addition, it appears that he has not had a spine surgery evaluation since the above injury. Recommendations: We discussed next steps in detail. Given the duration of time since his injury, complicated by adjustment disorder and comorbidities, Tono going to outline some treatment options to be discussed with Dr. Anthony while we await Dr. Little's assessment through his OTF report. In terms of the neck and upper back, given the findings in the 2013 MRI at C7-T1 which could correlate with his ongoing neck and upper back symptoms, it is medically appropriate to update the cervical and thoracic imaging. This should be done at (not [facility]), and I would recommend that these images then be reviewed by spine orthopedics and an evaluation scheduled with spine orthopedics if indicated. When he is cleared with respect to [...] certainly consistent with studies of headache-related disability. ST surface electrode treatment is a noninvasive way to treat chronic neuropathic pain with a recent 2012 randomized controled trial (Magdao, 2012) showing clinically significant decrease in pain [...] Any other pain medications would be weaned duringthe treatment. I do not see a role for ongoing injections at this given good but transient response that is not translating into functional gains, however, I defer to Dr. Anthony's expertise and historical perspective on this. He should certainly continue with vocational rehab as he does express a desire to get back to work. I think his recovery is also complicated by his comorbidites (especially his COPD and his breathing is probably worse from inactivity) and his adjustment disorder, the depressive features of which are li paulie interfering with optimism and motivation. I think it would be beneficial if he continued to work on these functional goals and his adjustment disorder with Dr. Ayala. In addition, cardiopulmonary rehabilitation after treatment plan is established would support return to work. Dr. Anthony, Thank you for this consultation. Once you review this note, please let me know if you and the patient would like me to follow as the primary occupational medicine physician for this injury. As always, please do not hesitate to call me with any questions or if additional information is needed. 45 minutes of this 60 minute visit were spent discussing diagnosis, treatment, and work capacity using a shared decision making approach. documented in this encounter Plan of Treatment Not on filedocumented as of this encounter Visit Diagnoses Diagnosis Work related injury Injury, other and unspecified, unspecifi ed site Adjustment reaction with anxiety and dep ression Adjustment disorder with mixed anxiety a nd depressed mood documented in this encounter Care Teams Senior Product Engineer Relationship Specialty Start Date End Date Jackelin Paniagua PA PCP - General 07/20/12 01/23/16 documented as of this encounter
--- OUTSIDE RECORDS SUMMARY | 2022-06-07 01:47 | XMS_ITS | Encounter Summary ---
:1970 Author Organization [facility] [place] [address] Care Team Providers Name Role Phone Jackelin Paniagua Primary Care Provider Reason for Visit Reason Onset Date Comments Other 02/22/2014 Encounter Details Date Type Department Care Team Description 02/22/2014 Telephone Spine Center at [facility] She [place] [address] Social History Tobacco Use Types Packs/Day [...] this encounter Miscellaneous Notes Telephone Encounter - She Mcginnis MSW - 02/22/2014 12:38 PM EDT OFFICE OF CARE MANAGEMENT CCM Update to patient's [facility] June Medel, RN, BSN Office of State Employee Workers??? Compensation and Injury Preventiom PH: / FAX: [email or web address] for further needs pending medical outcomes. documented in this encounter Plan of Treatment Not on filedocumented as of this encounter Visit Diagnoses Not on filedocumented in this encounter Care Teams Brokerage Coordinator Relationship Specialty Start Date End Date Jackelin Paniagua PA PCP - General 07/20/12 01/23/16 documented as of this encounter
--- OUTSIDE RECORDS SUMMARY | 2022-06-07 01:47 | XMS_ITS | Encounter Summary ---
:1970 Author Organization [facility] [place] [address] Care Team Providers Name Role Phone Jackelin Paniagua Primary Care Provider Encounter Details Date Type Department Care Team Description 02/23/2014 Telephone Pain Management at June [place], [place] [phone] Social History Tobacco Use Types Packs/Day [...] Telephone Encounter - June Lyons, RN - 02/23/2014 5:12 PM EDT duplicate documented in this encounter Plan of Treatment Not on filedocumented as of this encounter Visit Diagnoses Not on filedocumented in this encounter Care Teams Metal Engineering Process Worker Relationship Specialty Start Date End Date Jackelin Paniagua PA PCP - General 07/20/12 01/23/16 documented as of this encounter
--- OUTSIDE RECORDS SUMMARY | 2022-06-07 01:47 | XMS_ITS | Encounter Summary ---
:1970 Author Organization [facility] [address] Care Team Providers Name Role Phone Jackelin Paniagua Primary Care Provider Encounter Details Date Type Department Care Team Description 05/23/2014 Notes Only Pain Management [place] [address] Social History Tobacco Use Types Packs/Day [...] this encounter Progress Notes Emili Landry - 05/23/2014 6:06 PM EDT Paul Bradley :1970 As follows are results of [facility] for trial and implantation ofOccipital Nerve Stimulator. The Analgesic Implantation Committee is attended by Pain Medicine and Behavioral Medicine Specialists. Mr. Bradley was not approved by the Analgesic Implantation Committee to proceed to trial and implantation for above named procedure. Mr. Bradley received 10 POOR votes. Notes from meeting include: Review in July after therapy. This note has been transcribed by: Geeta Landry Senior Clinical [facility] documented in this encounter Plan of Treatment Not on filedocumented as of this encounter Visit Diagnoses Not on filedocumented in this encounter Care Teams Trauma Counsellor Relationship Specialty Start Date End Date Jackelin Paniagua PA PCP - General 07/20/12 01/23/16 documented as of this encounter
--- OUTSIDE RECORDS SUMMARY | 2022-06-07 01:47 | XMS_ITS | Encounter Summary ---
:1970 Author Organization [facility] [place] [address] Care Team Providers Name Role Phone Jackelin Paniagua Primary Care Provider Encounter Details Date Type Department Care Team Description 03/07/2014 Office Visit Psychiatry and Gina Ayalamen t disorder Behavioral Health at [place], PhD with mixed anxiety and [facility] depressed mood [facility] (Primary Dx) [facility] PSYCHIATRY DEPT. [place] [phone] Social History Tobacco Use Types Packs/Day Years [...] encounter Progress Notes Gina Ayala, PhD - 03/07/2014 8:52 AM EDT Behavioral Medicine Service Individual Therapy Followup/Cognitive Behavioral Therapy-- 45 minutes Chief Complaint: coping with chronic pain S/O: Mr. Bradley reports that his pain has increased since stopping the pain medications. His averagepain is rated at 4-5/10 with more frequent headaches.The session focused on introducing cognitive therapy. Mr. Bradley acknowledges frequent worry about the future and all or nothing thinking. He alsoreports a fair amount of mind reading about what others are thinking about him. A: 309.28 adjustment disorder with depressed and anxious mood myD-H Psychiatry 03/07/2014 Patient Health Questionnaire Depression 9 (Mild Depression) GAGAN-7 5 (Mild Anxiety) Mental status notable for anxious and edgy mood. Some difficulty concentrating on discussion due to pain. He reports light sensitivity so the overhead lights are turned off. P: Paul Bradley will monitor negative thoughts and related emotions on the forms given. He was requested to return in one week but stated he could not return that soon. It was agreed that he would coordinate the next appointment with his pain clinic appointment on 03/22. Next session will focus on applying cognitive therapy to the examples he brings to session. documented in this encounter Plan of Treatment Not on filedocumented as of this encounter Visit Diagnoses Diagnosis Adjustment disorder with mixed anxiety a nd depressed mood - Primary documented in this encounter Care Teams Letterset Press Set Up Operator Relationship Specialty Start Date End Date Jackelin Paniagua PA PCP - General 07/20/12 01/23/16 documented as of this encounter
--- OUTSIDE RECORDS SUMMARY | 2022-06-07 01:47 | XMS_ITS | Encounter Summary ---
:1970 Author Organization [facility] [place] [address] Care Team Providers Name Role Phone Jackelin Paniagua Primary Care Provider Encounter Details Date Type Department Care Team Description 04/25/2014 Notes Only Pain Management [place] [address] Social History Tobacco Use Types Packs/Day [...] this encounter Progress Notes Emili Landry - 05/16/2014 4:06 PM EDT Paul Bradley :1970 As follows are results of the Analgesic Implantation Committee Meeting held on May 13, 2014, at [facility] to evaluate the above named patient for trial and implantation of Occipital Nerve Stimulator. The Analgesic Implantation Committee is attended by Pain Medicine and Behavioral Medicine Specialists. Mr. Bradley was not approved by the Analgesic Implantation Committee to proceed to trial and implantation for above named procedure. Mr. Bradley received all poor votes. Notes from meeting include: Review when Dr. Ayala is available. This note has been transcribed by: Geeta Landry Senior Clinical Logistics Team Lead Pain Management Center [facility] Emili Landry - 04/29/2014 11:23 AM EDT Mr. Bradley was on the list to be discussed at the Analgesic Implantation Committee that took place 04/25/14, however, he was not discussed. Mr. Bradley has been moved to the AIC list for May 23. documented in this encounter Plan of Treatment Not on filedocumented as of this encounter Visit Diagnoses Not on filedocumented in this encounter Care Teams Clay Hoister Relationship Specialty Start Date End Date Jackelin Paniagua PA PCP - General 07/20/12 01/23/16 documented as of this encounter
--- OUTSIDE RECORDS SUMMARY | 2022-06-07 01:48 | XMS_ITS | Encounter Summary ---
:1970 Author Organization [facility] [place] [address] Care Team Providers Name Role Phone Dangelo Ordaz MD Primary Care Provider [phone] Encounter Details Date Type Department Care Team Description 07/10/2012 Interpretation Only Radiology at [facility] Ce nter None [address] [facility] [place] [address] Social History Tobacco Use Types Packs/Day Years Used Date Never Assessed Sex Assigned at Date Recorded Not on file documented as of this encounter Plan of Treatment Not on filedocumented as of this encounter Procedures Procedure Name Priority Date/Time Associated Diagnosis Comme nts XR CERVICAL SPINE 1 Routine 07/10/2012 9:34 AM Re sults for this VIEW EDT procedure are i n the results section. documented in this encounter Results XR Cervical Spine 1 View (07/10/2012 9:34 AM EDT) Anatomical Region Laterality Modality C-spine N/A Radiographic Imaging Specimen (Source) Anatomical Collection Method Collection Time Re ceived Time Location / / Volume Laterality 07/10/2012 9:34 AM EDT Narrative 07/10/2012 9:34 AM EDT APD Historical Result Principal Retail Sales Assistant: ??ALLY ??[place] LATERAL CERVICAL SPINE: Lateral view of the cervical spine was p erformed for history of anterior spinal discectomy and osteophytectomy, cervical interspace chantel rodiscectomy, status post C4-5, C5-6 ACDF, June 12, 2012. Single lateral view of the cervical spin e was performed and demonstrates the level of C7. ?? C7/T1 is not well demonstrated. ??Back Order Clerk ior spinous processes are unremarkable. ??Anterior plate and screws bridge C4, C5, and C6. ??Intervertebral spacers noted. ??There is no subluxation. ??There are no findings for hardware failure. ??No find ings for loosening or hardware fracture. ??No findings for infection. ??Paravertebral soft tissues are within normal limits. ??No subluxation. ??Normal alignment. IMPRESSION: Exam demonstrates C7, as fly cribed above. ??Postoperative changes. ??No subluxation. Ally Ocampo MD [facility]/tamar [id number] CC: Procedure Note Unknown - 04/05/2019Formatting of this n ote might be different from the original. APD Historical Result Principal Retail Sales Assistant: ALLY OCAMPO LATERAL CERVICAL SPINE: Lateral view of the cervical spine was p erformed for history of anterior spinal discectomy and osteophytectomy, cervical interspace chantel rodiscectomy, status post C4-5, C5-6 ACDF, June 12, 2012. Single lateral view of the cervical spin e was performed and demonstrates the level of C7. C7/T1 is not well demonstrated. Posterio r spinous processes are unremarkable. Anterior plate and screws bridge C4, C5, and C6. Intervertebral sp acers noted. There is no subluxation. There are no findings for hardware failure. No findin gs for loosening or hardware fracture. No findings for infection. Paravertebral soft tissues ar e within normal limits. No subluxation. Normal alignment. IMPRESSION: Exam demonstrates C7, as fly cribed above. Postoperative changes. No subluxation. Ally Ocampo MD [facility]/tamar [id number] CC: Unknown IMG DX ORDERABLES documented in this encounter Visit Diagnoses Not on filedocumented in this encounter Care Teams Soil Expert Relationship Specialty Start Date End Date Dangelo Ordaz MD PCP - General Family Medicine 4/20/[address] [place] [address] documented as of this encounter
--- OUTSIDE RECORDS SUMMARY | 2022-06-07 01:48 | XMS_ITS | Encounter Summary ---
:1970 Author Organization [facility] [place] [address] Care Team Providers Name Role Phone Jackelin Paniagua Primary Care Provider Encounter Details Date Type Department Care Team Description 09/10/2013 Telephone Dermatology at [facility] Zeina Edgar MD [address] [facility] [place] [address] [facility] [phone] [place], [place] [address] (Wo rk) Social History Tobacco [...] this encounter Miscellaneous Notes Telephone Encounter - Zeina Hernandez MD - 09/10/2013 8:59 AM EST Paul Bradley was called on 1st day post-operatively for follow up. Mr. Bradley reports the dressingis clean, dry and intact. There is no reported drainage or signs of infection. Mr. Bradley reports good pain control. There was a brief conversation addressing the expected course, and signs of infection or other potential complications were discussed. Mr. Bradley denies any other questions or concerns at this time. Mr. Bradley is scheduled for follow up, and has been encouraged to call with any questions or concerns that arise prior to this appointment. Zeina Hernandez MD Dermatology Resident documented in this encounter Plan of Treatment Not on filedocumented as of this encounter Visit Diagnoses Not on filedocumented in this encounter Care Teams Helper Animal Laboratory Relationship Specialty Start Date End Date Jackelin Paniagua PA PCP - General 07/20/12 01/23/16 documented as of this encounter
--- OUTSIDE RECORDS SUMMARY | 2022-06-07 01:48 | XMS_ITS | Encounter Summary ---
:1970 Author Organization [facility] [place] [address] Care Team Providers Name Role Phone Jackelin Paniagua Primary Care Provider Encounter Details Date Type Department Care Team Description 05/21/2012 Orders [facility] [place] [address] [facility] [phone] [facility] [place] [phone] (Wo rk) Social History Tobacco Use Types Packs/Day Years Used Date Never Assessed Sex Assigned at Date Recorded Not on file documented as of this encounter Plan of Treatment Not on filedocumented as of this encounter Procedures Procedure Name Priority Date/Time Associated Diagnosis Comme nts FILM LIBRARY Routine 05/21/2012 10:03 AM Results for this STORAGE ONLY MR EDT procedure ar e in SPINE the results section. documented in this encounter Results Film Library- Storage only MR Spine (05/21/2012 10:03 AM EDT) Specimen (Source) Anatomical Collection Method Collection Time Re ceived Time Location / / Volume Laterality 05/21/2012 10:03 AM EDT Narrative [facility] RAD - 05/30/2014 11:01 PM EDT This is a non-reportable exam. Procedure Note Mehdi Cardenas - 05/30/2014Formatti ng of this note might be different from the original. This is a non-reportable exam. Ashleigh Stone MD IMG FILM LIBRARY ORDERA BLES Performing Organization Address City/State/ZIP Code Phon e Number RAD DH RAD [address] [facility] [place] [address] documented in this encounter Visit Diagnoses Not on filedocumented in this encounter Care Teams Cat Operator Relationship Specialty Start Date End Date Jackelin Paniagua PA PCP - General 07/20/12 01/23/16 documented as of this encounter
--- OUTSIDE RECORDS SUMMARY | 2022-06-07 01:48 | XMS_ITS | Encounter Summary ---
:1970 Author Organization [facility] [address] Care Team Providers Name Role Phone Jackelin Paniagua Primary Care Provider Encounter Details Date Type Department Care Team Description 07/01/2013 Hospital Encounter Laboratory Terrence Carson Anticoagulated [facility] [place] [address] [facility] [place] [address] Social History Tobacco Use Types Packs/Day Years [...] Sig Dispensed Refills Start Date End Date acetaminophen (TYLENOL) Take 1,000 mg by 0 500 mg tablet mouth every 6 hours as needed. warfarin (COUMADIN) 5 mg Take 10 mg by mouth 0 tablet daily. albuterol-ipratropium Inhale 2 puffs into 0 (COMBIVENT RESPIMAT) the lungs every 6 20-100 mcg/actuation hours as needed. inhaler gabapentin (NEURONTIN) 300 Take 300 mg by 0 10/25/2013 mg capsule mouth 4 times daily. traMADol (ULTRAM) 50 mg Take 100 mg by 0 09/16/2013 tablet mouth every 6 hours as needed. diaZEPam (VALIUM) 5 mg Take 5 mg by mouth 0 03/22/2014 tabletIndications: every 6 hours as Pulmonary embolism needed. Omeprazole 20 mg TbEC 0 04/13/201008/2014 documented as of this encounter Plan of Treatment Not on filedocumented as of this encounter Procedures Procedure Name Priority Date/Time Associated Diagnosis Comme nts PROTHROMBIN TIME STAT 07/01/2013 11:46 AM Anticoagulated Re sults for this EDT procedure are i n the results section. documented in this encounter Results Prothrombin Time (07/01/2013 11:46 AM EDT) P athologist Signature PT 13.4 12.0 - 15.0 CERNER sec MILLENNIUM Comment: [facility] Transfusion Committee Guidelines: I NR less than 2.0, PTT less than OR equal to 43.5 seconds, or Fibrinogen gre ater than or equal to 100 mg/dl indicate adequate procoagulant activity for hemostasis in patients without underlying bleeding disorders. INR 1.0 0.9 - 1.1 CERNER MILLENNIUM Specimen Anatomical Collection Method Collection Time Receive d Time (Source) Location / / Volume Laterality Blood specimen 07/01/2013 11:46 3 (specimen) AM EDT 11:54 AM EDT Resulting Agency Comment Spec In Lab Terrence Carson MD HEMATOLOGY ORDERABLES Performing Organization Address City/State/[place] [address] [employer] documented in this encounter Visit Diagnoses Diagnosis Anticoagulated Encounter for long-term (current) use of anticoagulants documented in this encounter Care Teams Medical Record Assistant Relationship Specialty Start Date End Date Jackelin Paniagua PA PCP - General 07/20/12 01/23/16 documented as of this encounter
--- OUTSIDE RECORDS SUMMARY | 2022-06-07 01:48 | XMS_ITS | Encounter Summary ---
:1970 Author Organization [facility] [place] [address] Care Team Providers Name Role Phone Jackelin Paniagua Primary Care Provider Encounter Details Date Type Department Care Team Description 12/11/2012 Orders Only Hematology and Oncology at [facility] Ludivina gonsalves MD [facility] Armando montesinos HEMATOLOGY/[place] [address] DEPT. [phone] [place], [place] [address] (Wo rk) Social History Tobacco Use Types Packs/Day Years Used Date Current Every Day Smoker Cigarettes 1 20 Smokeless Tobacco: Never Used Sex Assigned at Date Recorded Not on file documented as of this encounter Plan of Treatment Not on filedocumented as of this encounter Procedures Procedure Name Priority Date/Time Associated Diagnosis Comme nts FILM LIBRARY Routine 12/11/2012 9:03 AM Results f or this STORAGE ONLY CT EST procedure ar e in CHEST the results section. documented in this encounter Results Film Library- Storage only CT Chest (12/11/2012 9:03 AM EST) Specimen (Source) Anatomical Collection Method Collection Time Re ceived Time Location / / Volume Laterality 12/11/2012 9:03 AM EST Narrative [facility] - 05/26/2014 6:14 PM EDT This is a non-reportable exam. Procedure Note Mehdi Cardenas - 05/26/2014Formatti ng of this note might be different from the original. This is a non-reportable exam. Ludivina Carvajal MD [facility] [place] FILM LIBRARY ORDERABLES Performing Organization Address City/State/ZIP Code Phon e Number DH RAD DH RAD [address] [facility] [place] [address] documented in this encounter Visit Diagnoses Not on filedocumented in this encounter Care Teams Die Cast Engineer Relationship Specialty Start Date End Date Jackelin Paniagua PA PCP - General 07/20/12 01/23/16 documented as of this encounter
--- OUTSIDE RECORDS SUMMARY | 2022-06-07 01:48 | XMS_ITS | Encounter Summary ---
:1970 Author Organization [facility] [place] [address] Care Team Providers Name Role Phone Jackelin Paniagua Primary Care Provider Encounter Details Date Type Department Care Team Description 02/01/2013 External Results XRay at [place] Provider, Scanning [address] [place] [address] [place] [address] Social History Tobacco Use Types Packs/Day Years Used Date Current Every Day Smoker Cigarettes 1 20 Smokeless Tobacco: Never Used Sex Assigned at Date Recorded Not on file documented as of this encounter Plan of Treatment Not on filedocumented as of this encounter Procedures Procedure Name Priority Date/Time Associated Diagnosis Comme nts CT SCAN (SCAN) Routine 01/05/2013 documented in this encounter Results Scan Doc: CT Scan (01/05/2013) Anatomical Region Laterality Modality Other Narrative This result has an attachment that is no t available. Scanning Provider MEDIA MGR SCAN EXT ORDR/RSLT documented in this encounter Visit Diagnoses Not on filedocumented in this encounter Care Teams Automotive Heavy Mechanic Relationship Specialty Start Date End Date Jackelin Paniagua PA PCP - General 07/20/12 01/23/16 documented as of this encounter
--- OUTSIDE RECORDS SUMMARY | 2022-06-07 01:48 | XMS_ITS | Encounter Summary ---
:1970 Author Organization [facility] [place] [address] Care Team Providers Name Role Phone Jackelin Paniagua Primary Care Provider Reason for Visit Reason Onset Date Comments Other 09/16/2013 Encounter Details Date Type Department Care Team Description 09/16/2013 Telephone Spine Center at [facility] [place] [address] Social History Tobacco Use Types Packs/Day [...] Telephone Encounter - She Mcginnis MSW - 09/20/2013 12:02 PM EST OFFICE OF CARE MANAGEMENT CCM Met with patient, his in Pain Clinic at the request of Marina Martinez APRN as patient is wary toproceed with schedule GAP assessment for Functional [employer]ism not being certain he is ready' but is concerned about response from workers compensation. Support to patients concerns but education that GAP is a snapshot of physical capacities and goals and if he does not meet criteria for FRP it is simply an opportunity to see how far he is from minimum criteria and to make a treatment plan to get there. Also, reassurance that FRP is a supportive environment that while not symptom driven does take tolerance into account. Mr. Bradley elaborates he would like to be able to to sustain more activity around his house. He is working with a voc counselor but remains concerned about his tolerance for an actual work day. Mr. Bradley notes he is pleased to report he does not have legal representation and after 1 Labor Board hearing feels confident and satisfied with this workers compensation interactions. Since he is notrepresented we further discussed that FRP can help him determine what his work capacity and tolerance is or is not. But that if he is concerned he may want to proceed with SSDI as that is a 5 month timeframe minimally. He and his are beginning to discuss these longer term issues. As Mr. Bradley further worked out the risks and benefits of proceeding with Occipital injection and consideration of stimulator he decided to proceed and therefore will postpone GAP assessment until completion of these tests and treatments as is the criteria. He knows to update and that Sienna Figueroa, REED or I am available for support or advocacy if indicated. PLAN: 1) education and reassurance regarding, Goals and Physical Capacities (GAP) evaluation and FRP offered 2) brief discussion of longer term issues aroundwork capacity 3) delay of GAP while Mr. Bradley completes Pain clinic procedures. documented in this encounter Plan of Treatment Not on filedocumented as of this encounter Visit Diagnoses Not on filedocumented in this encounter Care Teams Multiple Tube Winding Machine Operator Relationship Specialty Start Date End Date Jackeiln Paniagua PA PCP - General 07/20/12 01/23/16 documented as of this encounter
--- OUTSIDE RECORDS SUMMARY | 2022-06-07 01:48 | XMS_ITS | Encounter Summary ---
:1970 Author Organization [facility] [place] [address] Care Team Providers Name Role Phone Jackelin Paniagua Primary Care Provider Encounter Details Date Type Department Care Team Description 01/04/2013 Orders Only Hematology and Oncology at [facility] Ludivina gonsalves MD [facility] Armando montesinos HEMATOLOGY/[place] [address] DEPT. [phone] [place], [place] [address] (Wo rk) Social History Tobacco Use Types Packs/Day Years Used Date Current Every Day Smoker Cigarettes 1 20 Smokeless Tobacco: Never Used Sex Assigned at Date Recorded Not on file documented as of this encounter Plan of Treatment Not on filedocumented as of this encounter Procedures Procedure Name Priority Date/Time Associated Diagnosis Comme nts FILM LIBRARY Routine 01/04/2013 9:02 AM Results f or this STORAGE ONLY CT EDT procedure ar e in ABDOMEN AND PELVIS the resul ts section. documented in this encounter Results Film Library- Storage only CT abdomen & pelvis (01/04/2013 9:02 AM EDT) Specimen (Source) Anatomical Collection Method Collection Time Re ceived Time Location / / Volume Laterality 01/04/2013 9:02 AM EDT Narrative [facility] - 05/26/2014 6:14 PM EDT This is a non-reportable exam. Procedure Note Mehdi Cardenas - 05/26/2014Formatti ng of this note might be different from the original. This is a non-reportable exam. Ludivina Carvajal MD [facility] [place] FILM LIBRARY ORDERABLES Performing Organization Address City/State/ZIP Code Phon e Number DH RAD DH RAD [address] [facility] [place] [address] documented in this encounter Visit Diagnoses Not on filedocumented in this encounter Care Teams Traffic Coordinator Relationship Specialty Start Date End Date Jackelin Paniagua PA PCP - General 07/20/12 01/23/16 documented as of this encounter
--- OUTSIDE RECORDS SUMMARY | 2022-06-07 01:48 | XMS_ITS | Encounter Summary ---
:1970 Author Organization [facility] [place] [address] Care Team Providers Name Role Phone Jackelin Paniagua Primary Care Provider Encounter Details Date Type Department Care Team Description 07/05/2013 Telephone Pain Management at [facility] [place] [address] Social History Tobacco Use Types Packs/Day [...] this encounter Miscellaneous Notes Telephone Encounter - Twila Terry RN - 07/05/2013 8:04 AM EDT Pain Management Center Temporary Anticoagulant Hold Documentation Patient: Paul Bradley [id number] Paniagua to temporarily stop Coumadin for 5 days prior to requested injection/procedure. See signed permission received from prescriber scanned into electronic record. PT/INR ordered: Yes Twila Terry RN documented in this encounter Plan of Treatment Not on filedocumented as of this encounter Results (ABNORMAL) Prothrombin Time (08/04/2013 9:51 AM EDT) athologist Signature PT 11.9 (L) 12.0 - 15.0 CERNER sec MILLENNIUM Comment: [facility] Transfusion Committee Guidelines: I NR less than 2.0, PTT less than OR equal to 43.5 seconds, or Fibrinogen gre ater than or equal to 100 mg/dl indicate adequate procoagulant activity for hemostasis in patients without underlying bleeding disorders. INR 0.8 (L) 0.9 - 1.1 CERNER MILLENNIUM Specimen Anatomical Collection Method Collection Time Receive d Time (Source) Location / / Volume Laterality Blood specimen 08/04/2013 9:51 AM 013 9:58 (specimen) EDT AM EDT Resulting Agency Comment Spec In Lab Terrence Carson MD HEMATOLOGY ORDERABLES Performing Organization Address City/State/[place] [address] CERNER MILLENNIUM documented in this encounter Visit Diagnoses Diagnosis Anticoagulated - Primary Encounter for long-term (current) use of anticoagulants documented in this encounter Care Teams Group Therapy Counselor Relationship Specialty Start Date End Date Jackelin Paniagua PA PCP - General 07/20/12 01/23/16 documented as of this encounter
--- OUTSIDE RECORDS SUMMARY | 2022-06-07 01:48 | XMS_ITS | Encounter Summary ---
:1970 Author Organization [facility] [place] [address] Care Team Providers Name Role Phone Jackelin Paniagua Primary Care Provider Encounter Details Date Type Department Care Team Description 08/04/2013 Hospital Encounter Laboratory Terrence Carson Anticoagulated [facility] [place] [address] PAIN [facility]INIC [place] [address] Social History Tobacco Use Types Packs/Day Years [...] Associated Diagnosis Comme nts PROTHROMBIN TIME STAT 08/04/2013 9:51 AM Anticoagulated Res ults for this EDT procedure are i n the results section. documented in this encounter Results (ABNORMAL) Prothrombin Time (08/04/2013 9:51 AM EDT) P athologist Signature PT 11.9 (L) 12.0 - 15.0 CERNER sec MILLENNIUM Comment: [facility] Transfusion Committee Guidelines: I NR less than [...] Organization Address City/State/[place] [address] [facility] [employer] documented in this encounter Visit Diagnoses Diagnosis Anticoagulated Encounter for long-term (current) use of anticoagulants documented in this encounter Care Teams Electrical Appliance Preparer Relationship Specialty Start Date End Date Jackelin Paniagua PA PCP - General 07/20/12 01/23/16 documented as of this encounter
--- OUTSIDE RECORDS SUMMARY | 2022-06-07 01:48 | XMS_ITS | Encounter Summary ---
:1970 Author Organization [facility] [place] [address] Care Team Providers Name Role Phone Jackelin Paniagua Primary Care Provider Encounter Details Date Type Department Care Team Description 04/27/2013 Telephone [place] [address] Social History Tobacco Use Types Packs/Day [...] Telephone Encounter - Twila Terry RN - 04/27/2013 10:47 AM EDT [facility] Temporary Anticoagulant Hold Documentation Patient: Paul Bradley [id number] Paniagua to temporarily stop Coumadin for 5 days prior to requested injection/procedure. See signed permission received from prescriber scanned into electronic record. PT/INR ordered: Yes Twila Terry RN documented in this encounter Plan of Treatment Not on filedocumented as of this encounter Results Prothrombin Time (05/26/2013 11:07 AM EDT) P athologist Signature PT 12.6 12.0 - 15.0 CERNER sec MILLENNIUM Comment: [facility] Transfusion Committee Guidelines: I NR less than 2.0, PTT less than OR equal to 43.5 seconds, or Fibrinogen gre ater than or equal to 100 mg/dl indicate adequate procoagulant activity for hemostasis in patients without underlying bleeding disorders. INR 0.9 0.9 - 1.1 CERNER MILLENNIUM Specimen Anatomical Collection Method Collection Time Receive d Time (Source) Location / / Volume Laterality Blood specimen 05/26/2013 11:07 3 (specimen) AM EDT 11:10 AM EDT Resulting Agency Comment Spec In Lab Terrence Carson MD HEMATOLOGY ORDERABLES Performing Organization Address City/State/[place] [address] [employer] [employer] documented in this encounter Visit Diagnoses Diagnosis Anticoagulated - Primary Encounter for long-term (current) use of anticoagulants documented in this encounter Care Teams Honey Producer Relationship Specialty Start Date End Date Jackelin Paniagua PA PCP - General 07/20/12 01/23/16 documented as of this encounter
--- OUTSIDE RECORDS SUMMARY | 2022-06-07 01:48 | XMS_ITS | Encounter Summary ---
:1970 Author Organization [place] [address] Care Team Providers Name Role Phone Jackelin Paniagua Primary Care Provider Encounter Details Date Type Department Care Team Description 07/01/2013 Orders Only Pain Management at Dino Garza MD [facility] [place] [address] PAIN CLINIC [phone] [place] [phone] (Wo rk) Social History Tobacco Use Types [...] Associated Diagnosis Comme nts FILM LIBRARY Routine 07/01/2013 1:50 PM Results f or this STORAGE ONLY PAIN EDT procedure are in CLINIC C ARM the results section. documented in this encounter Results Film Library-storage only pain clinic C-arm (07/01/2013 1:50 PM EDT) Specimen (Source) Anatomical Collection Method Collection Time Re ceived Time Location / / Volume Laterality 07/01/2013 1:50 PM EDT Narrative [facility] - 05/30/2014 11:01 PM EDT This is a non-reportable exam. Procedure Note Mehdi Cardenas - 05/30/2014Formatti ng of this note might be different from the original. This is a non-reportable exam. Dino Mccabe MD IMG FILM LIBRARY ORDERABLES Performing Organization Address City/State/ZIP Code Phon e Number [facility] [address] [facility] [place] [address] documented in this encounter Visit Diagnoses Not on filedocumented in this encounter Care Teams Marine Operations Coordinator Relationship Specialty Start Date End Date Jackelin Paniagua PA PCP - General 07/20/12 01/23/16 documented as of this encounter
--- OUTSIDE RECORDS SUMMARY | 2022-06-07 01:48 | XMS_ITS | Encounter Summary ---
:1970 Author Organization [facility] [place] [address] Care Team Providers Name Role Phone Jackelin Paniagua Primary Care Provider Reason for Visit Reason Comments Back Pain Encounter Details Date Type Department Care Team Description 09/23/2013 Follow-Up Pain Management at Luis Martinez [facility]ila teral [facility] Velia PIERRE neuralgia (Primary Dx) [place] [address] PAIN CLINIC [phone] [place] [address] (Wo rk) Social History Tobacco Use Types [...] Sign Reading Time Taken Comments Blood Pressure 159/71 09/23/2013 2:18 PM EST Pulse 80 09/23/2013 2:18 PM EST Temperature - - Respiratory Rate - - Oxygen Saturation 97% 09/23/2013 2:18 PM EST Inhaled Oxygen Concentration - - Weight 149.7 kg (330 lb) 09/23/2013 2:18 PM EST Height 177.8 cm (5' 10) 09/23/2013 2:18 PM EST Body Mass Index 47.35 09/23/2013 2:18 PM EST documented in this encounter Procedure Notes Luis Martinez APRN - 09/23/2013 4:05 PM ESTAssociated Order(s): NERVE BLOCK - OCCIPITAL Procedure(s): NERVE BLOCK - OCCIPITAL Pre-Procedure Diagnose(s): Bilateral occipital neuralgia Bilateral Greater Occipital Nerve Block Procedure Date of Service: 09/23/2013 Patient: Paul Bradley 1970 43 y.o. male Provider: LUIS MARTINEZ APRN Pre-operative diagnosis: Bilateral Occipital neuritis with daily headache. Mr. Paul Bradley has been referred to the [facility] for Bilateral Greater Occipital Nerve Blocks to treat mostly right sided occipital neuralgia and constant chronic headache and right eye pain s/p fall on the ice while at work on 11/17/12. He was seen by Dr. Mccaeb 7 weeks ago for rightsided cervical RFA, which did not help with his headache or occipital pain. 3 months ago the occipital nerve blocks gave him about 4 weeks of relief, so we will repeat these again today. Mr. Bradley reports an overall pain level today of 5-6/10 and severe light sensitivity in both eyes. Last week he was given a trial dose of Dilaudid, which he took 4 mg of once this week, and did not notice any relief. Last week I also gave him educational/ informational DVD regarding Occipital neurostimulator procedure, which he did watch with his and had several questions about today, which I answered to the best of my knowledge. He is interested in pursuing this procedure and would like to discuss it at greater length with Dr. Mccabe. Physical Examination: Filed Vitals: 09/23/13 1418 BP: 159/71 Pulse: 80 In moderate distress; appropriate affect. Here with his who will be driving him home. Mr. Bradley reports he stopped his Coumadin with permission from his PCP 10 days ago. Upon palpation of the right greater occipital notch, there is a reproduction of the patient's pain. There is pain on the left side of his head today, but slightly less, as is his usual pattern. Procedure Mr. Bradley was interviewed and examined. The risks and benefits were explained including but not limited to bleeding, infection, worsening of the pain, damage to the area being injected, weakness, allergic reaction to medications, vascular injection, and nerve damage. All questions were answered. Informed consent was signed and time out was performed with June Lyons RN. The left GO nerve was identified by palpation of the foraminal notch and the skin prepped with Chlorhexidine and allowed to dry. Next, a 27 gauge 1 1/2 inch needle was placed in the nerve area. After negative aspiration was confirmed, the nerve area was slowly injected with 10 mg of Depomedrol and 4 ml (20 mg) of 0.5% Bupivacaine and the needle removed. This procedure was exactly duplicated on the right side. The patient tolerated the procedure well and there were no apparent complications. There were no changes in motor or sensory exam. Medication used: 8 ml (40 mg) of Bupivacaine 0.5% and 20 mg of depomedrol (40mg/ml) Trigger points injected: 2 Trigger point(s) location(s): Bilateral Greater Occipital nerves Assessment and Plan: 10minute Post procedure pain level in head is 0/10, and patient reports he is no longer photo-sensitive. 1) Increase your Gabapentin to 600 mg at bedtime with 300 mg 3x/ day. (1500 mg per day) 2) Keep a log of your response to the Occipital Nerve blocks. 3) Will schedule for Office Visit with Dr. Mccabe to discuss Occipital Neurostimulator device. 4) Continue Dilaudid for rescue of severe headache, but increase dose to 6-8 mg if needed. (still has medication left). Continue Tramadol as needed per your PCP 5) Repeat BGONB if needed after 6-8 weeks LUIS MARTINEZ APRN documented in this encounter Plan of Treatment Not on filedocumented as of this encounter Procedures Procedure Name Priority Date/Time Associated Diagnosis Comme nts NERVE BLOCK - Routine 09/23/2013 4:23 PM Bilateral occipital R esults for this OCCIPITAL EST neuralgia procedure are i n the results section. documented in this encounter Results NERVE BLOCK - OCCIPITAL (09/23/2013 4:23 PM EST) Narrative Luis Martinez APRN - 09/23/2013 4:23 PM EST Luis Martinez APRN ? 09/23/2013 ??4:23 PM ?Bilateral Greater Occipital Ner ve Block Procedure Date of Service: 09/23/2013 Patient: ?Paul Bradley ?? MRN: ??[id number] ?? 1970 ?? 43 y.o. ??male Provider: ?LUIS MARTINEZ APRN Pre-operative diagnosis: Bilateral Occip ital neuritis with daily headache. Mr. Paul Bradley ??has been referred t o the [facility] for Bilateral Greater Occipital N erve Blocks to treat mostly right sided occipital neuralgia a nd constant chronic headache and right eye pain s/p fall on the ice while at work on 11/17/12. He was seen by Dr. Mccabe 7 wee ks ago for right sided cervical RFA, which did not help with hi s headache or occipital pain. 3 months ago the occipital nerve b locks gave him about 4 weeks of relief, so we will repeat these again today. Mr. Bradley reports an overall pain level today of 5-6/10 and severe light sensitivity in both eyes. Last week he was given a trial dose of D ilaudid, which he took 4 mg of once this week, and did not notice any relief. ?? Last week I also gave him educational/ i nformational DVD regarding Occipital neurostimulator proc edure, which he did watch with his and had several questions about today, which I answered to the best of my knowledge. He is interested in pursuing this procedure and would like t o discuss it at greater length with Dr. Mccabe. Physical Examination: Filed Vitals: 09/23/13 1418 BP: 159/71 Pulse: 80 In moderate distress; appropriate affect . Here with his who will be driving him home. Mr. Bradley rep orts he stopped his Coumadin with permission from his PCP 10 days ago. Upon palpation of the right greater occi pital notch, there is a reproduction of the patient's pain. Ther e is pain on the left side of his head today, but slightly les s, as is his usual pattern. Procedure Mr. Bradley was interviewed and examined. ??The risks and benefits were explained including but not limited to bleeding, infection, worsening of the pain, damage to the are a being injected, weakness, allergic reaction to medicatio ns, vascular injection, and nerve damage. ??All questions were a nswered. ??Informed consent was signed and time out was performed wi June Lyons RN. The left GO nerve was identified by palp ation of the foraminal notch and the skin prepped with Chlorhex idine and allowed to dry. Next, a 27 gauge 1 1/2 inch needle was p laced in the nerve area. After negative aspiration was confirmed, the nerve area was slowly injected with 10 mg of Depomedrol and 4 ml (20 mg) of 0.5% Bupivacaine and the needle removed. This procedure was exactly duplicated on the right side. The patient tolerated the procedure well and there were no apparent complications. There were no changes in motor or sensor y exam. Medication used: ??8 ml (40 mg) of Bupiv acaine 0.5% and ?20 mg of depomedrol (40mg/ml) Trigger points injected: ??2 Trigger point(s) location(s): ??Bilatera l Greater Occipital nerves Assessment and Plan: 10minute Post procedure pain level in he ad is 0/10, and patient reports he is no longer photo-sensitive. 1) Increase your Gabapentin to 600 mg at bedtime with 300 mg 3x/ day. (1500 mg per day) 2) Keep a log of your response to the Oc cipital Nerve blocks. ?? 3) Will schedule for Office Visit with Armando Mccabe to discuss Occipital Neurostimulator device. 4) Continue Dilaudid for rescue of sever e headache, but increase dose to 6-8 mg if needed. (still has med ication left). Continue Tramadol as needed per your PCP 5) Repeat BGONB if needed after 6-8 week s LUIS MARTINEZ APRN Procedure Note Luis Martinez APRN - 09/23/2013 4:05 PM EST Bilateral Greater Occipital Nerve Block Procedure Date of Service: 09/23/2013 Patient: Paul Bradley 1970 43 y.o. male Provider: LUIS MARTINEZ APRN Pre-operative diagnosis: Bilateral Occip ital neuritis with daily headache. Mr. Paul Bradley has been referred to the [facility] for Bilateral Greater Occipital Nerve Blocks to treat mostly right sided occipital neuralgia and constant chronic headache and right eye pain s/p fall on the ice while at work on 11/17/12 . He was seen by Dr. Mccabe 7 weeks ago for right sided cervical RFA, which did not help with his headache or occipital pain. 3 months ago the occipital nerve blocks gave him about 4 weeks of relief, so we will repeat these again today. Mr. Bradley reports an overall pain level today of 5-6/10 and severe light sensitivity in both eyes. Last week he was given a trial dose of D ilaudid, which he took 4 mg of once this week, and did not notice any relief. Last week I also gave him educational/ i nformational DVD regarding Occipital neurostimulator procedure, which he did watch with his and had several questions about today, which I answered to the best of my knowledge. He is interested in pursuing this procedure and would like to discuss it at greater length with Dr. Mccabe. Physical Examination: Filed Vitals: 09/23/13 1418 BP: 159/71 Pulse: 80 In moderate distress; appropriate affect . Here with his who will be driving him home. Mr. Bradley reports he stopped his Coumadin with permission from his PCP 10 days ago. Upon palpation of the right greater occi pital notch, there is a reproduction of the patient's pain. There is pain on the left side of his head today, but slightly less, as is his usual pattern. Procedure Mr. Bradley was interviewed and examined. The risks and benefits were explained including but not limited to bleeding, infection, worsening of the pain, damage to the area being injected, weakness, allergic reaction to medications, vascular injection, and nerve damage. All questions were answered. Informed consent was signed and time out was performed with June Lyons RN. The left GO nerve was identified by palp ation of the foraminal notch and the skin prepped with Chlorhexidine and allowed to dry. Next, a 27 gauge 1 1/2 inch needle was placed in the nerve area. After negative aspiration was confirmed, the nerve area was slowly injected with 10 mg of Depomedrol and 4 ml (20 mg) of 0.5% Bupivacaine and the needle removed. This procedure was exactly duplicated on the right side. The patient tolerated the procedure well and there were no apparent complications. There were no changes in motor or sensor y exam. Medication used: 8 ml (40 mg) of Bupivac ana 0.5% and 20 mg of depomedrol (40mg/ml) Trigger points injected: 2 Trigger point(s) location(s): Bilateral Greater Occipital nerves Assessment and Plan: 10minute Post procedure pain level in he ad is 0/10, and patient reports he is no longer photo-sensitive. 1) Increase your Gabapentin to 600 mg at bedtime with 300 mg 3x/ day. (1500 mg per day) 2) Keep a log of your response to the Oc cipital Nerve blocks. 3) Will schedule for Office Visit with Armando Mccabe to discuss Occipital Neurostimulator device. 4) Continue Dilaudid for rescue of sever e headache, but increase dose to 6-8 mg if needed. (still has medication left). Continue Tramadol as needed per your PCP 5) Repeat BGONB if needed after 6-8 week s LUIS MARTINEZ, POCKET BUILDER Dino Mccabe MD NEUROLOGY ORDERABLES documented in this encounter Visit Diagnoses Diagnosis Bilateral occipital neuralgia - Primary Other syndromes affecting cervical regio n documented in this encounter Administered Medications Inactive Administered Medications - up to 3 most recent administrations Medication Order MAR Action Action Date Dose Rate Site BUpivacaine (PF) (MARCAINE) 0.5 % Given 09/23/2013 4:03 PM EST 4 0 mg (5 mg/mL) injection 40 mg 40 mg, Local Infiltration, ONCE, 1 dose, On Stacy 09/23/13 at 1530, 2 mL Wasted, Routine methylPREDNISolone acetate (depo-MEDROL) Given 09/23/2013 4:05 P M EST 20 mg injection 20 mg 20 mg, Intra-Lesional, ONCE, 1 dose, On Stacy 09/23/13 at 1530, Routine documented in this encounter Care Teams Lockstitch Zipper Setter Relationship Specialty Start Date End Date Jackelin Paniagua PA PCP - General 07/20/12 01/23/16 documented as of this encounter
--- OUTSIDE RECORDS SUMMARY | 2022-06-07 01:48 | XMS_ITS | Encounter Summary ---
:1970 Author Organization [facility] [place] [address] Care Team Providers Name Role Phone Jackelin Paniagua Primary Care Provider Reason for Visit Reason Comments Neck And Back Pain Pain Management Encounter Details Date Type Department Care Team Description 04/21/2013 [facility] (Primary Dx); Velia Voss MD Cervical disc disease with myelopathy [facility] [id number] [place] [id number] [phone] (Wo rk) Social History Tobacco Use Types [...] Sign Reading Time Taken Comments Blood Pressure 118/84 04/21/2013 10:26 AM EDT Pulse 72 04/21/2013 10:26 AM EDT Temperature - - Respiratory Rate - - Oxygen Saturation 96% 04/21/2013 10:26 AM EDT Inhaled Oxygen Concentration - - Weight 140.6 kg (310 lb) 04/21/2013 10:26 AM EDT Height 175.3 cm (5' 9) 04/21/2013 10:26 AM EDT Body Mass Index 45.78 04/21/2013 10:26 AM EDT documented in this encounter Patient Instructions Patient InstructionsAshleigh Stone MD - 04/21/2013 12:08 PM EDT Assess: Cervical cord injury s/p cervical fusion C4-6 with metal plate Occipital neuralgia R>L ? facet arthropathy cervical spine, ? Lumbar spine Meralgia paresthetica right lateral thigh Recommendations: Occipital nerve block bilateral Pool exercise Facet MBB with radiofreq ablation if positive results cervical spine Increase gabapentin to 900mg 3x/day Tramadol 50mg not to exceed 8 tablets a day for activity related pain Chronic Pain Management strategies: DVD on Living Better with Chronic Pain, Chronic Low Back Pain- patient sent to [facility] with referral sheet Borrow from any library, Managing Pain before It Manages You, 3rd ed [employer] and read Regular exercise- aerobic, strengthening and stretching. For people in pain walking water aerobics, yoga, Rei Chi may be preferential Increase and strengthen social supports Increase pleasurable activities by volunteering, coursework, hobbies Pace activities so that pain remains at a constant level during activities. For example, stand for 10 mins to fix meals then sit for 10 mins to pay bills Stress management- e.g. relaxation techniques, prayer, reflection, watching nature at least 10 mins/day Functional mandaen program [facility] Living Better With Chronic Illness call and get their start date documented in this encounter Progress Notes Ashleigh Stone MD - 05/16/2013 9:25 PM EDT This addendum has been created to address that component of his pain problem that is worker's compensation related: Mr Bradley was originally seen by me 04/21/13 for continued complaints of incapacitating neck pain andheadaches in the occipital nerve distribution after a work related slip and fall on the ice in November, which appears to have exacerbated a neck injury with myelopathy, s/p cervical fusion @C4-6 in 2011. Pertaining to the work related injury and resultant chronic pain the following assessment and recommendations were made to address not only the physiological pain but the psychosocial strain that any individual feels when incapacitated by pain. In so doing the chances of recovery or ability of workingwith pain are increased. Assess: Occipital neuralgia R>L Facet arthropathy of cervical spine may be contributing to neck pain given extension related pain ON COUMADIN which may necessitate stopping before interventional procedures Recommendations: Occipital nerve block bilaterally, post cessation of coumadin, may need deeper injection under CTscan guidance if initial blocks do not cover area Facet MBB trial block followed by radiofreq ablation if resolution not obtained from occipital nerveblocks Increase gabapentin to 900mg 3x/day to maximize treatment of occipital neuralgia Tramadol 50mg not to exceed 8 tablets a day for activity related pain Strongly recommend participation in the highly successful Functional [employer] Program as patient is in need of training and support to return to work BETINA or he will develop chronic dysfunction, once attempts at symptom reduction are made as outlined above. Ashleigh Stone MD - 04/21/2013 11:45 AM EDT Subjective: Patient ID: Paul Bradley is a 42 y.o. male. HPI I have been requested by PRITI Bejarano to see patient for recommendations re. Chief Complaint: neck pain right sided and occipital headaches x7 months since second fall on ice 11/2012. Complicated history of a fall on the ice in October 2011 striking back of head and upper back. Went to ED and was experiencing severe bilateral UE pain and LE tingling. Sent to PT and that Spring had an unexpected PE from a RLE thrombus (has Leiden factor mutation). Finally MRI was done showing his cord compression damage at C4-5 and a 2 level fusion surgery was done from C4-C6 in 06/2012. He had a slow recovery and was in PT until Sep when it was stopped because pain in legs and arms was still problematic. By ~ he was back at work and on Nov 2012 he slipped again on ice and injuredhis neck and upper back. Since that time he has had severe daily headaches, primarily right sided rad iating into R eye (no tearing or nasal congestion). He has lacinating pain in right paracervical area particularly with rotation of head to right or sudden movements or jousting over bumps in car. He has been in PT until recently. He has not been able to work and is quite frustrated. He had another MRI 12/2012 showed post surgical changes at C4-5 and C5-6, facet arthritis, ant myelopathy ant cord at C4-5 unchanged. Also had MRI of thoracic spine mild scoliosis at T8 level otherwise no acute changes. Patient has found gabapentin helpful at a dose of 300mg, 300mg, 600mg and Tramadol 50mg tablets 2, 4x/day as needed. This spring health complicated by cholecystectomy, still on Coumadin. Continues to have tingling in legs and dysesthesias in arms, balance issues. R Toes numb; ? Bilateral Carpal tunnel by nerve conduction studies which we don't have. Is being worked up for AODM. Uses home TENS unit PMHx also positive for low back pain had HNP in 2006 and SI joint pain which bothers him intermittently Psychosocial Hx: accompanied by , 3 children -1 daughter 2 sons Review of Systems Constitutional: Positive for activity change, fatigue and unexpected weight change. HENT: Positive for neck pain, neck stiffness and dental problem. Eyes: Positive for pain and visual disturbance. Headache into right eye Respiratory: Positive for apnea, cough, shortness of breath and wheezing. Bipap for sleep disorder Cardiovascular: Positive for leg swelling. Gastrointestinal: Positive for diarrhea. Genitourinary: Positive for difficulty urinating. Musculoskeletal: Positive for back pain, arthralgias and gait problem. Skin: Pigmented lesion corner of left brow Neurological: Positive for numbness. Pins and needles in arms and legs, burning in L lateral thigh Hematological: Bruises/bleeds easily. Psychiatric/Behavioral: Positive for sleep disturbance, dysphoric mood and agitation. Objective: Physical Exam Vitals reviewed. Constitutional: He is oriented to person, place, and time. He appears well- developed and well-nourished. Morbidly obese HENT: Head: Normocephalic and atraumatic. Eyes: Pupils are equal, round, and reactive to light. Neck: No thyromegaly present. Marked limitation in rotation to right and flexion. Extension wnl although painful Tender in occcipital notch bilat R>L. Pressure on R reproduced some of his sxs of headache and eye pain Cardiovascular: Normal rate, regular rhythm and normal heart sounds. Pulmonary/Chest: Effort normal and breath sounds normal. He has no wheezes. Abdominal: Soft. There is no tenderness. Musculoskeletal: He exhibits edema and tenderness. RLE more swollen below knee than left but not pitting, venous stasis changes Lymphadenopathy: He has no cervical adenopathy. Neurological: He is alert and oriented to person, place, and time. He exhibits normal muscle tone. 2 beat unsustained clonus R>L Skin: Skin is warm and dry. 0.3 mm Lesion left lateral eyebrow c/w sq cell ca Psychiatric: His behavior is normal. Judgment and thought content normal. Very intense rapid and pressured speech through first half of interview but slowed to more normal pace Assessment and Plan: Assess: Cervical cord injury s/p cervical fusion C4-6 with persistent ant. myelopathy changes at C4-5 Occipital neuralgia R>L ? facet arthropathy cervical spine, probable Lumbar spine Meralgia paresthetica right lateral thigh? ON COUMADIN Recommendations: Occipital nerve block bilateral post cessation of coumadin, may need deeper injection under CTscan guidance Pool exercise Facet MBB with radiofreq ablation if positive results cervical spine Increase gabapentin to 900mg 3x/day Tramadol 50mg not to exceed 8 tablets a day for activity related pain MRI of lumbar spine if continues to be problematic and treat accordingly Functional mandaen program as patient is in need of support to resume his life and work BETINA or he will develop chronic dysfunction Chronic Pain Management strategies: DVD on Living Better with Chronic Pain, Chronic Low Back Pain- patient sent to [facility] with referral sheet Borrow from any library, Managing Pain before It Manages You, 3rd ed [employer] and read Regular exercise- aerobic, strengthening and stretching. For people in pain walking water aerobics, yoga, Rei Chi may be preferential Increase and strengthen social supports Increase pleasurable activities by volunteering, coursework, hobbies Pace activities so that pain remains at a constant level during activities. For example, stand for 10 mins to fix meals then sit for 10 mins to pay bills Stress management- e.g. relaxation techniques, prayer, reflection, watching nature at least 10 mins/day [facility] Living Better With Chronic Illness call and get their start date documented in this encounter Plan of Treatment Not on filedocumented as of this encounter Visit Diagnoses Diagnosis Bilateral occipital neuralgia - Primary Other syndromes affecting cervical regio n Cervical disc disease with myelopathy Intervertebral cervical disc disorder wi th myelopathy, cervical region documented in this encounter Care Teams Wet Cotton Feeder Relationship Specialty Start Date End Date Jackelin Paniagua PA PCP - General 07/20/12 01/23/16 documented as of this encounter
--- OUTSIDE RECORDS SUMMARY | 2022-06-07 01:48 | XMS_ITS | Encounter Summary ---
:1970 Author Organization [facility] [place] [address] Care Team Providers Name Role Phone Jackelin Paniagua Primary Care Provider Reason for Visit Reason Onset Date Comments Other 08/04/2013 Encounter Details Date Type Department Care Team Description 08/04/2013 Telephone Care Management Zahraa Figueroa MSW [facility] [place] [address] [place] [id number] [phone] Social History Tobacco Use Types Packs/Day Years [...] this encounter Miscellaneous Notes Telephone Encounter - Zahraa Figueroa MSW - 08/04/2013 2:28 PM EDT [facility] received correspondence from the [facility] wc insurance, relaying the authorization for pt's MBB, RFA and upcoming FRP program, recommended by Dr.Caudill Scruggs in the pain clinic. [facility] f/u w/ pain clinic OR museum service scheduler: Geeta Landry and w/ Spine ctr rn transitional care: Melita Mcginnis re: ivy, faxing them copies of the written authorization. Phoned pt today, having missed him at his pain clinic appt, relaying the above authorization news. Pt was most appreciative of this information, having thought his MBB was not authorized. represented himself at the labor board hearing, and was obviously successful. CCM discussed the insurance's authorization of the FRP program, noting that he would initially have to be evaluated in the spine ctr via a GAP appt to determine his candidacy for the FRP program. Pt reports that , whom did the RFA procedure today, recommended he recuperate for the next 4 weeks prior to entering this program. CCM relayed plan to f/u w/ Melita Ossen in the spine ctr re: the above, noting that he should expect tohear from the spine ctr w/ a GAP appt date. CCM relayed plan to mail him copies of the authorization, and invited him to f/u w/ me PRN. P: [facility] will collaborate w/ Spine ctr staff re: upcoming GAP and FRP tx plan, and be available to pt and [facility] tx for f/u intervention needs. documented in this encounter Plan of Treatment Not on filedocumented as of this encounter Visit Diagnoses Not on filedocumented in this encounter Care Teams Project/Production Manager Imaging Relationship Specialty Start Date End Date Jackelin Paniagua PA PCP - General 07/20/12 01/23/16 documented as of this encounter
--- OUTSIDE RECORDS SUMMARY | 2022-06-07 01:48 | XMS_ITS | Encounter Summary ---
:1970 Author Organization [facility] [place] [address] Care Team Providers Name Role Phone Jackelin Paniagua Primary Care Provider Encounter Details Date Type Department Care Team Description 07/02/2013 Telephone Pain Management at [facility] [place] [address] Social History Tobacco Use Types Packs/Day [...] Telephone Encounter - Twila Terry RN - 07/02/2013 10:44 AM EDT Pain Management Center Temporary Anticoagulant Hold Initial Request Patient: Paul Bradley [id number] Request for the above named patient to temporarily stop Coumadin for 5 days prior to requested injection/procedure has been faxed to: Dr. Paniagua's office. Fax number: . Fax confirmation that request received at the above named doctor's office: 07/02/13 (date stamp on fax confirmation) 10:42 (time stamp on fax confirmation) Paper documentation in Pain Management Center Nurse Triage Desk. Twila Terry RN documented in this encounter Plan of Treatment Not on filedocumented as of this encounter Visit Diagnoses Not on filedocumented in this encounter Care Teams Camp Director Relationship Specialty Start Date End Date Jackelin Paniagua PA PCP - General 07/20/12 01/23/16 documented as of this encounter
--- OUTSIDE RECORDS SUMMARY | 2022-06-07 01:48 | XMS_ITS | Encounter Summary ---
:1970 Author Organization [facility] [place] [address] Care Team Providers Name Role Phone Jackelin Paniagua Primary Care Provider Reason for Visit Reason Comments Basal Cell Carcinoma Encounter Details Date Type Department Care Team Description 08/24/2013 Office Visit Dermatology at [facility], BCC (basal cell Road MD carcinoma of skin) [address] [facility] (Primary Dx) [place] [address] [facility] [place], [place] [address] Social History Tobacco Use Types [...] Sign Reading Time Taken Comments Blood Pressure 110/67 08/24/2013 9:11 AM EST Pulse 77 08/24/2013 9:11 AM EST Temperature - - Respiratory Rate 22 08/24/2013 9:11 AM EST Oxygen Saturation - - Inhaled Oxygen Concentration - - Weight 143.3 kg (316 lb) 08/24/2013 9:11 AM EST Height 177.8 cm (5' 10) 08/24/2013 9:11 AM EST Body Mass Index 45.34 08/24/2013 9:11 AM EST documented in this encounter Progress Notes Ruben Lopez MD - 08/24/2013 9:09 AM EST Chief Complaint: Basal cell carcinoma History of Present Illness: Referring Physician: Derrick Walters MD Tumor type: BCC Location of Skin Cancer: Left lateral eyebrow Duration of Presence: 2 years Previous Treatment [ x] No [ ] Yes When: Symptoms: [ ] pain [ x] bleeding [ x] crusting [ ] other [ ] none Previous History of Skin Cancer: [ x] none [ ] list Family History of Skin Cancer [ x] none [ ] melanoma [ ] basal cell [ ] squamous cell [ ] other Review of Systems: Check all that apply regarding other health problems Skin Hematological Eyes/Ears/Nose/Throat [ x] normal [ ] normal [x ] normal [ ] thick scars/keloids [ ] anemia [ ] glaucoma [ ] poor wound healing [ ] bleeding problems [ ] hearing aid [ ] herpes infection/cold sores [ ] enlarged lymph nodes [ ] cosmetic surgery [ ] other [ x] other _bleeds easily on Coumadin_ [ ] other Cardiovascular Respiratory GI/Renal [ x] normal [ ] normal [ x] normal [ ] angina (chest pain) [ ] emphysema [ ] colitis [ ] heart attack (Date____) [ x] COPD - mod - severe [ ] stomach ulcer [ ] artificial heart valve [ ] asthma [ ] kidney disease [ ] pacemaker/defib [ x] other _pulmonary embolism__ [ ] other [ ] HTN [ ] other Musculoskeletal Endocrine Infections [ ] normal [ x] normal [ x] none [ x] arthritis [ ] thyroid disease [ ] HIV/AIDS [ ] artificial joint (Year ____) [ ] diabetes [ ] hepatitis (type ) [ x] other _spinal stenosis__ [ ] other [ ] tuberculosis [ ] other Neurological Psychiatric [ x] normal [ ] normal [ ] stroke [ ] anxiety [ ] seizures [ x] depression [ ] mental status change [ ] other [ ] other Do you take antibiotics prior to having a dental or any other procedure [ x] No [ ] Yes Medical Problems (not listed above): Patient Active Problem List Diagnosis Code ??? Pulmonary embolism 415.19 ??? Heterozygous factor V Leiden mutation 289.81 ??? H/O cervical spine surgery V15.29 ??? History of cholecystectomy V45.79 ??? Bilateral occipital neuralgia 723.8 ??? Cervical disc disease with myelopathy 722.71 ??? Cervicalgia 723.1 Surgical history (not listed above): Cholecystectomy, appendectomy, spinal fusion Physical Limitations: ____None Do You Take [ ] aspirin [ ] Plavix [ x] Coumadin [ ] Other blood thinners/anti- platelet medications List Other Medications (prescription and over the counter including vitamins): Current Outpatient Prescriptions on File Prior to Visit Medication Sig Dispense Refill ??? acetaminophen (TYLENOL) 500 mg tablet Take 1,000 mg by mouth every 6 hours as needed. ??? gabapentin (NEURONTIN) 300 mg capsule Take 300 mg by mouth 4 times daily. ??? warfarin (COUMADIN) 5 mg tablet Take 5 mg by mouth daily. ??? buPROPion (WELLBUTRIN XL) 150 mg 24 hr tablet Take 150 mg by mouth every morning. ??? traMADol (ULTRAM) 50 mg tablet Take 100 mg by mouth every 6 hours as needed. ??? albuterol-ipratropium (COMBIVENT RESPIMAT) 20-100 mcg/actuation inhaler Inhale 2 puffs into the lungs every 6 hours as needed. ??? diaZEPam (VALIUM) 5 mg tablet Take 5 mg by mouth every 6 hours as needed. ??? Omeprazole 20 mg TbEC Medication Allergies: [ ] none [x ] list Allergies Allergen Reactions ??? Sulfa (Sulfonamide Antibiotics) CIS - Rash Occupation: (former if retired) _Unemployed, workers compensation due to back injury_ Marital Status[ ] S [ x] M [ ] D [ ] W [ ] Dentures [x ] Glasses - reading [ ] Contact Lenses [ ] Smoking [ ] No [x ] Yes packs/day ___1 ppd Alcohol [ ] No [x ] Yes How much[ ] __3-4 per month___ Physical Exam BP 110/67 Pulse 77 Resp 22 Ht 177.8 cm (5' 10) Wt 143.337 kg (316 lb) BMI 45.34 kg/m2 General: Pleasant, well-appearing, in no acute distress. Skin:Limited examination of face reveals 0.5 scaly papule located on the left lateral eyebrow. Assessment and Plan 1. BCC - left lateral eyebrow Reviewed treament options including wide local excision, Mohs micrographic surgery, electrodesiccation and curettage, and radiation therapy. Reviewed reconstruction options including second intention healing, linear repair, local flap, full thickness graft, and repair by Plastic Surgery or any other physician of the patient's choosing. The patient has elected to proceed with Mohs surgery. The patient has elected to have the post-Mohs defect repaired by us, and understands and acknowledges the risk of scarring. Will need INR one week prior to surgical procedure. documented in this encounter Miscellaneous Notes Miscellaneous - Provider, Scanning - 09/27/2013 12:59 PM EST documented in this encounter Plan of Treatment Not on filedocumented as of this encounter Visit Diagnoses Diagnosis BCC (basal cell carcinoma of skin) - Rachael brown Basal cell carcinoma of skin, site unspe cified documented in this encounter Care Teams Cream Dumper Relationship Specialty Start Date End Date Jackelin Paniagua PA PCP - General 07/20/12 01/23/16 documented as of this encounter
--- OUTSIDE RECORDS SUMMARY | 2022-06-07 01:48 | XMS_ITS | Encounter Summary ---
:1970 Author Organization [facility] Address [place] [id number] Care Team Providers Name Role Phone Jackelin Paniagua Primary Care Provider Reason for Visit Reason Comments Cervicalgia R side Encounter Details Date Type Department Care Team Description 08/04/2013 Procedure visit Pain Management at Dino Mccabe (Primary [facility] PMD Dx) [facility] [address] [place], [place] [facility] [id number] [place] [id number] [phone] Social History Tobacco Use Types Packs/Day Years [...] Sign Reading Time Taken Comments Blood Pressure 147/101 08/04/2013 11:29 AM EDT Pulse 86 08/04/2013 11:29 AM EDT Temperature - - Respiratory Rate 22 08/04/2013 11:29 AM EDT Oxygen Saturation 95% 08/04/2013 11:29 AM EDT Inhaled Oxygen Concentration - - Weight 140.6 kg (310 lb) 08/04/2013 10:53 AM EDT Height 177.8 cm (5' 10) 08/04/2013 10:53 AM EDT Body Mass Index 44.48 08/04/2013 10:53 AM EDT documented in this encounter Patient Instructions Patient InstructionsGavi Decker LPN - 08/04/2013 10:55 AM EDT Pain Management Center Discharge Instructions: You were seen by Dr. Dino Mccabe MD who performed cervical radiofrequency . [x] You may resume your normal activities: tomorrow. You may shower today. DO NOT tub bathe, use whirlpools, hot tubs or pool therapy for 2 days. Remove Band-Aid(s) later today/tomorrow. Do not drive until tomorrow. Use caution walking/climbing stairs as you may be unsteady on your feet. You may use your usual medications, including pain medications, as directed, unless otherwise instructed. You may use an ice pack as needed for the first 24 hours, on for 20 minutes then off for 20 minutes.Do not apply heat today. [x] You received Midazolam 2 mg through an intravenous line, to lessen the anxiety/pain of your procedure. DO NOT operate heavy or dangerous equipment/tools, or sign important papers today. Attempt to empty your bladder 4-6 hours after your procedure. You received the following medications: Lidocaine. During regular business hours, please phone the Pain Management Center at for appointments or with any questions or if the following or other troubling symptoms develop: 1) Prolonged dizziness or weakness (more than 1 day). 2) Localized swelling, redness or drainage at the injection site(s). 3) Temperature of 101 degrees that lasts for more than 4 hours. After 5 PM or on weekends, call and ask for Pain Clinic provider on-call. If you are unable to reach the Pain Management Center and have a complication, please call your Primary Care Provider or proceed to your local emergency department. Gavi Decker LPN documented in this encounter Progress Notes Gavi Decker LPN - 08/04/2013 10:54 AM EDT Pre-Procedure Screening Questions: 1. Status: No 2. 3. Patient states they have a warehouse delivery driver to transport after procedure? Yes 4. Patient taking antibiotics at present? No 5. NPO per Pain Management Center protocol? Yes 6. 7. Patient diabetic: No __ borderline (not treated with medications) __ managed with oral medications __ managed with injected medications 8. Patient routinely taking anticoagulants ? Yes Date stopped 07/28/13 Current INR 0.8 Patient Vital Signs documented in Doc Flowsheets associated with this encounter. Patient Discharge Instructions were reviewed with patient and copy provided to patient. IV anxiolysis: Yes IV placement: Location of IV Insertion: [ ] Right [x ] Left [ x ] hand [ ] anterior forearm [ ] posterior forearm [ ] AC [ ] upper arm [ ] other: IV Gauge: [ x ] 24G [ ] 22G [ ] 20G After IV insertion completed, IV was secured with occlusive transparent dressing. IV site is patent and intact. Patient is without complaint upon completion of IV insertion. Started by: Araceli Mccabe MD Initiated by: Gavi Decker LPN IV Solution: LR 1000ml - rate as directed by proceduralist Total Volume Intravenous Fluid infused documented in the Medication Administration Record (MAR) Site condition at IV removal: [x] Clear [ ] Bruised [ ] other: Administration of IV anxiolysis procedural medications documented in MAR as ordered by proceduralist documented in this encounter Procedure Notes Dino Mccabe MD - 08/04/2013 10:48 AM EDTAssociated Order(s): RADIOFREQUENCY - CERVICAL Procedure(s): RADIOFREQUENCY - CERVICAL Pre-Procedure Diagnose(s): Cervicalgia CERVICAL MEDIAL BRANCH RADIOFREQUENCY Date of Service: 08/04/2013 Patient: Paul Bradley Provider: Dino Mccabe MD Paul Bradley has been referred to the Pain Management Center for radiofrequency treatment of chronic axial neck pain. He has had long standing cervical pain thought to be facet joint generated and which has been refractory to other therapies. Local anesthetic medial branch blocks resulted in Mr. Bradley reporting a greater than 50% reduction of the usual axial component of pain for at least the duration of the local anesthetic effect. COMMENTS:I first sat down with the patient and discussed the risks, benefits, side effects, and alternatives of this injection, including nerve damage. Male comprehended my conversation and accepts therisks. Mr. Bradley was interviewed and the medical record reviewed. There were no medical, pharmacologic, radiographic or other structural contraindications to attempting fluoroscopically guided radiofrequencytreatment. Risks and expected side effects as well as potential benefit of the procedure were reviewed with Mr. Bradley, and he voiced concerns addressed. The printed consent form was signed and witnessed. Standard time-out procedure was performed. Mr. Bradley was placed in the prone position on the fluoroscopy table and automated blood pressure cuff and pulse oximeter applied. The skin entry points for approaching the anatomic target points of the segmental medial branches of right C2-6 were identified with fluoroscopic guidence. Following thorough Chlorhexadine preparation of the skinand draping and 1% lidocaine infiltration of the skin entry points and subcutaneous tissues, a 10cm,20 guage, 10 mm active tip radiofrequency cannula was placed under fluoroscopic guidance at the anatomic course of each respective segmental medial branch. Each placement was stimulated at 50Hz and up to 0.5v to illicit a sensory response. If this response was accomplished, the cannula was left in place. If it could not be accomplished after multiple attempts, the cannula was placed at what was felt to be the closest anatomic approximation to the segmental medial branch. Each placement was stimulated at 2Hz and up to 1.5 v without any evidence of distal myotomal stimulation. At each placement a continuous mode radiofrequency treatment was done at 80 degrees C for 90 secs, then the needle was rotated 180 degrees and the radiofrequency repeated. This radiofrequency treatment should result in the denervation of the right c2/3 thru 5/6. A total of 4 facets were expected to be denervated from today's treatment. Mr. Bradley's vital signs were stable throughout the procedure and were as recorded in the docflowsheet by the nursing staff. If given, dosages of intravenous drugs for anxiolysis and analgesia were documented in the Medication Administration Record (MAR). Follow up plans and appointments were discussed with Paul Marquita Bradley. Post procedure instruction was given as documented in the nursing documentation and having met discharge criteria, he was dischargedfrom the Pain Management Center. COMMENTS: CC: PRITI YOUNG @PCPADD@ documented in this encounter Plan of Treatment Not on filedocumented as of this encounter Procedures Procedure Name Priority Date/Time Associated Comments Diagnosis RADIOFREQUENCY - Routine 08/05/2013 4:26 Cervicalgia Results for this CERVICAL PM EDT procedure are i n the results section. documented in this encounter Results RADIOFREQUENCY - CERVICAL (08/05/2013 4:26 PM EDT) Narrative Dino Mccabe MD - 08/05/2013 4:26 PM EDT Dino Mccabe MD ? 08/05/2013 ??4:26 PM CERVICAL MEDIAL BRANCH RADIOFREQUENCY Date of Service: ??08/04/2013 Patient: ??Paul Bradley ?? [id number] Provider: ??Dino Mccabe MD Paul Bradley has been referred to the Pain Management Center for radiofrequency treatment of chronic axial neck pain. ??He has had long standing cervical pain thought to be facet joint generated and which has been refractory to other therapies. ?? Local anesthetic medial branch blocks re sulted in Mr. Bradley reporting a greater than 50% reduction o f the usual axial component of pain for at least the durat ion of the local anesthetic effect. ?? COMMENTS:I first sat down with the patie nt and discussed the risks, benefits, side effects, and alter natives of this injection, including nerve damage. Male comprehended my conversation and accepts the risks. Mr. Bradley was interviewed and the medic al record reviewed. ?? There were no medical, pharmacologic, ra diographic or other structural contraindications to attempti ng fluoroscopically guided radiofrequency treatment. ??Risks and expected side effects as well as potential benefit of the proc edure were reviewed with Mr. Bradley, and he voiced concerns addre ssed. ??The printed consent form was signed and witnessed. ? ?Standard time-out procedure was performed. Mr. Bradley was placed in the prone posit ion on the fluoroscopy table and automated blood pressure cuff and pulse oximeter applied. ??The skin entry points for pretty roaching the anatomic target points of the segmental medial br anches of right C2-6 were identified with fluoroscopic guiden ce. ??Following thorough Chlorhexadine preparation of the skin an d draping and 1% lidocaine infiltration of the skin entry points and subcutaneous tissues, a 10cm, 20 guage, 10 mm active tip radiofrequency cannula was placed under fluoroscopic gu idance at the anatomic course of each respective segmental medi al branch. ??Each placement was stimulated at 50Hz and up to 0.5v to illicit a sensory response. ??If this response was accomplished, the cannula was left in place. ??If it could not be accomplished after multiple attempts, the cannula was place d at what was felt to be the closest anatomic approximation to th e segmental medial branch. ??Each placement was stimulated at 2Hz and up to 1.5 v without any evidence of distal myotomal stimulation. ??At each placement a continuous mode radiofrequen cy treatment was done at 80 degrees C for 90 secs, then the needl e was rotated 180 degrees and the radiofrequency repeated. This radiofrequency treatment should res ult in the denervation of the right c2/3 thru 5/6. ??A total of 4 facets were expected to be denervated from today's treatment. Mr. Bradley's vital signs were stable thr oughout the procedure and were as recorded in the docflowsheet by the nursing staff. ??If given, dosages of intravenous drugs for anxiolysis and analgesia were documented in the Medication Admini stration Record (MAR). Follow up plans and appointments were di scussed with Paul Bradley. ??Post procedure instruction was given as documented in the nursing documentation and having met discharge criteria, he was discharged from the Pain Management Center. COMMENTS: CC: PRITI YOUNG @PCPADD@ Procedure Note Dino Mccabe MD - 08/04/2013 10:48 AM EDT CERVICAL MEDIAL BRANCH RADIOFREQUENCY Date of Service: 08/04/2013 Patient: Paul Bradley Provider: Dino Mccabe MD Paul Bradley has been referred to the Pain Management Center for radiofrequency treatment of chronic axial neck pain. He has had long standing cervical pain thought to be facet joint generated and which has been refractory to other therapies. Loca l anesthetic medial branch blocks resulted in Mr. Bradley reporting a greater than 50% reduction of the usual axial component of pain for at least the duration of the local anesthetic effect. COMMENTS:I first sat down with the patie nt and discussed the risks, benefits, side effects, and alternatives of this injection, including nerve damage. Male comprehended my conversation and accepts the risks. Mr. Bradley was interviewed and the medic al record reviewed. There were no medical, pharmacologic, radiographic or other structural contraindications to attempting fluoroscopically guided radiofrequency treatment. Risks and expected side effects as well as potenti al benefit of the procedure were reviewed with Mr. Bradley, and he voiced concerns addressed. The printed consent form was signed and witnessed. Standard time-out procedure was performed. Mr. Bradley was placed in the prone posit ion on the fluoroscopy table and automated blood pressure cuff and pulse oximeter applied. The skin entry points for approaching the anatomic target points of the segmental medial branches of right C2-6 were identified with fluoroscopic guiden ce. Following thorough Chlorhexadine preparation of the skin and draping and 1% lidocaine infiltration of the skin entry points and subcutaneous tissues, a 10cm, 20 guage, 10 mm active tip radiofrequency c annula was placed under fluoroscopic guidance at the anatomic course of each respective segmental medial branch. Each placement was stimulated at 50Hz and up to 0.5v to illicit a sensory response. If this resp onse was accomplished, the cannula was left in place. If it could not be accomplished after multiple attempts, the cannula was placed at what was felt to be the closest anatomic approximation to the segmental medial branch. Each placement was stimulated at 2Hz and up to 1.5 v without any evidence of distal myotomal stimulation. At each placement a continuous mode radiofrequency treatment was done at 80 degrees C for 90 secs, th en the needle was rotated 180 degrees and the radiofrequency repeated. This radiofrequency treatment should res ult in the denervation of the right c2/3 thru 5/6. A total of 4 facets were expected to be denervated from today's treatment. Mr. Bradley's vital signs were stable thr oughout the procedure and were as recorded in the docflowsheet by the nursing staff. If given, dosages of intravenous drugs for anxiolysis and analgesia were documented in the Medication Administration Record (MAR). Follow up plans and appointments were di scussed with Paul Bradley. Post procedure instruction was given as documented in the nursing documentation and having met discharge criteria, he was discharged from the Pain Management Center. COMMENTS: CC: PRITI YOUNG @PCPADD@ Dino Mccabe MD PROCEDURE/MINOR SURGICAL ORD ERABLES documented in this encounter Visit Diagnoses Diagnosis Cervicalgia - Primary documented in this encounter Care Teams Hand Gluer And Slicer Relationship Specialty Start Date End Date Jackelin Paniagua PA PCP - General 07/20/12 01/23/16 documented as of this encounter
--- OUTSIDE RECORDS SUMMARY | 2022-06-07 01:48 | XMS_ITS | Encounter Summary ---
:1970 Author Organization [facility] Address [place] [id number] Care Team Providers Name Role Phone Jackelin Paniagua Primary Care Provider Reason for Visit Reason Onset Date Comments Other 04/23/2013 Encounter Details Date Type Department Care Team Description 04/23/2013 Telephone Care Management Zahraa Figueroa MSW 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 Chris Scruggs [id number] Current Work Status: OOW Diagnosis:Back pain and head aches Symptoms: Upper back and cervical pain and head aches Surgery: Pt had a cervical fusion in Jun 2012 w/ Current Treatment Plan: Pt is followed by PA: Jovan Paniagua. Pt had PT tx and is on medications for the tx of his chronic pain. also has a TENS unit that he utilizes at home. Rate on a scale of 1 - 5, with 5 being the worst: rating / comments How do you like your job? 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 Willingness to return to work with this employer: 3 Pt expresses a desire to RTW but is unsure of his physical capacity to do this same type of laborous job. Vocational Goals: ? Not addressed Home environment- Who do you live with: Who are your supports: 2 Pt lives w/ a supportive and 17 yr old son. Pt has 2 other children asges 22 and 21 yrs old that are also identified as good kids. Financial Stressors: 4 Pt's wage replacements have been stopped since his recent OTF w/ . 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 Specific life stressors at this time: 3 Primarily related to his OOW status and physical sx's. Pt admits to being depressed but does not endorse suicidal ideations How are you coping? 3 Pt is on an anti depressant for the above reasons, but has not given up on hope for tx to improve his sx's. Other pertinent information: Pt has a complicated PMH, please refer to 's note for details. Pt was recently sent to an OTF in March, which put him at end medical and stopped his wage replacement benefits. Pt has secured a name of a second opinion MD to consult with and potentially see to contradict OTF's report. Status of Workers Comp claim: Pt starting the appeal process as a result of the recent OTF's report. Cutting Department Supervisor: No MMI: No Plan: Dr.Caudill Scruggs took an extensive hx of pt and physically evaluated him, recommendin. Occipital nerve blocks 2. Pool tx 3. Increase dosage of Neurontin 4. Coping strategies for living w/ chronic pain 5. Facet medial branch blocks 6. FRP consideration. Pt was agreeable to the above plan, and will be scheduled for the occipital nerve blocks once insurance authorizes procedure. [facility] provided pt w/ my card and the [place] dept of labor brochure, recommending he start the appeal process for the recent denials s/p OTF report/ Provided pt w/ a DVD on the FRP program to review noting my plan to f/u w/ his wc insurance to translate tx plan recommendations, advocating for necessary coverage. Explained that if the wc insurance continued to deny the medical coverage for these tx recommendations, we could default to his private: Cigna insurance, and if his labor board hearing appeal is ruled in his favor, than the wc insurance would have to pay back the C[employer]a for the medical expenses paid, noting that our primary goal is for pt to get the tx that they need, regardless of the payer, but noting our intent to firstly bill wc for the tx rendered. [facility] phoned Leonor Hong at the [employer] wc insurance, translating the above tx recommendations, and noting need for wc authorization for the occipital nerve blocks. [place] requested we send a prior authorization form for this tx recommendation, and [facility] relayed suchto pain clinic OR assistant manager airside operations: Geeta Landry. phoned [facility] on 7-19 am to relay that he spoke w/ the [place] dept of labor re: the appeal process and is planning to send them pertinent notes from his tx team to start this process. [facility] relayed plan to mail him Dr.Caudill Scruggs office note from 04-21 which should aide in this process, and invited him to f/u w/ me if I could be of further assistance. P: Fax wc insurance Dr.Caudill Scruggs's 04-21 note and wc form, and f/u w/ pain clinic OR schedulerre: status of authorization, offering to assist w/ such PRN. [facility] will continue to be available to pt, payer and [facility] provider re: pt's tx plan needs and wc benefits, advocating for the needed wc authorization for his tx plan needs, intervening accordingly. Mail pt a copy of Dr.Caudill Cohen 04-21 note for his labor board appeal needs. documented in this encounter Plan of Treatment Not on filedocumented as of this encounter Visit Diagnoses Not on filedocumented in this encounter Care Teams Aerospace Quality Engineer Relationship Specialty Start Date End Date Jackelin Paniagua PA PCP - General 07/20/12 01/23/16 documented as of this encounter
--- OUTSIDE RECORDS SUMMARY | 2022-06-07 01:48 | XMS_ITS | Encounter Summary ---
:1970 Author Organization [facility] [place] [address] Care Team Providers Name Role Phone Jackelin Paniagua Primary Care Provider Reason for Visit Reason Onset Date Comments Other 06/22/2013 Encounter Details Date Type Department Care Team Description 06/22/2013 Telephone Care Management Zahraa Figueroa MSW [facility] [place] [address] [place] [address] [phone] Social History Tobacco Use Types Packs/Day Years [...] encounter Miscellaneous Notes Telephone Encounter - Zahraa Figureoa MSW - 06/22/2013 4:02 PM EDT Pt phoned [facility] to report that he is scheduled for a labor board phone hearing today w/ the [place] dept oflabor. is representing himself, and shared the details of this phone hearing today, noting that he was unsure what the outcome of today's hearing would be, but was hopeful that the dept of labor would rule in his favor. Pt reports that the revised note from was reviewed to determine if the current tx plan recommendations were aimed at improving pt's functional capacity, given that the wc insurance is stating that pt is at MMI. In the meantime, pt's wage replacements have been arrested, and pt is suffering from severe financial stressors. [facility] validated these stressors, and offered to be a resource to him in any way that I could to advocate for his medical tx needs and wc benefits. Pt was appreciative of [facility]'s assistance, noting plan to keep me abreast of the labor board hearing decision. P: [facility] will continue to be available to this wc pt, assisting him w/ these complicated wc issues,intervening as needed. documented in this encounter Plan of Treatment Not on filedocumented as of this encounter Visit Diagnoses Not on filedocumented in this encounter Care Teams Staffing Assistant Relationship Specialty Start Date End Date Jackelin Paniagua PA PCP - General 07/20/12 01/23/16 documented as of this encounter
--- OUTSIDE RECORDS SUMMARY | 2022-06-07 01:48 | XMS_ITS | Encounter Summary ---
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 Signature Fibrinogen 363 220 - 480 CERNER mg/dL [facility] Specimen Anatomical Collection Method Collection Time Receive d Time (Source) Location / / Volume Laterality Blood specimen 09/25/2012 3:25 PM 012 3:28 (specimen) EST PM EST Resulting Agency Comment Spec In Lab Ludivina Carvajal MD HEMATOLOGY ORDERABLES Performing Organization Address City/[facility]/ZIP Code Phon e Number [address] [facility] PTT (09/25/2012 3:25 PM EST) P athologist Signature PTT 29 25 - 35 sec [facility] Comment: Recommended therapeutic PTT range for fu ll dose unfractionated heparin is 80-114 seconds. Specimen Anatomical Collection Method Collection Time Receive d Time (Source) Location / / Volume Laterality Blood specimen 09/25/2012 3:25 PM 012 3:28 (specimen) EST PM EST Resulting Agency Comment Spec In Lab Ludivina Carvajal MD HEMATOLOGY ORDERABLES Performing Organization Address City/[facility]/[place] [address] CERNER [facility]UM PT (09/25/2012 3:25 PM EST) athologist Signature PT 12.4 11.9 - 14.7 [facility] Comment: [facility] Transfusion Committee Guidelines: I NR less than 2.0, PTT less than OR equal to 43.5 seconds, or Fibrinogen gre ater than or equal to 100 mg/dl indicate adequate procoagulant activity for hemostasis in patients without underlying bleeding disorders. INR 0.9 0.9 - 1.1 [facility] Specimen Anatomical Collection Method Collection Time Receive d Time (Source) Location / / Volume Laterality Blood specimen 09/25/2012 3:25 PM 012 3:28 (specimen) EST PM EST Resulting Agency Comment Spec In Lab Ludivina Carvajal MD HEMATOLOGY ORDERABLES Performing Organization Address City/[facility]/ZIP Code Phon e Number [address] [facility] (ABNORMAL) D-Dimer, Quantitative (09/25/2012 3:25 PM EST) athologist Signature D-Dimer, Quant 563 (H) 0 - 500 [facility] FEU ng/ml [facility] Comment: The D-Dimer assay is used to aid in the diagnosis of deep vein thrombosis and pulmonary embolism. A normal D-Dimer res ult (less than 500 FEU ng/ml) has a negative predictive value of approximate ly 95% for the exclusion of acute PE and DVT when there is low to moderate pr etest probability. Specimen Anatomical Collection Method Collection Time Receive d Time (Source) Location / / Volume Laterality Blood specimen 09/25/2012 3:25 PM 012 3:28 (specimen) EST PM EST Resulting Agency Comment Spec In Lab Ludivina Carvajal MD HEMATOLOGY ORDERABLES Performing Organization Address City/[facility]/ZIP Code Phon e Number [address] [facility] Thrombosis Screen Report (09/25/2012 3:19 PM EST) Component Value Ref Test Analysis Performed At [facility] gist Range Method Time Signature Thrombosis CERNER Screen Report ? [facility] ? Provider: ?? ROSANDIOCorrie, ?Pt. Name: ?? JENNIFERIsabel KS, BRANDY E ?LUDIVINA ? Acc #: ?[id number] ? Pt. ? Col Date: ?? 09/25/20 12 ?/Sex: ?1970,(42 years),Male ? Rec Date: ?? 09/25/2012 ?LOC: ?3K ? THROMBOSIS SCREEN REPORT ? ---Clinical Information--- ? PE, Patient not on Heparin or Warfarin. ? ---Result--- ? TEST ?(REFERENCE RANGE) ?RESULT ? Platelet count ?(145,000-370,000/uL) ?262,000/cumm ? PT ?(11.9-14.7) ? 12.4 sec ? PTT ? (25-35) ? 29 sec ? Fibrinogen ?(220-480) ? 363 mg/dl ? Thrombin time ? (15-21) ? 17 sec ? APC resistance, ratio ? (>2.00) ? 1.59 ? Antithrombin ?(80-120%) ? 105% ? Protein C* ?(67-156%) ? 129% ? Protein S* ?(M:66-139%)(F:65-123%) ??81% ? Lupus anticoagulant ? (negative) ?Indeterminate(8) ? Anticardiolipin antib odies ?(IgG <23 GPL) ? IgG < 23 GPL ? Anticardiolipin antib odies ?(IgM <11 MPL) ? IgM 21 MPL ? Gaip-8-wtcsnvahvltm-1 antibodies ??(IgG <21 units) ? IgG < 21 units ? Qmmo-4-kfrekmhuhynd-1 antibodies ??(IgM <21 units) ? IgM 31 units ? Homocysteine, random, plasma ?(<12 umol/L) ?12 umol/L ? Factor V Leiden Mutat ion ?(normal) ?Heterozygous ? Prothrombin (89734 G- >A) mutation (normal) ?Negative ? * Functional assay for free Protein S and Prote in C ? ---Interpretation--- ? 1 - Heterozygous Factor V leiden mutation (see Amira t). ? 2. ??Lupus anticoagulant indeterminate. ? 3. Slightly increased Pesj-2-iikmsghexfgi-1 antibodies and Anticardiolipin ? antibodies . see comment ? 10/02/12 ? VKM ? 10/05/12 Verified by: ? Mignon CUEVA, Deon ? Hematopatholog ist ? (Electronic Si gnature) ? The attending pathologist whose signature appears o n this report has ? reviewed all diagnostic slides and has edited the shayne ss and/or ? microscopic portion of the report in rendering the fi nal pathologic ? diagnosis. ? [facility] ? Provider: ?? ROENGVORAPHOJ, ?Pt. Name: ?? SCOTT KS, BRANDY E ?LUDIVINA ? Acc #: ?[id number] ? Pt. ? Col Date: ?? 09/25/20 12 ?/Sex: ?1970,(42 years),Male ? Rec Date: ?? 09/25/2012 ?LOC: ?3K ? THROMBOSIS SCREEN REPORT ? ---Comment--- ? 1 - The heterozygous Factor V Leiden mutation is asso ciated with an ? approximately 5-7 fol d increased risk of venous thromboembolic disease when ? compared with non-car riers of the mutation. ??Destini Denton et. al. Combined ? Effect of Factor V Leiden and Prothrombin 41398B on the Risk of Venous ? Thromboembolism, Thromb Haemost, 2001; 86: 809 ? The lupus anticoagula nt (LA) test is in the indeterminate range, just above ? the negative cutoff, and the PTT is normal. ? ?These findings are of ? uncertain clinical si gnificance. ??However, patients with significant lupus ? anticoagulants genera lly have a clearly positive LA test and elevated PTT. ? IgG/IgM ??Wobn-9-vdxgdssvidpm 1 (B2GP1) t est performed is positive. If ? repeatedly high posit jose juan (in titer> 99th percentile ; High positive by our ? lab methods is >100 units and mod erate positive is 51-100 units), these ? laboratory findings would be consistent w ith antiphospholipid antibody ? syndrome, in the appropriate clinical setting. ? Ref: Demar et al(25 03): International Consenses statement on an update of ? the classification criteria for A PS. J Throm and Haemostatis, 4:295-306 ? IgG/IgM Anticardiolipin antibody(INGRID) test performe d is positive. If ? repeatedly positive (>40 GPL, or MPL, or > 99th perce ntile), these ? laboratory findings would be consistent w ith antiphospholipid antibody ? syndrome, in the appr opriate clinical setting.Ref: Demar et al (2006): ? International Consenses statement on an update of t he classification ? criteria for APS. J Throm and Haemostatis, 4:295-306 Specimen (Source) Anatomical Collection Method Collection Time Re ceived Time Location / / Volume Laterality 09/25/2012 3:19 PM EST Ludivina Carvajal MD PATHOLOGY/CYTOLOGY ORDERABLE S Performing Organization Address City/State/[place] [address] [facility] documented in this encounter Visit Diagnoses Diagnosis Pulmonary embolism - Primary Other pulmonary embolism and infarction documented in this encounter Care Teams Coil Strapper Relationship Specialty Start Date End Date Jackelin Paniagua PA PCP - General 07/20/12 01/23/16 documented as of this encounter
--- OUTSIDE RECORDS SUMMARY | 2022-06-07 01:48 | XMS_ITS | Encounter Summary ---
:1970 Author Organization [place] [address] Care Team Providers Name Role Phone Jackelin Paniagua Primary Care Provider Encounter Details Date Type Department Care Team Description 02/04/2013 Hospital Encounter [facility] [place] [address] [place] [address] [place] [address] Social History Tobacco Use Types Packs/Day Years Used Date Current Every Day Smoker Cigarettes 1 20 Smokeless Tobacco: Never Used Sex Assigned at Date Recorded Not on file documented as of this encounter Medications at Time of Discharge Medication Sig Dispensed Refills Start Date End Date diaZEPam (VALIUM) 5 mg Take 5 mg by mouth 0 03/22/2014 tabletIndications: every 6 hours as Pulmonary embolism needed. Ibuprofen 200 mg Take 1,600 mg by 0 CapIndications: Pulmonary mouth. embolism aspirin 325 mg Take 325 mg by mouth 0 04/21/2013 tabletIndications: daily. Pulmonary embolism Omeprazole 20 mg TbEC 0 04/13/201008/2014 documented as of this encounter Plan of Treatment Not on filedocumented as of this encounter Visit Diagnoses Not on filedocumented in this encounter Care Teams Physical Sciences Instructor Relationship Specialty Start Date End Date Jackelin Paniagua PA PCP - General 07/20/12 01/23/16 documented as of this encounter
--- OUTSIDE RECORDS SUMMARY | 2022-06-07 01:48 | XMS_ITS | Encounter Summary ---
:1970 Author Organization [facility] [place] [address] Care Team Providers Name Role Phone Jackelin Paniagua Primary Care Provider Encounter Details Date Type Department Care Team Description 05/06/2013 Telephone [place] [address] Social History Tobacco Use Types Packs/Day [...] Telephone Encounter - Twila Terry RN - 05/06/2013 2:26 PM EDT Paul Bradley called in to speak with Dr. Stone in regard to her most recent office note. He has been denied workman's comp based on some of the wording in the note (ie chronic, etc). Will forward note to Dr. Stone for her review. Patient agreed to this plan and will await MD's call to discuss. documented in this encounter Plan of Treatment Not on filedocumented as of this encounter Visit Diagnoses Not on filedocumented in this encounter Care Teams Security Coordinator Relationship Specialty Start Date End Date Jackelin Paniagua PA PCP - General 07/20/12 01/23/16 documented as of this encounter
--- OUTSIDE RECORDS SUMMARY | 2022-06-07 01:48 | XMS_ITS | Encounter Summary ---
:1970 Author Organization [facility] [place] [address] Care Team Providers Name Role Phone Jackelin Paniagua Primary Care Provider Encounter Details Date Type Department Care Team Description 09/30/2013 Telephone Pain Management at [facility] Joseph Flowers, [place] [address] Social History Tobacco Use Types Packs/Day [...] this encounter Miscellaneous Notes Telephone Encounter - Joseph Flowers RN - 09/30/2013 10:57 AM EST Opioid contract signed and scanned into on 09/16/13. JOSEPH FLOWERS RN documented in this encounter Plan of Treatment Not on filedocumented as of this encounter Visit Diagnoses Not on filedocumented in this encounter Care Teams Merchandising Manager Relationship Specialty Start Date End Date Jackelin Paniagua PA PCP - General 07/20/12 01/23/16 documented as of this encounter
--- OUTSIDE RECORDS SUMMARY | 2022-06-07 01:48 | XMS_ITS | Encounter Summary ---
:1970 Author Organization [facility] Address [facility] [place] [address] Care Team Providers Name Role Phone Jackelin Paniagua Primary Care Provider Reason for Visit Reason Comments Pain, Chronic Encounter Details Date Type Department Care Team Description 09/16/2013 Follow-Up Pain Management at [facility] Occi pital neuralgia (Primary Dx); [employer] Encounter for long-term (current) use of other medications; [facility] vical disc [place] [address] PAIN CLINIC [phone] [place] [phone] (Wo rk) Social History Tobacco Use Types [...] Sign Reading Time Taken Comments Blood Pressure 148/87 09/16/2013 8:56 AM EST Pulse 83 09/16/2013 8:56 AM EST Temperature - - Respiratory Rate 18 09/16/2013 8:56 AM EST Oxygen Saturation - - Inhaled Oxygen Concentration - - Weight 146.1 kg (322 lb) 09/16/2013 8:56 AM EST Height 177.8 cm (5' 10) 09/16/2013 8:56 AM EST Body Mass Index 46.2 09/16/2013 8:56 AM EST documented in this encounter Patient Instructions Patient InstructionsLuis Martinez APRN - 09/16/2013 10:28 AM EST 1) Trial of Dilaudid 2-4 mg in the evening instead of Tramadol, which is not helping. Can take with the Tylenol, and can take with Valium if needed. 2) Discussed repeat of Greater occipital nerve block. Paul will consider this, and if he decides toschedule, will stop his coumadin 5 days prior with permission with PRITI Bejarano. Paul would like to schedule this for 09/23. 3) Education material (DVD) given regarding occipital neurostimulator. Paul will watch this and write down questions. If he decides to pursue this, he will call and schedule an appointment with Dr. Carson and we will schedule a psych evaluation with Dr. Ayala. 4) Paul will postpone plans to do the GAP evaluation to see if he might be a candidate for FRP next. This will be re-scheduled at a later date once all medical interventions have been tried. 5) Melita Mcginnis and Sienna Figueroa involved in decision making and support for ongoing care. 6) Schedule right GONB next as his has already taken the day off. documented in this encounter Progress Notes Luis Martinez APRN - 09/16/2013 9:17 AM EST PAIN CLINIC FOLLOW-UP Paul Bradley [phone] Reason for follow-up: To discuss pain management options Chief Complaint: RFA procedures helped for about a week, then the pain returned and I am here to discuss options. I guess the 6th injection could not be done because I'm too fat. My W/C manager of case management asked me to come in to discuss options. I don't think I am ready to go through with the Functional [employer] [facility], I just don't have the stamina. Identification: Mr. Bradley is a 43 y.o.-year-old male, who has a history of falling on ice at work while walking across parking lot to get into work truck. He hit the back of his head, and has been getting right sided headaches since. The headaches are random, and not activity related. He recently started Valium again in the afternoon or at night, and it helps him relax and the pain becomes a non- issue. He has had various nerve blocks, the best results from the GONB although this was very painful and he'd rather not repeat this today. MBB and RFA of the cervical facets did not help. History of Present Illness/Interval History Pain Location: Right side occipit that radiates to the right eye and right side of neck. Upper back and thoracic back. Lower back. Pain Relief: ok with Tylenol overdosing to stop headache. Side Effects: denies Pain Quality: sharp, Anxiety: yes Sleep: interrupted by pain Smokin pp/d Alcohol: on weekends - helps him relax Functional Status: Can't do anything without bringing on the pain Past Treatments Medications Tramadol, Morphine - does not help. Used Dilaudid in hospital and this did help. Percocet made him Vomit; Vicodin did help Physical Therapy Pool therapy - taking a break until skin is healed Procedures MBB, FRA - did not help Surgeries Just had Basal cell removed on left forehead. Fusion in cervical spine - Other Review of Systems Constitutional + Denies weight loss; about 50 lb weight gain since injury. Demies fevers, chills, night sweats. Cardiovascular + Denies [...] reported in HPI Physical Exam Blood pressure 148/87, pulse 83, resp. rate 18, height 177.8 cm (5' 10), weight 146.058 kg (322 lb). Constitutional AxOx3, NAD Psychiatric Affect is depressed, appropriate, anxious. Goal directed thought process. Good eye contact. No pain behaviors. Lungs Clear to auscultation Cardiac Reg RR without murmur, rub Musculoskeletal Upright posture, leaning forward in chair Neuro deferred Assessment Occipital neuralgia, worse on right. Neck pain, thoracic pain, and low back pain s/p fall on ice 11/18. Deconditioning and overweight due to lack of [...] Urine baseline drug screen done today. 1) Trial of Dilaudid 2-4 mg in the evening instead of Tramadol, which is not helping. Can take with the Tylenol, and can take with Valium if needed. 2) Discussed repeat of Greater occipital nerve block. Paul will consider this, and if he decides toschedule, will stop his coumadin 5 days prior with permission with PRITI Bejarano. Paul would like to schedule this for 09/23. 3) Education material (DVD) given regarding occipital neurostimulator. Paul will watch this and write down questions. If he decides to pursue this, he will call and schedule an appointment with Dr. Carson and we will schedule a psych evaluation with Dr. Ayala. 4) Paul will postpone plans to do the GAP evaluation to see if he might be a candidate for FRP next. This will be re-scheduled at a later date once all medical interventions have been tried. 5) Melita Mcginnis and Sienna Figueroa involved in decision making and support for ongoing care. 6) Schedule right GONB next as his has already taken the day off. 7) Suggest smoking cessation. LUIS MARTINEZ APRN cc: PRITI BEJARANO, PIER RUNNER This encounter lasted 50 minutes with 40 minutes spent in [id number] education and counseling regarding management of chronic pain and coordination of care as described above. The remainder of the time was spent in record review, physical exam and consultation with Melita Mcginnis who came in to see the patient with me. documented in this encounter Plan of Treatment Not on filedocumented as of this encounter Procedures Procedure Name Priority Date/Time Associated Diagnosis Comme nts DRUG SCREEN WITH Routine 09/16/2013 10:35 AM Encounter for Res ults for this CONFIRMATION, URINE EST long-term (current) p rocedure are in (SEND OUT) use of other the results medications section. documented in this encounter Results Drug Screen with Confirmation, Urine (09/16/2013 10:35 AM EST) Component Value Ref Test Analysis Performed At [facility] [employer] Range Method Time Signature U JOSE w/Conf CERNER Test ? Result ?? Flag ??Uni t ?? RefValue [facility] Drug Screen, U ??Amphetamines ? Negative ? ng/mL ?? Cutoff: 500 ??Barbiturates ? Negative ? ng/mL ?? Cutoff: 200 ??Benzodiazepines ?Negative ? ng/mL ??C utoff: 200 ??Cocaine Metabolite ? Negative ? ng/mL ??Cut off: 150 ??Methadone ?Negative ? ng/mL ??Cutoff: 300 ??Opiates ?Negative ? ng/mL ??Cutoff: 300 ??Phencyclidine ?Negative ? ng/mL ?? Cutoff: 25 ??Propoxyphene ? Negative ? ng/mL ?? Cutoff: 300 ??Tetrahydrocannabinols ?Negative ? ng/mL ??Cuto ff: 50 ??Ethanol ?Negative ? mg/dL ??Cutoff: 10 Results from this test are presumptive; for [...] in employment-related drug testing. Test Performed by: [employer] [address], [place] [address] Radio Time Sales Supervisor: Narcisa Nogueira, Ph.D. Specimen Anatomical Collection Method Collection Time Receive d Time (Source) Location / / Volume Laterality Urine specimen 09/16/2013 10:35 3 1:35 (specimen) AM EST PM EST Resulting Agency Comment Spec In Lab Dino Mccabe MD URINE ORDERABLES Performing Organization Address City/State/[place] [address] [facility] documented in this encounter Visit Diagnoses Diagnosis Occipital neuralgia - Primary Other syndromes affecting cervical regio n Encounter for long-term (current) use of other medications Cervical disc disease with myelopathy Intervertebral cervical disc disorder wi th myelopathy, cervical region documented in this encounter Care Teams Data Processing Supervisor Relationship Specialty Start Date End Date Jackelin Paniagua PA PCP - General 07/20/12 01/23/16 documented as of this encounter
--- OUTSIDE RECORDS SUMMARY | 2022-06-07 01:48 | XMS_ITS | Encounter Summary ---
:1970 Author Organization [facility] [place] [address] Care Team Providers Name Role Phone Jackelin Paniagua Primary Care Provider Encounter Details Date Type Department Care Team Description 07/15/2013 Telephone [facility] [place] [phone] Social History Tobacco Use Types Packs/Day [...] Telephone Encounter - Twila Terry RN - 07/15/2013 10:58 AM EDT Received call from Mariaa Glover in Dr. Jackelin Paniagua's office. She called us to let us know that Mukesh been taken to [facility] ER and is now on Keflex. She states she called because she was under the assumption that we are managing his Coumadin. Explained that patient has seen providers in the Pain Clinic, has had Pain Clinic procedures scheduled in the past, and has one coming up on August 04, but we do not manage his Coumadin. We were under the impression that Dr. Paniagua manages patient's Coumadin and lab draws since we send authorizations to hold anti-coagulants to Dr. Paniagua before scheduled procedures. Explained that we do draw an INR two hours prior to a procedure but are not involved in managing patient's anti-coagulation. Mariaa will forward this information to Dr. Paniagua so that proper follow through is made for patient and to ensure that a doctor is managing his care. documented in this encounter Plan of Treatment Not on filedocumented as of this encounter Visit Diagnoses Not on filedocumented in this encounter Care Teams Molder Hand Relationship Specialty Start Date End Date Jackelin Paniagua PA PCP - General 07/20/12 01/23/16 documented as of this encounter
--- OUTSIDE RECORDS SUMMARY | 2022-06-07 01:48 | XMS_ITS | Encounter Summary ---
:1970 Author Organization [facility] [place] [address] Care Team Providers Name Role Phone Jackelin Paniagua Primary Care Provider Encounter Details Date Type Department Care Team Description 09/25/2012 Hospital Encounter Laboratory [facility]ina Carvajal, [place] [address] HEMATOLOGY/ONCOLOGY DEPT. [place], [place] [address] (Wo rk) Social History Tobacco [...] on filedocumented in this encounter Care Teams Can Technician Relationship Specialty Start Date End Date Jackelin Paniagua PA PCP - General 07/20/12 01/23/16 documented as of this encounter
--- OUTSIDE RECORDS SUMMARY | 2022-06-07 01:48 | XMS_ITS | Encounter Summary ---
:1970 Author Organization [facility] [place] [address] Care Team Providers Name Role Phone Jackelin Paniagua Primary Care Provider Reason for Visit Reason Comments Follow-up Encounter Details Date Type Department Care Team Description 03/05/2013 Follow-Up Hematology and Ludivina Carvajal, Pulmona ry embolism Oncology at [facility] (Primary Dx) [facility] [place] [address] HEMATOLOGY/ONCOLOGY [phone] DEPT[address] [place], [place] [address] (Wo rk) Social History Tobacco Use Types Packs/Day Years Used Date Current Every Day Smoker Cigarettes 1 20 Smokeless Tobacco: Never Used Sex Assigned at Date Recorded Not on file documented as of this encounter Last Filed Vital Signs Vital Sign Reading Time Taken Comments Blood Pressure 134/80 03/05/2013 11:26 AM EDT Pulse 73 03/05/2013 11:26 AM EDT Temperature 36.6 ??C (97.9 ??F) 03/05/2013 11:26 AM EDT Respiratory Rate 18 03/05/2013 11:26 AM EDT Oxygen Saturation 95% 03/05/2013 11:26 AM EDT Inhaled Oxygen Concentration - - Weight 140 kg (308 lb 10.3 oz) 03/05/2013 11:26 AM EDT Height 175.3 cm (5' 9) 03/05/2013 11:26 AM EDT Body Mass Index 45.58 03/05/2013 11:26 AM EDT documented in this encounter Progress Notes Ludivina Lemus MD - 03/05/2013 11:39 AM EDT [facility] Department of Medicine [place] [address] [facility] THROMBOSIS FOLLOW-UP DATE OF VISIT 03/05/2013 Patient Paul Bradley 1970 REFERRING PHYSICIAN [facility] PRIMARY CARE PHYSICIAN PR[facility] THROMBOSIS PROBLEM LIST: Pulmonary embolism Heterozygous factor V Leiden INTERVAL HISTORY: Paul Bradley is a 42 year-old man with 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 Paul has initial noticedsome improvement of his neurologic symptoms following his cervical spine surgery. In November 2012 he fell on ice and hit his head/back. He was evaluated at the emergency to rule out intracranial bleedand this was negative. Since the fall, he has worsening of his neck/back and leg pain. He has a baseline shortness of breath which has not changed. He has been trying to cut down smoking from 1 pack/day to less a pack/day. He has been wearing compression stocking more frequently but not on a daily basis and thinks that it helps reduce swelling. He is currently on worker compensation due to the fall. In January 2013 he underwent a cholecystectomy for cholecystitis. His warfarin was held for 2 days prior surgery and it was resumed following the surgery without bridging. He has not had his INR check since then. He denies any bleeding complication while on warfarin. Recently his PCP has started him on gabapentin and tramadol for pain control. PAST MEDICAL HISTORY Pulmonary embolism Heterozygous factor V Leiden OPERATIVE PROCEDURES S/p anterior cervical disectomy S/p cholecystectomy MEDICATIONS Current Outpatient Prescriptions on File Prior to Visit Medication Sig Dispense Refill ??? diaZEPam (VALIUM) 5 mg tablet Take 5 mg by mouth every 6 hours as needed. ??? Omeprazole 20 mg TbEC ??? Ibuprofen 200 mg Cap Take 1,600 mg by mouth. ??? aspirin 325 mg tablet Take 325 mg by mouth daily. ADVERSE DRUG REACTIONS Allergies as of 03/05/2013 - Review Complete 03/05/2013 Allergen Reaction Noted ??? Sulfa (sulfonamide antibiotics) FAMILY HISTORY Maternal aunt had a history of DVT following a long car ride. She is overweight. Mother of valve disease. Father of alcoholic liver cirrhosis. 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 Currently on worker compensation REVIEW OF SYSTEMS Fevers/chills/sweats No Recent infections No Unexplained weight loss Weight gain Headache/lightheadedness/syncope No Sinus pain/pressure No Oral sores/lesions/bleeding No Sore throat/dysphagia No Nosebleeds No Cough/SOB/chest pain/heart racing Chronic shortness of breath on exertion unchanged, still smoking Nausea/vomiting/dyspepsia No Abdominal pain No Diarrhea/constipation Diarrhea 2-3 times/day since cholecystectomy Urinary pain, burning, incontinence No Hematuria No Penile discharge/bleeding No Skin rashes/ulcers No Back/joint pain/swelling Neck/back pain Leg swelling/pain/redness No Bruising/petechiae/bleeding/melena No Sensory/motor Tingling/numbness of the hands/feet Polydipsia/polyuria/heat/cold intol No Lumps/bumps/swollen glands No Other Negative except as above PHYSICAL EXAMINATION BP 134/80 Pulse 73 Temp(Src) 36.6 ??C (97.9 ??F) (Oral) Resp 18 Ht 175.3 cm (5' 9) Wt 140kg (308 lb 10.3 oz) BMI 45.58 kg/m2 SpO2 95% GENERAL: Well-appearing, articulate white male. HEENT: Oropharynx clear; no mucosal lesions, petechiae, bleeding, thrush or ulcers. NECK: Supple; no cervical, supraclavicular or submental adenopathy. CHEST: Clear to auscultation/percussion. No rales, rhonchi, wheezes. HEART: Regular rate and rhythm; no murmur, rub, gallop ABDOMEN: Soft, non-tender, no hepatosplenomegaly. GENITOURINARY: Exam deferred. EXTREMITIES: No clubbing, cyanosis or edema. No erythema, tenderness or palpable cords. No venous varicosities. No skin discoloration or hemosiderin deposits. Peripheral pulses palpable. MUSCULOSKELETAL: Spine nontender. Cervical spine range of motion limited No acutely inflamed joints. SKIN: No ecchymoses, petechiae, ulcers or rashes. LYMPH: No palpable lymph nodes. NEUROLOGIC: Alert, oriented. Speech clear, coherent. No focal deficits noted. PSYCHIATRIC: Appropriate affect, no apparent distress. LABORATORY STUDIES Results for PAUL BRADLEY ( ) as of 03/06/2013 15:40 Ref. Range 09/25/2012 15:25 02/10/2013 14:56 B2GPI IgG Latest Range: <=20 unit(s) <21 <21 B2GPI IgM Latest Range: <=20 unit(s) 31 (H) 34 (H) Cardiolipin IgG Latest Range: <=22 GPL unit(s) <23 <23 Cardiolipin IgM Latest Range: <=10 MPL unit(s) 21 (H) 19 (H) Results for PAUL BRADLEY ( ) as of 03/06/2013 15:40 Ref. Range 09/25/2012 15:25 02/10/2013 14:56 Lupus Anticoag Latest Range: Neg Indeterminate Indeterminate Results for PAUL BRADLEY ( ) as of 03/06/2013 15:40 Ref. Range 03/05/2013 12:21 PT Latest Range: 12.0-15.0 sec 19.6 (H) INR Latest Range: 0.9-1.1 1.6 (H) RADIOGRAPHIC STUDIES None IMPRESSION Paul Bradley is a 42 y.o. man with history of pulmonary embolism and heterozygous factor V Leiden on chronic anticoagulation with warfarin who is here for repeat testings to rule out antiphospholipidsyndrome. His lab showed persistent mildly elevated cardiolipin IgM antibody and beta2 glycoprotein IgM antibody. His lupus anticoagulant was again indeterminate. Although the level of his antibodies are elevated, these are not high enough to meet the criteria of antiphospholipid syndrome. We have repeated the testing twice within 3 months. I reassured him that he does NOT have the diagnosis of antiphospholipid syndrome. (see below) These antibodies can be elevated in the setting of acute illness, inflammation. Mildly elevated antibodies have no clinical significance of thrombosis. [employer] International Consensus Conference Criteria for Diagnosis of Antiphospholipid Syndrome: Clinical criteria consist of: 1) Vascular thrombosis (arterial, venous or small vessel), AND/OR 2) morbidity (unexplained loss after 10 weeks gestation, premature before 34 weeks due to eclampsia, severe pre-eclampsia or placental insufficiency, or recurrent loss before 10 weeks gestation) Laboratory criteria consist the presence of: 1) Lupus anticoagulant, AND/OR 2) Anticardiolipin antibody (IgM or IgG) in moderate or high titer (i.e., >/=40 MPL or GPL), AND/OR 3) Vnaj-[id number]-asbcrtchouhr-1 antibody (IgM or IgG) at a level >99th percentile (i.e., >100 units in [facility] laboratory). The relevant antiphospholipid antibody must be demonstrated in the plasma or serum on two occasions at least 12 weeks apart. The diagnosis of antiphospholipid syndrome should be avoided if both clinical and laboratory criteria are not met. Classification of APS should be avoided if less than 12 weeks or more than 5 years separate the positive aPL test and the clinical manifestation (Araceli Benz et al., International consensus statement on an update of the classification criteria for definite antiphospholipid syndrome. J Thromb Haemost 2006;4:295-306. Paul has been doing fine with chronic ongoing anticoagulation with warfarin. He has no bleeding complication. I emphasized the importance of having his INR check regularly, especially after medicationchanges. His INR today is subtherapeutic at 1.6. We will inform the patient and notify his PCP to adjust his warfarin dose. Finally we reviewed preventative strategies for VTE including weight loss, tobacco cessation, wearing compression stockings, maintain good activity. PLAN/RECOMMENDATIONS 1. No evidence of antiphospholipid syndrome 2. Continue chronic ongoing anticoagulation with warfarin (INR goal 2-3) 3. Encourage weight loss, tobacco cessation, wearing compression stockings on daily basis, maintain good activity 4. Notify patient and his PCP regarding sub-therapeutic INR of 1.6 Paul Bradley had the opportunity to ask questions and indicated that all his questions were answered to his satisfaction. While I won't schedule him to see us back, he knows that he can call our office should any questions or concerns arise. I am happy to see him back to formulate thromboprophylaxisplan, should he plan to have any elective surgery in the future. Ludivina Lemus MD Instructor of Medicine, [facility] documented in this encounter Plan of Treatment Not on filedocumented as of this encounter Procedures Procedure Name Priority Date/Time Associated Diagnosis Comme nts PROTHROMBIN TIME Routine 03/05/2013 12:21 PM Pulmonary embolis m Results for this EDT procedure are i n the results section. documented in this encounter Results (ABNORMAL) Prothrombin Time (03/05/2013 12:21 PM EDT) P athologist Signature PT 19.6 (H) 12.0 - 15.0 CERNER sec MILLENNIUM Comment: [facility] Transfusion Committee Guidelines: I NR less than 2.0, PTT less than OR equal to 43.5 seconds, or Fibrinogen gre ater than or equal to 100 mg/dl indicate adequate procoagulant activity for hemostasis in patients without underlying bleeding disorders. INR 1.6 (H) 0.9 - 1.1 CERNER Tas[employer] Specimen Anatomical Collection Method Collection Time Receive d Time (Source) Location / / Volume Laterality Blood specimen 03/05/2013 12:21 3 (specimen) PM EDT 12:24 PM EDT Resulting Agency Comment Spec In Lab Ludivina Carvajal MD HEMATOLOGY ORDERABLES Performing Organization Address City/State/ZIP [place] [address] [employer] documented in this encounter Visit Diagnoses Diagnosis Pulmonary embolism - Primary Other pulmonary embolism and infarction documented in this encounter Care Teams Machine Assembler Supervisor Relationship Specialty Start Date End Date Jackelin Paniagua PA PCP - General 07/20/12 01/23/16 documented as of this encounter
--- OUTSIDE RECORDS SUMMARY | 2022-06-07 01:48 | XMS_ITS | Encounter Summary ---
:1970 Author Organization [facility] Address [place] [id number] Care Team Providers Name Role Phone Jackelin Paniagua Primary Care Provider Reason for Visit Reason Comments Cervicalgia R side Encounter Details Date Type Department Care Team Description 07/01/2013 Procedure visit Pain Management at [facility] (Primary [facility] PMD Dx) [facility] [address] [place], [place] [facility] [id number] [place] [address] [phone] Social History Tobacco Use Types Packs/Day Years [...] Sign Reading Time Taken Comments Blood Pressure 110/61 07/01/2013 2:19 PM EDT Pulse 80 07/01/2013 2:19 PM EDT Temperature - - Respiratory Rate 22 07/01/2013 2:19 PM EDT Oxygen Saturation 94% 07/01/2013 2:19 PM EDT Inhaled Oxygen Concentration - - Weight 138.8 kg (306 lb) 07/01/2013 1:50 PM EDT Height 177.8 cm (5' 10) 07/01/2013 1:50 PM EDT Body Mass Index 43.91 07/01/2013 1:50 PM EDT documented in this encounter Patient Instructions Patient InstructionsGavi Decker LPN - 07/01/2013 1:52 PM EDT [facility] Discharge Instructions: You were seen by Dr. Dino Mccabe MD and Mathew Bonds MD who performed cervical medial branch block. [x] You may resume your normal activities: today. You may shower today. DO NOT tub [...] for 20 minutes.Do not apply heat today. Attempt to empty your bladder 4-6 hours after your procedure. You received the following medications: Lidocaine, Omnipaque (contrast dye) and Sensorcaine. During regular business hours, please phone the [...] your local emergency department. Gavi Decker LPN Special instructions Pain [facility] Center Post -Procedure Pain Log Patient: Paul Bradley [id number] It is important for you to keep track of your pain after your procedure that took place 07/01/2013. This information will help your Provider to determine how to help reduce your pain. Today you had a procedure for pain in your neck. Your pain level before the procedure in this area was 4/10. Your pain level immediately after your procedure was 3/10. Time Pain Score Comments 1 hour 2 hours 3 hours 4 hours Please call the nurse in the Pain Management Center a day or two after your procedureand report the information above. She will assess your response to the procedure, and will recommendappropriate follow-up. documented in this encounter Progress Notes Gavi Decker LPN - 07/01/2013 1:51 PM EDT Pre-Procedure Screening Questions: 1. Status: No 2. 3. 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 Patient taking antibiotics at present? No 5. NPO per Pain Management Center protocol? No 6. 7. Patient diabetic: No __ borderline (not treated with medications) __ managed with oral medications __ managed with injected medications 8. Patient routinely taking anticoagulants ? Yes Date stopped 06/23/13 Current INR 1.0 Patient Vital Signs documented in Doc Flowsheets associated with this encounter. Patient Discharge Instructions were reviewed with patient and copy provided to patient. documented in this encounter Procedure Notes Mathew Bonds MD - 07/01/2013 2:30 PM EDTAssociated Order(s): NERVE BLOCK - CERVICAL/THORACIC Procedure(s): NERVE BLOCK - CERVICAL/THORACIC Pre-Procedure Diagnose(s): Cervicalgia CERVICAL MEDIAL BRANCH BLOCK PROCEDURE NOTE Paul Bradley has been referred to the Pain Management Center for cervical medial branch blocks. Comments: Chief complaint of neck pain with radiation into RUE and occiput He had an occipital nerve block recently without significant pain relief. His pre-procedure pain score was a 5/10. Paul Bradley was greeted by the nurse who verified patients name and . Patient was then taken to the fluoroscopy suite. Paul Bradley was interviewed and the medical record reviewed. There were no medical, pharmacologic, radiographic or other structural contraindications to attempting fluoroscopically guided local anesthetic cervical medial branch blocks. Risks and expected side effects as well as potential benefit ofthe procedure were reviewed with Paul Bradley and his concerns addressed. The printed consent formwas signed and witnessed. Standard time-out procedure was performed. The patient was placed in the LLD position on the fluoroscopy table and automated blood pressure cuff and pulse oximeter applied. The skin entry points for approaching the anatomic target points of thesegmental medial branches of right C2 C3, C4 and C5 and C6 were identified with fluoroscopy and marked. Following thorough Chlorhexidine of the skin and draping and a 1% Lidocaine infiltration of the skin entry points and subcutaneous tissues, a 25 gauge curved tip spinal needle was placed under fluoroscopic guidance down on to the target point for each respective segmental medial branch. At each point, 0.5 ml 0.5% bupivacaine was injected. Paul Bradley's vital signs were stable throughout the procedure and were as recorded in nursing records. Intravenous drugs for sedation and analgesia were not given. Minimal vertigo symptoms quickly resolved. No nausea or overt anesthesia of the occipital nerve. Follow up plans and appointments were discussed with Paul Marquita Bradley. Paul Bradley was instructed to keep careful note of how the usual pain was modified by these injections. Specifically, he was asked to keep a pain diary for the next 24 hours using a numeric pain scale of 0-10 and report these results via phone call within the next 1-3 days. Post procedure instruction was given as directed in nursing records and having met discharge criteria, he was discharged from the Pain Management Center. Based on the medial branches blocked today, if they patient has adequate relief and we are able to proceed to radiofrequency ablation, the treatment should result in the denervation of the right C3-4, C4-5 and C5-6 facets. We would expect to denervate a total of 3 facets during the radiofrequency ablation. Patient tolerated the procedure well and knows to call with his pain scores per protocol. His post-procedure pain score was a 3/10. MATHEW BONDS MD I was the attending physician supervising the resident in the above care and I was present with the resident for the entire procedure. Dino Mccabe MD documented in this encounter Plan of Treatment Not on filedocumented as of this encounter Procedures Procedure Name Priority Date/Time Associated Diagnosis Comme nts NERVE BLOCK - Routine 07/01/2013 2:44 PM Cervicalgia Results for this CERVICAL/THORACIC EDT procedure are in the results section. documented in this encounter Results NERVE BLOCK - CERVICAL/THORACIC (07/01/2013 2:44 PM EDT) Narrative Dino Mccabe MD - 07/01/2013 2:44 PM EDT Dino Mccabe MD ? 07/01/2013 ??2:44 PM CERVICAL MEDIAL BRANCH BLOCK PROCEDURE N OTE Paul Bradley has been referred to the [facility] for cervical medial branch blocks. Comments: Chief complaint of neck pain w ith radiation into RUE and occiput He had an occipital nerve block recently without significant pain relief. His pre-procedure pain score was a 5/10. Paul Bradley was greeted by the nurse who verified patients name and . ??Patient was then taken t o the fluoroscopy suite. Paul Bradley was interviewed and the m edical record reviewed. ?? There were no medical, pharmacologic, ra diographic or other structural contraindications to attempti ng fluoroscopically guided local anesthetic cervical medial branch blocks. ??Risks and expected side effects as well as potenti al benefit of the procedure were reviewed with Paul adorno and his concerns addressed. ??The printed consent form wa s signed and witnessed. ?? Standard time-out procedure was performe d. The patient was placed in the LLD positi on on the fluoroscopy table and automated blood pressure cuff and pulse oximeter applied. ??The skin entry points for pretty roaching the anatomic target points of the segmental medial br anches of right C2 C3, C4 and C5 and C6 were identified with fluor oscopy and marked. ?? Following thorough Chlorhexidine of the skin and draping and a 1% Lidocaine infiltration of the skin entry points and subcutaneous tissues, a 25 gauge curved tip spinal ne edle was placed under fluoroscopic guidance down on to the tar get point for each respective segmental medial branch. At e ach point, 0.5 ml 0.5% bupivacaine was injected. Paul Bradley's vital signs were stable throughout the procedure and were as recorded in nursing records. ??Intravenous drugs for sedation and analgesia were not given. M inimal vertigo symptoms quickly resolved. No nausea or overt ane sthesia of the occipital nerve. Follow up plans and appointments were di scussed with Paul Bradley. ??Paul Bradley was instructed to keep careful note of how the usual pain was modified by these injections. ?? Specifically, he was asked to keep a leslie n diary for the next 24 hours using a numeric pain scale of 0-10 and report these results via phone call within the next 1-3 days. Post procedure instruction was given as directed in [facility] records and having met discharge criteria, he was discharge d from the Pain Management Center. Based on the medial branches blocked tod ay, if they patient has adequate relief and we are able to proce ed to radiofrequency ablation, the treatment should result in the denervation of the right C3-4, C4-5 and C5-6 facets. We wou ld expect to denervate a total of 3 facets during the radiofreque ncy ablation. Patient tolerated the procedure well and knows to call with his pain scores per protocol. His post-proce dure pain score was a 3/10. MATHEW BONDS MD I was the attending physician supervisin g the resident in the above care and I was present with the re sident for the entire procedure. Dino Mccabe MD Procedure Note Mathew Bonds MD - 07/01/2013 2:30 P M EDT CERVICAL MEDIAL BRANCH BLOCK PROCEDURE N OTE Paul Bradley has been referred to the [facility] for cervical medial branch blocks. Comments: Chief complaint of neck pain w ith radiation into RUE and occiput He had an occipital nerve block recently without significant pain relief. His pre-procedure pain score was a 5/10. Paul Bradley was greeted by the nurse who verified patients name and . Patient was then taken to the fluoroscopy suite. Paulsamanta Bradley was interviewed and the m edical record reviewed. There were no medical, pharmacologic, radiographic or other structural contraindications to attempting fluoroscopically guided local anesthetic cervical medial branch blocks. Risks and expected side effects as well as potential benefit of the procedure were reviewed with Paul Marquita Kirk and his concerns addressed. The printed consent form was signed and witnessed. Standard time-out procedure w as performed. The patient was placed in the LLD positi on on the fluoroscopy table and automated blood pressure cuff and pulse oximeter applied. The skin entry points for approaching the anatomic target points of the segmental medial branches of right C2 C3, C4 and C5 and C 6 were identified with fluoroscopy and marked. Following thorough Chlorhexidine of the skin and draping and a 1% Lidocaine infiltration of the skin entry points and subcutaneous tissues, a 25 gauge curved tip spinal ne edle was placed under fluoroscopic guidance down on to the target point for each respective segmental medial branch. At each point, 0.5 ml 0.5% bupivacaine was injected. Paul Bradley's vital signs were stable throughout the procedure and were as recorded in nursing records. Intravenous drugs for sedation and analgesia were not given. Minimal vertigo symptoms quickly resolved. No nausea or overt anesthesia of the occipi rosina nerve. Follow up plans and appointments were di scussed with Paul E Bradley. Paul Bradley was instructed to keep careful note of how the usual pain was modified by these injections. Specifically, he was asked to keep a pain diary for the next 24 hours using a numeric pain scale of 0-10 and report these results via phone call within the next 1-3 days. Post procedure instruction was given as directed in nursing records and having met discharge criteria, he was discharge d from the Pain Management Center. Based on the medial branches blocked tod ay, if they patient has adequate relief and we are able to proceed to radiofrequency ablation, the treatment should result in the denervation of the right C3-4, C4-5 and C5-6 facets. We would expect to denervat e a total of 3 facets during the radiofrequency ablation. Patient tolerated the procedure well and knows to call with his pain scores per protocol. His post-procedure pain score was a 3/10. MATHEW BONDS MD I was the attending physician supervisin g the resident in the above care and I was present with the resident for the entire procedure. Dino Mccabe MD Dino Mccabe MD PROCEDURE/MINOR SURGICAL ORD ERABLES documented in this encounter Visit Diagnoses Diagnosis Cervicalgia - Primary documented in this encounter Administered Medications Inactive Administered Medications - up to 3 most recent administrations Medication Order MAR Action Action Date Dose Rate Site BUpivacaine (PF) (MARCAINE) 0.5 % Given 07/01/2013 2:00 PM EDT 1 0 mg (5 mg/mL) injection 10 mg 10 mg (2 mL), Subcutaneous, ONCE, 1 dose, On Stacy 07/01/13 at 1445, Wasted 8 ml, Routine iohexol (OMNIPAQUE) injection 1 mL Given 07/01/2013 2:00 PM EDT 1 mL 1 mL, Other, ONCE, 1 dose, On Stacy 07/01/13 at 1400, Routine documented in this encounter Care Teams Escrow Assistant Relationship Specialty Start Date End Date Jackelin Paniagua PA PCP - General 07/20/12 01/23/16 documented as of this encounter
--- OUTSIDE RECORDS SUMMARY | 2022-06-07 01:48 | XMS_ITS | Encounter Summary ---
:1970 Author Organization [facility] [place] [address] Care Team Providers Name Role Phone Jackelin Paniagua Primary Care Provider Reason for Visit Reason Onset Date Comments Other 09/27/2013 Encounter Details Date Type Department Care Team Description 09/27/2013 Telephone Care Management Zahraa Figueroa MSW [facility] [place] [address] [place] [address] [place] [id number] [phone] Social History Tobacco Use Types Packs/Day Years [...] Telephone Encounter - Zahraa Figueroa MSW - 09/27/2013 2:48 PM EST [facility] received a call from pt wanting to discuss his tx options and wc issues. Pt is clearly struggling w/ the decision about whether to secure an erisa attorney to help address his wc issues. was scheduled to meet w/ to discuss potential S[facility] tx options, but he is also considering the FRP program, so he is also struggling w/ making the appropriate tx choices. [facility] discussed the FRP program w/ him, explaining that he may not Be a candidate for the FRP program if he is considering other tx options. Pt reportedly spoke w/ Melita Mcginnis about these concerns, and would like to follow up w/ her again,especially regarding his interest in pursuing the FRP tx option. CCM relayed plan to f/u janina/ Melita Mcginnis re: the above, and invited him to f/u w/ me as needed. P: CCM will collaborate janina/ Melita Mcginnis and Pain clinic re: pt's tx plan recommendations and needs. CCM will be available to pt for further consultation in the aforementioned areas, intervening as needed. documented in this encounter Plan of Treatment Not on filedocumented as of this encounter Visit Diagnoses Not on filedocumented in this encounter Care Teams Clinic Manager Relationship Specialty Start Date End Date Jackelin Paniagua PA PCP - General 07/20/12 01/23/16 documented as of this encounter
--- OUTSIDE RECORDS SUMMARY | 2022-06-07 01:48 | XMS_ITS | Encounter Summary ---
:1970 Author Organization [facility] [place] [address] Care Team Providers Name Role Phone Jackelin Paniagua Primary Care Provider Reason for Visit Reason Comments Follow-up Encounter Details Date Type Department Care Team Description 10/16/2012 Follow-Up Hematology and Ludivina Carvajal Pulmona ry embolism (Primary Dx); Oncology at [facility] Heterozygous factor V Leiden mutation [facility] [place] [address] HEMATOLOGY/ONCOLOGY [phone] [place] [id number] (Wo rk) Social History Tobacco Use Types Packs/Day Years Used Date Current Every Day Smoker Cigarettes 1 20 Smokeless Tobacco: Never Used Sex Assigned at Date Recorded Not on file documented as of this encounter Last Filed Vital Signs Vital Sign Reading Time Taken Comments Blood Pressure 134/80 10/16/2012 2:12 PM EST Pulse 65 10/16/2012 2:12 PM EST Temperature 36.9 ??C (98.4 ??F) 10/16/2012 2:12 PM EST Respiratory Rate 16 10/16/2012 2:12 PM EST Oxygen Saturation 95% 10/16/2012 2:12 PM EST Inhaled Oxygen Concentration - - Weight 136.5 kg (300 lb 14.9 oz) 10/16/2012 2:12 PM EST Height 174.5 cm (5' 8.7) 10/16/2012 2:12 PM EST Body Mass Index 44.83 10/16/2012 2:12 PM EST documented in this encounter Progress Notes Ludivina Lemus MD - 10/16/2012 2:54 PM EST [facility] Department of Medicine [place] [address] [facility] THROMBOSIS FOLLOW-UP DATE OF VISIT 10/16/2012 Patient Paul Bradley 1970 REFERRING PHYSICIAN Jackelin Paniagua PA PRIMARY CARE PHYSICIAN Jackelin Paniagua PA THROMBOSIS PROBLEM LIST: Pulmonary embolism Heterozygous factor V Leiden INTERVAL HISTORY: Paul Bradley is a 42 year-old man with history of idiopathic pulmonary emboli, who is seen in follow-up to discuss thrombophilia testing and recommendation of anticoagulation. Paul continues to do aphysical therapy for his cervical spine. He has noticed some improvement of his neurologic symptoms since last visit. (less tingling/numbness in his arms, legs and improvement of mobility). He denies any worsening of shortness of breath. He has a baseline shortness of breath due to his smoking. He continues to smoke about 1 pack/day. 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 He developed a pain in his right calf and behind the thigh at 2 different occasions. Both of the time the pain occurred after a long day at work when he spent a lot of time sitting. The pain resolved quickly after he stood up and walked around. He has not received a new pair of compression stocking yet. His right leg looks a bit bigger than the left at baseline. He denies any new swelling of his legs. PAST MEDICAL HISTORY Pulmonary embolism OPERATIVE PROCEDURES S/p anterior cervical disectomy MEDICATIONS Current Outpatient Prescriptions on File Prior to Visit Medication Sig Dispense Refill ??? diaZEPam (VALIUM) 5 mg tablet Take 5 mg by mouth every 6 hours as needed. ??? Ibuprofen 200 mg Cap Take 1,600 mg by mouth. ??? aspirin 325 mg tablet Take 325 mg by mouth daily. ??? Omeprazole 20 mg [facility] ADVERSE DRUG REACTIONS Allergies as of 10/16/2012 - Review Complete 10/16/2012 Allergen Reaction Noted ??? Sulfa(sulfonamide antibiotics) FAMILY HISTORY Maternal aunt had a history of DVT following a long car ride. She is overweight. Mother of valve disease. Father of alcoholic liver cirrhosis. 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 Right leg circumference a bit larger than left as baseline. Bruising/petechiae/bleeding/melena No Sensory/motor Tingling/numbness of the hands/feet and cervical mobility improved with physical therapy Polydipsia/polyuria/heat/cold intol No Lumps/bumps/swollen glands No Other Negative except as above PHYSICAL EXAMINATION BP 134/80 Pulse 65 Temp(Src) 36.9 ??C (98.4 ??F) (Oral) Resp 16 Ht 174.5 cm (5' 8.7) Wt 136.5 kg (300 lb 14.9 oz) BMI 44.83 kg/m2 SpO2 95% GENERAL: Well-appearing, articulate white male. HEENT: Oropharynx clear; no mucosal lesions, petechiae, bleeding, thrush or ulcers. NECK: Supple; no cervical, supraclavicular or submental adenopathy. CHEST: Clear to auscultation/percussion. No rales, rhonchi, wheezes. HEART: Regular rate and rhythm; no murmur, rub, gallop ABDOMEN: Soft, non-tender, no hepatosplenomegaly. GENITOURINARY: Exam deferred. EXTREMITIES: No clubbing, cyanosis. Right calf circumference larger than left (at baseline per patient). No erythema, tenderness or palpable cords. No venous varicosities. No skin discoloration or hemosiderin deposits. Peripheral pulses palpable. MUSCULOSKELETAL: Limited mobility of cervical spine. No acutely inflamed joints. SKIN: No ecchymoses, petechiae, ulcers or rashes. LYMPH: No palpable lymph nodes. NEUROLOGIC: Alert, oriented. Speech clear, coherent. PSYCHIATRIC: Appropriate affect, no apparent distress. LABORATORY STUDIES Results for PAUL BRADLEY ( ) as of 10/20/2012 10:19 Ref. Range 09/25/2012 15:25 Platelets Latest Range: 145-370 x10(3)/mcL 262 PT Latest Range: 11.9-14.7 sec 12.4 INR Latest Range: 0.9-1.1 0.9 PTT Latest Range: 25-35 sec 29 Fibrinogen Latest Range: 220-480 mg/dL 363 Thrombin Time Latest Range: 15-20 sec 17 D-Dimer, Quant Latest Range: 0-500 FEU ng/ml 563 (H) Thrombosis screen Platelet count (145,000-370,000/uL) 262,000/cumm PT (11.9-14.7) 12.4 sec PTT (25-35) 29 sec Fibrinogen (220-480) 363 mg/dl Thrombin time (15-21) 17 sec APC resistance, ratio (>2.00) 1.59 Antithrombin (80-120%) 105% Protein C* (67-156%) 129% Protein S* (M:66-139%)(F:65-123%) 81% Lupus anticoagulant (negative) Indeterminate(8) Anticardiolipin antibodies (IgG <23 GPL) IgG < 23 GPL Anticardiolipin antibodies (IgM <11 MPL) IgM 21 MPL Rtxu-6-yxnygmjbtika-1 antibodies (IgG <21 units) IgG < 21 units Wdce-0-mngxhvrfttrq-1 antibodies (IgM <21 units) IgM 31 units Homocysteine, random, plasma (<12 umol/L) 12 umol/L Factor V Leiden Mutation (normal) Heterozygous Prothrombin (49607 G->A) mutation (normal) Negative * Functional assay for free Protein S and Protein C ---Interpretation--- 1 - Heterozygous Factor V leiden mutation (see Comment). 2. Lupus anticoagulant indeterminate. 3. Slightly increased Zjpe-6-uptserrtnokp-1 antibodies and Anticardiolipin antibodies . see comment ---Comment--- 1 - The heterozygous Factor V Leiden mutation is associated with an approximately 5-7 fold increased risk of venous thromboembolic disease when compared with non-carriers of the mutation.Destini Denton et. al. Combined Effect of Factor V Leiden and Prothrombin 32459D on the Risk of VenousThromboembolism, Thromb Haemost, 2001; 86: 809 The lupus anticoagulant (LA) test is in the indeterminate range, just above the negative cutoff, and the PTT is normal. These findings are of uncertain clinical significance. However, patients with significant lupus anticoagulants generally have a clearly positive LA test and elevated PTT. IgG/IgM Be nb-4-lkqecmehqkyj 1 (B2GP1) test performed is positive. If repeatedly high positive (in titer> 99th percentile ; High positive by our lab methods is >100 units and moderate positive is 51-100 units), these laboratory findings would be consistent with antiphospholipid antibody syndrome, in the appropriate clinical setting. Ref: Miyakis et al(2006): International Consenses statement on an update of the classification criteria for APS. J Throm and Haemostatis, 4:295- 306 IgG/IgM Anticardiolipin antibody(INGRID) test performed is positive. If repeatedly positive (>40 GPL, or MPL, or > 99th percentile), these laboratory findings would be consistent with antiphospholipid antibody syndrome, in the appropriate clinical setting.Ref: Miyakis et al (2006): International Consenses statement on an update of the classification criteria for APS. J Throm and Haemostatis, 4:295-306 RADIOGRAPHIC STUDIES Ultrasound doppler of the right le01/06/12 No evidence of DVT IMPRESSION Paul Bradley is a 42 y.o. man with history of pulmonary embolism who was treated with anticoagulation for 6 months prior his cervical spine surgery. Currently he is off warfarin and is on aspirin. Heis here to discuss the result of thrombosis screen and recommendation of anticoagulation. In brief, Paul is a 42 year old man with history of pulmonary embolism. As mentioned in last note, his case is not that straightforward. I would consider his VTE as an idiopathic one, given that he did not have much of a prolonged immobility following a fall in November 2011. However, he has clinicalrisk factors include obesity and smoking. 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 We reviewed the result of his thrombophilia screening which showed that he has a heterozygous factorV Leiden, intermediate lupus anticoagulant and slight positive anticardiolipin and anti B2 glycoprotein antibodies. First we discussed the implications of having an episode of VTE in the setting of heterozygous factor V Leiden. Factor V Leiden is common, affecting 5% or more of the population (about 50 million people worldwide). Further I reassured him that it is considered a mild thrombophilia, impartingonly a small increased risk for venous thrombosis affecting both the superficial and deep veins. I discussed the risk of sustaining a first episode of venous thrombosis, and explained the concept of the relative and absolute increase in risk. I quoted an approximately 5-fold increased risk for developing a first episode of VTE over the general population (i.e., from 1 in 1000 per year to 1 in 200 per year in middle age). We discussed the additive nature of various risk factors including obesity, hormone use, immobility, long distance travel, diabetes, cancer, surgery, trauma and even blood type (type non-O > O). We discussed the concept of managing modifiable risk factors and not getting too obsessed with the things that can't be changed such as factor V Leiden and blood type. I reviewed the fact that while factor V Leiden is associated with an increased risk for venous thromboembolism, it does not appear to contribute to increased risk for arterial thrombosis under most circumstances. Moreover, the available data suggest that people with factor V Leiden alone may not necessarily be at any increased risk for developing a recurrent event than people without thrombophilia. We also discussed the role of family testing. We generally do not recommend a whole sale testing in every single familymember. If they are interested to perform the testing, they should have a formal consultation with a pipe puller and review their risk factors of VTE and discuss the preventative strategies. I am happy to see them. We then discussed the implication of having positive lupus anticoagulant, anticardiolipin and anti B2 glycoprotein antibodies. I explained to him that these antibodies are performed to rule out an antiphospholipid syndrome which is an acquired thrombophilia that is associated with increased risk of both arterial and venous thromboembolism. His antibodies are elevated but not high enough to meet the criteria of antiphospholipid syndrome.( see below). These antibodies can be elevated in the setting ofacute illness, inflammation. I would like to repeat these antibodies in 3 months from now to make sure that these do not increase. Liat International Consensus Conference Criteria for Diagnosis [...] (i.e., >/=40 MPL or GPL), AND/OR 3) Zlzs-ckfg9-jdhvrfgdnemd-1 antibody (IgM or IgG) at a level >99th percentile (i.e., >100 units in [facility] laboratory). The relevant antiphospholipid antibody must be [...] definite antiphospholipid syndrome. J Thromb Haemost 2006;4:295-306. We then discussed the role of post-anticoagulation D-dimer. A low D-dimer level after stopping anticoagulation is associated with a relatively lower risk for recurrence (5-7% over two years after stopping anticoagulation) than a persistently elevated D-dimer (~20% over the two years after stopping anti coagulation). His post anticoagulation D-dimer is elevated. 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 Given that he is far out from his acute PE, he does not to be bridged with low molecular weight heparin and can restart warfarin at thedose that he was previously on. I recommend him to restart it once he has an appointment with coumadin clinic. I have called his PCP's office and left a message there. He can continue aspirin for now until he is back on warfarin. After that he should discontinue aspirin. He should avoid NSAIDs while on warfarin. In the future, should he need to undergo an invasive procedure, warfarin can be discontinued 5-7 days prior the procedure without bridging. Following surgery which is a high risk period of VT E, he should be on pharmacologic thromboprohylaxis rather than IVC filter placement if there is no contraindication to anticoagulation. We are happy to formulate a thromboprophylaxis plan for him, should he need to have any procedure done in the future. Finally we reviewed the other modifiable risk factors including weight loss, tobacco cessation, staying hydrated and active. 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 I encourage him to wear the compression stocking on a daily basis during waking hour. PLAN/RECOMMENDATIONS 1. Discontinue aspirin 2. Restart warfarin with the therapeutic goal of INR between 2-3 3. 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 Repeat antiphospholipid antibodies panel in 3-4 months from now Paul Bradley had the opportunity to ask questions and indicated that all his questions were answered to his satisfaction. He will follow up with me in approximately three-four months to repeat the antiphospholipid antibodies testing. Ludivina Lemus MD Instructor of Medicine, [facility] documented in this encounter Plan of Treatment Not on filedocumented as of this encounter Results (ABNORMAL) Cardiolipin Antibody Screen (02/10/2013 2:56 PM EDT) P athologist Signature Cardiolipin IgG <23 <=22 GPL CERNER unit(s) MILLENNIUM Comment: Ranges ? GPL ------- ? ------ Normal ?<23 Low Positive ? 23-35 Moderate Positive ?36 -50 High Positive ? >5 0 Cardiolipin IgM 19 (H) <=10 MPL unit(s) CERNER MILLENNIUM Comment: Ranges ?MPL ----- ?----- Normal ?<11 Low Positive ? 11-20 Moderate Positive ?21 -30 High Positive ? >3 0 Specimen Anatomical Collection Method Collection Time Receive d Time (Source) Location / / Volume Laterality Blood specimen 02/10/2013 2:56 PM 013 8:19 (specimen) EDT AM EDT Resulting Agency Comment Spec In Lab Ludivina Carvajal MD IMMUNOLOGY ORDERABLES Performing Organization Address City/State/[place] [address] [facility] (ABNORMAL) Beta-2 glycoprotein antibodies (02/10/2013 2:56 PM EDT) athologist Signature B2GPI IgG <21 <=20 CERNER unit(s) MILLENNIUM Comment: Ranges ?Units ----- ? ----- Normal ? <21 Low Positive (+) ? 21-50 Moderate Positive (+) ? 51- 100 High Positive (+) ?>1 00 B2GPI IgM 34 (H) <=20 unit(s) DYANA DAVISONIUM Comment: Ranges ? Units ----- ?----- Normal ?<21 Low Positive (+) ? 21 -50 Moderate Positive (+) ?51-1 00 High Positive (+) ? >100 B2GPI Interp No comment DYANA CRUZU M Specimen Anatomical Collection Method Collection Time Receive d Time (Source) Location / / Volume Laterality Blood specimen 02/10/2013 2:56 PM 013 8:19 (specimen) EDT AM EDT Resulting Agency Comment Spec In Lab Ludivina Carvajal MD IMMUNOLOGY ORDERABLES Performing Organization Address City/[facility] Code Phon e Number [address] DYANA DAVISONIUM Lupus Anticoagulant (02/10/2013 2:56 PM EDT) [facility] gist Method Time Signature Lupus Indeterminate Neg CERBERNADETTE Anticoag LANEYIUM Specimen Anatomical Collection Method Collection Time Receive d Time (Source) Location / / Volume Laterality Blood specimen 02/10/2013 2:56 PM 013 3:04 (specimen) EDT PM EDT Resulting Agency Comment Spec In Lab Ludivina Carvajal MD HEMATOLOGY ORDERABLES Performing Organization Address [facility] [place] [address] DYANA FOURNIER documented in this encounter Visit Diagnoses Diagnosis Pulmonary embolism - Primary Other pulmonary embolism and infarction Heterozygous factor V Leiden mutation Primary hypercoagulable state documented in this encounter Care Teams Drum Puller Relationship Specialty Start Date End Date Jackelin Paniagua PA PCP - General 07/20/12 01/23/16 documented as of this encounter
--- OUTSIDE RECORDS SUMMARY | 2022-06-07 01:48 | XMS_ITS | Encounter Summary ---
:1970 Author Organization [facility] [place] [address] Care Team Providers Name Role Phone Jackelin Paniagua Primary Care Provider Encounter Details Date Type Department Care Team Description 09/13/2013 Telephone Dermatology at [facility] Ruben Lopez MD [address] [id number] [facility] [phone] [place], [place] [address] (Wo rk) Social History Tobacco [...] this encounter Miscellaneous Notes Telephone Encounter - Becca Mckeon LPN - 09/13/2013 11:10 AM EST Returned patient call, reviewed wound care. Patient reports no complications Becca Mckeon LPN documented in this encounter Plan of Treatment Not on filedocumented as of this encounter Visit Diagnoses Not on filedocumented in this encounter Care Teams Cancer Registry Manager Relationship Specialty Start Date End Date Jackelin Paniagua PA PCP - General 07/20/12 01/23/16 documented as of this encounter
--- OUTSIDE RECORDS SUMMARY | 2022-06-07 01:48 | XMS_ITS | Encounter Summary ---
:1970 Author Organization [facility] [place] [address] Care Team Providers Name Role Phone Jackelin Paniagua Primary Care Provider Encounter Details Date Type Department Care Team Description 08/05/2013 Telephone Dermatology at [facility] Hollie Enamorado RN [address] [place] [address] Social History Tobacco Use Types Packs/Day Years [...] this encounter Miscellaneous Notes Telephone Encounter - Hollie Enamorado LPN - 08/05/2013 8:43 AM EDT Chief Complaint: Basal cell carcinoma History of [...] as needed. ??? Omeprazole 20 mg TbEC Current Facility-Administered Medications on File Prior to Visit Medication Dose Route Frequency Provider Last Rate Last Dose ??? [] lidocaine (PF) (XYLOCAINE) 10 mg/mL (1 %) injection 100 mg 100 mg Subcutaneous Once Dino Mccabe MD ??? [] midazolam (VERSED) injection 1 mg 1 mg Intravenous Once Dino Mccabe MD ??? [] lactated ringers infusion 100 mL 100 mL Intravenous Once Dino Mccabe MD ??? [] lidocaine (PF) (XYLOCAINE) 10 mg/mL (1 %) injection 120 mg 120 mg Other Once Dino Mccabe MD Medication Allergies: [ ] none [x ] [...] Yes How much[ ] __3-4 per month___ The above medical information was reviewed with pt via telephone. Answered all questions. Hollie Enamorado LPN documented in this encounter Plan of Treatment Not on filedocumented as of this encounter Visit Diagnoses Not on filedocumented in this encounter Care Teams Acquisition Manager Relationship Specialty Start Date End Date Jackelin Paniagua PA PCP - General 07/20/12 01/23/16 documented as of this encounter
--- OUTSIDE RECORDS SUMMARY | 2022-06-07 01:48 | XMS_ITS | Encounter Summary ---
:1970 Author Organization [facility] [place] [address] Care Team Providers Name Role Phone Jackelin Paniagua Primary Care Provider Reason for Visit Reason Onset Date Comments Other 05/10/2013 Encounter Details Date Type Department Care Team Description 05/10/2013 Telephone Care Management Zahraa Figueroa MSW [facility] [place] [address] [place], [place] [id number] [phone] Social History Tobacco Use Types Packs/Day Years [...] Telephone Encounter - Zahraa Figueroa MSW - 05/10/2013 10:35 AM EDT Pt phoned [facility] re: denial of the tx recommendations made by Dr.Caudill Scruggs on 04-21-13. has contacted the [place] dept of labor re: the wc denial to ask for their advice re: the appeal process. Pt phoned insurance to ascertain reason for the denial and was informed that the MD's documentation re: the chronic pain tx recommendations infers that the pt's tx needs are focused on his pre existing condition, vs his cervical sx's that resulted from the 2-13 work injury fall. Pt reports that the [place] dpt of labor instructed him to request revised documentation from his tx teamto address the fall he had in 11-18 that exasperated his prior sx's and necessitates the current tx recommendations. [place] dpt of labor also recommended that the MD's address how the current tx recommendations are aimed at increasing pt's overall functional capacity. Pt has contacted both his PCP and the [facility] pain clinic re: the above requests, and asked CCM to follow up w/ the pain clinic re: the above. Pt is hoping to obtain the necessary documentation from Katja Scruggs and from his PCP before05-17 so he can forward such to the [place] dpt of labor before the staff member leaves on vacation from 05-17 until Jun 07, 2013. CCM relayed plan for me to f/u w/ [facility] pain [facility] re: the above, and invited pt to contact me PRN. Pt requested documentation be mailed to him directly so he can forward it to the [place] dpt of labor. P: CCM will f/u w/ pain clinic re: the above, intervening as needed. documented in this encounter Plan of Treatment Not on filedocumented as of this encounter Visit Diagnoses Not on filedocumented in this encounter Care Teams Ice Bag Assembler Relationship Specialty Start Date End Date Jackelin Paniagua PA PCP - General 07/20/12 01/23/16 documented as of this encounter
--- OUTSIDE RECORDS SUMMARY | 2022-06-07 01:48 | XMS_ITS | Encounter Summary ---
:1970 Author Organization [facility] Address [place] [id number] Care Team Providers Name Role Phone Jackelin Paniagua Primary Care Provider Reason for Visit Reason Comments Cervicalgia Encounter Details Date Type Department Care Team Description 05/26/2013 Follow-Up Pain Management at [facility], Anti coagulated (Primary Dx); Velia PIERRE Bilateral occipital neuralgia [address] [place] [place] [facility] [id number] [place] [address] [phone] Social History Tobacco Use Types Packs/Day Years [...] Sign Reading Time Taken Comments Blood Pressure 158/93 05/26/2013 12:45 PM EDT Pulse 78 05/26/2013 12:45 PM EDT Temperature - - Respiratory Rate - - Oxygen Saturation 95% 05/26/2013 12:45 PM EDT Inhaled Oxygen Concentration - - Weight 140.6 kg (310 lb) 05/26/2013 12:45 PM EDT Height 177.8 cm (5' 10) 05/26/2013 12:45 PM EDT Body Mass Index 44.48 05/26/2013 12:45 PM EDT documented in this encounter Patient Instructions Patient InstructionsLuis Martinez, BELT PRESS OPERATOR - 05/26/2013 1:39 PM EDT 1) Per Dr. Stone's instructions: increase your Gabapentin to 900 mg 3x/ day. You can takethe bulk of the Gabapentin at bed if the day time doses make you too sleepy. (ch - [phone]) 2) Keep a log of your response to the Occipital Nerve blocks for the next week or so, then E-mail the results to Dr. Stone.Here is the way to get on my-DH: ~~~~~~~~~~~~~~~~~~~~~~~~~~~~~~ Welcome to [employer], your secure online access to your electronic medical record at [facility]. Using [employer] you will be able to send messages to your providers, view your test results, renew prescriptions, schedule appointments, and much more. Follow these instructions to enter your personal [employer] account for the first time: 1. Start your internet browser and type [email or web address] into the address bar. 2. In the New User box on the right-hand side of the Welcome page click the link that states, ???I have an activation code.?? 3. On the Identification page, follow these steps: a) Enter your [employer] activation code: [email or web address] b) Expires: 07/10/2013 1:41 PM IMPORTANT: This Activation Code will on the above mentioned date. If you do not sign up for [employer] by this date, you will need to request another activation code. c) Enter your date of , using the calendar tool provided. d) Enter your Zip code. e) Select ???submit?? to go to the next page. 4. On the Create Account page, follow these steps: a) Create a [employer] username. This can???t be changed, so choose one you won???t forget. b) Create a password that???s at least six characters long, and that contains at least two numbers. Your password can be changed at any time. Confirm your password by entering it once more. c) Enter your email address. This will be used to alert you to new information. Confirm your email address by entering it once more. d) Enter your security question. This will be used if you forget your password. e) Enter your security answer. Confirm your security answer by entering it once more. f) Select ???submit?? to view your electronic medical record. If you have any questions about myD-H or your Access Code, please call for [place], for [place] or for [place]. If you need technical support, please e-mail [email or web address]. Remember, myD-H is NOT for urgent needs! Always dial 911 for medical emergencies. 3) Will schedule for Cervical Medial Branch Nerve Blocks if not very good response to these injections. 4) Continue Tramadol as needed per your PCP documented in this encounter Procedure Notes Luis Martinez APRN - 05/26/2013 1:45 PM EDTAssociated Order(s): NERVE BLOCK - OCCIPITAL Procedure(s): NERVE BLOCK - OCCIPITAL Pre-Procedure Diagnose(s): Anticoagulated; Bilateral occipital neuralgia Bilateral Greater Occipital Nerve Block Procedure Date of Service: 05/26/2013 Patient: Paul Bradley 1970 42 y.o. male Provider: LUIS MARTINEZ APRN Pre-operative diagnosis: Bilateral Occipital neuritis with daily headache. Mr. Paul Bradley [facility] Bilateral Greater Occipital Nerve Blocks to treat mostly right sided occipital neuralgia and constant chronic headache and right eye pain s/p fall on the ice while at work on 11/17/12. He was seen by Dr. Stone last month and these nerve blocks today are diagnostic to assess how much of his pain is generated by the occipital neuralgia as opposed to cervically mediated. Mr. Bradley reports an overall pain level today of 5-6/10 and moderate sensitivity to light on the right. Physical Examination: Filed Vitals: 05/26/13 1245 BP: 158/93 Pulse: 78 In moderate distress; appropriate affect. Here with his . Mr. Bradley reports he stopped his Coumadin with permission from his PCP 10 days ago. Upon palpation of the right greater occipital notch, there is a reproduction of the patient's pain. There is no pain on the left side of his head today. Procedure Mr. Bradley was interviewed and examined. The risks and benefits were explained including but not limited to bleeding, infection, worsening of the pain, damage to the area being injected, weakness, allergic reaction to medications, vascular injection, and nerve damage. All questions were answered. Informed consent was signed and time out was performed with NORBERT Montero. The left GO nerve was identified by palpation of the foraminal notch and the skin prepped with Alcohol and allowed to dry. Next, a 27 gauge 1 1/2 inch needle was taken and placed in the nerve area. Next, after negative aspiration was confirmed, the nerve area was slowly injected with 10 mg of Depomedrol and 5 ml of 0.5% Bupivacaine and the needle removed. This procedure was exactly duplicated on the right side. The patient tolerated the procedure well and there were no apparent complications. There were no changes in motor or sensory exam. Medication used: 10 ml of bupivacaine 0.5% and 20 mg of depomedrol (40mg/ml) Trigger points injected: 2 Trigger point(s) location(s): Bilateral Occipital nerves Assessment and Plan: Post procedure pain level in head is 0/10, and patient reports between 20-30% of his total pain isgone. 1) Per Dr. Stone's instructions: increase your Gabapentin to 900 mg 3x/ day. You can takethe bulk of the Gabapentin at bed if the day time doses make you too sleepy. (ie - 600 - 600 - 1500) 2) Keep a log of your response to the Occipital Nerve blocks for the next week or so, then E-mail the results to Dr. Stone. Here is the way to get on my-DH: (Password and instructions given.) 3) Will schedule for Cervical Medial Branch Nerve Blocks if not very good response to these injections. 4) Continue Tramadol as needed per your PCP LUIS MARTINEZ APRN documented in this encounter Plan of Treatment Not on filedocumented as of this encounter Procedures Procedure Name Priority Date/Time Associated Diagnosis Comme nts NERVE BLOCK - Routine 05/26/2013 2:14 Anticoagulated Results for this OCCIPITAL PM EDT Bilateral occipital procedur e are in neuralgia the results section. PROTHROMBIN TIME STAT 05/26/2013 11:07 Anticoagulated Resul ts for this AM EDT procedure are i n the results section. documented in this encounter Results NERVE BLOCK - OCCIPITAL (05/26/2013 2:14 PM EDT) Narrative Luis Martinez APRN - 05/26/2013 2:14 PM EDT Luis Martinez APRN ? 05/26/2013 ??2:14 PM ?Bilateral Greater Occipital Ner ve Block Procedure Date of Service: 05/26/2013 Patient: ?Paul Bradley ?? MRN: ??[id number] ?? 1970 ?? 42 y.o. ??male Provider: ?LUIS MARTINEZ APRN Pre-operative [...] on 11/17/12. He was seen by Dr. Shantell sinha last month and these nerve blocks today are diagnostic to ass ess how much of his pain is generated by the occipital neuralgia as opposed to cervically mediated. Mr. Bradley reports an overall pain level today of 5-6/10 and moderate sensitivity to lig ht on the right. ?? Physical Examination: Filed Vitals: 05/26/13 1245 BP: 158/93 Pulse: 78 In moderate distress; appropriate affect . Here with his . Mr. Bradley reports he stopped his Coumadin w ith permission from his PCP 10 days ago. Upon palpation of the right greater occi pital notch, there is a reproduction of the patient's pain. Ther e is no pain on the left side of his head today. Procedure Mr. Bradley was interviewed and examined. ??The risks and benefits were explained including but not limited to bleeding, infection, worsening of the pain, damage to the are a being injected, weakness, allergic reaction to medicatio ns, vascular injection, and nerve damage. ??All questions were a nswered. ??Informed consent was signed and time out was performed [facility]. The left GO nerve was identified by palp ation of the foraminal notch and the skin prepped with Alcohol and allowed to dry. Next, a 27 gauge 1 1/2 inch needle was taken a nd placed in the nerve area. Next, after negative aspiration wa s confirmed, the nerve area was slowly injected with 10 mg of D epomedrol and 5 ml of 0.5% Bupivacaine and the needle removed. This procedure was exactly duplicated on the right side. The patient tolerated the procedure well and there were no apparent complications. There were no changes in motor or sensor y exam. Medication used: ??10 ml of bupivacaine 0.5% and ?20 mg of depomedrol (40mg/ml) Trigger points injected: ??2 Trigger point(s) location(s): ??Bilatera l Occipital nerves Assessment and Plan: Post procedure pain level in head is 0/ 10, and patient reports between 20-30% of his total pain is gone . 1) Per Dr. Stone's instructio ns: increase your Gabapentin to 900 mg 3x/ day. You can ta ke the bulk of the Gabapentin at bed if the day time doses make you too sleepy. (qu - [phone]) 2) Keep a log of your response to the Oc cipital Nerve blocks for the next week or so, then E-mail the res ults to Dr. Stone. Here is the way to get on my-DH: ??(Password and instructions given.) 3) Will schedule for Cervical Medial Bra nch Nerve Blocks if not very good response to these injections. 4) Continue Tramadol as needed per your PCP LUIS MARTINEZ APRN Procedure Note Luis Matrinez APRN - 05/26/2013 1:45 PM EDT Bilateral Greater Occipital Nerve Block Procedure Date of Service: 05/26/2013 Patient: Paul Bradley 1970 42 y.o. male Provider: LUIS MARTINEZ APRN Pre-operative diagnosis: Bilateral Occip ital neuritis with daily headache. Mr. Paul Bradley has been [facility] Bilateral Greater Occipital Nerve Blocks to treat mostly right sided occipital neuralgia and constant chronic headache and right eye pain s/p fall on the ice while at work on 11/17/12 . He was seen by Dr. Stone last month and these nerve blocks today are diagnostic to assess how much of his pain is generated by the occipital neuralgia as opposed to cervically mediated. Mr. Oleg malik reports an overall pain level today of 5-6/10 and moderate sensitivity to light on the right. Physical Examination: Filed Vitals: 05/26/13 1245 BP: 158/93 Pulse: 78 In moderate distress; appropriate affect . Here with his . Mr. Bradley reports he stopped his Coumadin with permission from his PCP 10 days ago. Upon palpation of the right greater occi pital notch, there is a reproduction of the patient's pain. There is no pain on the left side of his head today. Procedure Mr. Bradley was interviewed and examined. The risks and benefits were explained including but not limited to bleeding, infection, worsening of the pain, damage to the area being injected, weakness, allergic reaction to medications, vascular injection, and nerve damage. All questions were answered. Informed consent was signed and time out was performed with NORBERT Montero. The left GO nerve was identified by palp ation of the foraminal notch and the skin prepped with Alcohol and allowed to dry. Next, a 27 gauge 1 1/2 inch needle was taken and placed in the nerve area. Next, after negative aspiration was confirmed, the nerve area was slowly injected with 10 mg of Depomedrol and 5 ml of 0.5% Bupivacaine and the needle removed. This procedure was exactly duplicated on the right side. The patient tolerated the procedure well and there were no apparent complications. There were no changes in motor or sensor y exam. Medication used: 10 ml of bupivacaine 0. 5% and 20 mg of depomedrol (40mg/ml) Trigger points injected: 2 Trigger point(s) location(s): Bilateral Occipital nerves Assessment and Plan: Post procedure pain level in head is 0/ 10, and patient reports between 20-30% of his total pain is gone. 1) Per Dr. Stone's instructio ns: increase your Gabapentin to 900 mg 3x/ day. You can take the bulk of the Gabapentin at bed if the day time doses make you too sleepy. (ie - [phone] - [phone]) 2) Keep a log of your response to the Oc cipital Nerve blocks for the next week or so, then E-mail the results to Dr. Stone. Here is the way to get on my-DH: (Password and instructions given.) 3) Will schedule for Cervical Medial Bra nch Nerve Blocks if not very good response to these injections. 4) Continue Tramadol as needed per your PCP LUIS MARTINEZ APRN Catrina Ha MD NEUROLOGY ORDERABLES Prothrombin Time (05/26/2013 11:07 AM EDT) P athologist Signature PT 12.6 12.0 - 15.0 CERNER sec MILLENNIUM Comment: [facility] Transfusion Committee Guidelines: I NR [...] Organization Address City/State/ZIP Code Phon e Number [place] [phone] C[facility]ER [place] Search documented in this encounter Visit Diagnoses Diagnosis Anticoagulated - Primary Encounter for long-term (current) use of anticoagulants Bilateral occipital neuralgia Other syndromes affecting cervical regio n documented in this encounter Administered Medications Inactive Administered Medications - up to 3 most recent administrations Medication Order MAR Action Action Date Dose Rate Site BUpivacaine (PF) (MARCAINE) 0.5 % Given 05/26/2013 2:14 PM EDT 5 0 mg (5 mg/mL) injection 50 mg 50 mg, Intrapleural, ONCE, 1 dose, On Fri05/26/13 at 1415, Routine methylPREDNISolone acetate (depo-MEDROL) Given 05/26/2013 2:14 P M EDT 20 mg injection 20 mg 20 mg, Intramuscular, ONCE, 1 dose, On Fri05/26/13 at 1415, Routine documented in this encounter Care Teams Sales Team Leader Relationship Specialty Start Date End Date Jackelin Paniagua PA PCP - General 07/20/12 01/23/16 documented as of this encounter
--- OUTSIDE RECORDS SUMMARY | 2022-06-07 01:48 | XMS_ITS | Encounter Summary ---
:1970 Author Organization [facility] [place] [address] Care Team Providers Name Role Phone Jackelin Paniagua Primary Care Provider Encounter Details Date Type Department Care Team Description 02/05/2013 External Results XRay at [facility] Jackelin Paniagua PA [address] [place] [address] Dr MK GORE [address] [place] [id number] [place] [address] [phone] (Wo rk) Social History Tobacco Use Types Packs/Day Years Used Date Current Every Day Smoker Cigarettes 1 20 Smokeless Tobacco: Never Used Sex Assigned at Date Recorded Not on file documented as of this encounter Plan of Treatment Not on filedocumented as of this encounter Procedures Procedure Name Priority Date/Time Associated Diagnosis Comme nts CT SCAN (SCAN) Routine 01/04/2013 CT SCAN (SCAN) Routine 12/11/2012 documented in this encounter Results Scan Doc: CT Scan (01/04/2013) Anatomical Region Laterality Modality Other Narrative This result has an attachment that is no t available. Refugio Alvarado MD MEDIA MGR SCAN EXT ORDR/RSLT Scan Doc: CT Scan (12/11/2012) Anatomical Region Laterality Modality Other Narrative This result has an attachment that is no t available. Jackelin MARCOS MEDIA MGR SCAN EXT ORDR/RSLT documented in this encounter Visit Diagnoses Not on filedocumented in this encounter Care Teams On Site Wastewater Systems Technician Relationship Specialty Start Date End Date Jackelin Paniagua PA PCP - General 07/20/12 01/23/16 documented as of this encounter
--- OUTSIDE RECORDS SUMMARY | 2022-06-07 01:48 | XMS_ITS | Encounter Summary ---
:1970 Author Organization [facility] [place] [address] Care Team Providers Name Role Phone Jackelin Paniagua Primary Care Provider Encounter Details Date Type Department Care Team Description 03/08/2013 Telephone Hematology and [place] [facility] [place] [place] [phone] Social History Tobacco Use Types Packs/Day Years Used Date Current Every Day Smoker Cigarettes 1 20 Smokeless Tobacco: Never Used Sex Assigned at Date Recorded Not on file documented as of this encounter Miscellaneous Notes Telephone Encounter - Ethel Decker RN - 03/08/2013 1:37 PM EDT Called PCP office and relayed information to an RN who works with Dr. Paniagua. She will contact patient to adjust his warfarin dose. ===View-only below this line=== ----- Message ----- From: Ludivina Lemus MD Sent: 03/06/2013 4:15 PM To: VINCE Bridges, can you please call this patient and notify his PCP that his INR needs to be adjusted. It is at 1.6 subtherapeutic. The goal is between 2-3. Ludivina Hollis documented in this encounter Plan of Treatment Not on filedocumented as of this encounter Visit Diagnoses Not on filedocumented in this encounter Care Teams Systems Development Manager Relationship Specialty Start Date End Date Jackelin Paniagua PA PCP - General 07/20/12 01/23/16 documented as of this encounter
--- OUTSIDE RECORDS SUMMARY | 2022-06-07 01:48 | XMS_ITS | Encounter Summary ---
:1970 Author Organization [facility] [place] [address] Care Team Providers Name Role Phone Jackelin Paniagua Primary Care Provider Reason for Visit Reason Comments Skin Lesion Encounter Details Date Type Department Care Team Description 07/05/2013 Follow-Up Dermatology at [facility], DR LUCIANA mathis of [facility] Peter Walters MD [facility] [place] [address] unspecified nature of [address] bone, [place], [place] [address] skin (Primary Dx) [phone] Social History Tobacco Use Types Packs/Day Years Used Date Current Every Day Smoker Cigarettes 1 20 Smokeless Tobacco: Never Used Comments: Contemplation stage but not re cyndee to quit yet Alcohol Use Standard Drinks/Week Comments Yes 0.8 (1 standard drink = 0.6 oz pure alco hol) Sex Assigned at Date Recorded Not on file documented as of this encounter Progress Notes Sandro Knutson LPN - 07/05/2013 3:23 PM EDT DERMATOLOGY CONSULT NOTE Date of service: 07/05/2013 Paul Bradley : 1970 Provider: Peter Walters MD PROBLEM: The patient is seen at the request of Jackelin Paniagua, who instructed the patient to be seen for evaluation of above HPI Paul Bradley is a 43 y.o. year old male. Presents for evaluation of enlarging, painful, bleeding, flaky lesion on left lateral brow. Reports lesion is worse in the summer months, present for ~2-3 years. No other skin concerns today. ADR: Allergies Allergen Reactions ??? Sulfa (Sulfonamide Antibiotics) CIS - Rash MEDS: Current Outpatient Prescriptions Medication Status Sig Dispense Refill ??? acetaminophen (TYLENOL) 500 mg tablet Active Take 1,000 mg by mouth every 6 hours as needed. ??? gabapentin (NEURONTIN) 300 mg capsule Active Take 300 mg by mouth 4 times daily. ??? warfarin (COUMADIN) 5 mg tablet Active Take 5 mg by mouth daily. ??? buPROPion (WELLBUTRIN XL) 150 mg 24 hr tablet Active Take 150 mg by mouth every morning. ??? traMADol (ULTRAM) 50 mg tablet Active Take 100 mg by mouth every 6 hours as needed. ??? albuterol-ipratropium (COMBIVENT RESPIMAT) 20-100 mcg/actuation inhaler Active Inhale 2 puffs into the lungs every 6 hours as needed. ??? diaZEPam (VALIUM) 5 mg tablet Active Take 5 mg by mouth every 6 hours as needed. ??? Omeprazole 20 mg TbEC Active ROS General: feeling well Skin: denies other skin complaints EXAM General: NAD, pleasant, cooperative Skin: A focal skin examination was performed today including the left lateral eyebrow Significant skin findings: A. 0.8cm hyperkeratotic papule left lateral brow ASSESSMENT/PLAN: A. BCC vs AK vs SCC Procedure: Skin biopsy by shave technique Location: Left lateral brow Discussed indications for procedure and expectations including risks and benefits. Verbal consent obtained. Skin prep with alcohol. Local anesthesia with 1% xylocaine, 1/100,000 epinephrine, 0.1 mEq/mLbicarbonate. A sample of the lesion was removed by shave technique to the level of the dermis and submitted to Pathology. Hemostasis obtained (AlCl and/or electrocautery). There were no complications; the pt. tolerated the procedure well. The wound was dressed. Post-procedure expectations, wound care and activity restrictions were reviewed. RTC pending pathology I am documenting this encounter acting as the scribe for and in the presence of Dr. Walters: SANDRO KNUTSON LPN I performed the above scribed service and agree with the accuracy of the documentation in this encounter. Peter Walters MD Section of Dermatology [facility] documented in this encounter Miscellaneous Notes Miscellaneous - Provider, Scanning - 10/13/2013 8:24 AM EST documented in this encounter Plan of Treatment Not on filedocumented as of this encounter Procedures Procedure Name Priority Date/Time Associated Diagnosis Comme nts SURGICAL PATHOLOGY Routine 07/05/2013 3:51 PM Res ults for this REPORT EDT procedure are i n the results section. SPECIMEN TO Routine 07/05/2013 3:49 PM Neoplasm of Results f or this PATHOLOGY (NON-OR) EDT unspecified nature pro cedure are in of bone, soft the results tissue, and skin section. documented in this encounter Results Surgical Pathology Report (07/05/2013 3:51 PM EDT) Component Value Ref Test Analysis Performed At [facility] gist Range Method Time Signature Surgical CERNER Pathology ? [facility] Report ? Provider: ?? PETER WALTERS ?? Pt. Name: ?? PAUL BRADLEY ? Acc #: ?[id number] ? Pt. ? Col Date: ?? 3 ? /Sex: ?1970,(43 years),Male ? Rec Date: ?? 07/06/2013 ? LOC: ?[facility] ? SURGICAL PATHOLOGY ? ---Pathologic Diagnosis--- ? Skin, left lateral brow, shave biopsy: ? Basal cell carcinoma, present at peripheral and deep margins. ? CR-0 ? 07/07/13 ? VMS ? 07/07/13 Verified by: ? Jason Menezes MD. ? Dermatopatholo gist ? (Electronic Si gnature) ? The attending pathologist whose signature appears o n this report has ? reviewed all diagnostic slides and has edited the shayne ss and/or ? microscopic portion of the report in rendering the fi nal pathologic ? diagnosis. ? ---Gross Description--- ? A - Labeled/Fixative: Patient demographics, formalin. ? Quantity/Size: Single, 0.7 x 0.6 x 0.1 cm. ? Tissue Description: Shave of light brown skin. ? Sections/Processing: Inked and trisected. (T1) ??sns ? ---Clinical Information--- ? Specimen Submitted: ? A - Skin, left lateral brow, shave biopsy ONLY (1) ? Clinical History: ? 0.8 cm hyperkeratotic papule ? Clinical Diagnosis: ? BCC versus AK versus SCC Specimen (Source) Anatomical Collection Method Collection Time Re ceived Time Location / / Volume Laterality 07/05/2013 3:51 PM EDT Peter Walters MD PATHOLOGY/CYTOLOGY ORDERABLE S Performing Organization Address City/[facility]/[place]IP [place] [address] [facility] Specimen to Pathology (NON-OR) (07/05/2013 3:49 PM EDT) Specimen Anatomical Collection Method Collection Time Receive d Time (Source) Location / / Volume Laterality AP Specimen 07/05/2013 3:49 PM 3 3:51 EDT PM EDT Narrative [facility] - 07/05/2013 3:51 PM E DT Specimen requisition ordered. ??Separate Pathology report to follow Peter Walters MD PATHOLOGY/CYTOLOGY ORDERABLE S Performing Organization Address City/[facility]/[place]IP [place] [address] [facility] documented in this encounter Visit Diagnoses Diagnosis Neoplasm of unspecified nature of bone, soft tissue, and skin - Primary documented in this encounter Care Teams Drapery Cutter Machine Relationship Specialty Start Date End Date Jackelin Paniagua PA PCP - General 07/20/12 01/23/16 documented as of this encounter
--- OUTSIDE RECORDS SUMMARY | 2022-06-07 01:48 | XMS_ITS | Encounter Summary ---
:1970 Author Organization [facility] [place] [address] Care Team Providers Name Role Phone Jackelin Paniagua Primary Care Provider Encounter Details Date Type Department Care Team Description 10/19/2013 Telephone Pain Management at [place], [place] [address] Social History Tobacco Use Types Packs/Day [...] Telephone Encounter - June [place], RN - 10/19/2013 4:52 PM EST Mr. Bradley called to report on his trial of Dilaudid that was ordered by Marina. He is currently taking 6-8 mg once a day. Relief Is lasting through the night or partially so. Paul would like some more Dilaudid so I transferred him to the schedluler to make an appointment to see Marina. documented in this encounter Plan of Treatment Not on filedocumented as of this encounter Visit Diagnoses Not on filedocumented in this encounter Care Teams Energy Efficiency Finance Manager Relationship Specialty Start Date End Date Jackelin Paniagua PA PCP - General 07/20/12 01/23/16 documented as of this encounter
--- OUTSIDE RECORDS SUMMARY | 2022-06-07 01:48 | XMS_ITS | Encounter Summary ---
:1970 Author Organization [facility] [place] [address] Care Team Providers Name Role Phone Dangelo Ordaz MD Primary Care Provider [phone] Encounter Details Date Type Department Care Team Description 06/12/2012 Interpretation Only Radiology at [facility] Ce nter None [address] [place] [address] Social History Tobacco Use Types Packs/Day Years Used Date Never Assessed Sex Assigned at Date Recorded Not on file documented as of this encounter Plan of Treatment Not on filedocumented as of this encounter Procedures Procedure Name Priority Date/Time Associated Diagnosis Comme nts XR FLUORO NO RAD Routine 06/12/2012 5:32 AM Resul ts for this <1HR - RADIOLOGY EDT procedure a re in USE the results section. documented in this encounter Results XR Fluoro <1Hr - Radiology Use (06/12/2012 5:32 AM EDT) Anatomical Region Laterality Modality N/A Radiographic Imaging Specimen (Source) Anatomical Collection Method Collection Time Re ceived Time Location / / Volume Laterality 06/12/2012 5:32 AM EDT Narrative 06/12/2012 5:32 AM EDT APD Historical Result Principal Packaging Tech: ??SHEN ??ACOST A C-ARM: COMPARISON: ??None. HISTORY: ??Status post C4-5, C5-6 ACDF w ith cadaver bone graft. FINDINGS: Fluoroscopy was provided for Dr Yohana pedraza for ACDF. ??No radiologist was present for the procedure. ??Four spot fluoroscopic imag es with limited detail demonstrate interval status post placement of C4-5 and C5-6 ACDF. ??Please refer to se chaveze operative report. ??Total fluoro time is 8.5 seconds. ??The cumulative dose is 1.63 m Gy. Shen Good MD Nabil [id number] CC: Procedure Note Unknown - 04/05/2019Formatting of this n ote might be different from the original. APD Historical Result Principal Packaging Tech: SHEN GOOD C-ARM: COMPARISON: None. HISTORY: Status post C4-5, C5-6 ACDF wit h cadaver bone graft. FINDINGS: Fluoroscopy was provided for Dr Yohana pedraza for ACDF. No radiologist was present for the procedure. Four spot fluoroscopic images with limited detail demonstrate interval status post placement of C4-5 and C5-6 ACDF. Please refer to sepa rate operative report. Total fluoro time is 8.5 seconds. The cumulative dose is 1.63 mGy . Shen Good MD Nabil [id number] CC: Unknown IMG FLUORO ORDERABLES documented in this encounter Visit Diagnoses Not on filedocumented in this encounter Care Teams Electrician Marine Relationship Specialty Start Date End Date Dangelo Ordaz MD PCP - General Family Medicine 01/24/[address] [place] [address] documented as of this encounter
--- OUTSIDE RECORDS SUMMARY | 2022-06-07 01:48 | XMS_ITS | Encounter Summary ---
:1970 Author Organization [facility] Address [place] [id number] Care Team Providers Name Role Phone Jackelin Paniagua Primary Care Provider Encounter Details Date Type Department Care Team Description 12/24/2012 Orders Only Pain Management at [facility] [place] [address] [facility] [phone] [facility] [place] [address] (Wo rk) Social History Tobacco Use Types Packs/Day Years Used Date Current Every Day Smoker Cigarettes 1 20 Smokeless Tobacco: Never Used Sex Assigned at Date Recorded Not on file documented as of this encounter Plan of Treatment Not on filedocumented as of this encounter Procedures Procedure Name Priority Date/Time Associated Diagnosis Comme nts FILM LIBRARY Routine 12/24/2012 9:59 AM Results f or this STORAGE ONLY MR EDT procedure ar e in SPINE the results section. documented in this encounter Results Film Library- Storage only MR Spine (12/24/2012 9:59 AM EDT) Specimen (Source) Anatomical Collection Method Collection Time Re ceived Time Location / / Volume Laterality 12/24/2012 9:59 AM EDT Narrative RAD - 05/30/2014 11:01 PM EDT This is a non-reportable exam. Procedure Note Mehdi Cardenas - 05/30/2014Formatti ng of this note might be different from the original. This is a non-reportable exam. Ashleigh Stone MD IMG FILM LIBRARY ORDERA BLES Performing Organization Address City/State/ZIP Code Phon e Number [facility] [address] [place] [address] documented in this encounter Visit Diagnoses Not on filedocumented in this encounter Care Teams Stopperer Assembler Relationship Specialty Start Date End Date Jackelin Paniagua PA PCP - General 07/20/12 01/23/16 documented as of this encounter
--- OUTSIDE RECORDS SUMMARY | 2022-06-07 01:48 | XMS_ITS | Encounter Summary ---
:1970 Author Organization [facility] [place] [address] Care Team Providers Name Role Phone Jackelin Paniagua Primary Care Provider Encounter Details Date Type Department Care Team Description 01/05/2013 Orders Only Hematology and Oncology at [facility] Ludivina gonsalves MD [facility] Armando montesinos HEMATOLOGY/[place] [address] DEPT. [phone] [place], [place] [address] (Wo rk) Social History Tobacco Use Types Packs/Day Years Used Date Current Every Day Smoker Cigarettes 1 20 Smokeless Tobacco: Never Used Sex Assigned at Date Recorded Not on file documented as of this encounter Plan of Treatment Not on filedocumented as of this encounter Visit Diagnoses Not on filedocumented in this encounter Care Teams Stoner Hand Relationship Specialty Start Date End Date Jackelin Paniagua PA PCP - General 07/20/12 01/23/16 documented as of this encounter
--- OUTSIDE RECORDS SUMMARY | 2022-06-07 01:48 | XMS_ITS | Encounter Summary ---
:1970 Author Organization [facility] [place] [address] Care Team Providers Name Role Phone Jackelin Paniagua Primary Care Provider Reason for Visit Reason Comments Basal Cell Carcinoma Encounter Details Date Type Department Care Team Description 09/09/2013 Office Visit Dermatology at [facility] Donahue, BCC (basal cell Road MD carcinoma of skin) [address] [facility] (Primary Dx) [place] [address] [facility] [place], [place] [address] Social History Tobacco Use Types [...] Sign Reading Time Taken Comments Blood Pressure 131/76 09/09/2013 8:32 AM EST Pulse 85 09/09/2013 8:32 AM EST Temperature - - Respiratory Rate 18 09/09/2013 8:32 AM EST Oxygen Saturation - - Inhaled Oxygen Concentration - - Weight 143.3 kg (316 lb) 09/09/2013 8:32 AM EST Height 177.8 cm (5' 10) 09/09/2013 8:32 AM EST Body Mass Index 45.34 09/09/2013 8:32 AM EST documented in this encounter Progress Notes Ruben Lopez MD - 09/09/2013 1:51 PM EST Operative Report Patient name: Paul Bradley : 1970 Date: 09/09/2013 Staff Surgeon: Ruben Lopez MD, PhD Credentialing Specialist I: Lauren Ambrosio, Hollie Enamorado, Zeina Washburn MD Prefabricated Houses Trimmer: Opal Bustillo Pre-operative diagnosis: Basal cell carcinoma Post-operative diagnosis: Basal cell carcinoma Location: Left lateral eyebrow Procedure: Mohs micrographic surgery Indication for Mohs micrographic surgery: Critical anatomic location Stages: 1 Final defect size: 1.2 x 1.0cm Stage I The nature and purpose of the procedure, associated risks, possible consequences and complications,and alternative forms of treatment were explained in detail. Informed consent and permission to takephotographs were obtained. The site was confirmed with the patient/authorized technical services representative/referring physician and a pre-operative time-out was conducted with no unresolved discrepancies noted. Localanesthesia was obtained with a buffered solution of 1% lidocaine with 1:100,000 epinephrine. The surgical site was prepped and draped in the usual sterile manner. Clinically apparent tumor was removed by excision with clinical margins and sent for step sectioning. With all visible gross tumor completely excised, the borders of the tumor were excised as a complete layer 2-3mm in thickness. Hemostasis was achieved by electrocoagulation. The excised tissue was oriented and divided into 2 sections, chromacoded, and submitted for frozen sections. The patient tolerated the procedure well and without complications. On microscopic evaluation of the frozen sections, no residual tumor was identified on the deep or outer border of the sections. The final size of the defect after complete tumor removal was 1.2 x 1.0cm, extending to fat. Repair Operative Report Patient name: Paul Bradley : 1970 Date: 09/09/2013 Staff Surgeon: Ruben Lopez MD, PhD Credentialing Specialist I: Lauren Ambrosio Ashley Coccomo, Zeina Washburn MD Clinical Diagnosis: 1.2 x 1.0cm surgical defect secondary to Mohs microscopically controlled excision of basal cell carcinoma Location:Left lateral eyebrow Procedure: Advancement flap repair Due to the size and location of the defect resulting from the complete removal of the tumor, the postoperative risk of hemorrhage, infection, and the possibility of serious deformity from scarring, and in order to restore proper function and prevent loss of function, the defect was closed. The nature and purpose of the procedure, associated risks, possible consequences, complications andalternative methods of treatment were explained to the patient in detail. An informed consent was obtained. Local anesthesia was obtained with a buffered solution of 1-% lidocaine with 1:100,000 epinephrine. The surgical site was prepped and draped in the usual sterile manner. The edges of the defect were deepithelialized with a scalpel blade. An advancement flap was designed adjacent to the defect. The flap borders were incised down to the dermal subcutaneous junction and the flap was undermined. Hemostasis was achieved with electrocoagulation. The deep tissues of both the flap and secondary defect were closed with 5-0 Monocryl sutures. The epidermal edges were opposed with 5-0 Prolene sutures. Redundant tissue was removed as needed and closed in a similar manner. The resulting closure measured 1.5 x 0.9 cm. There was minimal to no distortion to surrounding anatomic structures. The surgical site was cleaned and covered with white petrolatum and gauze pressure dressing. The patient tolerated the procedure well and without complications and was given both verbaland written instructions on postoperative wound care. Follow up for suture removal was scheduled forone week. The patient was discharged in good condition. I was present for the garcia portions of the procedure. Ruben Lopez MD, PhD Becca Mckeon LPN - 09/09/2013 8:31 AM EST INR 2.3 on 08/31/13 at [facility], Dr Lopez aware. Becca Mckeon LPN documented in this encounter Miscellaneous Notes Miscellaneous - Provider, Scanning - 09/27/2013 12:56 PM EST documented in this encounter Plan of Treatment Not on filedocumented as of this encounter Visit Diagnoses Diagnosis BCC (basal cell carcinoma of skin) - Rachael brown Basal cell carcinoma of skin, site unspe cified documented in this encounter Care Teams Tow Motor Mechanic Relationship Specialty Start Date End Date Jackelin Paniagua PA PCP - General 07/20/12 01/23/16 documented as of this encounter
--- OUTSIDE RECORDS SUMMARY | 2022-06-07 01:48 | XMS_ITS | Encounter Summary ---
:1970 Author Organization [facility] [place] [address] Care Team Providers Name Role Phone Jackelin Paniagua Primary Care Provider Encounter Details Date Type Department Care Team Description 02/10/2013 Hospital Encounter Laboratory Ludivina Carvajal Pulmonary embolism [facility] MD [place], [place] C[place] [address] HEMATOLOGY/ONCOL [phone] [place] [address] Social History Tobacco Use Types Packs/Day Years [...] Procedure Name Priority Date/Time Associated Comments Diagnosis LUPUS ANTICOAGULANT Routine 02/10/2013 2:56 PM Pulmonary embol ism Results for this EDT procedure are i n the results section. BETA-2 GLYCOPROTEIN Routine 02/10/2013 2:56 PM Pulmonary embol ism Results for this ANTIBODIES EDT procedure are i n the results section. CARDIOLIPIN ANTIBODY Routine 02/10/2013 2:56 PM Pulmonary embo lism Results for this SCREEN EDT procedure are i n the results section. documented in this encounter Results (ABNORMAL) Cardiolipin Antibody Screen (02/10/2013 2:56 PM EDT) athologist Signature Cardiolipin IgG <23 <=22 GPL [...] Address City/State/ZIP Code [place] [address] [facility] (ABNORMAL) Beta-2 glycoprotein antibodies (02/10/2013 2:56 PM EDT) athologist Signature B2GPI IgG <21 <=20 [facility] unit(s) [facility] Comment: Ranges ?Units ----- ? ----- Normal ? <21 Low Positive (+) ? 21-50 Moderate Positive (+) ? 51- 100 High Positive (+) ?>1 00 B2GPI IgM 34 (H) <=20 unit(s) [facility] Comment: Ranges ? Units ----- ?----- Normal ?<21 Low Positive (+) ? 21 -50 Moderate Positive (+) ?51-1 00 High Positive (+) ? >100 B2GPI Interp No comment [facility] Specimen Anatomical Collection Method Collection Time Receive d Time (Source) Location / / Volume Laterality Blood specimen 02/10/2013 2:56 PM 013 8:19 (specimen) EDT AM EDT Resulting Agency Comment Spec In Lab Ludivina Carvajal MD IMMUNOLOGY ORDERABLES Performing Organization Address City/State/[place] [address] CERNER MILLENNIUM Lupus Anticoagulant (02/10/2013 2:56 PM EDT) [facility] gist Method Time Signature Lupus Indeterminate Neg CERNER Anticoag MILLENNIUM Specimen Anatomical Collection Method Collection Time Receive d Time (Source) Location / / Volume Laterality Blood specimen 02/10/2013 2:56 PM 013 3:04 (specimen) EDT PM EDT Resulting Agency Comment Spec In Lab Ludivina Carvajal MD HEMATOLOGY ORDERABLES Performing Organization Address City/State/[place] [address] [facility] documented in this encounter Visit Diagnoses Diagnosis Pulmonary embolism Other pulmonary embolism and infarction documented in this encounter Care Teams Shipyard Painting Supervisor Relationship Specialty Start Date End Date Jackelin Paniagua PA PCP - General 07/20/12 01/23/16 documented as of this encounter
--- OUTSIDE RECORDS SUMMARY | 2022-06-07 01:48 | XMS_ITS | Encounter Summary ---
:1970 Author Organization [facility] [place] [address] Care Team Providers Name Role Phone Jackelin Paniagua Primary Care Provider Encounter Details Date Type Department Care Team Description 06/08/2013 Telephone Pain Management at [facility] [place] [address] Social History Tobacco Use Types Packs/Day Years [...] Telephone Encounter - Twila Terry RN - 06/08/2013 12:59 PM EDT Pain Management Center Temporary Anticoagulant Hold Documentation Patient: Paul Bradley [id number] Paniagua to temporarily stop Coumadin for 5 days prior to requested injection/procedure. See signed permission received from prescriber scanned into electronic record. PT/INR ordered: Yes Twila Terry RN documented in this encounter Plan of Treatment Not on filedocumented as of this encounter Results Prothrombin Time (07/01/2013 11:46 AM EDT) athologist Signature PT 13.4 12.0 - 15.0 CERNER sec MILLENNIUM Comment: [facility] Transfusion Committee Guidelines: [...] Organization Address City/State/[place] [address] [facility] documented in this encounter Visit Diagnoses Diagnosis Anticoagulated - Primary Encounter for long-term (current) use of anticoagulants documented in this encounter Care Teams Automation Lead Relationship Specialty Start Date End Date Jackelin Paniagua PA PCP - General 07/20/12 01/23/16 documented as of this encounter
--- OUTSIDE RECORDS SUMMARY | 2022-06-07 01:48 | XMS_ITS | Encounter Summary ---
:1970 Author Organization [facility] [place] [address] Care Team Providers Name Role Phone Jackelin Paniagua Primary Care Provider Encounter Details Date Type Department Care Team Description 04/04/2013 External Results [place] [facility] [place], [address] [place] [address] Social History Tobacco Use Types Packs/Day Years Used Date Current Every Day Smoker Cigarettes 1 20 Smokeless Tobacco: Never Used Sex Assigned at Date Recorded Not on file documented as of this encounter Plan of Treatment Not on filedocumented as of this encounter Procedures Procedure Name Priority Date/Time Associated Diagnosis Comme nts MRI/MRA SCAN Routine 12/24/2012 MRI/MRA SCAN Routine 09/25/2012 documented in this encounter Results Scan Doc: MRI/MRA (12/24/2012) Anatomical Region Laterality Modality Other Narrative This result has an attachment that is no t available. Scanning Provider MEDIA MGR SCAN EXT ORDR/RSLT Scan Doc: MRI/MRA (09/25/2012) Anatomical Region Laterality Modality Other Narrative This result has an attachment that is no t available. Dione France MD MEDIA MGR SCAN EXT ORDR/RSLT documented in this encounter Visit Diagnoses Not on filedocumented in this encounter Care Teams Lockstitch Sleeve Setter Relationship Specialty Start Date End Date Jackelin Paniagua PA PCP - General 07/20/12 01/23/16 documented as of this encounter
--- OUTSIDE RECORDS SUMMARY | 2022-06-07 01:48 | XMS_ITS | Encounter Summary ---
:1970 Author Organization [place] [place] [address] Care Team Providers Name Role Phone Jackelin Paniagua Primary Care Provider Encounter Details Date Type Department Care Team Description 09/16/2012 Hospital Encounter [facility] [place]OW[place] [address] [place] [address] Dione Newell MD [address] [place] [address] [place] [address] Social History Tobacco Use Types Packs/Day Years Used Date Never Assessed Sex Assigned at Date Recorded Not on file documented as of this encounter Medications at Time of Discharge Medication Sig Dispensed Refills Start Date End Date Omeprazole 20 mg TbEC 0 04/13/201008/2014 documented as of this encounter Plan of Treatment Not on filedocumented as of this encounter Procedures Procedure Name Priority Date/Time Associated Diagnosis Comme nts XR CERVICAL SPINE 2 Routine 09/16/2012 8:34 AM Re sults for this OR 3 VIEWS EST procedure are i n the results section. documented in this encounter Results XR cervical spine diagnostic 2 or 3 views (09/16/2012 8:34 AM EST) Anatomical Region Laterality Modality C-spine N/A Radiographic Imaging Specimen (Source) Anatomical Collection Method Collection Time Re ceived Time Location / / Volume Laterality 09/16/2012 8:34 AM EST Narrative 09/16/2012 9:15 AM EST Examination DIAG CERVICAL SPINE 2 OR 3 VIEWS Clinical History ANT SPINAL DISKECT OSTEOPHYTECT CERV INT ERSPACE MICRODISCECT Comparison None. Technique Findings Anterior cervical disc fusion across C4 and C6. ??C7 is not optimally evaluated on the flexion exam because of overlap. ??The cervical alignment from C1-C6 is normal without subluxation or instabilit y. ??The graft material at C4-C5 and C5-C6 disc spaces appears incorporated. Impression ? 1. No subluxation or instability. ? 2. C4-C6 anterior cervical disc f usion. Procedure Note Makayla Stein MD - 09/16/2012Formatt ing of this note might be different from the original. Examination DIAG CERVICAL SPINE 2 OR 3 VIEWS Clinical History ANT SPINAL DISKECT OSTEOPHYTECT CERV INT ERSPACE MICRODISCECT Comparison None. Technique Findings Anterior cervical disc fusion across C4 and C6. C7 is not optimally evaluated on the flexion exam because of overlap. The cervical alignment from C1-C6 is normal without subluxation or instabilit y. The graft material at C4-C5 and C5-C6 disc spaces appears incorporated. Impression 1. No subluxation or instability. 2. C4-C6 anterior cervical disc fusion. Dione France MD IMG DX ORDERABLES documented in this encounter Visit Diagnoses Not on filedocumented in this encounter Care Teams Elevator Installer Apprentice Relationship Specialty Start Date End Date Jackelin Paniagua PA PCP - General 07/20/12 01/23/16 documented as of this encounter
--- OUTSIDE RECORDS SUMMARY | 2022-06-07 01:48 | XMS_ITS | Encounter Summary ---
:1970 Author Organization [facility] [place] [address] Care Team Providers Name Role Phone Jackelin Paniagua Primary Care Provider Encounter Details Date Type Department Care Team Description 06/03/2013 Telephone Pain Management at [facility] [place], [place] [address] Social History Tobacco Use Types Packs/Day [...] this encounter Miscellaneous Notes Telephone Encounter - Lizette Gaines LPN - 06/03/2013 12:02 PM EDT Called pt in response to his e-mail, Which stated that the Jean occipital nerve block didn't relieve his pain. After checking Dr. Scruggs note the next step will be cervical medial branch block with possible Cervical radio frequency. Pt. Is on coumadin will schedule after we receive permission to stopanti coagulant. documented in this encounter Plan of Treatment Not on filedocumented as of this encounter Visit Diagnoses Not on filedocumented in this encounter Care Teams Fur Comber Relationship Specialty Start Date End Date Jackelin Paniagua PA PCP - General 07/20/12 01/23/16 documented as of this encounter
--- OUTSIDE RECORDS SUMMARY | 2022-06-07 01:48 | XMS_ITS | Encounter Summary ---
:1970 Author Organization [facility] [place] [address] Care Team Providers Name Role Phone Jackelin Paniagua Primary Care Provider Encounter Details Date Type Department Care Team Description 07/02/2013 Telephone Pain Management at [facility] [place] [address] Social History Tobacco Use Types Packs/Day [...] Encounter - Twila Terry RN - 07/02/2013 10:36 AM EDT Pain Management [facility] Post-Procedure Phone Note Patient: Paul Bradley [id number] Post-procedure phone call from patient to report his response to the cervical medial branch block procedure performed on 07/01/13 in the Pain Management Center by Dino Mccabe MD. Patient reports that after the procedure he experienced: x__ Post-procedure pain has been reduced by _50___%. If pain is reduced, it lasted: _x_ less than 4 hours Based on the information provided above and after discussion with the patient, the following actionswill be taken: _x_ Patient meets criteria for radiofrequency treatment and would like to proceed with a Cervical Radiofrequency procedure with Dino Mccabe MD. Patient on anticoagulant medication: _x_ yes _x_ Patient will be contacted by school attendance secretary or nurse in [facility] to schedule once we receive anti-coagulation hold authorization. Patient has pacemaker/defibrillator: No Patient has the appropriate phone number and understands that he may contact the Pain Management Center at any time with questions or concerns. Twila Terry RN documented in this encounter Plan of Treatment Not on filedocumented as of this encounter Visit Diagnoses Not on filedocumented in this encounter Care Teams Juvenile Counselor Relationship Specialty Start Date End Date Jackelin Paniagua PA PCP - General 07/20/12 01/23/16 documented as of this encounter
--- OUTSIDE RECORDS SUMMARY | 2022-06-07 01:48 | XMS_ITS | Encounter Summary ---
:1970 Author Organization [facility] [place] [address] Care Team Providers Name Role Phone Jackelin Paniagua Primary Care Provider Encounter Details Date Type Department Care Team Description 02/04/2013 Orders Only Radiology Jackelin Valdez PA [facility] [address] [place] [address] [place] [address] [phone] Social History Tobacco Use Types Packs/Day Years Used Date Current Every Day Smoker Cigarettes 1 20 Smokeless Tobacco: Never Used Sex Assigned at Date Recorded Not on file documented as of this encounter Plan of Treatment Not on filedocumented as of this encounter Procedures Procedure Name Priority Date/Time Associated Diagnosis Comme nts REQUEST FOR 2ND Routine 02/04/2013 10:40 AM Resul ts for this READ CT CHEST EDT procedure are in the results section. documented in this encounter Results Request for 2nd read CT Chest (02/04/2013 10:40 AM EDT) Anatomical Region Laterality Modality Chest Other Specimen (Source) Anatomical Collection Method Collection Time Re ceived Time Location / / Volume Laterality 02/04/2013 10:40 AM EDT Narrative 02/08/2013 1:10 PM EDT Examination OUTSIDE CT CHEST Clinical History CT CHEST FROM [facility] DATED 01/05/13 SOB. LUNG NODULES ? RISK FOR LUNG CANCER Physician Health Safety Instructor BELIEVES ND OPINION MAY CHANGE OR ALTER PT CARE Comparison None Technique Contrast-enhanced CT images of the chest from [facility]. Findings No filling defects within the pulmonary arteries. Central airways are clear. Small area of airspace opacity in the po sterior right lung apex with additional non consolidative pleural based right up per lobe opacities, likely atelectasis versus scarring. Note is made of a mosai c appearance of the lung parenchyma. No pleural or pericardial effusion. The hea rt, aorta and great vessels are normal. A precarinal lymph node is enlarged and likely reactive. The upper abdomen is unremarkable. No aggressive osseous lesi ons. ?? Impression No pulmonary emboli Right upper lobe airspace opacities like ly combination of atelectasis and scarring. Enlarged precarinal lymph node, likely r eactive. Film and interpretation reviewed by the attending Procedure Note Cayden Terrazas MD - 02/08/2013Form atting of this note might be different from the original. Examination OUTSIDE CT CHEST Clinical History CT CHEST FROM [facility] DATED 01/05/13 SOB. LUNG NODULES ? RISK FOR LUNG CANCER Physician Health Safety Instructor BELIEVES ND OPINION MAY CHANGE OR ALTER PT CARE Comparison None Technique Contrast-enhanced CT images of the chest from [facility]. Findings No filling defects within the pulmonary arteries. Central airways are clear. Small area of airspace opacity in the po sterior right lung apex with additional non consolidative pleural based right up per lobe opacities, likely atelectasis versus scarring. Note is made of a mosai c appearance of the lung parenchyma. No pleural or pericardial effusion. The hea rt, aorta and great vessels are normal. A precarinal lymph node is enlarged and likely reactive. The upper abdomen is unremarkable. No aggressive osseous lesi ons. Impression No pulmonary emboli Right upper lobe airspace opacities like ly combination of atelectasis and scarring. Enlarged precarinal lymph node, likely r eactive. Film and interpretation reviewed by the attending Jackelin SONI OUTSIDE INTERPRETATION O RDERABLES documented in this encounter Visit Diagnoses Not on filedocumented in this encounter Care Teams Enforcement Safety Officer Relationship Specialty Start Date End Date Jackelin Paniagua PA PCP - General 07/20/12 01/23/16 documented as of this encounter
--- OUTSIDE RECORDS SUMMARY | 2022-06-07 01:48 | XMS_ITS | Encounter Summary ---
:1970 Author Organization [place] [address] Care Team Providers Name Role Phone Jackelin Paniagua Primary Care Provider Encounter Details Date Type Department Care Team Description 09/25/2012 [facility] [place] [address] [facility] [phone] [facility] [place] [address] (Wo rk) Social History Tobacco Use Types Packs/Day Years Used Date Current Every Day Smoker Cigarettes 1 20 Smokeless Tobacco: Never Used Sex Assigned at Date Recorded Not on file documented as of this encounter Plan of Treatment Not on filedocumented as of this encounter Procedures Procedure Name Priority Date/Time Associated Diagnosis Comme nts FILM LIBRARY Routine 09/25/2012 10:01 AM Results for this STORAGE ONLY MR EST procedure ar e in SPINE the results section. documented in this encounter Results Film Library- Storage only MR Spine (09/25/2012 10:01 AM EST) Specimen (Source) Anatomical Collection Method Collection Time Re ceived Time Location / / Volume Laterality 09/25/2012 10:01 AM EST Narrative [facility] - 05/30/2014 11:01 PM EDT This is a non-reportable exam. Procedure Note Mehdi Cardenas - 05/30/2014Formatti ng of this note might be different from the original. This is a non-reportable exam. Ashleigh Stone MD IMG FILM LIBRARY ORDERA DANNI Performing Organization Address City/State/ZIP Code Phon e Number [facility] [address] [facility] [place] [address] documented in this encounter Visit Diagnoses Not on filedocumented in this encounter Care Teams Build Engineer Relationship Specialty Start Date End Date Jackelin Paniagua PA PCP - General 07/20/12 01/23/16 documented as of this encounter
--- OUTSIDE RECORDS SUMMARY | 2022-06-07 01:53 | XMS_ITS | Clinical Summary ---
:1970 Author Organization [facility] Address [address] [place] [address] Care Team Providers Name Role Phone Jackelin Paniagua Primary Care Provider Unavailable Allergies Active Allergy Reactions Severity Noted Date Comments Sulfa (Sulfonamide Antibiotics) Rash 5 Medications Medication Sig Dispensed Refills Start Date End Date Status ALBUTEROL INHL Inhale as directed 0 Active oxyCODONE Take 10 mg by mouth 0 Active (ROXICODONE) 5 mg every 4 hours immediate release tablet buPROPion (WELLBUTRIN Take 150 mg by 0 Active XL) 150 mg XL tablet mouth daily DULoxetine (CYMBALTA) Take 60 mg by mouth 0 Active 60 mg capsule daily gabapentin Take 600 mg by 0 Acti ve (NEURONTIN) 600 mg mouth 2 times daily tablet omeprazole (PRILOSEC) Take 20 mg by mouth 0 Active 20 mg capsule daily warfarin (COUMADIN) 5 Take 5 mg by mouth 0 Active mg tablet daily 1-3 tabs as directed ACLIDINIUM BROMIDE Inhale as directed 0 Active (TUDORZA PRESSAIR INHALATION) budesonide-formoterol Inhale as directed 0 Active HFA (SYMBICORT) 2 times daily 160-4.5 mcg/actuation HFA aerosol inhaler inhaler Active Problems Problem Noted Date Postphlebitic syndrome with ulcer ([facility]) 05/23/2015 Overview: IMO Update Auto Replacement Medical History Medical History Date Comments COPD (chronic obstructive pulmonary disease) ([facility]) ([facility]) Head injury Family History Medical History Relation Name Comments Stroke Maternal Grandmother Heart Disease Mother Relation Name Status Comments Maternal Grandmother Mother Social History Tobacco Use Types Packs/Day Years Used Date Current Every Day Smoker Cigarettes 1 30 Alcohol Use Standard Drinks/Week Comments Not Asked 0 (1 standard drink = 0.6 oz pure alcoho l) Sex Assigned at Date Recorded Not on file Last Filed Vital Signs Vital Sign Reading Time Taken Comments Blood Pressure 150/84 05/23/2015 1511 EDT right Pulse 88 05/23/2015 1511 EDT Temperature - - Respiratory Rate - - Oxygen Saturation - - Inhaled Oxygen Concentration - - Weight 147.9 kg (326 lb) 05/23/2015 1504 EDT Height 176.5 cm (5' 9.5) 05/23/2015 1504 EDT Body Mass Index 47.45 05/23/2015 1504 EDT Plan of Treatment Not on file Care Teams Bag Presser Relationship Specialty Start Date End Date Jackelin Paniagua PA PCP - General 05/23/15
--- OUTSIDE RECORDS SUMMARY | 2022-06-07 01:53 | XMS_ITS | Encounter Summary ---
:1970 Author Organization [facility] Address [address] [place] [address] Care Team Providers Name Role Phone Unavailable Primary Care Provider Unavailable Encounter Details Date Type Department Care Team Description 11/26/2000 Hospital Encounter [facility] - Deandre Padilla MD [address] [place] [id number] Other Unknown, Provider, [address] [place] [address] Social History Tobacco Use Types Packs/Day Years Used Date Never Assessed Sex Assigned at Date Recorded Not on file documented as of this encounter Discharge Disposition Disposition Code Departure Means Destination Auto Discharge documented in this encounter Plan of Treatment Not on filedocumented as of this encounter Procedures Procedure Name Priority Date/Time Associated Diagnosis Comme nts SURGICAL PATHOLOGY Routine 11/26/2000 0:00 EST Re sults for this procedure are i n the results section. documented in this encounter Results SURGICAL PATHOLOGY (11/26/2000 0:00 EST) Pathology Report: SURGICAL PATHOLOGY REPORT STACIE ANGEL Reports generated via electronic interface contain lety ginal data; LAB however they are lacking the format of the original re port. Caution should be taken when reading/interpreting unfo rmatted reports. Name: ? PAUL BRADLEY ? Accession #: ? [id number] ? : ? 1970 (Age: 30) ??M ? Collect Date: ? 11/26/2000 ? Location: ? [facility] ? Receive Date: ? 001 ? Provider: DEANDRE TRUONG MD Copy to: KATI CAMACHO MD ? Final Pathologic Diagnosis: A. ?Vas deferens, left, vasectomy: 1. ?Full cross section of vas deferens id entified. B. ?Vas deferens, right, vasectomy: 1. ?Full cross section of vas deferens id entified. Document reviewed and electronically signed by: Olga Hanson MD Report ??Date: 12/01/2000 17:53 By the signature above, the attending physician certif ies that he/she has personally conducted a gross and/or microscopic examin ation of the described specimens and rendered or confirmed the above diagnosi s. Specimen(s) Received: A. ?L vas deferens B. ?R vas deferens Clinical History: ? Vasectomy; clinical diagnosis code: V25.2 Gross Description: ? Received in formalin labelled Bradley and L v as is a cylindrically shaped piece of soft tissue which measures 1.3 cm in l ength x 0.3 cm in diameter. ??A patient service representative section is submitted as ( A). Received in formalin labelled Bradley and R vas is a cylindrically shaped piece of soft tissue which m easures 1.2 cm in length with an average diameter of 0.3 cm. ??A patient service representative section is can bmitted as (B). ??(Dr. Lehman)/[facility] End of Report Specimen Performing Organization Address City/State/ZIP Code Phon e Number [facility] [address] [place] [id number] SERVICES [facility] [address] [place] [address] documented in this encounter Visit Diagnoses Not on filedocumented in this encounter
--- OUTSIDE RECORDS SUMMARY | 2022-06-07 01:53 | XMS_ITS | Encounter Summary ---
:1970 Author Organization [facility] Address [address] [place] [address] Care Team Providers Name Role Phone Jackelin Paniagua Primary Care Provider Unavailable Encounter Details Date Type Department Care Team Description 01/23/2021 Lab Requisition [facility] Outr Resulting Lab, Pathology & Laboratory Provider [facility] [address] [place] [address] Social History Tobacco Use Types Packs/Day Years Used Date Current Every Day Smoker Cigarettes 1 30 Alcohol Use Standard Drinks/Week Comments Not Asked 0 (1 standard drink = 0.6 oz pure alcoho l) Sex Assigned at Date Recorded Not on file documented as of this encounter Functional Status Functional Status Response Date of Assessment Because of a physical, mental, or emotional condition, No 05/23/2015 does this person have difficulty doing errands alone such as visiting a doctor's office or shopping? Cognitive Status Response Date of Assessment Because of a physical, mental, or emotional condition, No 05/23/2015 does this person have serious difficulty concentrating, remembering, or making decisions? documented as of this encounter Plan of Treatment Not on filedocumented as of this encounter Procedures Procedure Name Priority Date/Time Associated Comments Diagnosis PSA TOTAL, Routine 01/23/2021 9:18 EDT Results for this DIAGNOSTIC procedure are i n the results section. documented in this encounter Results PSA TOTAL, DIAGNOSTIC (01/23/2021 9:18 EDT) Pathologist Sig nature PSA 0.5 0.0 - 3.5 ng/mL [facility] Specimen Blood - Venous blood (substance) Narrative [facility] - 01/23/2021 17:46 EDT NOTE: Serum PSA concentration should not be in terpreted as absolute evidence for the presence or absence of malignant disease. Assayed on Siemens ADVIA Centaur XPT usi ng chemiluminescent technology.??Values obtained by using different assay methods cannot be used interchangeably. Performing Organization Address City/State/ZIP Code Phon e Number [facility] [address] [place] [address] SERVICES documented in this encounter Visit Diagnoses Not on filedocumented in this encounter Care Teams Community Services Coordinator Relationship Specialty Start Date End Date Jackelin Paniagua PA PCP - General 05/23/15 documented as of this encounter
--- OUTSIDE RECORDS SUMMARY | 2022-06-07 01:53 | XMS_ITS | Encounter Summary ---
:1970 Author Organization [facility] Address [address] [place] [address] Care Team Providers Name Role Phone Unavailable Primary Care Provider Unavailable Encounter Details Date Type Department Care Team Description 01/05/2013 Results Only [facility] Natasha Fisher, DO [phone] [facility] [place] [address] (Wo rk) Social History Tobacco Use Types Packs/Day Years Used Date Never Assessed Sex Assigned at Date Recorded Not on file documented as of this encounter Plan of Treatment Not on filedocumented as of this encounter Procedures Procedure Name Priority Date/Time Associated Diagnosis Comme [facility] SURGICAL PATHOLOGY Routine 01/05/2013 9:47 EDT Re sults for this procedure are i n the results section. documented in this encounter Results SURGICAL PATHOLOGY (01/05/2013 9:47 EDT) Pathology Report: SURGICAL PATHOLOGY REPORT QUINONES A JOSHUAMARC Reports generated via electronic interface contain lety ginal data; LAB however they are lacking the format of the original re port. Caution should be taken when reading/interpreting unfo rmatted reports. Name: ? PAUL BRADLEY ? Accession #: ? [id number] ? : ? 1970 (Age: 42) ??M ? Collect Date: ? 01/05/2013 ? Location: ? [facility] ? Receive Date: ? 013 ? Provider: NATASHA FISHER DO Copy to: DANIEL REYES MD ? Final Pathologic Diagnosis: ? Gallbladder, cholecystectomy: 1. ?Acute cholecystitis with gangrenous n ecrosis. 2. ? Cholelithiasis. ?? Document reviewed and electronically signed by: BONITA BOSWELL MD Report ??Date: 01/07/2013 15:59 By the signature above, the attending physician certif ies that he/she has personally conducted a gross and/or microscopic examin ation of the described specimens and rendered or confirmed the above diagnosi s. Specimen(s) Received: ? Gallbladder Clinical History: ? Symptomatic cholelithiasis Gross Description: ? Received in formalin labelled Paul Bradley argelia nd gallbladder is a previously opened product of a cholecystectomy measuri ng 6.8 cm in length, averaging 3.5 cm in diameter. ??The sero sa is ashraf-red and diffusely hyperemic. The mucosa is ashraf-red to green, smooth to velvet y, and slightly trabecular in the fundic region. ??The und erlying wall averages 0.2 cm in thickness. ??There is one yellow mulberry cholelith measuring 0.7 cm in grea test dimension. ??The cystic duct measures 0.6 cm in length, 0.[address] and is not grossly patent. ??The cystic duct no de is not present. ??Three education courses sales representative sections are submitted in one cassette as (1), which includes the inked cystic duct margin en face and two sections of gallbladder. ??[facility] End of Report Specimen Performing Organization Address City/State/ZIP Code Phon e Number [facility] [address] [place] [address] [facility] [address] [place] [address] documented in this encounter Visit Diagnoses Not on filedocumented in this encounter
--- OUTSIDE RECORDS SUMMARY | 2022-06-07 01:53 | XMS_ITS | Encounter Summary ---
:[address] [facility] Address [address] [place] [address] Care Team Providers Name Role Phone Jackelin Paniagua Primary Care Provider Unavailable Reason for Visit Reason Comments New Patient Visit right leg wound-nonhealing, ult done 12[facility]01[facility]14 [facility] Encounter Details Date Type Department Care Team Description 05/23/2015 Office Visit [facility] Kate Richardson ebetic syndrome Vascular Surgery - MD Elmer with ulcer (Primary Main [place] [address]) [address] [place] [address] [facility] [phone] [address] [place] [address] (Wo rk) Social History Tobacco Use Types [...] Body Mass Index 47.45 05/23/2015 1504 EDT documented in this encounter Functional Status Functional Status Response [...] making decisions? documented as of this encounter Discharge Diagnoses Diagnosis 459.11 POSTPHLEBETIC SYNDROME WITH ULCER [ICD-9-CM] documented in this encounter Discharge Disposition Disposition Code Departure Means Destination Auto Discharge documented in this encounter Progress Notes Briana Vincent RN - 05/23/2015 1614 EDT Double unna boot applied per MD order. Elmer duarte MD - 05/23/2015 1607 EDT This office note has been dictated. documented in this encounter Consult Notes Elmer Richardson MD - 05/24/2015 0943 EDT [facility] VASCULAR SURGERY CONSULTATION - 05/23/2015 Edward Fisher DO [id number] [place] [address] Dear Edward: Thank you for consulting us in regard to Mr Bradley' right-sided venous stasis ulceration and post-phlebitic syndrome. As you know, he is a 44-year-old gentleman with a previous history of right leg DVTwith a PE. Since then he has had issues with post-phlebitic syndrome with chronic venous hypertension and now stasis ulceration. This has been going on for a while. He was being treated with Unna bootsinitially and that was apparently going reasonably well, but currently using his 20 to 30 mmHg compression socks and a dressing over the wound. There has not been much progress of late with his wound healing. He actually went down to [facility] have them take a look at it and had an ultrasound there, which confirmed deep venous insufficiency. His superficial veins were competent. That study was consistent with post-phlebitic syndrome. He is here to see if anything else could be done for this. His past medical history is otherwise positive for emphysema, sleep apnea, hypertriglyceridemia and morbid obesity. From a surgical point of view, he has had skin graft in the past, has had a vasectomyand appendectomy. Otherwise, past medical history is detailed in his new patient intake sheet as well as the review of system and copied into his electronic chart. He does smoke about a pack a day for the last 30 years. There is a family history of stroke and coronary disease, no history of aneurysms. He has allergy against SULFA. His current medication list includes: Aclidinium bromide, albuterol, Cymbalta, Wellbutrin, Symbicort, Neurontin, Prilosec, oxycodone, and Coumadin. On exam, he is a pleasant 44-year-old gentleman, certainly in no acute distress, here with his partner. Right arm blood pressure 140/88, left 150/84. He is morbidly obese, BMI of 47.4. His arterial exam is completely normal with palpable pedal pulses. He does have some hemosiderin infiltration in the skin on both legs. On the right upper carlson, he does have about a dime-sized ulceration, no infection with granulating base. Assessment: Chronic venous hypertension and post-phlebitic syndrome and a right- sided stasis ulceration. I talked to him about this at length and explained the pathophysiology. Unfortunately there is no good surgical option to fix this. It is all about compression. In our practice we tend to use an Unna boot until the wound is completely healed and then a compression garment of 30 to 40 mmHg compression would be needed to prevent further ulcerations. I explained all this and he is willing to have anUnna boot placed on here, but would like to have the boot change done locally if possible. He will Tono sure contact your office if that is not easy to do. We would certainly be happy to do it here in our clinic. Thank you again for asking us to see him. Sincerely, Elmer Richardson MD 04 04 PM - Elmer Richardson MD mn Dictation ID: [id number] cc: Jackelin MARCOS, [address] [place] [id number] Edward Fisher , [address] [id number] signed by Elmer Richardson MD at 06/07/2015 14:27 EDTdocumented in this encounter Plan of Treatment Pending Results Name Type Priority Associated Diagnoses Date/Ti me RAD OUTSIDE CD - US BODY Imaging 15:13 EDT documented as of this encounter Visit Diagnoses Diagnosis Postphlebetic syndrome with ulcer - Prim renetta documented in this encounter Historical Medications This list may reflect changes made after this encounter. Medication Sig Dispensed Refills Start Date End Date budesonide-formoterol HFA Inhale as directed 2 0 (SYMBICORT) 160-4.5 times daily mcg/actuation HFA aerosol inhaler inhaler ACLIDINIUM BROMIDE Inhale as directed 0 (TUDORZA PRESSAIR INHALATION) warfarin (COUMADIN) 5 mg Take 5 mg by mouth 0 tablet daily 1-3 tabs as directed omeprazole (PRILOSEC) 20 Take 20 mg by mouth 0 mg capsule daily gabapentin (NEURONTIN) Take 600 mg by mouth 2 0 600 mg tablet times daily DULoxetine (CYMBALTA) 60 Take 60 mg by mouth 0 mg capsule daily buPROPion (WELLBUTRIN XL) Take 150 mg by mouth 0 150 mg XL tablet daily oxyCODONE (ROXICODONE) 5 Take 10 mg by mouth 0 mg immediate release every 4 hours tablet ALBUTEROL INHL Inhale as directed 0 added in this encounter Care Teams Edge Bander Hand Relationship Specialty Start Date End Date Jackelin Paniagua PA PCP - General 05/23/15 documented as of this encounter
[2022-06-07 14:08] LABS: INR 2.6 (0.9-1.1); Prothrombin Time 24.9 sec (9.3-11.0)
== END 2022-06-07 01:45 | disposition home or self-care (01) ==
LOC: LOS 01:44
PROVIDERS: PCP Family Medicine; Visit Provider Family Medicine
DX: I26.99 Other pulmonary embolism without acute cor pulmonale (principal); Z79.01 Long term (current) use of anticoagulants; D68.51 Activated protein C resistance
CPT/HCPCS: 36415; 85610

== ENCOUNTER 2022-08-06 04:03 | Outpatient (CLI) | payer OTHER, SELFPAY ==
[2022-08-06 12:25] LABS: HCT 40.1 % (40.0-50.0); HGB 12.5 g/dL (13.5-17.5); MCH 26.5 pg (27.0-33.0); MCHC 31.2 % (32.0-36.0); MCV 85 fL (80-95); Platelet Count 374 10^3/uL (130-400); RBC 4.71 10^6/uL (4.36-5.78); RDW 16.2 % (11.8-14.1); RDW-SD 50.9 fL; WBC 8.91 10^3/uL (4.4-10.8)
[2022-08-06 12:55] LABS: INR 2.5 (0.9-1.1); Prothrombin Time 23.6 sec (9.3-11.0)
[2022-08-06 13:02] LABS: Anion Gap 8.8 mmol/L (3-11); BUN 14 mg/dL (7-18); CO2 27.2 mmol/L (21.0-32.0); CREATININE 1.2 mg/dL (0.70-1.30); Calcium 8.7 mg/dL (8.5-10.1); Chloride 105 mmol/L (98-107); Estimated GFR 71.86 (mL/min/1.73m2); Glucose 110 mg/dL (74-106); Potassium 4.3 mmol/L (3.5-5.1); Sodium 141 mmol/L (136-145); TSH (W/Ref FT4) 4.67 uIU/mL (0.36-3.74)
[2022-08-06 14:23] LABS: FREE T4 0.68 ng/dL (0.76-1.46)
== END 2022-08-06 04:04 | disposition home or self-care (01) ==
LOC: LOS 04:04
PROVIDERS: PCP Family Medicine; Visit Provider Nurse Practitioner Family
DX: R53.83 Other fatigue (principal); I26.99 Other pulmonary embolism without acute cor pulmonale
CPT/HCPCS: 36415; 80048; 85027; 84439; 84443; 85610

== ENCOUNTER 2022-10-10 03:06 | Outpatient (CLI) | payer OTHER, SELFPAY ==
[2022-10-10 12:36] LABS: TSH (W/Ref FT4) 4.74 uIU/mL (0.36-3.74)
[2022-10-10 13:43] LABS: FREE T4 0.78 ng/dL (0.76-1.46)
== END 2022-10-10 03:07 | disposition home or self-care (01) ==
LOC: LOS 03:06
PROVIDERS: PCP Family Medicine; Visit Provider Family Medicine
DX: E03.9 Hypothyroidism, unspecified (principal); I26.99 Other pulmonary embolism without acute cor pulmonale; D68.51 Activated protein C resistance
CPT/HCPCS: 36415; 84439; 84443; 85610

== ENCOUNTER 2022-12-06 20:33 | Emergency (ER) | payer OTHER, SELFPAY ==
[2022-12-06 20:21] VITALS: BP 171/83; PULSE 109; RESP 15; TEMP 36.4; O2SAT 96
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
--- NOTE | 2022-12-06 20:30 | RT.EKG_ITS ---
APPROVED REPORT Exam: Resting ECG Reason for Exam: SOB Patient Location: E HR:96 bpm ECG Measurements Heart Rate 96 AXIS ME 92 P 58 QRSd 110 QRS 123 QT 375 T 28 QTc 473 Conclusion Sinus rhythm...normal P axis, V-rate 60- 99 Normal [place] I have reviewed and interpreted ECG and agree with software generated interpretation.
--- NOTE | 2022-12-06 20:45 | DI.RAD_ITS ---
Exam(s) XR PORTABLE CHEST AP EXAM: XR PORTABLE CHEST AP CLINICAL HISTORY: SOB. TECHNIQUE: 2D digital imaging was performed. COMPARISON: CR XR CHEST 2V PA LATERAL from 07/26/2021 FINDINGS: Single AP portable view. Heart size is upper normal. The mediastinum is not widened. Lungs are clear. No infiltrates nor obvious pleural effusions. Cervical fusion plate again noted. IMPRESSION: No acute pulmonary findings on this single AP portable view of the chest. DATA REPOSITORY: RADIATION DOSE DELIVERED:
[2022-12-06 21:11] LABS: Abs Immature Grans 0.03 10^3/uL (0.0-0.06); Absolute Basophil Count 0.12 10^3/uL (0.0-0.2); Absolute Eosinophil Count 0.23 10^3/uL (0.0-0.7); Absolute Monocyte Count 0.75 10^3/uL (0.1-0.8); Absolute Neutrophil Count 6.42 10^3/uL (1.2-6.7); Basophils % 1.2; Eosinophils % 2.3; HGB 10.7 g/dL (13.5-17.5); Immature Grans % 0.3; Lymphocytes % 25.6; MCH 23.4 pg (27.0-33.0); MCHC 29.7 % (32.0-36.0); MCV 79 fL (80-95); MPV 9.6 fL (8.0-11.0); Monocytes % 7.4; Neutrophils % 63.2; Platelet Count 379 10^3/uL (130-400); RBC 4.57 10^6/uL (4.36-5.78); RDW 17.6 % (11.8-14.1); WBC 10.15 10^3/uL (4.4-10.8)
[2022-12-06] MEDS: Albuterol/Ipratropium 3 ML UPD VIAL UPD (21:21)
[2022-12-06] MEDS: Albuterol 2.5 MG/3 ML INH SOLN VIAL UPD (21:21)
[2022-12-06 21:33] LABS: ALT 32 U/L (16-63); AST 27 U/L (15-37); Albumin 3.6 g/dL (3.4-5.0); Alkaline Phosphatase 130 U/L (46-116); Anion Gap 8.5 mmol/L (3-11); BUN 14 mg/dL (7-18); Bilirubin, Total 0.3 mg/dL (0.2-1.0); CO2 27.5 mmol/L (21.0-32.0); CREATININE 1.5 mg/dL (0.70-1.30); Calcium 8.5 mg/dL (8.5-10.1); Chloride 104 mmol/L (98-107); Estimated GFR 54.98 (mL/min/1.73m2); Glucose 131 mg/dL (74-106); Lab Add On Test DONE; Magnesium 1.8 mg/dL (1.8-2.4); Potassium 3.5 mmol/L (3.5-5.1); Sodium 140 mmol/L (136-145); Total Protein 7.7 g/dL (6.4-8.2); Troponin I < 50 ng/L (<or=60)
--- NOTE | 2022-12-06 21:33 | DI.VRAD_ITS ---
PROCEDURE INFORMATION: Exam: XR Chest Exam date and time: 12/06/2022 8:48 PM Age: 52 years old Clinical indication: Shortness of breath; Additional info: SOB TECHNIQUE: Imaging protocol: Radiologic exam of the chest. Views: 1 view. COMPARISON: CR XR CHEST 2V PA LATERAL 07/26/2021 9:06 AM FINDINGS: Lungs: Hyperexpanded lung recio consistent with COPD Pleural spaces: Unremarkable. No pleural effusion. No pneumothorax. Heart/Mediastinum: Unremarkable. No cardiomegaly. Bones/joints: Anterior cervical fusion IMPRESSION: Hyperexpanded lung recio consistent with COPD Dictated and Authenticated by: Samira Jack MD. Ordering:NATALIE Pruitt MD
[2022-12-06 21:42] LABS: D-Dimer 347 ng/mlFEU (<500)
[2022-12-06 21:55] LABS: INR 3.1 (0.9-1.1); Prothrombin Time 31.3 sec (9.3-11.0)
[2022-12-06] MEDS: Albuterol 2.5 MG/3 ML INH SOLN VIAL 5 MG UPD (22:26)
--- NOTE | 2022-12-07 00:16 | NUR.NOTE ---
Nursing Note: Pt ambulated in hallway with SPO2 monitoring. Pt SPO2 remained 90% or greater during ambulation on room air. Pt denies any feelings of SOB.
[2022-12-07] MEDS: predniSONE 20 MG TAB 60 MG PO (00:36)
[2022-12-07 01:22] LABS: COVID-19 PCR Negative (Negative); Influenza A PCR Negative (Negative); Influenza B PCR Negative (Negative); RSV PCR Negative (Negative)
[2022-12-07 01:23] LABS: Source Nasopharynx
== END 2022-12-07 00:55 | disposition home or self-care (01) ==
PROVIDERS: Emergency Medicine; Emergency Provider Physician Assistant; PCP Family Medicine
DX: J44.1 Chronic obstructive pulmonary disease with (acute) exacerbation (principal); I10 Essential (primary) hypertension; D64.9 Anemia, unspecified; E03.9 Hypothyroidism, unspecified; F17.210 Nicotine dependence, cigarettes, uncomplicated; Z79.51 Long term (current) use of inhaled steroids; Z86.711 Personal history of pulmonary embolism; Z79.01 Long term (current) use of anticoagulants; Z86.718 Personal history of other venous thrombosis and embolism; Z20.822 Contact with and (suspected) exposure to COVID-19
CPT/HCPCS: 36415; 80053; 87637; 93005; 94640; 99284; 71045; 83735; 84484; 85025; 85379; 85610; 93010; J7512; J7613; J7620

== ENCOUNTER 2023-01-03 10:00 | Outpatient (CLI) | payer OTHER, SELFPAY ==
[2023-01-03 14:20] LABS: INR 2.6 (0.9-1.1)
== END 2023-01-03 10:01 | disposition home or self-care (01) ==
LOC: LBO 10:40
PROVIDERS: PCP Family Medicine; Visit Provider Family Medicine
DX: Z86.711 Personal history of pulmonary embolism (principal); Z79.01 Long term (current) use of anticoagulants; D68.51 Activated protein C resistance
CPT/HCPCS: 36415; 85610

== ENCOUNTER 2023-03-11 10:57 | Outpatient (CLI) | payer OTHER, SELFPAY ==
[2023-03-11 12:52] LABS: CREATININE 1.2 mg/dL (0.70-1.30); Calculated LDL 83 mg/dL (<100); Cholesterol 155 mg/dL (<200); Estimated GFR 71.86 (mL/min/1.73m2); HDL Cholesterol 34 mg/dL (40-60); Triglyceride 193 mg/dL (<150)
[2023-03-11 13:54] LABS: Hemoglobin A1C 6.1 % (<5.7)
== END 2023-03-11 10:58 | disposition home or self-care (01) ==
LOC: LOS 10:58
PROVIDERS: PCP Family Medicine; Visit Provider Family Medicine
DX: E78.5 Hyperlipidemia, unspecified (principal); I10 Essential (primary) hypertension; E11.51 Type 2 diabetes mellitus with diabetic peripheral angiopathy without gangrene
CPT/HCPCS: 36415; 80061; 82565; 83036

== ENCOUNTER 2023-03-25 01:19 | Outpatient (CLI) | payer OTHER, SELFPAY ==
--- NOTE | 2023-03-25 08:45 | DI.CTLCSR_ITS ---
Exam(s) CT CHEST LUNG CANCER SCREEN EXAM: CT CHEST LUNG CANCER SCREEN CLINICAL HISTORY: Screening for lung cancer, CURRENT SMOKER, Z12.2 TECHNIQUE: Imaging Protocol: Axial computed tomography images with coronal and sagittal reformatted images were created and reviewed COMPARISON: CT CHEST FOR PULMONARY EMBOLUS from 02/16/2018 FINDINGS: Tracheobronchial tree: Patent where visualized. Pulmonary parenchyma: No consolidation or dominant measurable mass. No architectural distortion. Lung Nodules: None. Mediastinum and Peggy: No dominant adenopathy or fluid collection. The esophagus is unremarkable. Thyroid gland: Unremarkable. Lymph nodes: Unremarkable. Pleura: No effusion or pneumothorax. Heart: The heart is not dilated. Coronary artery calcification is present. No pericardial effusion. Aorta: Thoracic aorta non-dilated.Atherosclerosis is present. Upper abdomen: Status post cholecystectomy. Soft Tissues: Unremarkable. Bones: Within normal limits. IMPRESSION: No pulmonary nodules. Lung RADS Cat 1 - Negative: No nodules and definitely benign nodules Lung-RADS 1.0 CATEGORIES: Category 0 - Prior chest CT exam(s) being located for comparison. Category 1 - Annual screening in 12 months. No nodules or definitely benign nodules. Category 2 - Annual screening in 12 months. Benign appearance. Nodules with low likelihood of becomin g active cancer. Category 3 - 6-month follow-up. Probably benign. Short-term follow-up suggested. Nodules with low lik elihood of becoming active cancer. Category 4A - 3-month follow-up and CT/PET if >8 mm in size. Suspicious finding. Findings which requi re additional testing. Category 4B - Findings which require additional testing and tissue sampling. Suspicious finding. Category 4X - Category 3 or 4 nodules with additional features or imaging findings that increases the suspicion of malignancy. Modifier S- Potentially clinically significant finding. (Non lung cancer) RADIATION DOSE DELIVERED: 93.73mGy.cm Total DLP 93.73mGy.cmTotal DLP DATA REPOSITORY: All CT scans at this facility are submitted to the National Radiology Data Registry (NRDR) Dose Index Registry (DIR) with the [employer] ([employer]). RADIATION OPTIMIZATION: All CT scans at this facility use at least one of these dose optimization te chniques: automated exposure control; mA and/or kV adjustment per patient size (includes targeted exa ms where dose is matched to clinical indication); or iterative reconstruction.
--- NOTE | 2023-03-25 15:23 | DI.RAD_ITS ---
Exam(s) XR LUMBAR SPINE COMPLETE EXAM: XR LUMBAR SPINE COMPLETE CLINICAL HISTORY: low back pain, M54.9. TECHNIQUE: 2D digital imaging was performed of the lumbar spine. Five images were obtained. AP, la teral, right oblique, left oblique and L5-S1 spot views were obtained. COMPARISON: CR XR LUMBAR SPINE COMPLETE from 07/24/2020 FINDINGS: BONES: No fracture or destructive lesion. There are small endplate osteophytes at a few of the disc l evels. There are degenerative changes of the facets at L5-S1. DISKS: Intervertebral disc spaces are maintained. ALIGNMENT: Lumbar spinal alignment is within normal limits. No spondylolysis or spondylolisthesis. SOFT TISSUE: Atherosclerosis is present. IMPRESSION: Mild degenerative changes in the lumbar spine. DATA REPOSITORY: RADIATION DOSE DELIVERED:
== END 2023-03-25 01:39 ==
LOC: DI 01:19
PROVIDERS: PCP Family Medicine; Visit Provider Family Medicine
DX: M51.36 Other intervertebral disc degeneration, lumbar region (principal); F17.210 Nicotine dependence, cigarettes, uncomplicated; Z12.2 Encounter for screening for malignant neoplasm of respiratory organs
CPT/HCPCS: 71271; 72110

== ENCOUNTER 2023-06-12 18:35 | Outpatient (REF) | payer OTHER, SELFPAY | END 2023-06-12 18:36 | disposition home or self-care (01) | LOC: LBN 18:35 | PROVIDERS: PCP Family Medicine; Visit Provider Nurse Practitioner Family | DX: L98.8 Other specified disorders of the skin and subcutaneous tissue (principal); L03.111 Cellulitis of right axilla | CPT/HCPCS: 87070; 87205 ==

== ENCOUNTER 2023-09-23 10:14 | Outpatient (CLI) | payer OTHER, SELFPAY ==
--- NOTE | 2023-09-23 08:30 | DI.RAD_ITS ---
Exam(s) XR SHOULDER RT COMPLETE 2+V EXAM: XR SHOULDER RT COMPLETE 2+V CLINICAL HISTORY: evaluation of right shoulder. TECHNIQUE: 2D digital imaging was performed. COMPARISON: CR XR SHOULDER LT COMPLETE 2+V from 04/09/2022 FINDINGS: 2 views No evidence of fracture or dislocation nor diminution of the subacromial space. However, there is a small 2 millimeter calcific density in the soft tissues immediately adjacent to the greater tuberosit y of the lateral humeral head consistent with calcific tendinitis. Bone density normal. No osseous lesions. No joint space narrowing. IMPRESSION: Calcific rotator cuff tendinitis. DATA REPOSITORY: RADIATION DOSE DELIVERED:
== END 2023-09-23 10:15 | disposition home or self-care (01) ==
LOC: DIORS 10:15
PROVIDERS: PCP Family Medicine; Visit Provider Student in an Organized Health Care Education/Training Program
DX: M75.21 Bicipital tendinitis, right shoulder (principal)
CPT/HCPCS: 73030

== ENCOUNTER 2024-01-02 02:12 | Outpatient (CLI) | payer OTHER, SELFPAY ==
[2024-01-02 17:59] LABS: INR 2.8 (0.9-1.1); Prothrombin Time 25.4 sec (9.1-11.1)
== END 2024-01-02 02:13 | disposition home or self-care (01) ==
LOC: LBO 02:12
PROVIDERS: PCP Family Medicine; Visit Provider Family Medicine
DX: Z86.711 Personal history of pulmonary embolism (principal); Z86.718 Personal history of other venous thrombosis and embolism
CPT/HCPCS: 36415; 85610

== ENCOUNTER 2024-04-14 02:33 | Outpatient (CLI) | payer OTHER, SELFPAY ==
[2024-04-14 13:21] LABS: INR 3.1 (0.9-1.1); Prothrombin Time 28.6 sec (9.1-11.1)
[2024-04-14 13:52] LABS: CREATININE 1.2 mg/dL (0.70-1.30); Estimated GFR 71.42 (mL/min/1.73m2); Potassium 4.4 mmol/L (3.5-5.1)
[2024-04-14 14:16] LABS: Hemoglobin A1C 6.5 % (<5.7)
== END 2024-04-14 02:34 | disposition home or self-care (01) ==
PROVIDERS: PCP Family Medicine; Visit Provider Family Medicine
DX: E11.51 Type 2 diabetes mellitus with diabetic peripheral angiopathy without gangrene (principal); I70.209 Unspecified atherosclerosis of native arteries of extremities, unspecified extremity; I10 Essential (primary) hypertension; E03.9 Hypothyroidism, unspecified; Z86.711 Personal history of pulmonary embolism; Z86.718 Personal history of other venous thrombosis and embolism
CPT/HCPCS: 36415; 82565; 83036; 84132; 84443; 85610

== ENCOUNTER 2024-05-25 01:59 | Outpatient (CLI) | payer OTHER, SELFPAY ==
[2024-05-25 12:32] LABS: Prothrombin Time 27.4 sec (9.1-11.1)
== END 2024-05-25 02:00 | disposition home or self-care (01) ==
LOC: LOS 01:59
PROVIDERS: PCP Family Medicine; Visit Provider Family Medicine
DX: Z86.711 Personal history of pulmonary embolism (principal); Z86.718 Personal history of other venous thrombosis and embolism
CPT/HCPCS: 36415; 85610

== ENCOUNTER 2024-06-03 19:39 | Emergency (ER) | payer OTHER, SELFPAY ==
--- NOTE | 2024-06-03 19:30 | RT.EKG_ITS ---
APPROVED REPORT Exam: Resting ECG Reason for Exam: SOB Patient Location: E HR:101 bpm ECG Measurements Heart Rate 101 AXIS MD 156 P 87 QRSd 102 QRS 112 QT 355 T 51 QTc 460 Conclusion Sinus tachycardia 101 Right axis no stemi
[2024-06-03 19:41] VITALS: BP 163/68; PULSE 110; RESP 20; TEMP 36.3; O2SAT 95
[2024-06-03 19:59] VITALS: PULSE 106; RESP 18; RESP 20
[2024-06-03 20:00] VITALS: PULSE 104; RESP 16
--- NOTE | 2024-06-03 20:00 | DI.RAD_ITS ---
Exam(s) XR TIB/FIB RT EXAM: XR TIB/FIB RT CLINICAL HISTORY: leg pain. TECHNIQUE: 2D digital imaging was performed. COMPARISON: No exams were available for comparison FINDINGS: Two views No evidence of acute fracture of the tibia and fibula. However, most inferior tip of the bilateral m alleoli at the ankle level are not included in the field of view. Bone density is normal. No osseou s lesions. Tibial plateau appears unremarkable. There is diffuse soft tissue subcutaneous edema in the calf noted. No radiopaque foreign body. IMPRESSION: No acute osseous findings. Diffuse subcutaneous edema. DATA REPOSITORY: RADIATION DOSE DELIVERED:
[2024-06-03 20:09] LABS: Abs Immature Grans 0.04 10^3/uL (0.0-0.06); Absolute Basophil Count 0.11 10^3/uL (0.0-0.2); Absolute Eosinophil Count 0.22 10^3/uL (0.0-0.7); Absolute Lymphocyte Count 2.94 10^3/uL (1.2-3.4); Absolute Monocyte Count 0.99 10^3/uL (0.1-0.8); Absolute Neutrophil Count 6.62 10^3/uL (1.2-6.7); HCT 34.1 % (40.0-50.0); HGB 9.6 g/dL (13.5-17.5); Immature Grans % 0.4 %; Lymphocytes % 26.9 %; MCH 22.1 pg (27.0-33.0); MCHC 28.2 % (32.0-36.0); MCV 78 fL (80-95); MPV 9.6 fL (8.0-11.0); Monocytes % 9.1 %; Neutrophils % 60.6 %; Platelet Count 362 10^3/uL (130-400); RBC 4.35 10^6/uL (4.36-5.78); RDW 20.1 % (11.8-14.1); RDW-SD 56.5 fL; WBC 10.92 10^3/uL (4.4-10.8)
[2024-06-03 20:10] VITALS: PULSE 103; RESP 20
[2024-06-03 20:14] LABS: ESR 49 mm/hr (0-20)
[2024-06-03 20:20] VITALS: PULSE 102; RESP 16
[2024-06-03 20:23] LABS: INR 3.4 (0.9-1.1); PTT Activated 38.1 sec (23.6-32.8); Prothrombin Time 30.9 sec (9.1-11.1)
[2024-06-03 20:26] VITALS: BP 144/61; PULSE 97; PULSE 99; RESP 13
[2024-06-03 20:26] LABS: ALT 48 U/L (16-63); AST 71 U/L (15-37); Albumin 3.5 g/dL (3.4-5.0); Alkaline Phosphatase 128 U/L (46-116); Anion Gap 7.2 mmol/L (3-11); Anisocytosis 1+; BUN 13 mg/dL (7-18); Bilirubin, Total 0.26 mg/dL (0.2-1.0); CO2 28.8 mmol/L (21.0-32.0); CREATININE 1.3 mg/dL (0.70-1.30); Calcium 8.8 mg/dL (8.5-10.1); Chloride 103 mmol/L (98-107); Estimated GFR 64.88 (mL/min/1.73m2); Glucose 105 mg/dL (74-106); Potassium 4.1 mmol/L (3.5-5.1); Sodium 139 mmol/L (136-145); Total Protein 8.1 g/dL (6.4-8.2)
[2024-06-03] MEDS: HYDROmorphone 2 MG/ML SYR 1 MG IVP (20:27)
[2024-06-03 20:30] LABS: C-Reactive Protein < 0.50 mg/dL (<or=0.5)
[2024-06-03] MEDS: CLINDAMYCIN 600 MG/50 ML BAG 100 MG IVPB (21:15)
[2024-06-03] MEDS: Normal Saline Flush 10 ML SYR IVP (21:17)
--- NOTE | 2024-06-03 21:20 | DI.VRAD_ITS ---
PROCEDURE INFORMATION: Exam: XR Right Tibia and Fibula Exam date and time: 06/03/2024 8:38 PM Age: 53 years old Clinical indication: Pain; Lower leg; Right; Additional info: Pain, swelling, redness TECHNIQUE: Imaging protocol: Radiologic exam of the right tibia and fibula. Views: 2 views. Total images: 4 COMPARISON: US RIGHT EXTREMITY ULTRASOUND 02/17/2018 1:31 PM FINDINGS: Bones/joints: No bony or joint space abnormality. No fracture. Soft tissues: Diffuse subcutaneous edema. IMPRESSION: No bony abnormality. Dictated and Authenticated by: Josh Ventura MD. Ordering:[facility] Mike Vanessa MD
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
== END 2024-06-03 21:57 | disposition home or self-care (01) ==
PROVIDERS: Emergency Provider Emergency Medicine; PCP Family Medicine
DX: S81.801A Unspecified open wound, right lower leg, initial encounter (principal); W22.8XXA Striking against or struck by other objects, initial encounter; L03.115 Cellulitis of right lower limb; M79.661 Pain in right lower leg
CPT/HCPCS: 80053; 85652; 93005; 96365; 96374; 99284; 73590; 85025; 85610; 85730; 86140; 93010; 99283; J0737; J1170

== ENCOUNTER 2024-07-21 04:59 | Outpatient (CLI) | payer OTHER, SELFPAY ==
[2024-07-21 17:20] LABS: INR 2.9 (0.9-1.1); Prothrombin Time 26.3 sec (9.1-11.1)
== END 2024-07-21 05:00 | disposition home or self-care (01) ==
PROVIDERS: PCP Family Medicine; Visit Provider Family Medicine
DX: Z86.711 Personal history of pulmonary embolism (principal); Z86.718 Personal history of other venous thrombosis and embolism
CPT/HCPCS: 36415; 85610

== ENCOUNTER 2024-12-16 02:26 | Outpatient (CLI) | payer OTHER, SELFPAY ==
[2024-12-16 12:38] LABS: INR 1.2 (0.9-1.1); Prothrombin Time 12.2 sec (9.1-11.1)
== END 2024-12-16 02:27 | disposition home or self-care (01) ==
LOC: LOS 02:26
PROVIDERS: PCP Family Medicine; Visit Provider Family Medicine
DX: Z86.711 Personal history of pulmonary embolism (principal); Z86.718 Personal history of other venous thrombosis and embolism
CPT/HCPCS: 36415; 85610

== ENCOUNTER 2025-04-05 04:18 | Outpatient (CLI) | payer BC, SELFPAY ==
[2025-04-05 12:37] LABS: HCT 39.6 % (40.0-50.0); HGB 11.5 g/dL (13.5-17.5); MCH 23.3 pg (27.0-33.0); MCHC 29.0 % (32.0-36.0); MCV 80 fL (80-95); MPV 10.4 fL (8.0-11.0); Platelet Count 397 10^3/uL (130-400); RBC 4.94 10^6/uL (4.36-5.78); RDW 18.4 % (11.8-14.1); RDW-SD 53.1 fL; WBC 8.75 10^3/uL (4.4-10.8)
[2025-04-05 12:58] LABS: ALT 29 U/L (16-63); AST 30 U/L (15-37); Albumin 3.4 g/dL (3.4-5.0); Alkaline Phosphatase 137 U/L (46-116); Anion Gap 5.1 mmol/L (3-11); BUN 12 mg/dL (7-18); Bilirubin, Total 0.3 mg/dL (0.2-1.0); CO2 30.9 mmol/L (21.0-32.0); Calcium 9.0 mg/dL (8.5-10.1); Calculated LDL 88 mg/dL (<100); Chloride 104 mmol/L (98-107); Cholesterol 152 mg/dL (<200); Estimated GFR 70.98 (mL/min/1.73m2); Glucose 95 mg/dL (74-106); HDL Cholesterol 36 mg/dL (>or=40); Potassium 4.4 mmol/L (3.5-5.1); Sodium 140 mmol/L (136-145); TSH (W/Ref FT4) 2.92 uIU/mL (0.36-3.74); Total Protein 7.9 g/dL (6.4-8.2); Triglyceride 140 mg/dL (<150)
[2025-04-05 22:50] LABS: PSA, Screening 0.4 ng/mL (<=3.5)
== END 2025-04-05 04:19 | disposition home or self-care (01) ==
PROVIDERS: PCP Family Medicine; Visit Provider Family Medicine
DX: E03.9 Hypothyroidism, unspecified (principal); R53.83 Other fatigue; R10.9 Unspecified abdominal pain; Z12.5 Encounter for screening for malignant neoplasm of prostate; E78.5 Hyperlipidemia, unspecified
CPT/HCPCS: 36415; 80053; 80061; 84153; 85027; 84443